=== PATIENT | female | born 1945 | race Caucasian/White ===

== ENCOUNTER → 2016-07-06 | Outpatient (CLI) | payer MEDICARE ==
[2016-07-06 06:46] LABS: EKG EKG PERFORMED
[2016-07-06 07:36] LABS: Basophils % (A) 1 %; CH 31.5; CHCM 33.7; Eosinophils # (A) 0.2 k/uL (0-0.7); Eosinophils % (A) 4 %; HCT 38.4 % (34.0-46.0); HDW 2.52; HGB 13.1 gm/dL (11.4-16.0); Luc # (Auto) 0.19; Luc % (Auto) 4; Lymphocytes # (A) 2.3 k/uL (1.0-4.8); Lymphocytes % (A) 46 %; MCH 32.1 pg (25.0-35.0); MCHC 34.2 g/dL (31.0-37.0); MCV 93.8 fL (80.0-100.0); Mean Platelet Volume 6.4; Monocytes # (A) 0.4 k/uL (0-1.0); Monocytes % (A) 8 %; Neutrophils # (A) 1.8 k/uL (1.3-7.7); Neutrophils % (A) 37 %; RBC 4.09 m/uL (3.80-5.40); RDW 12.1 % (11.5-15.5); WBC (Perox) 5.17
[2016-07-06 07:55] LABS: INR 1.1 (<1.1); Partial Thromboplastin Time 23.9 sec (22.0-30.0); Prothrombin Time 10.6 sec (9.0-12.0)
[2016-07-06 07:57] LABS: Appearance,Urine Clear (Clear); Bilirubin,Urine Negative (Negative); Glucose,Urine (UA) Negative (Negative); Ketones,Urine Negative (Negative); Leukocyte Esterase,Urine Trace (Negative); Mucus,Urine Rare /hpf; Nitrite,Urine Negative (Negative); Particle Count 1364; Protein,Urine Negative (Negative); RBC,Urine 3 /hpf (0-5); Specific Gravity,Urine 1.015 (1.001-1.035); Squamous Epithelial Cell,Urine <1 /hpf (0-4); UA Billing (MACRO vs. MICRO) MICRO; Urobilinogen,Urine <2.0 mg/dL (<2.0); WBC,Urine 5 /hpf (0-5)
[2016-07-06 08:03] LABS: ALT 25 U/L (9-52); AST 27 U/L (14-36); Alkaline Phosphatase 60 U/L (38-126); Anion Gap 9 mmol/L; Blood Urea Nitrogen 15 mg/dL (7-17); Calcium 9.5 mg/dL (8.4-10.2); Carbon Dioxide 31 mmol/L (22-30); Chloride 99 mmol/L (98-107); Glucose 77 mg/dL (74-99); Non-African American GFR(MDRD) >60 (>60 ml/min/1.73 sqM); Potassium 4.4 mmol/L (3.5-5.1); Sodium 139 mmol/L (137-145); Total Bilirubin 0.7 mg/dL (0.2-1.3); Total Protein 7.4 g/dL (6.3-8.2)
== END | disposition home or self-care (01) ==
LOC: LABPAT 06:32
PROVIDERS: ATTEND Orthopaedic Surgery
DX: Z01.812 Encounter for preprocedural laboratory examination (principal); Z79.01 Long term (current) use of anticoagulants
CPT/HCPCS: 80053; 81001; 85025; 85610; 85730; 87070; 93005

== ENCOUNTER 2016-07-20 08:38 | Inpatient (IN) | payer MEDICARE ==
[2016-07-13 17:36] VITALS: BMI 25.0
[~2016-07-20 08:38] MED LIST: ACETAMINOPHEN TAB 500 MG TAB PO ONE; DEXAMETHASONE SOD PHOSPHATE 10 MG/ML 1 ML VIAL IV ONE; HYDROmorphone 1 MG/ML 1 ML SYRINGE IVP PRN; MELOXICAM 7.5 MG TAB PO ONE; MIDAZOLAM 2 MG/2 ML VIAL IV PRN; ONDANSETRON 4 MG/2 ML VIAL IVP ONE; ROPIVACAINE 246.25 MG, EPINEPHrine 0.5 MG, KETOROLAC 30 MG, cloNIDine HCL/PF 80 MCG, WA... MISCELLANE ONE; TRANEXAMIC ACID 1,000 MG in SODIUM CHLORIDE 0.9% 100 ML IVPB ONE; ceFAZolin 2 GM in SODIUM CHLORIDE 0.9% 100 ML IVPB ONE
[2016-07-20] MEDS ORDERED: LIDOCAINE 1% 20 ML VIAL (10MG/ML) FOR IV START INTRADERMA ONE (09:25)
[2016-07-20] MEDS: LACTATED RINGERS 1,000 ML IV SCH (09:25)
[2016-07-20 09:28] LABS: Glucose,Whole Blood 77 mg/dL (75-99)
[2016-07-20] MEDS ORDERED: HYDROCORTISONE SUCCINATE 100 MG/2 ML VIAL IV ONE (10:06)
[2016-07-20] MEDS ORDERED: ROPIVACAINE 1,100 MG, SODIUM CHLORIDE 0.9% 330 ML MISCELLANE PRN ×2 (10:17)
--- NOTE | 2016-07-20 10:19 | P.ONQ ---
Anesthesiology Proc Note - PNB - Peripheral Nerve Block Performed Right Adductor Canal Indication: Acute Post-Operative Pain, Requested by physician (Jose Antonio Tate) Sedation Type: Sedate with meaningful contact maintained Preparation: Sterile Dressing Position: Supine Catheter: Indwelling Needle Types: On-Q Needle Size: 100mm (4") Needle Gauge: 20 Technique: Ultrasound Injectate: 0.5% Ropivacaine (see comment for volume) (22cc) Blood Aspirated: No Pain Paresthesia on Injection Noted: No Resistance on Injection: Normal Events: Uneventful and Well Tolerated
[2016-07-20] MEDS ORDERED: MIDAZOLAM 2 MG/2 ML VIAL ONE (10:22)
[2016-07-20] MEDS ORDERED: PROPOFOL 10 MG/ML 20 ML VIAL IV ONE (10:22)
[2016-07-20] MEDS ORDERED: fentaNYL (PF) 50 MCG/ML 2 ML AMP ONE (10:22)
[2016-07-20] MEDS ORDERED: SODIUM CHLORIDE 0.9% 100 ML BAG ONE (10:22)
[2016-07-20] MEDS ORDERED: PHENYLEPHRINE-0.9% NACL SYG 1 MG/10 ML SYRINGE ONE (10:22)
[2016-07-20] MEDS ORDERED: LIDOCAINE 1% INJ 10MG/ML (20 ML MDV) ONE (10:22)
[2016-07-20] MEDS ORDERED: TRANEXAMIC ACID 1,000 MG/10 ML VIAL ONE (10:22)
[2016-07-20] MEDS ORDERED: CLINDAMYCIN 1,800 MG in SODIUM CHLORIDE 0.9% IRRIGATIO 3,000 ML IRRIGATION ONE (10:55)
[2016-07-20] MEDS ORDERED: LACTATED RINGERS 1,000 ML IV ONE (11:08)
--- NOTE | 2016-07-20 11:38 | P.OP ---
Date of Procedure: 07/20/16 Preoperative Diagnosis: Severe osteoarthritis right knee Postoperative Diagnosis: Severe osteoarthritis right knee Procedure(s) Performed: Right total knee arthroplasty Implants: Harris [employer] Nephew Oxinium femoral component size 5, right Harris & Nephew Ingrid II right nonporous tibial baseplate size 5 Harris [employer] Nephew size 9 mm Legion XLPE dished articular insert, size 5-6 Harris [employer] Nephew Ingrid II resurfacing patellar component, 32 mm All components were cemented using Chandra bone cement.. The articulation is ceramic on polyethylene. Anesthesia: spinal Surgeon: Jose Antonio Tate Sound Mixer #1: Fe Baldwin Estimated Blood Loss (ml): 50 Pathology: other (Bone and cartilage) Condition: stable Disposition: PACU Indications for Procedure: After failure of conservative treatment we discussed the surgical and nonsurgical treatment options at length. Patient wishes to proceed with a total knee arthroplasty. Complications specific to this procedure were discussed at length, including but not limited to infection, bleeding, stiffness , and nerve injury. Patient is aware of all these complications and informed consent was obtained Operative Findings: The operative findings are consistent with severe osteoarthritis of the right knee. Description of Procedure: Patient was seen in the preoperative area consent was reviewed and operative site was marked with a skin marker. An adductor canal pain catheter was placed by anesthesia in the preoperative area. Patient was then brought to the operating room and given preoperative antibiotics intravenously. A spinal anesthetic was administered by the anesthesia department. A tourniquet was placed on the upper thigh and the lower extremity was prepped and draped in usual sterile fashion. A gram of transexamic acid was given. A universal timeout was then performed which confirmed the patient's name, surgical site, ALLERGIES, and consent. The lower extremity was then exsanguinated and tourniquet was inflated to 250 mmHg. A standard and anterior midline approach to the knee was performed. The skin and subcutaneous tissue was dissected down to the patellar tendon. A medial parapatellar arthrotomy was then performed. The knee was then extended, the patellar was everted, and the knee was again flexed. Anterior horns of both menisci were excised, and a release was performed to the posterior medial aspect of the knee. On gross visual inspection, there was complete loss of articular cartilage in the medial and patellofemoral joint spaces. There was also significant cartilage damage in the lateral compartment. There were multiple periarticular osteophytes which were then removed with a Ronguer. The femoral canal was then opened with the appropriate drill, and the intramedullary femoral cutting guide was then placed and set for 4 of valgus. The distal femoral cutting block was then pinned in place, and the distal femur was then cut. The cutting block was then removed and the cut was checked for flatness. Next, the sizing guide was then placed and set for 3 external rotation based off of the epicondylar axis and Whitesides line. After the femur was sized, the appropriate 4-in-1 cutting block was then pinned in place. The anterior condyles were cut without notching. The posterior and chamfer cuts were performed while protecting the collateral ligaments. The cutting block was then removed, and the femoral canal was plugged with autologous bone. Attention was then directed to the tibia. The remaining ACL was removed with a Ronguer, and the tibia was then gently subluxed forward with a large bent knee retractor. Any remaining menisci was excised. The posterior lateral corner was cauterized in order to cauterize the lateral geniculate artery. The extra medullary tibial cutting guide was then placed, set for the appropriate rotation , slope, and depth of resection. The proximal tibia cutting guide was then pinned in place. Proximal tibia was then cut and sized. Next trials were then placed with the appropriate-sized insert. The knee was able to fully extend and flex to 130 and was stable throughout all range of motion. The knee was then extended, patella everted. Patella was then measured, and then using an osteotomy guide, the patella was cut at the appropriate level. The patella was then measured and drilled and the patella trial was then placed. The knee was then taken through range of motion with the patella trial and the patella tracked normally. The knee was then extended patella trial was then removed and the patella was everted. Knee was then flexed and lug holes were drilled through the femoral trial and the femoral trial was then removed. The tibial was then exposed, and the tibial broach guide was then pinned in place after it was set for the appropriate rotation to allow for the most coverage without overhang. The tibia was then reamed and broached. The cut surfaces of bone were then irrigated with pulsatile lavage. The posterior structures were injected with the ropivacaine solution. The knee was also irrigated with Irrisept solution. The components were then opened, the cement was mixed, and the components were then cemented in place. The cement was allowed to harden with the knee in full extension. While the cement was hardening, the remaining soft tissues were injected with the ropivacaine solution. After the cemented hardened. The tourniquet was released, and hemostasis was obtained. A second gram of transexamic acid was given. The knee was again irrigated. The knee was again taken through range of motion and found to be stable throughout all range of motion of 0-130, and the patella tracked normally. The fascia was then closed with #2 strata fix suture. The subcutaneous tissue was closed with 3-0 Vicryl and 3-0 strata fix. Dermabond tape was used for the skin and placed with the knee in flexion. The patient was placed in a sterile dressing. Patient was then transferred to recovery room in stable condition. The events assistant MARY Milligan was required due the complexity surgery and the need for a skilled wellness assistant. She assisted in positioning, draping , retraction, and closure of the wound.
[2016-07-20] MEDS ORDERED: NA PHOS,M-B/NA PHOS,DI-BA 133 ML ENEMA RECTAL PRN (12:09)
[2016-07-20] MEDS ORDERED: ONDANSETRON 4 MG/2 ML VIAL IVP PRN (12:09)
[2016-07-20] MEDS ORDERED: MAGNESIUM HYDROXIDE 2,400 MG/10 ML CUP PO PRN (12:09)
[2016-07-20] MEDS ORDERED: hydrOXYzine PAMOATE 25 MG CAP PO PRN (12:09)
[2016-07-20] MEDS ORDERED: DIAZEPAM 5 MG TAB PO PRN (12:09)
[2016-07-20] MEDS ORDERED: BISACODYL 10 MG SUPP RECTAL PRN (12:09)
[2016-07-20] MEDS ORDERED: NALOXONE 0.4 MG/ML 1 ML VIAL IV PRN (12:09)
[2016-07-20] MEDS ORDERED: HYDROmorphone 1 MG/ML 1 ML SYRINGE IVP PRN ×3 (12:09)
--- NOTE | 2016-07-20 12:35 | XR ---
EXAMINATION TYPE: XR knee limited RT DATE OF EXAM: 07/20/2016 12:28 PM CLINICAL HISTORY: Postoperative evaluation Two views of the right knee are submitted. Identified are changes of total knee arthroplasty with femoral and tibial components appearing well seated. Postsurgical soft tissue changes are noted. Alignment is anatomic.
[2016-07-20] MEDS ORDERED: SODIUM CHLORIDE 0.9% 1,000 ML IV ONE (14:18)
[2016-07-20] MEDS: ceFAZolin 2 GM in SODIUM CHLORIDE 0.9% 100 ML IVPB SCH ×2 (16:58→23:26)
[2016-07-20] MEDS: SODIUM CHLORIDE 0.9% 1,000 ML IV SCH ×2 (19:03→23:27)
[2016-07-20] MEDS: ASPIRIN 325 MG TAB PO SCH (20:18)
[2016-07-20] MEDS: SENNOSIDES-DOCUSATE SODIUM 1 EACH TAB PO SCH (20:18)
[2016-07-20] MEDS: HYDROcodone/APAP 5-325MG 1 EACH TAB PO PRN (20:19)
[2016-07-20] MEDS: HYDROCORTISONE 10 MG TAB PO SCH (21:06)
[2016-07-20] MEDS: DIAZEPAM 5 MG TAB PO PRN (23:26)
[2016-07-21] MEDS: LACTATED RINGERS 1,000 ML IV SCH (00:25)
[2016-07-21 00:57] LABS: Glucose,Whole Blood 85 mg/dL (75-99)
[2016-07-21] MEDS: HYDROcodone/APAP 5-325MG 1 EACH TAB PO PRN ×4 (02:24→20:36)
[2016-07-21] MEDS: LEVOTHYROXINE 88 MCG TAB PO SCH (05:50)
[2016-07-21] MEDS: SODIUM CHLORIDE 0.9% 1,000 ML IV SCH ×2 (06:59→07:00)
[2016-07-21 07:33] LABS: Basophils # (A) 0.1 k/uL (0-0.2); Basophils % (A) 1 %; CH 31.8; CHCM 33.5; Eosinophils # (A) 0.1 k/uL (0-0.7); Eosinophils % (A) 2 %; HCT 33.8 % (34.0-46.0); HDW 2.56; Luc % (Auto) 2; Lymphocytes # (A) 1.7 k/uL (1.0-4.8); Lymphocytes % (A) 27 %; MCH 31.2 pg (25.0-35.0); MCHC 32.7 g/dL (31.0-37.0); MCV 95.3 fL (80.0-100.0); Mean Platelet Volume 7.1; Monocytes # (A) 0.4 k/uL (0-1.0); Monocytes % (A) 7 %; Neutrophils # (A) 3.9 k/uL (1.3-7.7); Neutrophils % (A) 63 %; RBC 3.54 m/uL (3.80-5.40); RDW 12.4 % (11.5-15.5); WBC 6.3 k/uL (3.8-10.6); WBC (Perox) 6.44
--- NOTE | 2016-07-21 07:59 | P.PN ---
Subjective Principal diagnosis: Status post right total knee arthroplasty This is a pleasant 70-year-old female who is status post right total knee arthroplasty. Today's postoperative day #1. The patient is seen and evaluated at bedside with Dr. Jose Antonio Tate this morning. She's been up walking with a walker. Her pain is under fair control. She has no additional complaints today. She wishes to hold her discharge until tomorrow morning. Objective - Vital Signs Vital signs: Vital Signs Temp 99 F 07/21/16 07:00 Pulse 87 07/21/16 07:38 Resp 18 07/21/16 07:38 BP 108/48 07/21/16 07:00 Pulse Ox 96 07/21/16 07:00 Intake & Output 07/20/16 07/21/16 07/21/16 18:59 06:59 18:59 Intake Total 2601 1400 Output Total 1250 400 Balance 1351 1400 -400 Weight 72.575 kg 72.575 kg Intake: IV 2601 1100 Sodium Chloride 0.9% 1, 1100 000 ml @ 100 mls/hr IV . Q10H KEILY Rx#:[id number] Oral 300 Output: Urine 1200 400 Estimated Blood Loss 50 Other: Voiding Method Toilet Toilet Toilet # Voids 1 3 3 - Exam The patient does not appear in acute distress. Alert and orientated 3. Dressing is clean dry and intact. Calf is soft and nontender. Good foot and ankle motion without difficulty. Sensation and circulatory status is intact. - Labs CBC & Chem 7: 07/21/16 06:54 Labs: Abnormal Lab Results - Last 24 Hours (Table) 07/21/16 Range/Units 06:54 RBC 3.54 L (3.80-5.40) m/uL Hgb 11.0 L (11.4-16.0) gm/dL Hct 33.8 L (34.0-46.0) % Assessment and Plan (1) Primary localized osteoarthritis of right knee Status: Acute (2) Status post right knee replacement Status: Acute Plan: 1. Continue with routine postoperative care. 2. Anticoagulation with aspirin. 3. Physical therapy and CPM today. 4. Appreciate input from medicine. 5. Anticipate discharge to home with home care likely tomorrow.
[2016-07-21] MEDS: ACETYLCYSTEINE 800 MG/4 ML VIAL PO SCH (08:32)
[2016-07-21] MEDS: ASPIRIN 325 MG TAB PO SCH ×2 (08:34→20:24)
[2016-07-21] MEDS: HYDROCORTISONE 10 MG TAB PO SCH ×2 (08:35→20:25)
[2016-07-21] MEDS ORDERED: FLUDROCORTISONE 0.1 MG TAB PO SCH (09:00)
--- NOTE | 2016-07-21 09:27 | P.PN ---
Progress Note - Text The patient is status post right adductor canal catheter placement. The catheter was placed for postoperative pain control, status post total right arthroplasty, postoperative day #1. Ropivacaine 0.2% is infusing at 10 mLs per hour. The patient has no complaints of right lower extremity numbness or weakness. Patient's VAS score is 1-2-10. Assessment: Patient's adductor canal catheter is in place and working appropriately. Plan: continue infusion and adjust it as needed.
[2016-07-21] MEDS: MELOXICAM 7.5 MG TAB PO SCH (09:36)
[2016-07-21] MEDS: HYDROCORTISONE SUCCINATE 100 MG/2 ML VIAL IV SCH ×2 (11:30→20:24)
[2016-07-21] MEDS ORDERED: CYANOCOBALAMIN 500 MCG TAB PO SCH (12:00)
[2016-07-21] MEDS ORDERED: CHOLECALCIFEROL 1,000 UNIT TAB PO SCH (12:00)
[2016-07-21] MEDS ORDERED: CALCIUM CARBONATE 500 MG CHEWABLE PO SCH (12:00)
--- NOTE | 2016-07-21 13:47 | P.CONS ---
History of Present Illness - Reason for Consult Consult date: 07/21/16 Medical management - History of Present Illness This is a 70-year-old female. Her primary care physician is Dr. Kai Wynn. 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 Bernal. Patient has had osteoarthritis of the right knee and came in for an elective right knee total arthroplasty with Dr. Tate. She has had no postop complications and has been active and walking in the hallway. She is eating without nausea or vomiting. She denies any chest pain shortness of breath. She is passing gas. Sensation to her lower extremities is normal. She does state that she had a little bit of clamminess last night and nausea but she thinks it was because she ate too much all of a sudden. No continued symptoms. Review of Systems All systems: negative Constitutional: Denies chills, Denies fever Eyes: denies blurred vision, denies pain Ears, nose, mouth and throat: Denies headache, Denies sore throat Cardiovascular: Denies chest pain, Denies shortness of breath Respiratory: Denies cough Gastrointestinal: Denies abdominal pain, Denies diarrhea, Denies nausea, Denies vomiting Genitourinary: Denies dysuria, Denies hematuria Musculoskeletal: Denies myalgias Integumentary: Denies pruritus, Denies rash Neurological: Denies numbness, Denies weakness Psychiatric: Denies anxiety, Denies depression Endocrine: Denies fatigue, Denies weight change Past Medical History Past Medical History: Osteoarthritis (OA), Thyroid Disorder Additional Past Medical History / Comment(s): THERESA DISEASE, BACK PAIN, SEIZURES A CHILD ONLY, pulmonary fibrosis right lung History of Any Multi-Drug Resistant Organisms: None Reported Past Surgical History: Section, Tubal Ligation Additional Past Surgical History / Comment(s): bronchoscopy Past Anesthesia/Blood Transfusion Reactions: Motion Sickness Past Psychological History: No Psychological Hx Reported Smoking Status: Never smoker Past Alcohol Use History: None Reported Additional Past Alcohol Use History / Comment(s): No street drug or alcohol use. Past Drug Use History: None Reported - Past Family History Father Family Medical History: Cancer Additional Family Medical History / Comment(s): Father at age 79 from lung cancer. Mother Additional Family Medical History / Comment(s): Mother at age 93 from old age with history of Parkinson's. Daughter(s) Additional Family Medical History / Comment(s): She has 3 children with no major medical problems. Medications and Allergies Home Medications Medication Instructions Recorded Confirmed Type Aspirin 81 mg PO DAILY 11/03/13 07/20/16 History Fludrocortisone [Florinef] 0.05 mg PO MOWEFR 11/03/13 07/20/16 History Hydrocortisone [Cortef] 5 mg PO HS 11/03/13 07/20/16 History Hydrocortisone [Cortef] 15 mg PO QAM 11/03/13 07/20/16 History Levothyroxine Sodium [Synthroid] 88 mcg PO DAILY 11/03/13 07/20/16 History Acetylcysteine [Nac] 500 mg PO DAILY 07/13/16 07/20/16 History Calcium Carbonate [Calcium] 600 mg PO DAILY 07/13/16 07/20/16 History Cholecalciferol [Vitamin D3] 5,000 unit PO DAILY 07/13/16 07/20/16 History Cyanocobalamin [Vitamin B-12] 500 mcg PO DAILY 07/13/16 07/20/16 History Naproxen [Naprosyn] 500 mg PO Q12HR 07/13/16 07/20/16 History traMADol HCl [Ultram] 50 mg PO Q6H PRN 07/13/16 07/20/16 History Allergies Allergy/AdvReac Type Severity Reaction Status Date / Time Penicillins Allergy Rash/Hives Verified 07/20/16 09:21 sulfacetamide sodium Allergy Rash/Hives Verified 07/20/16 09:21 [From Sulfamide] Physical Exam Vitals: Vital Signs Temp Pulse Pulse Resp BP BP Pulse Ox 07/21/16 07:38 94 87 18 07/21/16 07:00 99 F 92 18 108/48 96 07/21/16 01:50 98.4 F 87 18 104/51 95 07/20/16 18:46 97.5 F L 93 16 115/67 98 07/20/16 17:48 94 16 07/20/16 16:36 97.9 F 86 16 115/64 07/20/16 15:30 94 16 105/55 98 07/20/16 14:30 96 16 101/49 98 07/20/16 14:00 93 16 92/45 98 07/20/16 13:30 94 16 144/68 98 07/20/16 13:07 91 18 124/58 96 07/20/16 12:52 91 16 97/52 99 07/20/16 12:37 94 16 104/52 100 07/20/16 12:22 92 16 102/51 100 07/20/16 12:07 97.6 F 93 16 112/53 97 Intake and Output 07/20/16 07/21/16 07/21/16 22:59 06:59 14:59 Intake Total 500 900 Output Total 800 400 Balance -300 900 -400 Intake: IV 300 800 Sodium Chloride 0.9% 1, 300 800 000 ml @ 100 mls/hr IV . Q10H KEILY Rx#:[id number] Oral 200 100 Output: Urine 800 400 Other: Voiding Method Toilet Toilet # Voids 2 3 3 Weight 72.575 kg 72.575 kg Patient Weight 07/22/16 06:59 Weight 72.575 kg Gen: This is a 70-year-old female. She is sitting up in bed and appears to be in no acute distress. HEENT: Head is atraumatic, normocephalic. Pupils equal, round. Sclerae is anicteric. NECK: Supple. No JVD. No lymphadenopathy. No thyromegaly. LUNGS: Scattered coarse rhonchi noted. No intercostal retractions. HEART: Regular rate and rhythm. No murmur. ABDOMEN: Soft. Bowel sounds are present. No masses. No tenderness. EXTREMITIES: No pedal edema. No calf tenderness. Dressing is dry and intact of the right knee. No breakthrough bleeding or drainage. NEUROLOGICAL: Patient is awake, alert and oriented x3. Cranial nerves 2 through 12 are grossly intact. Results CBC & Chem 7: 07/21/16 06:54 Labs: Abnormal Lab Results - Last 24 Hours (Table) 07/21/16 Range/Units 06:54 RBC 3.54 L (3.80-5.40) m/uL Hgb 11.0 L (11.4-16.0) gm/dL Hct 33.8 L (34.0-46.0) % Assessment and Plan Plan: 1. Osteoarthritis of the right knee status post total knee arthroplasty. Patient has been hemodynamically stable. No postop complications. Continue GI , DVT prophylaxis. Continue incentive spirometry to reduce incidence of atelectasis and hospital-acquired pneumonia. Continue current pain management. PT per orthopedics. 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 3. Hypothyroidism. Continue Synthroid. 4. Calcium, vitamin D and vitamin B12 deficiency. Continue supplements. 5. DVT prophylaxis. Patient is on aspirin 325 mg twice daily. Discharge plan: Home with [facility] tomorrow Impression and plan of care have been directed as dictated by the signing physician. Dorcas Tomas nurse practitioner acting as scribe for signing physician. Time with Patient: Greater than 30
[2016-07-21] MEDS: SENNOSIDES-DOCUSATE SODIUM 1 EACH TAB PO SCH (20:24)
[2016-07-21] MEDS: DIAZEPAM 5 MG TAB PO PRN (22:59)
[2016-07-22] MEDS: HYDROcodone/APAP 5-325MG 1 EACH TAB PO PRN ×2 (05:21→10:28)
[2016-07-22] MEDS: LEVOTHYROXINE 88 MCG TAB PO SCH (05:21)
[2016-07-22] MEDS: HYDROCORTISONE SUCCINATE 100 MG/2 ML VIAL IV SCH (05:22)
[2016-07-22 07:33] VITALS: BP 124/58; PULSE 82; RESP 17; TEMP 97.2
[2016-07-22] MEDS: ASPIRIN 325 MG TAB PO SCH (08:01)
[2016-07-22] MEDS: HYDROCORTISONE 10 MG TAB PO SCH (08:01)
[2016-07-22] MEDS: MELOXICAM 7.5 MG TAB PO SCH (08:03)
[2016-07-22] MEDS: ACETYLCYSTEINE 800 MG/4 ML VIAL PO SCH (08:03)
--- NOTE | 2016-07-22 08:37 | P.DS ---
Providers Date of admission: 07/20/16 08:38 Expected date of discharge: 07/22/16 Attending physician: Jose Antonio Tate Consults: 07/20/16 12:09 Consult Physician Routine Consulting Provider: Scout Bonner Reason/Comments: medical management and reorder home meds Do you want consulting provider notified?: Yes Primary care physician: Kai Wynn - Discharge Diagnosis(es) (1) Primary localized osteoarthritis of right knee Current Visit: Yes Status: Acute (2) Status post right knee replacement Current Visit: Yes Status: Acute Hospital Course: This is a 70-year-old female who was last seen with complaint of continued right knee pain. The patient has a known history of degenerative arthritis of the right knee and presents to discuss surgical options. After discussion and consideration the patient elects to proceed with total right knee arthroplasty. The patient is seen preoperatively by Dr. Wynn and cleared for surgery. The patient is admitted to [facility] for total right knee arthroplasty. The procedures performed without complication or sequelae. Patient is doing well postoperatively. Vital signs are stable at discharge. Labs are stable at discharge. the patient is ambulating well with walker with minimal assistance. The patient is discharged to home on postop day #2 pending medical clearance. Please see orders and refer to the med rec for accurate list of medications. Patient Condition at Discharge: Good Plan - Discharge Summary New Discharge Prescriptions: Aspirin 325 mg PO BID #60 tab Hydrocodone/Acetaminophen [Ludlow 5-325] 1 - 2 each PO Q6HR PRN #90 tab PRN Reason: Pain Sennosides-Docusate Sodium [Senokot-S] 2 tab PO DAILY #60 tablet Discharge Medication List Aspirin 81 mg PO DAILY 11/03/13 [History] Fludrocortisone [Florinef] 0.05 mg PO MOWEFR 11/03/13 [History] Hydrocortisone [Cortef] 5 mg PO HS 11/03/13 [History] Hydrocortisone [Cortef] 15 mg PO QAM 11/03/13 [History] Levothyroxine Sodium [Synthroid] 88 mcg PO DAILY 11/03/13 [History] Acetylcysteine [Nac] 500 mg PO DAILY 07/13/16 [History] Calcium Carbonate [Calcium] 600 mg PO DAILY 07/13/16 [History] Cholecalciferol [Vitamin D3] 5,000 unit PO DAILY 07/13/16 [History] Cyanocobalamin [Vitamin B-12] 500 mcg PO DAILY 07/13/16 [History] Naproxen [Naprosyn] 500 mg PO Q12HR 07/13/16 [History] traMADol HCl [Ultram] 50 mg PO Q6H PRN 07/13/16 [History] Aspirin 325 mg PO BID #60 tab 07/21/16 [Rx] Hydrocodone/Acetaminophen [Ludlow 5-325] 1 - 2 each PO Q6HR PRN #90 tab 07/21/16 [Rx] Sennosides-Docusate Sodium [Senokot-S] 2 tab PO DAILY #60 tablet 07/21/16 [Rx] Follow up Appointment(s)/Referral(s): [facility], [NON-STAFF] - 1 Week Jose Antonio Tate DO [Doctor of Osteopathic Medicine] - 2 Weeks Ambulatory/Diagnostic Orders: Continuous Passive Motion (CPM) Machine [DME.AMB1] Location: Determined By Patient Activity/Diet/Wound Care/Special Instructions: Weightbearing as tolerated with a walker CPM daily Daily dressing changes, keep incision clean and dry Okay to shower after 72 hours with no drainage Leave prineo tape intact [facility] with questions or concerns [phone] script for CPM sent to [facility] call them when you get home and they will deliver it to your home. Discharge Disposition: HOME WITH HOME HEALTH SERVICES
--- NOTE | 2016-07-22 09:07 | P.PN ---
Progress Note - Text 0707. Anesthesia. POD 2. Patient is status post right TKR under spinal anesthesia with a right adductor canal catheter placed for postoperative pain relief. 0.2% ropivacaine is currently running at 10 mL per hour and the patient reports a VAS of 1, 3. Catheter site is intact clean and dry.
[2016-07-22] MEDS ORDERED: HYDROCORTISONE SUCCINATE 100 MG/2 ML VIAL IV SCH (12:00)
== END 2016-07-22 11:40 | disposition home health service (06) | DRG 470 ==
LOC: 2ORMAIN 08:38 → 3SUR 12:07
PROVIDERS: ADMIT Orthopaedic Surgery; ATTEND Orthopaedic Surgery
PROC: 0SRC0J9 Replacement of Right Knee Joint with Synthetic Substitute, Cemented, Open Approach (ICD-10-PCS; principal; 2016-07-20 10:30)
DX: M17.11 Unilateral primary osteoarthritis, right knee (principal); E27.1 Primary adrenocortical insufficiency; J84.10 Pulmonary fibrosis, unspecified; Z88.0 Allergy status to penicillin; Z79.899 Other long term (current) drug therapy; Z88.1 Allergy status to other antibiotic agents; Z79.82 Long term (current) use of aspirin; Z88.2 Allergy status to sulfonamides
CPT/HCPCS: 85025; 88300

== ENCOUNTER 2016-08-29 16:04 | Emergency (ER) | payer MEDICARE ==
[2016-08-29 16:22] VITALS: RESP 18
[2016-08-29] MEDS ORDERED: METOCLOPRAMIDE 5 MG/ML 2 ML VIAL IVP STA (18:57)
[2016-08-29] MEDS ORDERED: SODIUM CHLORIDE 0.9% 1,000 ML IV STA ×2 (18:57)
[2016-08-29] MEDS ORDERED: PANTOPRAZOLE 40 MG/10 ML VIAL IVP STA (18:57)
[2016-08-29] MEDS ORDERED: HYDROCORTISONE SUCCINATE 100 MG/2 ML VIAL IV STA (18:59)
--- NOTE | 2016-08-29 19:04 | ED ---
General Adult HPI - General Chief complaint: Abdominal Pain Stated complaint: hasn't felt good for 4 or 5 days Source: patient, family, RN notes reviewed Mode of arrival: ambulatory Limitations: no limitations - History of Present Illness Initial comments: Chief complaint and history of present illness a 71-year-old female here with her . Patient reports for 2 days up until yesterday she had diarrhea. This morning she had a normal formed stool. In general the patient is feeling weak and tired with poor appetite. Slightly hot and cold. 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 She will receive here. She denies any fever. She's had right lower quadrant discomfort 14 months on-again off-again usually last several minutes. Yesterday was noticeable just prior to having a loose bowel movement and then the pain would go away. She has had an ultrasound of this area without finding any pathology per the . - Related Data Home Medications Medication Instructions Recorded Confirmed Aspirin 81 mg PO DAILY 11/03/13 08/29/16 Fludrocortisone [Florinef] 0.05 mg PO MOWEFR 11/03/13 08/29/16 Hydrocortisone [Cortef] 5 mg PO HS 11/03/13 08/29/16 Hydrocortisone [Cortef] 15 mg PO QAM 11/03/13 08/29/16 Levothyroxine Sodium [Synthroid] 88 mcg PO DAILY 11/03/13 08/29/16 Acetylcysteine [Nac] 500 mg PO DAILY 07/13/16 08/29/16 Calcium Carbonate [Calcium] 600 mg PO DAILY 07/13/16 08/29/16 Cholecalciferol [Vitamin D3] 5,000 unit PO DAILY 07/13/16 08/29/16 Cyanocobalamin [Vitamin B-12] 500 mcg PO DAILY 07/13/16 08/29/16 traMADol HCl [Ultram] 50 mg PO Q6H PRN 07/13/16 08/29/16 Hydrocodone/Acetaminophen [[place] 1 - 2 tab PO Q6HR PRN 08/29/16 08/29/16 5-325] Previous Rx's Medication Instructions Recorded Ondansetron Odt [Zofran ODT] 4 mg PO Q8HR PRN #5 tab 08/29/16 Allergies Allergy/AdvReac Type Severity Reaction Status Date / Time Penicillins Allergy Rash/Hives Verified 08/29/16 18:33 sulfacetamide sodium Allergy Rash/Hives Verified 08/29/16 18:33 [From Sulfamide] Review of Systems ROS Statement: Those systems with pertinent positive or pertinent negative responses have been documented in the HPI. Review of systems. Patient's denying any visual acuity or headache no chest pain or shortness of breath. She reports she just feels generally weak and nauseated but no vomiting. Loose stool for 2 days he stopped yesterday normal stool today. No rashes. Poor appetite. Feels weak and tired. Patient denies any neuro deficits. All systems were reviewed. 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 Her surgeries include , tubal ligation and bronchoscopy. The patient's family history significant for a sister had brain cancer, father of lung cancer in her mother had Parkinson's. Patient has ALLERGIES to penicillin and sulfa. Nonsmoker nondrinker. ROS Other: All systems not noted in ROS Statement are negative. Past Medical History Past Medical History: Osteoarthritis (OA), Thyroid Disorder Additional Past Medical History / Comment(s): RANDY DISEASE, BACK PAIN, SEIZURES A CHILD ONLY, pulmonary fibrosis right lung History of Any Multi-Drug Resistant Organisms: None Reported Past Surgical History: Section, Tubal Ligation Additional Past Surgical History / Comment(s): bronchoscopy Past Anesthesia/Blood Transfusion Reactions: Motion Sickness Past Psychological History: No Psychological Hx Reported Smoking Status: Never smoker Past Alcohol Use History: None Reported Additional Past Alcohol Use History / Comment(s): No street drug or alcohol use. Past Drug Use History: None Reported - Past Family History Mother Additional Family Medical History / Comment(s): Mother at age 93 from old age with history of Parkinson's. Daughter(s) Additional Family Medical History / Comment(s): She has 3 children with no major medical problems. Father Family Medical History: Cancer Additional Family Medical History / Comment(s): Father at age 79 from lung cancer. General Exam - General Exam Comments Initial Comments: General: The patient is awake and alert, states she hasn't feel well in general, weak and tired, poor appetite. Loose stool for 2 days he stopped yesterday. Vital signs shows temperature 97.7 pulse 97 respiratory rate 18 pulse ox 97% room air blood pressure 136/64 Eye: Pupils are equal, round and reactive to light, extra-ocular movements are intact ; there is normal conjunctiva bilaterally. No signs of icterus. Ears, nose, mouth and throat: There are moist mucous membranes and no oral lesions. Neck: The neck is supple, there is no tenderness , no anterior cervical lymphadenopathy, thyroid normal. Cardiovascular: There is a regular rate and rhythm. No murmur, rub or gallop is appreciated. Respiratory: Lungs are clear to auscultation, respirations are non-labored, breath sounds are equal. No wheezes, stridor, rales, or rhonchi. Gastrointestinal: Soft, non-distended, non-tender abdomen without masses or organomegaly noted. There is no rebound or guarding present. No CVA tenderness. Bowel sounds are unremarkable. No pain to deep palpation to the right lower quadrant. Back: No complaint of back pain, full range of motion. Musculoskeletal: Normal ROM, no tenderness, There is no pedal edema. There is no calf tenderness or swelling. Sensation intact. Pulses equal bilaterally 2+. Neurological: No neuro deficits. She is generally feels weak and tired with poor appetite. Skin: Skin is warm and dry and no rashes or lesions are noted. Limitations: no limitations Course Vital Signs 08/29/16 08/29/16 16:19 21:00 Temperature 97.7 F 98.0 F Pulse Rate 97 94 Respiratory 18 18 Rate Blood Pressure 136/64 119/57 O2 Sat by Pulse 97 96 Oximetry Medical Decision Making - Medical Decision Making Medical decision making the patient's white count 5.6 hemoglobin 13 hematocrit 39, potassium 4.2 with a BUN 11 creatinine 0.64 the GFR greater than 60. Glucose 93. Amylase and lipase within normal limits. Urine shows no signs of infection. X-rays of the abdomen done and reviewed radiologist his impression is there is no sign of intestinal obstruction or pneumoperitoneum. Fecal pattern is normal. There is no sign of mass. There are no pathologic calcifications over the kidneys. Impression; nonacute abdomen. No change compared to old exam. As read by Dr. Eli Patient received some IV fluids and 100 mg of hydrocortisone. Patient reports she is feeling better. Labs are reviewed all the normal limits no acute findings are noted on the x-rays of the abdomen. The patient was offered admission if she felt as though it would be more beneficial than going home. Patient wants to go home states she's had normal bowel movements for 2 days no longer nauseated feels better with the IV fluids medications on board knows that she can increase her own steroid when she is having a stressful situation. Patient was told return emergency room if she has any difficulties. - Lab Data Result diagrams: 08/29/16 19:17 08/29/16 19:17 Lab Results 08/29/16 08/29/16 08/29/16 Range/Units 19:17 19: 19:17 WBC 5.6 (3.8-10.6) k/uL RBC 4.28 (3.80-5.40) m/uL Hgb 13.1 (11.4-16.0) gm/dL Hct 39.3 (34.0-46.0) % MCV 91.8 (80.0-100.0) fL MCH 30.6 (25.0-35.0) pg MCHC 33.4 (31.0-37.0) g/dL RDW 12.5 (11.5-15.5) % Plt Count 347 (150-450) k/uL Neutrophils % 47 % Lymphocytes % 38 % Monocytes % 8 % Eosinophils % 2 % Basophils % 1 % Neutrophils # 2.7 (1.3-7.7) k/uL Lymphocytes # 2.1 (1.0-4.8) k/uL Monocytes # 0.4 (0-1.0) k/uL Eosinophils # 0.1 (0-0.7) k/uL Basophils # 0.0 (0-0.2) k/uL Sodium 135 L (137-145) mmol/L Potassium 4.2 (3.5-5.1) mmol/L Chloride 98 (98-107) mmol/L Carbon Dioxide 26 (22-30) mmol/L Anion Gap 11 mmol/L BUN 11 (7-17) mg/dL Creatinine 0.64 (0.52-1.04) mg/dL Est GFR (MDRD) Af Amer >60 (>60 ml/min/1.73 sqM) Est GFR (MDRD) Non-Af >60 (>60 ml/min/1.73 sqM) Glucose 93 (74-99) mg/dL Plasma Lactic Acid Steven 1.0 (0.7-2.0) mmol/L Calcium 10.0 (8.4-10.2) mg/dL Total Bilirubin 0.7 (0.2-1.3) mg/dL AST 27 (14-36) U/L ALT 20 (9-52) U/L Alkaline Phosphatase 66 (38-126) U/L Total Protein 7.8 (6.3-8.2) g/dL Albumin 4.5 (3.5-5.0) g/dL Amylase 53 (30-110) U/L Lipase 99 (23-300) U/L Urine Color Urine Appearance (Clear) Urine pH (5.0-8.0) Ur Specific [place] (1.001-1.035) Urine Protein (Negative) Urine Glucose (UA) (Negative) Urine Ketones (Negative) Urine Blood (Negative) Urine Nitrite (Negative) Urine Bilirubin (Negative) Urine Urobilinogen (<2.0) mg/dL Ur Leukocyte Esterase (Negative) Urine RBC (0-5) /hpf Urine WBC (0-5) /hpf Urine Bacteria (None) /hpf 08/29/16 Range/Units 19:30 WBC (3.8-10.6) k/uL RBC (3.80-5.40) m/uL Hgb (11.4-16.0) gm/dL Hct (34.0-46.0) % MCV (80.0-100.0) fL MCH (25.0-35.0) pg MCHC (31.0-37.0) g/dL RDW (11.5-15.5) % Plt Count (150-450) k/uL Neutrophils % % Lymphocytes % % Monocytes % % Eosinophils % % Basophils % % Neutrophils # (1.3-7.7) k/uL Lymphocytes # (1.0-4.8) k/uL Monocytes # (0-1.0) k/uL Eosinophils # (0-0.7) k/uL Basophils # (0-0.2) k/uL Sodium (137-145) mmol/L Potassium (3.5-5.1) mmol/L Chloride (98-107) mmol/L Carbon Dioxide (22-30) mmol/L Anion Gap mmol/L BUN (7-17) mg/dL Creatinine (0.52-1.04) mg/dL Est GFR (MDRD) Af Amer (>60 ml/min/1.73 sqM) Est GFR (MDRD) Non-Af (>60 ml/min/1.73 sqM) Glucose (74-99) mg/dL Plasma Lactic Acid Steven (0.7-2.0) mmol/L Calcium (8.4-10.2) mg/dL Total Bilirubin (0.2-1.3) mg/dL AST (14-36) U/L ALT (9-52) U/L Alkaline Phosphatase (38-126) U/L Total Protein (6.3-8.2) g/dL Albumin (3.5-5.0) g/dL Amylase (30-110) U/L Lipase (23-300) U/L Urine Color Light Yellow Urine Appearance Clear (Clear) Urine pH 6.5 (5.0-8.0) Ur Specific [place] 1.005 (1.001-1.035) Urine Protein Negative (Negative) Urine Glucose (UA) Negative (Negative) Urine Ketones Negative (Negative) Urine Blood Negative (Negative) Urine Nitrite Negative (Negative) Urine Bilirubin Negative (Negative) Urine Urobilinogen <2.0 (<2.0) mg/dL Ur Leukocyte Esterase Small H (Negative) Urine RBC 1 (0-5) /hpf Urine WBC 3 (0-5) /hpf Urine Bacteria Rare H (None) /hpf Disposition Clinical Impression: Diarrhea, History of [place]'s disease Disposition: HOME SELF-CARE Condition: Fair Instructions: Dehydration (ED), Acute Diarrhea (ED) Additional Instructions: Advanced diet, fluids. Use Zofran for nausea. Increase your steroid as directed by your sharepoint architect. Follow-up with family physician return emergency room as needed Prescriptions: Ondansetron Odt [Zofran ODT] 4 mg PO Q8HR PRN #5 tab PRN Reason: Nausea Time of Disposition: 21:17
[2016-08-29 19:32] LABS: Basophils % (A) 1 %; CH 31.4; CHCM 34.3; Eosinophils # (A) 0.1 k/uL (0-0.7); Eosinophils % (A) 2 %; HCT 39.3 % (34.0-46.0); HDW 2.57; HGB 13.1 gm/dL (11.4-16.0); Luc # (Auto) 0.23; Luc % (Auto) 4; Lymphocytes # (A) 2.1 k/uL (1.0-4.8); Lymphocytes % (A) 38 %; MCH 30.6 pg (25.0-35.0); MCHC 33.4 g/dL (31.0-37.0); MCV 91.8 fL (80.0-100.0); Mean Platelet Volume 6.2; Monocytes # (A) 0.4 k/uL (0-1.0); Monocytes % (A) 8 %; Neutrophils # (A) 2.7 k/uL (1.3-7.7); Neutrophils % (A) 47 %; RBC 4.28 m/uL (3.80-5.40); RDW 12.5 % (11.5-15.5); WBC 5.6 k/uL (3.8-10.6); WBC (Perox) 5.74
[2016-08-29 19:40] LABS: ALT 20 U/L (9-52); AST 27 U/L (14-36); Alkaline Phosphatase 66 U/L (38-126); Amylase 53 U/L (30-110); Anion Gap 11 mmol/L; Blood Urea Nitrogen 11 mg/dL (7-17); Carbon Dioxide 26 mmol/L (22-30); Chloride 98 mmol/L (98-107); Glucose 93 mg/dL (74-99); Non-African American GFR(MDRD) >60 (>60 ml/min/1.73 sqM); Potassium 4.2 mmol/L (3.5-5.1); Sodium 135 mmol/L (137-145); Total Bilirubin 0.7 mg/dL (0.2-1.3); Total Protein 7.8 g/dL (6.3-8.2)
[2016-08-29 19:53] LABS: Appearance,Urine Clear (Clear); Bacteria,Urine Rare /hpf; Bilirubin,Urine Negative (Negative); Glucose,Urine (UA) Negative (Negative); Ketones,Urine Negative (Negative); Leukocyte Esterase,Urine Small (Negative); Nitrite,Urine Negative (Negative); PH, Urine 6.5 (5.0-8.0); Particle Count 631; Protein,Urine Negative (Negative); RBC,Urine 1 /hpf (0-5); Specific Gravity,Urine 1.005 (1.001-1.035); UA Billing (MACRO vs. MICRO) MICRO; Urobilinogen,Urine <2.0 mg/dL (<2.0); WBC,Urine 3 /hpf (0-5)
--- NOTE | 2016-08-29 19:53 | XR ---
EXAMINATION TYPE: XR abdomen 2V DATE OF EXAM: 08/29/2016 7:48 PM COMPARISON 01/03/2013 HISTORY: Abdominal pain TECHNIQUE: 3 views FINDINGS: There is no sign of intestinal obstruction or pneumoperitoneum. Fecal pattern is normal. Th ere is no sign of a mass. There are no pathologic calcifications over the kidneys. IMPRESSION: Nonacute abdomen. No change compared to old exam.
[2016-08-29 21:01] VITALS: BP 119/57; PULSE 94; TEMP 98
[2016-08-29] MEDS ORDERED: ONDANSETRON 4 MG ODT STARTER PACK 2 TAB BTL PO STA (21:16)
== END 2016-08-29 21:41 | disposition home or self-care (01) ==
LOC: EC 16:04
DX: R19.7 Diarrhea, unspecified (principal); R10.31 Right lower quadrant pain; R53.1 Weakness; E27.1 Primary adrenocortical insufficiency; M19.90 Unspecified osteoarthritis, unspecified site; E07.9 Disorder of thyroid, unspecified; Z85.9 Personal history of malignant neoplasm, unspecified; Z79.52 Long term (current) use of systemic steroids; Z79.82 Long term (current) use of aspirin; Z79.899 Other long term (current) drug therapy; Z88.0 Allergy status to penicillin; Z88.2 Allergy status to sulfonamides
CPT/HCPCS: 99284; 96374; 96375 ×2; 96361 ×2; 36415; 80053; 82150; 83605; 83690; 85025; 81001; 87086; 74020; J2765; J1720; S0119; C9113

== ENCOUNTER → 2016-11-25 | Outpatient (CLI) | payer MEDICARE ==
[2016-11-25 07:14] LABS: ALT 21 U/L (9-52); AST 26 U/L (14-36); Alkaline Phosphatase 64 U/L (38-126); Anion Gap 10 mmol/L; Blood Urea Nitrogen 16 mg/dL (7-17); Calcium 9.7 mg/dL (8.4-10.2); Carbon Dioxide 30 mmol/L (22-30); Chloride 98 mmol/L (98-107); Glucose 84 mg/dL (74-99); Non-African American GFR(MDRD) >60 (>60 ml/min/1.73 sqM); Potassium 4.4 mmol/L (3.5-5.1); Sodium 138 mmol/L (137-145); Total Bilirubin 0.7 mg/dL (0.2-1.3); Total Protein 7.6 g/dL (6.3-8.2)
== END | disposition home or self-care (01) ==
LOC: LABWHC1 06:32
PROVIDERS: ATTEND Internal Medicine Endocrinology, Diabetes & Metabolism
DX: E06.3 Autoimmune thyroiditis (principal); E27.1 Primary adrenocortical insufficiency
CPT/HCPCS: 36415; 80053; 82306; 84439; 84443

== ENCOUNTER → 2016-12-07 | Outpatient (CLI) | payer MEDICARE ==
--- NOTE | 2016-12-07 12:33 | XR ---
EXAMINATION TYPE: XR lumbosacral spine min 4V DATE OF EXAM: 12/07/2016 CLINICAL HISTORY: Chronic low back pain, history of DDD. TECHNIQUE: Frontal, lateral, and oblique images of the lumbar spine are obtained. COMPARISON: Lumbar spine x-ray October 25, 2012 FINDINGS: Osseous structures are demineralized. There are 5 lumbar type vertebral bodies identified. The lumbar spine shows satisfactory alignment without evidence of acute fracture or dislocation. Ve rtebral body heights are within normal limits. Mild disc space narrowing upper lumbar levels is red emonstrated. No significant spurring is seen. Some facet arthropathy lower lumbar levels is redemonst rated. The oblique images appear within normal limits. The overlying soft tissue appears unremarkabl e. IMPRESSION: Demineralization and multilevel mild degenerative changes as detailed above, no significa nt change from prior study.
--- NOTE | 2016-12-07 12:34 | XR ---
EXAMINATION TYPE: XR thoracic spine 2V DATE OF EXAM: 12/07/2016 CLINICAL HISTORY: Disorder of bone unspecified TECHNIQUE: Frontal, lateral, and swimmer's view of thoracic spine are obtained. COMPARISON: None. FINDINGS: Osseous structures are somewhat demineralized. Thoracic spine show satisfactory alignment w ithout evidence of acute fracture or dislocation. Vertebral body heights and disc space heights are preserved. Multilevel disc calcifications are seen. No significant spurring is noted. Mild atheroscle rotic calcification of overlying descending aorta is present. IMPRESSION: Demineralization with multilevel disc calcifications felt present.
== END | disposition home or self-care (01) ==
LOC: RADXRMAIN 11:34
PROVIDERS: ATTEND Internal Medicine Endocrinology, Diabetes & Metabolism
DX: M47.817 Spondylosis without myelopathy or radiculopathy, lumbosacral region (principal); M51.84 Other intervertebral disc disorders, thoracic region; M81.0 Age-related osteoporosis without current pathological fracture
CPT/HCPCS: 72070; 72110

== ENCOUNTER → 2016-12-08 | Outpatient (CLI) | payer MEDICARE ==
[2016-12-08 07:42] LABS: Non-African American GFR(MDRD) >60 (>60 ml/min/1.73 sqM)
== END | disposition home or self-care (01) ==
LOC: LABWHC1 06:37
PROVIDERS: ATTEND Internal Medicine Endocrinology, Diabetes & Metabolism
DX: M89.9 Disorder of bone, unspecified (principal)
CPT/HCPCS: 36415; 82565; 84075

== ENCOUNTER 2017-01-12 04:40 | Emergency (ER) | payer MEDICARE ==
--- NOTE | 2017-01-12 05:04 | ED ---
General Adult HPI - General Chief complaint: Extremity Problem,Nontraumatic Stated complaint: arm/shoulder pain Time Seen by Provider: 01/12/17 04:45 Source: patient, family, RN notes reviewed Mode of arrival: ambulatory Limitations: no limitations - History of Present Illness Initial comments: Patient is a pleasant 71-year-old female presenting with for left shoulder pain. Symptoms have been present for a few months. Patient did see orthopedics last month and had an injection which did seem to help her. 5 nights ago patient did rollover onto her left shoulder and she heard a pop. Pain has greatly increased since that time. Pain is greatly increased with movement. Discomfort is over the deltoid region. Patient states discomfort is more anterior. No chest pain. No back pain. No neck pain. No history of chronic shoulder problems prior to a few months ago. - Related Data Home Medications Medication Instructions Recorded Confirmed Aspirin 81 mg PO DAILY 11/03/13 08/29/16 Fludrocortisone [Florinef] 0.05 mg PO MOWEFR 11/03/13 08/29/16 Hydrocortisone [Cortef] 5 mg PO HS 11/03/13 08/29/16 Hydrocortisone [Cortef] 15 mg PO QAM 11/03/13 08/29/16 Levothyroxine Sodium [Synthroid] 88 mcg PO DAILY 11/03/13 08/29/16 Acetylcysteine [Nac] 500 mg PO DAILY 07/13/16 08/29/16 Calcium Carbonate [Calcium] 600 mg PO DAILY 07/13/16 08/29/16 Cholecalciferol [Vitamin D3] 5,000 unit PO DAILY 07/13/16 08/29/16 Cyanocobalamin [Vitamin B-12] 500 mcg PO DAILY 07/13/16 08/29/16 traMADol HCl [Ultram] 50 mg PO Q6H PRN 07/13/16 08/29/16 Hydrocodone/Acetaminophen [[place] 1 - 2 tab PO Q6HR PRN 08/29/16 08/29/16 5-325] Previous Rx's Medication Instructions Recorded Ondansetron Odt [Zofran ODT] 4 mg PO Q8HR PRN #5 tab 08/29/16 traMADol HCl [Ultram] 50 mg PO Q6H PRN #20 tab 01/12/17 Allergies Allergy/AdvReac Type Severity Reaction Status Date / Time Penicillins Allergy Rash/Hives Verified 01/12/17 04:50 sulfacetamide sodium Allergy Rash/Hives Verified 01/12/17 04:50 [From Sulfamide] Review of Systems ROS Statement: Those systems with pertinent positive or pertinent negative responses have been documented in the HPI. ROS Other: All systems not noted in ROS Statement are negative. Constitutional: Denies: fever Eyes: Denies: eye pain ENT: Denies: ear pain Respiratory: Denies: cough, dyspnea Cardiovascular: Denies: chest pain Endocrine: Denies: fatigue Gastrointestinal: Denies: abdominal pain Genitourinary: Denies: dysuria Musculoskeletal: Reports: arthralgia. Denies: back pain Skin: Denies: lesions Neurological: Denies: weakness Past Medical History Past Medical History: Osteoarthritis (OA), Thyroid Disorder Additional Past Medical History / Comment(s): THERESA DISEASE, BACK PAIN, SEIZURES A CHILD ONLY, pulmonary fibrosis right lung History of Any Multi-Drug Resistant Organisms: None Reported Past Surgical History: Section, Tubal Ligation Additional Past Surgical History / Comment(s): bronchoscopy Past Anesthesia/Blood Transfusion Reactions: Motion Sickness Past Psychological History: No Psychological Hx Reported Smoking Status: Never smoker Past Alcohol Use History: None Reported Past Drug Use History: None Reported - Past Family History Mother Additional Family Medical History / Comment(s): Mother at age 93 from old age with history of Parkinson's. Daughter(s) Additional Family Medical History / Comment(s): She has 3 children with no major medical problems. Father Family Medical History: Cancer Additional Family Medical History / Comment(s): Father at age 79 from lung cancer. General Exam Limitations: no limitations General appearance: alert, in no apparent distress Head exam: Present: atraumatic Eye exam: Present: normal appearance, PERRL ENT exam: Present: normal oropharynx Neck exam: Present: normal inspection. Absent: tenderness Respiratory exam: Present: normal lung sounds bilaterally Cardiovascular Exam: Present: regular rate, normal rhythm Expanded Peripheral pulses: 2+: Radial (L) GI/Abdominal exam: Present: soft. Absent: tenderness Extremities exam: Present: normal inspection, tenderness (Mild tenderness left deltoid), other (Pain and limited active range of motion. Minimal pain with passive range of motion.) Back exam: Present: normal inspection Neurological exam: Present: alert. Absent: motor sensory deficit Psychiatric exam: Present: normal affect, normal mood Skin exam: Present: normal color Course Vital Signs 01/12/17 04:43 Temperature 97.3 F L Pulse Rate 92 Respiratory 20 Rate Blood Pressure 139/83 O2 Sat by Pulse 98 Oximetry EKG Findings - EKG Comments: EKG Findings:: Normal sinus rhythm 85. MI 154. QRS 106. QT 376. QTc 447. Normal axis. Incomplete right bundle-branch block. No acute ST change. Medical Decision Making - Medical Decision Making Patient and family updated. - Radiology Data Interpreted by me: Left shoulder x-ray shows some arthritic changes, no acute process. Disposition Clinical Impression: Shoulder pain, left Disposition: HOME SELF-CARE Condition: Stable Instructions: Shoulder Pain (ED) Additional Instructions: Please follow-up with your primary care physician and Dr. Tate this week. Return for increased pain, weakness, chest pain, worsening symptoms, swelling or other concerns. [id number] Motrin as needed. Prescriptions: traMADol HCl [Ultram] 50 mg PO Q6H PRN #20 tab PRN Reason: Pain/Discomfort Referrals: Tashi Peguero MD [Primary Care Provider] - 1-2 days Jose Antonio Tate DO [Doctor of Osteopathic Medicine] - 1-2 days Time of Disposition: 05:52
[2017-01-12] MEDS ORDERED: KETOROLAC 60 MG/2 ML VIAL IM STA (05:51)
[2017-01-12] MEDS ORDERED: MORPHINE SULFATE 10 MG/ML SYRINGE IM STA (05:51)
--- NOTE | 2017-01-12 06:00 | XR ---
History: Reason: Pain Exam: XR LEFT SHOULDER 3 views Comparison: 08/21/2012 FINDINGS: No fracture or dislocation. No osseous lesion identified. The soft tissues appear unremarkable. IMPRESSION: No fracture or dislocation.
[2017-01-12 06:06] VITALS: BP 123/57; PULSE 72; RESP 18; TEMP 98
== END 2017-01-12 06:06 | disposition home or self-care (01) ==
LOC: EC 04:40
DX: M25.512 Pain in left shoulder (principal); M19.90 Unspecified osteoarthritis, unspecified site; E07.9 Disorder of thyroid, unspecified; Z79.82 Long term (current) use of aspirin; Z88.0 Allergy status to penicillin; Z88.2 Allergy status to sulfonamides
CPT/HCPCS: 93005; 73030; 99283; 96372 ×2; J2270; J1885

== ENCOUNTER 2017-01-12 07:09 | Emergency (ER) | payer MEDICARE ==
[2017-01-12] MEDS ORDERED: SODIUM CHLORIDE 0.9% 1,000 ML IV STA (07:14)
[2017-01-12] MEDS ORDERED: SODIUM CHLORIDE 0.9% 500 ML IV STA (07:14)
[2017-01-12 07:17] VITALS: TEMP 97
--- NOTE | 2017-01-12 07:23 | ED ---
Syncope HPI - General Stated Complaint: Seizure Time Seen by Provider: 01/12/17 07:09 Source: patient, EMS, RN notes reviewed, old records reviewed Mode of arrival: EMS Limitations: no limitations - History of Present Illness Initial Comments: This is a 71-year-old female with a history of a seizure 40 years ago also history of arthritis in her extremities with a history of knee replacement on the right a future knee replacement on the left and left shoulder arthritis who just left emergency department after receiving IM shots of morphine and Toradol and she passed out at home. She apparently sat down to eat her breakfast and fainted as per EMS witnessed by her . She has several seconds of tonic- clonic type activity she was incontinent of urine. EMS was called she was found have a blood pressure of 90/56. He'll clammy and confused as any postictal type state. She quickly recovered and route from home. Upon arrival she is awake alert oriented 4. She does state this happened last time she received morphine. Other than her chronic left shoulder pain she denies any headache dizziness and neck pain blurry vision loss of function of her upper or lower extremities or any other complaints at this time MD Complaint: loss of consciousness, seizure - Related Data Home Medications Medication Instructions Recorded Confirmed Aspirin 81 mg PO DAILY 11/03/13 01/12/17 Fludrocortisone [Florinef] 0.05 mg PO MOWEFR 11/03/13 01/12/17 Hydrocortisone [Cortef] 5 mg PO HS 11/03/13 01/12/17 Hydrocortisone [Cortef] 15 mg PO QAM 11/03/13 01/12/17 Levothyroxine Sodium [Synthroid] 88 mcg PO DAILY 11/03/13 01/12/17 Acetylcysteine [Nac] 500 mg PO DAILY 07/13/16 01/12/17 Calcium Carbonate [Calcium] 600 mg PO DAILY 07/13/16 01/12/17 Cholecalciferol [Vitamin D3] 5,000 unit PO DAILY 07/13/16 01/12/17 Cyanocobalamin [Vitamin B-12] 500 mcg PO DAILY 07/13/16 01/12/17 Previous Rx's Medication Instructions Recorded traMADol HCl [Ultram] 50 mg PO Q6H PRN #20 tab 01/12/17 Allergies Allergy/AdvReac Type Severity Reaction Status Date / Time morphine Allergy SEZIURE Verified 01/12/17 08:04 Penicillins Allergy Rash/Hives Verified 01/12/17 08:04 sulfacetamide sodium Allergy Rash/Hives Verified 01/12/17 08:04 [From Sulfamide] azithromycin AdvReac Rash/Hives Verified 01/12/17 08:04 [From Zithromax Z-Benito] Review of Systems ROS Statement: Those systems with pertinent positive or pertinent negative responses have been documented in the HPI. ROS Other: All systems not noted in ROS Statement are negative. Past Medical History Past Medical History: Osteoarthritis (OA), Thyroid Disorder Additional Past Medical History / Comment(s): THERESA DISEASE, BACK PAIN, SEIZURES A CHILD ONLY, pulmonary fibrosis right lung History of Any Multi-Drug Resistant Organisms: None Reported Past Surgical History: Section, Tubal Ligation Additional Past Surgical History / Comment(s): bronchoscopy Past Anesthesia/Blood Transfusion Reactions: Motion Sickness Past Psychological History: No Psychological Hx Reported Smoking Status: Never smoker Past Alcohol Use History: None Reported Past Drug Use History: None Reported - Past Family History Mother Additional Family Medical History / Comment(s): Mother at age 93 from old age with history of Parkinson's. Daughter(s) Additional Family Medical History / Comment(s): She has 3 children with no major medical problems. Father Family Medical History: Cancer Additional Family Medical History / Comment(s): Father at age 79 from lung cancer. General Exam - General Exam Comments Initial Comments: This is a well-developed well-nourished awake alert oriented 3 female Limitations: no limitations General appearance: alert, in no apparent distress Head exam: Present: atraumatic, normocephalic, normal inspection Eye exam: Present: normal appearance, PERRL, EOMI. Absent: scleral icterus, conjunctival injection, periorbital swelling ENT exam: Present: mucous membranes dry Neck exam: Present: normal inspection. Absent: tenderness, meningismus, lymphadenopathy Respiratory exam: Present: normal lung sounds bilaterally. Absent: respiratory distress, wheezes, rales, rhonchi, stridor Cardiovascular Exam: Present: regular rate, normal rhythm, normal heart sounds. Absent: systolic murmur, diastolic murmur, rubs, gallop, clicks GI/Abdominal exam: Present: soft, normal bowel sounds. Absent: distended, tenderness, guarding, rebound, rigid Rectal exam: Present: deferred Extremities exam: Present: full ROM, normal capillary refill, other (The patient does have a sling on her left upper extremity are soft mild tenderness palpation of the left shoulder no evidence of subluxation however. Distal to the shoulder no tenderness palpation pulses are within normal limits normal color.). Absent: tenderness, pedal edema, joint swelling, calf tenderness Back exam: Present: normal inspection Neurological exam: Present: alert, oriented X3, CN II-XII intact Psychiatric exam: Present: normal affect, normal mood Skin exam: Present: warm, dry, intact, normal color. Absent: rash Course Vital Signs 01/12/17 01/12/17 07:13 08:13 Temperature 97.0 F L Pulse Rate 74 86 Respiratory 18 16 Rate Blood Pressure 116/54 144/61 O2 Sat by Pulse 98 98 Oximetry EKG Findings - EKG Results: EKG: interpreted by JARRETT, sinus rhythm (Sinus rhythm with a rate of 78 AR interval 166 QRS duration 100 QT/QTC of 406/462 right atrial enlargement and incomplete right bundle-branch block.) Medical Decision Making - Medical Decision Making Patient is awake alert oriented times. Did have a long discussion with her and her son regarding the findings the presentation is consistent with a vasovagal episode likely reaction also to the morphine. She was cautioned about using morphine in the future. She will be discharged she is follow-up with doctors as planned and return when necessary - Lab Data Result diagrams: 01/12/17 07:32 01/12/17 07:32 Lab Results 01/12/17 01/12/17 01/12/17 Range/Units 07:32 07:32 07:32 WBC 6.6 (3.8-10.6) k/uL RBC 3.92 (3.80-5.40) m/uL Hgb 12.0 (11.4-16.0) gm/dL Hct 37.0 (34.0-46.0) % MCV 94.3 (80.0-100.0) fL MCH 30.6 (25.0-35.0) pg MCHC 32.5 (31.0-37.0) g/dL RDW 13.8 (11.5-15.5) % Plt Count 297 (150-450) k/uL Neutrophils % 43 % Lymphocytes % 44 % Monocytes % 8 % Eosinophils % 3 % Basophils % 1 % Neutrophils # 2.8 (1.3-7.7) k/uL Lymphocytes # 2.9 (1.0-4.8) k/uL Monocytes # 0.5 (0-1.0) k/uL Eosinophils # 0.2 (0-0.7) k/uL Basophils # 0.1 (0-0.2) k/uL PT (9.0-12.0) sec INR (<1.2) APTT (22.0-30.0) sec Sodium 137 (137-145) mmol/L Potassium 3.9 (3.5-5.1) mmol/L Chloride 104 (98-107) mmol/L Carbon Dioxide 26 (22-30) mmol/L Anion Gap 7 mmol/L BUN 16 (7-17) mg/dL Creatinine 0.79 (0.52-1.04) mg/dL Est GFR (MDRD) Af Amer >60 (>60 ml/min/1.73 sqM) Est GFR (MDRD) Non-Af >60 (>60 ml/min/1.73 sqM) Glucose 80 (74-99) mg/dL Calcium 8.8 (8.4-10.2) mg/dL Magnesium 1.7 (1.6-2.3) mg/dL Total Bilirubin 0.9 (0.2-1.3) mg/dL AST 22 (14-36) U/L ALT 21 (9-52) U/L Alkaline Phosphatase 54 (38-126) U/L Total Creatine Kinase 54 (30-135) U/L CK-MB (CK-2) 0.4 (0.0-2.4) ng/mL CK-MB (CK-2) Rel Index 0.7 Troponin I <0.012 (0.000-0.034) ng/mL Total Protein 6.8 (6.3-8.2) g/dL Albumin 3.8 (3.5-5.0) g/dL Urine Color Urine Appearance (Clear) Urine pH (5.0-8.0) Ur Specific [place] (1.001-1.035) Urine Protein (Negative) Urine Glucose (UA) (Negative) Urine Ketones (Negative) Urine Blood (Negative) Urine Nitrite (Negative) Urine Bilirubin (Negative) Urine Urobilinogen (<2.0) mg/dL Ur Leukocyte Esterase (Negative) Urine RBC (0-5) /hpf Urine WBC (0-5) /hpf Ur Squamous Epith Cells (0-4) /hpf Urine Mucus (None) /hpf 01/12/17 01/12/17 Range/Units 07:32 09:10 WBC (3.8-10.6) k/uL RBC (3.80-5.40) m/uL Hgb (11.4-16.0) gm/dL Hct (34.0-46.0) % MCV (80.0-100.0) fL MCH (25.0-35.0) pg MCHC (31.0-37.0) g/dL RDW (11.5-15.5) % Plt Count (150-450) k/uL Neutrophils % % Lymphocytes % % Monocytes % % Eosinophils % % Basophils % % Neutrophils # (1.3-7.7) k/uL Lymphocytes # (1.0-4.8) k/uL Monocytes # (0-1.0) k/uL Eosinophils # (0-0.7) k/uL Basophils # (0-0.2) k/uL PT 10.5 (9.0-12.0) sec INR 1.0 (<1.2) APTT 20.3 L (22.0-30.0) sec Sodium (137-145) mmol/L Potassium (3.5-5.1) mmol/L Chloride (98-107) mmol/L Carbon Dioxide (22-30) mmol/L Anion Gap mmol/L BUN (7-17) mg/dL Creatinine (0.52-1.04) mg/dL Est GFR (MDRD) Af Amer (>60 ml/min/1.73 sqM) Est GFR (MDRD) Non-Af (>60 ml/min/1.73 sqM) Glucose (74-99) mg/dL Calcium (8.4-10.2) mg/dL Magnesium (1.6-2.3) mg/dL Total Bilirubin (0.2-1.3) mg/dL AST (14-36) U/L ALT (9-52) U/L Alkaline Phosphatase (38-126) U/L Total Creatine Kinase (30-135) U/L CK-MB (CK-2) (0.0-2.4) ng/mL CK-MB (CK-2) Rel Index Troponin I (0.000-0.034) ng/mL Total Protein (6.3-8.2) g/dL Albumin (3.5-5.0) g/dL Urine Color Yellow Urine Appearance Cloudy H (Clear) Urine pH 6.0 (5.0-8.0) Ur Specific [place] 1.017 (1.001-1.035) Urine Protein 1+ H (Negative) Urine Glucose (UA) Negative (Negative) Urine Ketones Negative (Negative) Urine Blood Trace H (Negative) Urine Nitrite Negative (Negative) Urine Bilirubin Negative (Negative) Urine Urobilinogen <2.0 (<2.0) mg/dL Ur Leukocyte Esterase Negative (Negative) Urine RBC 3 (0-5) /hpf Urine WBC 3 (0-5) /hpf Ur Squamous Epith Cells <1 (0-4) /hpf Urine Mucus Many H (None) /hpf - Radiology Data Radiology results: report reviewed (I did review the imaging and reports no acute findings.), image reviewed Disposition Clinical Impression: Vasovagal syncope, Medication reaction Disposition: HOME SELF-CARE Condition: Good Instructions: Syncope (ED), Lightheadedness (ED) Additional Instructions: Do not use morphine in the future Referrals: Tashi Peguero MD [Primary Care Provider] - 1-2 days
[2017-01-12 07:51] LABS: Basophils # (A) 0.1 k/uL (0-0.2); Basophils % (A) 1 %; CH 31.7; CHCM 33.7; Eosinophils # (A) 0.2 k/uL (0-0.7); Eosinophils % (A) 3 %; HDW 2.39; Luc # (Auto) 0.18; Luc % (Auto) 3; Lymphocytes # (A) 2.9 k/uL (1.0-4.8); Lymphocytes % (A) 44 %; MCH 30.6 pg (25.0-35.0); MCHC 32.5 g/dL (31.0-37.0); MCV 94.3 fL (80.0-100.0); Mean Platelet Volume 6.8; Monocytes # (A) 0.5 k/uL (0-1.0); Monocytes % (A) 8 %; Neutrophils # (A) 2.8 k/uL (1.3-7.7); Neutrophils % (A) 43 %; RBC 3.92 m/uL (3.80-5.40); RDW 13.8 % (11.5-15.5); WBC 6.6 k/uL (3.8-10.6); WBC (Perox) 6.69
[2017-01-12 07:56] LABS: ALT 21 U/L (9-52); AST 22 U/L (14-36); Alkaline Phosphatase 54 U/L (38-126); Anion Gap 7 mmol/L; Blood Urea Nitrogen 16 mg/dL (7-17); Calcium 8.8 mg/dL (8.4-10.2); Carbon Dioxide 26 mmol/L (22-30); Chloride 104 mmol/L (98-107); Glucose 80 mg/dL (74-99); Magnesium 1.7 mg/dL (1.6-2.3); Non-African American GFR(MDRD) >60 (>60 ml/min/1.73 sqM); Potassium 3.9 mmol/L (3.5-5.1); Sodium 137 mmol/L (137-145); Total Bilirubin 0.9 mg/dL (0.2-1.3); Total Protein 6.8 g/dL (6.3-8.2)
--- NOTE | 2017-01-12 07:57 | CT ---
EXAMINATION TYPE: CT brain wo con DATE OF EXAM: 01/12/2017 COMPARISON: NONE HISTORY: Seizure, recent medication change CT DLP: [address] of the brain was performed. The ventricles, basal cisterns and sulci overlying the cerebral convexities demonstrate mild enlargem ent. There is no evidence for intracranial hemorrhage or sulcal effacement. There is decreased attenuation about the periventricular white matter and deep white matter of both c erebral hemispheres, compatible with chronic small vessel ischemia. Differential diagnosis does inclu de demyelination. No mass effects are seen.No midline shift. Osseous calvarium is intact. If symptoms persist consider MRI. IMPRESSION: 1. Age related atrophic and chronic small vessel ischemic change without acute intracranial process s een at this time.
[2017-01-12 08:10] LABS: Creatine Kinase 54 U/L (30-135)
[2017-01-12 08:17] LABS: Prothrombin Time 10.5 sec (9.0-12.0)
[2017-01-12 08:23] LABS: Creatine Kinase MB 0.4 ng/mL (0.0-2.4); Partial Thromboplastin Time 20.3 sec (22.0-30.0); Troponin I <0.012 ng/mL (0.000-0.034)
--- NOTE | 2017-01-12 08:23 | XR ---
EXAMINATION TYPE: XR chest 2V DATE OF EXAM: 01/12/2017 COMPARISON: 12/27/2016 HISTORY: 71 year-old female with syncope TECHNIQUE: Frontal and lateral views FINDINGS: Heart is normal size. Aorta and pulmonary vasculature within normal limits. There is upward hilar ret raction on both sides with focal upper lung opacities and pleural parenchymal thickening. Visualized mid to lower lungs appear clear. However, there is a possible subtle nodular density in the periphera l left upper lobe. Summation shadow is possible. IMPRESSION: 1. Redemonstrated chronic upper lung predominant disease. Some differential considerations include sa rcoidosis, pneumoconiosis, and sequela of prior atypical infections. No acute change seen. 2. Possible subtle left upper lobe nodule versus summation artifact. Nonemergent follow-up contrast e nhanced CT chest is recommended to exclude pulmonary nodule.
[2017-01-12 09:38] LABS: Appearance,Urine Cloudy (Clear); Bilirubin,Urine Negative (Negative); Glucose,Urine (UA) Negative (Negative); Ketones,Urine Negative (Negative); Leukocyte Esterase,Urine Negative (Negative); Mucus,Urine Many /hpf; Nitrite,Urine Negative (Negative); Particle Count 10239; Protein,Urine 1+ (Negative); RBC,Urine 3 /hpf (0-5); Specific Gravity,Urine 1.017 (1.001-1.035); Squamous Epithelial Cell,Urine <1 /hpf (0-4); UA Billing (MACRO vs. MICRO) MICRO; Urobilinogen,Urine <2.0 mg/dL (<2.0); WBC,Urine 3 /hpf (0-5)
[2017-01-12 10:26] VITALS: BP 95/55; PULSE 81; RESP 15
== END 2017-01-12 10:14 | disposition home or self-care (01) ==
LOC: EC 07:09
DX: R55 Syncope and collapse (principal); T40.2X5A Adverse effect of other opioids, initial encounter; M19.90 Unspecified osteoarthritis, unspecified site; E07.9 Disorder of thyroid, unspecified; Z96.651 Presence of right artificial knee joint; Z79.82 Long term (current) use of aspirin; Z79.51 Long term (current) use of inhaled steroids; Z79.899 Other long term (current) drug therapy; Z88.5 Allergy status to narcotic agent; Z88.0 Allergy status to penicillin; Z88.2 Allergy status to sulfonamides; Z88.1 Allergy status to other antibiotic agents
CPT/HCPCS: 96361 ×3; 96360 ×2; 99285 ×2; 96372; 99283; 36415; 93005; 80053; 82550; 82553; 83735; 84484; 85025; 85610; 85730; 81001; 71020; 73030; 70450; J2270; J1885

== ENCOUNTER → 2017-01-18 | Outpatient (CLI) | payer MEDICARE ==
[2017-01-18 07:21] LABS: CHCM 33.7; HCT 38.1 % (34.0-46.0); HDW 2.44; HGB 12.6 gm/dL (11.4-16.0); MCH 31.4 pg (25.0-35.0); MCHC 32.9 g/dL (31.0-37.0); MCV 95.5 fL (80.0-100.0); Mean Platelet Volume 6.6; RBC 3.99 m/uL (3.80-5.40); RDW 13.6 % (11.5-15.5); WBC 4.9 k/uL (3.8-10.6)
[2017-01-18 07:22] LABS: Partial Thromboplastin Time 24.2 sec (22.0-30.0); Prothrombin Time 10.3 sec (9.0-12.0)
[2017-01-18 07:24] LABS: Appearance,Urine Clear (Clear); Bilirubin,Urine Negative (Negative); Glucose,Urine (UA) Negative (Negative); Ketones,Urine Negative (Negative); Leukocyte Esterase,Urine Trace (Negative); Mucus,Urine Rare /hpf; Nitrite,Urine Negative (Negative); PH, Urine 6.5 (5.0-8.0); Particle Count 820; Protein,Urine Negative (Negative); Specific Gravity,Urine 1.012 (1.001-1.035); UA Billing (MACRO vs. MICRO) MICRO; Urobilinogen,Urine <2.0 mg/dL (<2.0); WBC,Urine 2 /hpf (0-5)
[2017-01-18 07:31] LABS: ALT 26 U/L (9-52); AST 25 U/L (14-36); Alkaline Phosphatase 52 U/L (38-126); Anion Gap 8 mmol/L; Blood Urea Nitrogen 14 mg/dL (7-17); Calcium 9.6 mg/dL (8.4-10.2); Carbon Dioxide 31 mmol/L (22-30); Chloride 100 mmol/L (98-107); Glucose 77 mg/dL (74-99); Non-African American GFR(MDRD) >60 (>60 ml/min/1.73 sqM); Potassium 4.3 mmol/L (3.5-5.1); Sodium 139 mmol/L (137-145); Total Bilirubin 0.6 mg/dL (0.2-1.3)
== END | disposition home or self-care (01) ==
LOC: LABPAT 01-14 06:37
PROVIDERS: ATTEND Orthopaedic Surgery
DX: Z01.812 Encounter for preprocedural laboratory examination (principal)
CPT/HCPCS: 80053; 81001; 85027; 85610; 85730; 87070

== ENCOUNTER 2017-02-14 07:30 | Inpatient (IN) | payer MEDICARE ==
[2017-02-08 14:12] VITALS: BMI 24.0
[2017-02-14 08:30] LABS: Glucose,Whole Blood 85 mg/dL (75-99)
[2017-02-14] MEDS ORDERED: HYDROCORTISONE SUCCINATE 100 MG/2 ML VIAL IV ONE (08:32)
[2017-02-14] MEDS ORDERED: BISACODYL 10 MG SUPP RECTAL PRN (09:48)
[2017-02-14] MEDS ORDERED: hydrOXYzine PAMOATE 25 MG CAP PO PRN (09:48)
[2017-02-14] MEDS ORDERED: NALOXONE 0.4 MG/ML 1 ML VIAL IV PRN (09:48)
[2017-02-14] MEDS ORDERED: DIAZEPAM 5 MG TAB PO PRN ×2 (09:48)
[2017-02-14] MEDS ORDERED: NA PHOS,M-B/NA PHOS,DI-BA 133 ML ENEMA RECTAL PRN (09:48)
[2017-02-14] MEDS ORDERED: HYDROcodone/APAP 5-325MG 1 EACH TAB PO PRN (09:48)
[2017-02-14] MEDS ORDERED: MAGNESIUM HYDROXIDE 2,400 MG/10 ML CUP PO PRN (09:48)
[2017-02-14] MEDS ORDERED: HYDROmorphone 1 MG/ML 1 ML SYRINGE IVP PRN ×3 (09:48)
[2017-02-14] MEDS ORDERED: ONDANSETRON 4 MG/2 ML VIAL IVP PRN (09:48)
[2017-02-14] MEDS ORDERED: ROPIVACAINE 1,100 MG, SODIUM CHLORIDE 0.9% 330 ML MISCELLANE PRN ×2 (10:18)
[2017-02-14] MEDS: LACTATED RINGERS 1,000 ML IV SCH (10:19)
[2017-02-14] MEDS ORDERED: MIDAZOLAM 2 MG/2 ML VIAL ONE (10:20)
[2017-02-14] MEDS ORDERED: SODIUM CHLORIDE 0.9% 100 ML BAG ONE (10:20)
[2017-02-14] MEDS ORDERED: diphenhydrAMINE 50 MG/ML 1 ML VIAL ONE (10:20)
[2017-02-14] MEDS ORDERED: TRANEXAMIC ACID 1,000 MG/10 ML VIAL ONE (10:20)
--- NOTE | 2017-02-14 10:20 | P.ONQ ---
Anesthesiology Proc Note - PNB - Peripheral Nerve Block Performed Left Adductor Canal Infusion Time Out Performed: Yes Indication: Acute Post-Operative Pain, Analgesia Specifically requested for management of pain by DrMary Grace: Jose Antonio Tate Sedation Type: Sedate with meaningful contact maintained Preparation: Sterile Prep Position: Supine Catheter Depth at Skin (cm): 6 Catheter: Indwelling Needle Types: Other (see comment) (pajunk) Needle Size: 100mm (4") Needle Gauge: 21 Technique: Ultrasound Injectate: 0.5% Ropivacaine (see comment for volume) (20cc) Blood Aspirated: No Pain Paresthesia on Injection Noted: No Resistance on Injection: Normal Events: Uneventful and Well Tolerated
[2017-02-14] MEDS ORDERED: ROPIVACAINE 5 MG/ML 30 ML VIAL MISCELLANE ONE (10:41)
[2017-02-14] MEDS ORDERED: CLINDAMYCIN 1,800 MG in SODIUM CHLORIDE 0.9% IRRIGATIO 3,000 ML IRRIGATION ONE (10:47)
[2017-02-14] MEDS ORDERED: LACTATED RINGERS 1,000 ML IV ONE (11:12)
--- NOTE | 2017-02-14 11:38 | P.OP ---
Date of Procedure: 02/14/17 Preoperative Diagnosis: Severe osteoarthritis left knee Postoperative Diagnosis: Severe osteoarthritis left knee Procedure(s) Performed: Left total knee arthroplasty Implants: [employer]hew Oxinium femoral component size 5, left Harris [employer]hew Ingrid II left nonporous tibial baseplate size 5 Harris [employer]hew size 9 mm Legion XLPE high flexion articular insert, size 5-6 [employer]hew Ingrid II resurfacing patellar component, 32 mm All components were cemented using Chandra bone cement.. The articulation is ceramic on polyethylene. Anesthesia: spinal Surgeon: Jose Antonio Tate Forestry Worker #1: Lillie Ramírez Estimated Blood Loss (ml): 50 Pathology: other (Bone and cartilage) Condition: stable Disposition: PACU Indications for Procedure: After failure of conservative treatment we discussed the surgical and nonsurgical treatment options at length. Patient wishes to proceed with a total knee arthroplasty. Complications specific to this procedure were discussed at length, including but not limited to infection, bleeding, stiffness , and nerve injury. Patient is aware of all these complications and informed consent was obtained Operative Findings: The operative findings are consistent with severe osteoarthritis of the left knee Description of Procedure: Patient was seen in the preoperative area consent was reviewed and operative site was marked with a skin marker. An adductor canal pain catheter was placed by anesthesia in the preoperative area. Patient was then brought to the operating room and given preoperative antibiotics intravenously. A spinal anesthetic was administered by the anesthesia department. A tourniquet was placed on the upper thigh and the lower extremity was prepped and draped in usual sterile fashion. A gram of transexamic acid was given. A universal timeout was then performed which confirmed the patient's name, surgical site, ALLERGIES, and consent. The lower extremity was then exsanguinated and tourniquet was inflated to 250 mmHg. A standard and anterior midline approach to the knee was performed. The skin and subcutaneous tissue was dissected down to the patellar tendon. A medial parapatellar arthrotomy was then performed. The knee was then extended, the patellar was everted, and the knee was again flexed. Anterior horns of both menisci were excised, and a release was performed to the posterior medial aspect of the knee. On gross visual inspection, there was complete loss of articular cartilage in the medial and patellofemoral joint spaces. There was also significant cartilage damage in the lateral compartment. There were multiple periarticular osteophytes which were then removed with a Ronguer. The femoral canal was then opened with the appropriate drill, and the intramedullary femoral cutting guide was then placed and set for 4 of valgus. The distal femoral cutting block was then pinned in place, and the distal femur was then cut. The cutting block was then removed and the cut was checked for flatness. Next, the sizing guide was then placed and set for 3 external rotation based off of the epicondylar axis and [place] line. After the femur was sized, the appropriate 4-in-1 cutting block was then pinned in place. The anterior condyles were cut without notching. The posterior and chamfer cuts were performed while protecting the collateral ligaments. The cutting block was then removed, and the femoral canal was plugged with autologous bone. Attention was then directed to the tibia. The remaining ACL was removed with a Ronguer, and the tibia was then gently subluxed forward with a large bent knee retractor. Any remaining menisci was excised. The posterior lateral corner was cauterized in order to cauterize the lateral geniculate artery. The extra medullary tibial cutting guide was then placed, set for the appropriate rotation , slope, and depth of resection. The proximal tibia cutting guide was then pinned in place. Proximal tibia was then cut and sized. Next trials were then placed with the appropriate-sized insert. The knee was able to fully extend and flex to 130 and was stable throughout all range of motion. The knee was then extended, patella everted. Patella was then measured, and then using an osteotomy guide, the patella was cut at the appropriate level. The patella was then measured and drilled and the patella trial was then placed. The knee was then taken through range of motion with the patella trial and the patella tracked normally. The knee was then extended patella trial was then removed and the patella was everted. Knee was then flexed and lug holes were drilled through the femoral trial and the femoral trial was then removed. The tibial was then exposed, and the tibial broach guide was then pinned in place after it was set for the appropriate rotation to allow for the most coverage without overhang. The tibia was then reamed and broached. The cut surfaces of bone were then irrigated with pulsatile lavage. The posterior structures were injected with the ropivacaine solution. The knee was also irrigated with Irrisept solution. The components were then opened, the cement was mixed, and the components were then cemented in place. The cement was allowed to harden with the knee in full extension. While the cement was hardening, the remaining soft tissues were then injected with a ropivacaine solution, which consisted of 246.25 mg of ropivacaine, 0.5 mg of epinephrine, 30 mg of Toradol, 80 g of clonidine, and 48.45 mL of sterile water, for a total of 100 mL of fluid injected. After the cemented hardened. The tourniquet was released, and hemostasis was obtained. A second gram of transexamic acid was given. The knee was again irrigated. The knee was again taken through range of motion and found to be stable throughout all range of motion of 0-130 , and the patella tracked normally. The fascia was then closed with #2 strata fix suture. The subcutaneous tissue was closed with 3-0 Vicryl and 3-0 strata fix. Dermabond tape was used for the skin and placed with the knee in flexion. The patient was placed in a sterile dressing. Patient was then transferred to recovery room in stable condition. The instruction assistant principal MARY Wade was required due the complexity surgery and the need for a skilled certified surgical technologist. She assisted in positioning, draping, retraction, and closure of the wound.
--- NOTE | 2017-02-14 13:04 | XR ---
EXAMINATION TYPE: XR knee limited LT DATE OF EXAM: 02/14/2017 COMPARISON: NONE HISTORY: 71-year-old female evaluation for postoperative abnormality in alignment TECHNIQUE: 2 views FINDINGS: Images show placement of left total knee arthroplasty. Both distal femoral and proximal tibial compon ents of the prosthesis appear well seated. There is anterior soft tissue swelling as well as soft tis daltno air with joint effusion and intra-articular air compatible with recent operation. Alignment is gr ossly anatomic. IMPRESSION: Uncomplicated postoperative appearance left total knee arthroplasty.
[2017-02-14] MEDS ORDERED: FLUDROCORTISONE 0.1 MG TAB PO SCH (15:30)
[2017-02-14] MEDS: HYDROcodone/APAP 5-325MG 1 EACH TAB PO PRN (15:36)
[2017-02-14] MEDS: SODIUM CHLORIDE 0.9% 1,000 ML IV SCH (16:50)
[2017-02-14] MEDS: ceFAZolin 2 GM in SODIUM CHLORIDE 0.9% 100 ML IVPB SCH (17:18)
[2017-02-14] MEDS ORDERED: SENNOSIDES-DOCUSATE SODIUM 1 EACH TAB PO SCH (21:00)
[2017-02-14] MEDS ORDERED: HYDROCORTISONE 10 MG TAB PO SCH (21:00)
--- NOTE | 2017-02-14 21:20 | P.CONS ---
History of Present Illness - Reason for Consult Consult date: 02/14/17 Medical management of hypothyroidism, followed fibrosis and other medical - Chief Complaint Elective left total knee arthroplasty - History of Present Illness Patient is a 71-year-old female with a known history of Ashtabula's disease, pulmonary fibrosis and osteoarthritis has been admitted to the hospital for left total arthroplasty elective surgery. Patient previously had right total arthroplasty due to arthritis. 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 Now complains of chest pain or short of breath no palpitations no dizziness or lightheadedness. Patient is able to ambulate with walker. No fever no chills. Review of Systems CONSTITUTIONAL: No fever, no malaise, no fatigue. HEENT: No recent visual problems or hearing problems. Denied any sore throat. CARDIOVASCULAR: No chest pain, orthopnea, PND, no palpitations, no syncope. PULMONARY: , no hemoptysis. GASTROINTESTINAL: No diarrhea, no nausea, no vomiting, no abdominal pain. Normoactive bowel sounds. NEUROLOGICAL: No headaches, no weakness, no numbness. HEMATOLOGICAL: Denies any bleeding or petechiae. GENITOURINARY: Denies any burning micturition, frequency, or urgency. MUSCULOSKELETAL/RHEUMATOLOGICAL: Denies any joint pain, swelling, or any muscle pain. Left knee pain and soreness of the surgical site ENDOCRINE: Denies any polyuria or polydipsia. The rest of the 14-point review of systems is negative. Past Medical History Past Medical History: Osteoarthritis (OA), Thyroid Disorder Additional Past Medical History / Comment(s): THERESA DISEASE, BACK PAIN, SEIZURES A CHILD ONLY, pulmonary fibrosis right lung ,GLAUCOMA History of Any Multi-Drug Resistant Organisms: None Reported Past Surgical History: Section, Tubal Ligation Additional Past Surgical History / Comment(s): bronchoscopy, BIOPSY RIGHT EYE, TOTAL RIGHT KNEE, Past Anesthesia/Blood Transfusion Reactions: Motion Sickness Past Psychological History: No Psychological Hx Reported Smoking Status: Never smoker Past Alcohol Use History: None Reported Additional Past Alcohol Use History / Comment(s): No street drug or alcohol use. Past Drug Use History: None Reported - Past Family History Mother Additional Family Medical History / Comment(s): Mother at age 93 from old age with history of Parkinson's. Daughter(s) Additional Family Medical History / Comment(s): She has 3 children with no major medical problems. Father Family Medical History: Cancer Additional Family Medical History / Comment(s): Father at age 79 from lung cancer. Medications and Allergies Home Medications Medication Instructions Recorded Confirmed Type Aspirin 81 mg PO DAILY 11/03/13 02/14/17 History Fludrocortisone [Florinef] 0.05 mg PO MOWEFR 11/03/13 02/14/17 History Hydrocortisone [Cortef] 5 mg PO HS 11/03/13 02/14/17 History Hydrocortisone [Cortef] 20 mg PO QAM 11/03/13 02/14/17 History Levothyroxine Sodium [Synthroid] 88 mcg PO DAILY 11/03/13 02/14/17 History Calcium Carbonate [Calcium] 600 mg PO DAILY 07/13/16 02/14/17 History Cholecalciferol [Vitamin D3] 5,000 unit PO DAILY 07/13/16 02/14/17 History Cyanocobalamin [Vitamin B-12] 500 mcg PO DAILY 07/13/16 02/14/17 History Acetaminophen Tab [Tylenol Tab] 650 mg PO Q6H PRN 02/08/17 02/14/17 History Acetylcysteine 600mg [Nac] 600 mg PO DAILY 02/14/17 02/14/17 History Allergies Allergy/AdvReac Type Severity Reaction Status Date / Time morphine Allergy SEZIURE Verified 02/14/17 13:52 Penicillins Allergy Rash/Hives Verified 02/14/17 13:52 sulfacetamide sodium Allergy Rash/Hives Verified 02/14/17 13:52 [From Sulfamide] azithromycin AdvReac Rash/Hives Verified 02/14/17 13:52 [From Zithromax Z-Benito] Physical Exam Vitals: Vital Signs Temp Pulse Pulse Resp BP Pulse Ox 02/14/17 15:45 96 117/53 02/14/17 15:30 105 H 16 102/50 92 L 02/14/17 15:15 98 16 117/53 95 02/14/17 15:00 99 16 111/51 92 L 02/14/17 14:45 97 16 116/55 94 L 02/14/17 14:30 93 16 117/58 97 02/14/17 14:15 94 16 107/53 96 02/14/17 14:00 97 16 125/56 97 02/14/17 13:02 93 16 102/52 99 02/14/17 12:46 90 16 96/50 99 02/14/17 12:31 86 16 107/53 99 02/14/17 12:16 88 18 105/50 99 02/14/17 12:08 98.3 F 98 18 167/61 99 02/14/17 08:00 979 F H 95 16 97 Intake and Output 02/14/17 02/14/17 02/14/17 06:59 14:59 22:59 Intake Total 1201 Output Total 50 Balance 1151 Intake: IV 1201 Output: Estimated Blood Loss 50 Other: Weight 67.585 kg Patient Weight 02/15/17 06:59 Weight 67.585 kg PHYSICAL EXAMINATION: Patient is lying in the bed comfortably, no acute distress, awake alert and oriented.. HEENT: Normocephalic. Neck is supple. Pupils reactive. Nostrils clear. Oral cavity is moist. Ears reveal no drainage. Neck reveals no JVD, carotid bruits, or thyromegaly. CHEST EXAMINATION: Trachea is central. Symmetrical expansion. Lung looney clear to auscultation and percussion. Fine crackles at the base. No wheezing CARDIAC: Normal S1, S2 with no gallops. No murmurs ABDOMEN: Soft. Bowel sounds normal. No organomegaly. No abdominal bruits. Extremities reveal no edema. No clubbing or cyanosis. Left knee surgical site intact. Pigtail catheter present Neurologically awake, alert, oriented x3 with well-coordinated movements. Skin: no rash or skin lesions Musculoskeletal: no joint swelling or deformity. Assessment and Plan Plan: #1 left total knee arthroplasty postop day 0 due to severe arthritis #2 hypothyroidism. #3 [place]htabula's disease #4 pulmonary fibrosis. On follow-up with Dr. Bernal in the clinic #5 left shoulder pain #6 DVT prophylaxis Plan: Patient be continued on pain management and home medications including Cortef and thyroid supplements. Patient will be continued on bowel regimen and DVT prophylaxis. We will consider the current management and further accommodations based on the clinical course. Encourage ambulation and incentive spirometry.
[2017-02-14] MEDS: ASPIRIN 325 MG TAB PO SCH (21:29)
[2017-02-15 00:50] VITALS: PULSE 82; RESP 16
[2017-02-15] MEDS: ceFAZolin 2 GM in SODIUM CHLORIDE 0.9% 100 ML IVPB SCH (02:29)
[2017-02-15] MEDS: SODIUM CHLORIDE 0.9% 1,000 ML IV SCH (02:29)
[2017-02-15] MEDS: HYDROcodone/APAP 5-325MG 1 EACH TAB PO PRN ×3 (03:52→15:02)
[2017-02-15] MEDS ORDERED: LEVOTHYROXINE 88 MCG TAB PO SCH (06:30)
[2017-02-15] MEDS: LACTATED RINGERS 1,000 ML IV SCH (06:58)
[2017-02-15 07:32] VITALS: BP 131/57; TEMP 98.1
[2017-02-15 07:52] LABS: Basophils % (A) 0 %; CH 30.5; Eosinophils % (A) 0 %; HCT 32.8 % (34.0-46.0); HDW 2.49; HGB 11.1 gm/dL (11.4-16.0); Luc # (Auto) 0.13; Luc % (Auto) 1; Lymphocytes # (A) 1.2 k/uL (1.0-4.8); Lymphocytes % (A) 11 %; MCH 31.5 pg (25.0-35.0); MCV 92.6 fL (80.0-100.0); Mean Platelet Volume 6.4; Monocytes # (A) 0.7 k/uL (0-1.0); Monocytes % (A) 6 %; Neutrophils # (A) 8.9 k/uL (1.3-7.7); Neutrophils % (A) 81 %; RBC 3.54 m/uL (3.80-5.40); RDW 12.7 % (11.5-15.5); WBC 10.9 k/uL (3.8-10.6); WBC (Perox) 11.45
[2017-02-15] MEDS: ASPIRIN 325 MG TAB PO SCH (07:58)
[2017-02-15 08:08] LABS: Anion Gap 8 mmol/L; Blood Urea Nitrogen 20 mg/dL (7-17); Calcium 8.9 mg/dL (8.4-10.2); Carbon Dioxide 29 mmol/L (22-30); Chloride 99 mmol/L (98-107); Glucose 84 mg/dL (74-99); Non-African American GFR(MDRD) >60 (>60 ml/min/1.73 sqM); Potassium 4.2 mmol/L (3.5-5.1); Sodium 136 mmol/L (137-145)
[2017-02-15] MEDS ORDERED: MELOXICAM 7.5 MG TAB PO SCH (09:00)
[2017-02-15] MEDS ORDERED: ACETYLCYSTEINE 800 MG/4 ML VIAL PO SCH (09:00)
[2017-02-15] MEDS ORDERED: HYDROCORTISONE 10 MG TAB PO SCH (09:00)
--- NOTE | 2017-02-15 10:43 | P.PN ---
Progress Note - Text 0728 anesthesia POD 1. Patient is status post left TKR under spinal anesthesia with a left adductor canal catheter placed for postoperative pain relief. With ropivacaine 0.2% running at 8 mL per hour the patient's VAS is (2, 4). Catheter site dressing is clean dry and intact.
[2017-02-15] MEDS ORDERED: CYANOCOBALAMIN 500 MCG TAB PO SCH (12:00)
[2017-02-15] MEDS ORDERED: CALCIUM CARBONATE 500 MG CHEWABLE PO SCH (12:00)
[2017-02-15] MEDS ORDERED: CHOLECALCIFEROL 1,000 UNIT TAB PO SCH (12:00)
--- NOTE | 2017-02-15 14:58 | P.DS ---
Providers Date of admission: 02/14/17 07:51 Expected date of discharge: 02/15/17 Attending physician: Jose Antonio Tate Consults: 02/14/17 09:48 Consult Physician Routine Consulting Provider: Maurice Jones Consult Reason/Comments: medical management Do you want consulting provider notified?: Yes Primary care physician: Stated None - Discharge Diagnosis(es) (1) Primary osteoarthritis of left knee Current Visit: Yes Status: Acute (2) Status post knee replacement Current Visit: Yes Status: Acute Hospital Course: This is a 71-year-old female with known history of degenerative arthritis of the left knee. The patient presents for evaluation. After discussion and consideration patient elects to proceed with total knee arthroplasty. The patient is seen preoperatively by Dr. Tate and cleared for surgery. Patient is admitted to [facility] on 02/14/2017 for total knee arthroplasty. The procedures performed without complication or sequelae. The patient is doing well postoperatively. Labs and vital signs are stable on day of discharge. On day of discharge patient's knee incision is healing well. There is minimal erythema. There is minimal drainage noted at this time. There is minimal soft tissue swelling to the knee. Patient has full foot and ankle motion without difficulty or pain. Neurovascular status to the left lower extremity is intact. Patient is discharged home in good condition. Please see med rec for accurate list of home medications. Plan - Discharge Summary New Discharge Prescriptions: New Aspirin 325 mg PO BID #60 tab HYDROcodone/APAP 5-325MG [Casselberry 5-325] 1 - 2 tab PO Q4-6H PRN #90 tab PRN Reason: Pain Sennosides-Docusate Sodium [Senokot-S] 1 tab PO BID #60 tablet No Action Levothyroxine Sodium [Synthroid] 88 mcg PO DAILY Fludrocortisone [Florinef] 0.05 mg PO MOWEFR Hydrocortisone [Cortef] 20 mg PO QAM Hydrocortisone [Cortef] 5 mg PO HS Aspirin 81 mg PO DAILY Cyanocobalamin [Vitamin B-12] 500 mcg PO DAILY Cholecalciferol [Vitamin D3] 5,000 unit PO DAILY Calcium Carbonate [Calcium] 600 mg PO DAILY Acetaminophen Tab [Tylenol Tab] 650 mg PO Q6H PRN PRN Reason: Pain Acetylcysteine 600mg [Nac] 600 mg PO DAILY Discharge Medication List Aspirin 81 mg PO DAILY 11/03/13 [History] Fludrocortisone [Florinef] 0.05 mg PO MOWEFR 11/03/13 [History] Hydrocortisone [Cortef] 5 mg PO HS 11/03/13 [History] Hydrocortisone [Cortef] 20 mg PO QAM 11/03/13 [History] Levothyroxine Sodium [Synthroid] 88 mcg PO DAILY 11/03/13 [History] Calcium Carbonate [Calcium] 600 mg PO DAILY 07/13/16 [History] Cholecalciferol [Vitamin D3] 5,000 unit PO DAILY 07/13/16 [History] Cyanocobalamin [Vitamin B-12] 500 mcg PO DAILY 07/13/16 [History] Acetaminophen Tab [Tylenol Tab] 650 mg PO Q6H PRN 02/08/17 [History] Acetylcysteine 600mg [Nac] 600 mg PO DAILY 02/14/17 [History] Aspirin 325 mg PO BID #60 tab 02/15/17 [Rx] HYDROcodone/APAP 5-325MG [Casselberry 5-325] 1 - 2 tab PO Q4-6H PRN #90 tab 02/15/17 [ Rx] Sennosides-Docusate Sodium [Senokot-S] 1 tab PO BID #60 tablet 02/15/17 [Rx] Follow up Appointment(s)/Referral(s): [facility], [NON-STAFF] - Jose Antonio Tate DO [Doctor of Osteopathic Medicine] - 2 Weeks Ambulatory/Diagnostic Orders: Continuous Passive Motion (CPM) Machine [DME.AMB1] Time Frame: 2 Weeks, Location : Determined By Patient Activity/Diet/Wound Care/Special Instructions: Weightbearing as tolerated with a walker CPM 5-6h daily Daily dressing changes, keep incision clean and dry May shower if no drainage from incision [facility] with questions or concerns [phone] Discharge Disposition: HOME WITH HOME HEALTH SERVICES
--- NOTE | 2017-02-15 21:27 | P.PN ---
Subjective Principal diagnosis: Left total knee arthroplasty Patient is a 71-year-old female with a known history of Lorain's disease, pulmonary fibrosis and osteoarthritis has been admitted to the hospital for left total arthroplasty elective surgery. Patient previously had right total arthroplasty due to arthritis. Patient tolerated the procedure well currently off CLOUD ENGINEER pump. Now complains of chest pain or short of breath no palpitations no dizziness or lightheadedness. Patient is able to ambulate with walker. No fever no chills. 02/15/2017 Patient denied any new complaints today. No worsening pain in the left knee. Able to tolerate diet and ambulating in the hallway. No complains of chest pain or short of breath. No nausea vomiting abdominal pain. No acute overnight issues. Objective - Vital Signs Vital signs: Vital Signs Temp 98.1 F 02/15/17 07:32 Pulse 82 02/15/17 07:32 Resp 16 02/15/17 07:32 BP 131/57 02/15/17 07:32 Pulse Ox 95 02/15/17 07:32 Intake & Output 02/15/17 02/15/17 02/16/17 06:59 18:59 06:59 Intake Total 1325 200 Output Total 300 Balance 1025 200 Intake: Oral 650 200 Tube Feeding 675 Output: Urine 300 Other: Voiding Method Toilet # Voids 1 - Exam PHYSICAL EXAMINATION: Patient is lying in the bed comfortably, no acute distress, awake alert and oriented.. HEENT: Normocephalic. Neck is supple. Pupils reactive. Nostrils clear. Oral cavity is moist. Ears reveal no drainage. Neck reveals no JVD, carotid bruits, or thyromegaly. CHEST EXAMINATION: Trachea is central. Symmetrical expansion. Lung looney clear to auscultation and percussion. CARDIAC: Normal S1, S2 with no gallops. No murmurs ABDOMEN: Soft. Bowel sounds normal. No organomegaly. No abdominal bruits. Extremities reveal no edema. No clubbing or cyanosis left knee surgical site intact. No leg swelling. Pigtail catheter removed Neurologically awake, alert, oriented x3 with well-coordinated movements. Skin: no rash or skin lesions Musculoskeletal: no joint swelling or deformity. - Labs CBC & Chem 7: 02/15/17 07:03 02/15/17 07:03 Labs: Abnormal Lab Results - Last 24 Hours (Table) 02/15/17 02/15/17 Range/Units 07:03 07:03 WBC 10.9 H (3.8-10.6) k/uL RBC 3.54 L (3.80-5.40) m/uL Hgb 11.1 L (11.4-16.0) gm/dL Hct 32.8 L (34.0-46.0) % Neutrophils # 8.9 H (1.3-7.7) k/uL Sodium 136 L (137-145) mmol/L BUN 20 H (7-17) mg/dL Assessment and Plan Plan: #1 left total knee arthroplasty postop day 1 due to severe arthritis #2 hypothyroidism. #3 Lorain's disease #4 pulmonary fibrosis. On follow-up with Dr. Bernal in the clinic #5 left shoulder pain #6 DVT prophylaxis Plan: Patient be continued on pain management and home medications including Cortef and thyroid supplements. Patient will be continued on bowel regimen and DVT prophylaxis. Encourage ambulation and incentive spirometry. Patient is being discharged home today. Recommended to follow with PCP and pulmonary. Patient is stable to be discharged home.
== END 2017-02-15 15:37 | disposition home health service (06) | DRG 470 ==
LOC: 2ORMAIN 07:51 → 3SUR 12:08
PROVIDERS: ADMIT Orthopaedic Surgery; ATTEND Orthopaedic Surgery
PROC: 0SRD0J9 Replacement of Left Knee Joint with Synthetic Substitute, Cemented, Open Approach (ICD-10-PCS; principal; 2017-02-14 09:45)
DX: M17.12 Unilateral primary osteoarthritis, left knee (principal); E27.1 Primary adrenocortical insufficiency; J84.10 Pulmonary fibrosis, unspecified; E03.9 Hypothyroidism, unspecified; Z79.82 Long term (current) use of aspirin; Z80.1 Family history of malignant neoplasm of trachea, bronchus and lung; Z82.0 Family history of epilepsy and other diseases of the nervous system; Z88.5 Allergy status to narcotic agent; Z88.0 Allergy status to penicillin; Z88.2 Allergy status to sulfonamides; Z79.899 Other long term (current) drug therapy
CPT/HCPCS: 80048; 85025; 88300

== ENCOUNTER 2017-03-08 01:15 | Emergency (ER) | payer MEDICARE ==
[2017-03-08 01:55] VITALS: RESP 16; TEMP 97.4
[2017-03-08] MEDS ORDERED: SODIUM CHLORIDE 0.9% 1,000 ML IV STA (01:55)
[2017-03-08] MEDS ORDERED: METOCLOPRAMIDE 5 MG/ML 2 ML VIAL IVP STA (01:55)
[2017-03-08] MEDS ORDERED: diphenhydrAMINE 50 MG/ML 1 ML VIAL IVP STA (01:55)
[2017-03-08] MEDS ORDERED: KETOROLAC 30 MG/ML 1 ML VIAL IVP STA (01:56)
--- NOTE | 2017-03-08 01:59 | ED ---
Abdominal Pain HPI - General Chief Complaint: Abdominal Pain Stated Complaint: Nausea/Diarrhea Time Seen by Provider: 03/08/17 01:27 Source: patient, RN notes reviewed, old records reviewed Mode of arrival: ambulatory Limitations: no limitations - History of Present Illness Initial Comments: 71-year-old female with history of addisonian's disease presents emergency Department with feeling fatigued, nauseated, and frequent urination. Patient reports she had a left knee replacement in beginning of January. She reports she followed up with her primary care provider and orthopedic and seems to be healing well. Patient has been able to Bearing weight on it. She reports that she is discharged with pain medicine. She can see maybe the pain medicine is causing her to have an upset stomach and feel nauseated. She reports that Zofran does not help the pain. Patient reports that she's had chills denies any specific fever. She reports that every time she urinates she only has a few drops. Patient states she has no change in bowel movements. - Related Data Home Medications Medication Instructions Recorded Confirmed Aspirin 81 mg PO DAILY 11/03/13 02/14/17 Fludrocortisone [Florinef] 0.05 mg PO MOWEFR 11/03/13 02/14/17 Hydrocortisone [Cortef] 5 mg PO HS 11/03/13 02/14/17 Hydrocortisone [Cortef] 20 mg PO QAM 11/03/13 02/14/17 Levothyroxine Sodium [Synthroid] 88 mcg PO DAILY 11/03/13 02/14/17 Calcium Carbonate [Calcium] 600 mg PO DAILY 07/13/16 02/14/17 Cholecalciferol [Vitamin D3] 5,000 unit PO DAILY 07/13/16 02/14/17 Cyanocobalamin [Vitamin B-12] 500 mcg PO DAILY 07/13/16 02/14/17 Acetaminophen Tab [Tylenol Tab] 650 mg PO Q6H PRN 02/08/17 02/14/17 Acetylcysteine 600mg [Nac] 600 mg PO DAILY 02/14/17 02/14/17 Previous Rx's Medication Instructions Recorded Aspirin 325 mg PO BID #60 tab 02/15/17 HYDROcodone/APAP 5-325MG [Gregory 1 - 2 tab PO Q4-6H PRN #90 tab 02/15/17 5-325] Sennosides-Docusate Sodium 1 tab PO BID #60 tablet 02/15/17 [Senokot-S] Nitrofurantoin Monohyd/M-Cryst 100 mg PO Q12HR #14 cap 03/08/17 [Macrobid] Ondansetron [Zofran] 4 mg PO Q8HR PRN #15 tab 03/08/17 Phenazopyridine [Pyridium] 100 mg PO TID #10 tablet 03/08/17 Allergies Allergy/AdvReac Type Severity Reaction Status Date / Time morphine Allergy SEZIURE Verified 03/08/17 01:22 Penicillins Allergy Rash/Hives Verified 03/08/17 01:22 sulfacetamide sodium Allergy Rash/Hives Verified 03/08/17 01:22 [From Sulfamide] azithromycin AdvReac Rash/Hives Verified 03/08/17 01:22 [From Zithromax Z-Benito] Review of Systems ROS Statement: Those systems with pertinent positive or pertinent negative responses have been documented in the HPI. ROS Other: All systems not noted in ROS Statement are negative. Past Medical History Past Medical History: Osteoarthritis (OA), Thyroid Disorder Additional Past Medical History / Comment(s): THERESA DISEASE, BACK PAIN, SEIZURES A CHILD ONLY, pulmonary fibrosis right lung ,GLAUCOMA History of Any Multi-Drug Resistant Organisms: None Reported Past Surgical History: Section, Tubal Ligation Additional Past Surgical History / Comment(s): bronchoscopy, BIOPSY RIGHT EYE, TOTAL RIGHT KNEE. left total knee. Past Anesthesia/Blood Transfusion Reactions: Motion Sickness Past Psychological History: No Psychological Hx Reported Smoking Status: Never smoker Past Alcohol Use History: None Reported Past Drug Use History: None Reported - Past Family History Mother Additional Family Medical History / Comment(s): Mother at age 93 from old age with history of Parkinson's. Daughter(s) Additional Family Medical History / Comment(s): She has 3 children with no major medical problems. Father Family Medical History: Cancer Additional Family Medical History / Comment(s): Father at age 79 from lung cancer. General Exam - General Exam Comments Initial Comments: 71-year-old female. No acute distress. Limitations: no limitations General appearance: alert, in no apparent distress Head exam: Present: atraumatic, normocephalic, normal inspection Eye exam: Present: normal appearance, PERRL, EOMI. Absent: scleral icterus, conjunctival injection, periorbital swelling ENT exam: Present: normal exam, mucous membranes moist Neck exam: Present: normal inspection. Absent: tenderness, meningismus, lymphadenopathy Respiratory exam: Present: normal lung sounds bilaterally. Absent: respiratory distress, wheezes, rales, rhonchi, stridor Cardiovascular Exam: Present: regular rate, normal rhythm, normal heart sounds. Absent: systolic murmur, diastolic murmur, rubs, gallop, clicks GI/Abdominal exam: Present: soft, normal bowel sounds. Absent: distended, tenderness, guarding, rebound, rigid Extremities exam: Present: normal inspection, full ROM, normal capillary refill , other (Recent left knee surgery. Patient has well healing scar.). Absent: tenderness, pedal edema, joint swelling, calf tenderness Back exam: Present: normal inspection Neurological exam: Present: alert, oriented X3, CN II-XII intact Psychiatric exam: Present: normal affect, normal mood Skin exam: Present: warm, dry, intact, normal color. Absent: rash Course Vital Signs 03/08/17 03/08/17 03/08/17 01:18 02:16 03:56 Temperature 97.4 F L Pulse Rate 97 96 85 Respiratory 16 16 16 Rate Blood Pressure 130/63 110/53 120/56 O2 Sat by Pulse 98 95 95 Oximetry Medical Decision Making - Medical Decision Making This is a 71 year old female with history of theresa disease with nausea, and polyuria. Patient lab work was reviewed, and relatively unremarkable. Urinalysis does not show major signs of infection, however patient insists that she must have a UTI. Discussed that at this time urinalysis is negative, however discussed that I will write for macrobid, and pyridium and to see if this helps until follow up with PCP in 1-2 days. Patient KUB shows signs of constipation, given rectal stool softerner, and patient had small BM prior to discharge. Patient will be discharged with refill to [facility], and discussed that her pain medciation can also be related to her pain medicaition. Return parameters discussed. - Lab Data Result diagrams: 03/08/17 02:10 03/08/17 02:10 Lab Results 03/08/17 03/08/17 03/08/17 Range/Units 02:10 02:10 02:10 WBC 5.8 (3.8-10.6) k/uL RBC 4.07 (3.80-5.40) m/uL Hgb 12.5 (11.4-16.0) gm/dL Hct 38.7 (34.0-46.0) % MCV 95.1 (80.0-100.0) fL MCH 30.7 (25.0-35.0) pg MCHC 32.3 (31.0-37.0) g/dL RDW 13.4 (11.5-15.5) % Plt Count 527 H (150-450) k/uL Neutrophils % 52 % Lymphocytes % 33 % Monocytes % 9 % Eosinophils % 3 % Basophils % 1 % Neutrophils # 3.0 (1.3-7.7) k/uL Lymphocytes # 1.9 (1.0-4.8) k/uL Monocytes # 0.5 (0-1.0) k/uL Eosinophils # 0.2 (0-0.7) k/uL Basophils # 0.0 (0-0.2) k/uL Sodium 132 L (137-145) mmol/L Potassium 5.1 (3.5-5.1) mmol/L Chloride 93 L (98-107) mmol/L Carbon Dioxide 29 (22-30) mmol/L Anion Gap 10 mmol/L BUN 20 H (7-17) mg/dL Creatinine 0.80 (0.52-1.04) mg/dL Est GFR (MDRD) Af Amer >60 (>60 ml/min/1.73 sqM) Est GFR (MDRD) Non-Af >60 (>60 ml/min/1.73 sqM) Glucose 97 (74-99) mg/dL Calcium 9.9 (8.4-10.2) mg/dL Total Bilirubin 0.6 (0.2-1.3) mg/dL AST 28 (14-36) U/L ALT 29 (9-52) U/L Alkaline Phosphatase 73 (38-126) U/L Total Protein 7.7 (6.3-8.2) g/dL Albumin 4.3 (3.5-5.0) g/dL Amylase 61 (30-110) U/L Lipase 92 (23-300) U/L Urine Color Light Yellow Urine Appearance Clear (Clear) Urine pH 7.5 (5.0-8.0) Ur Specific Hope 1.010 (1.001-1.035) Urine Protein Negative (Negative) Urine Glucose (UA) Negative (Negative) Urine Ketones Negative (Negative) Urine Blood Negative (Negative) Urine Nitrite Negative (Negative) Urine Bilirubin Negative (Negative) Urine Urobilinogen <2.0 (<2.0) mg/dL Ur Leukocyte Esterase Negative (Negative) Disposition Clinical Impression: Constipation, Polyuria, Nausea Disposition: HOME SELF-CARE Condition: Good Instructions: Dysuria (ED) Additional Instructions: Is advised to rest, increase fluids. Follow-up with primary care provider. Return to emergency department if any alarming signs or symptoms occur. Prescriptions: Nitrofurantoin Monohyd/M-Cryst [Macrobid] 100 mg PO Q12HR #14 cap Ondansetron [Zofran] 4 mg PO Q8HR PRN #15 tab PRN Reason: Nausea Phenazopyridine [Pyridium] 100 mg PO TID #10 tablet Referrals: Tashi Peguero MD [Primary Care Provider] - 1-2 days Time of Disposition: 03:46
[2017-03-08 02:41] LABS: Basophils % (A) 1 %; CH 32.2; Eosinophils # (A) 0.2 k/uL (0-0.7); Eosinophils % (A) 3 %; HCT 38.7 % (34.0-46.0); HDW 2.56; HGB 12.5 gm/dL (11.4-16.0); Luc # (Auto) 0.14; Luc % (Auto) 2; Lymphocytes # (A) 1.9 k/uL (1.0-4.8); Lymphocytes % (A) 33 %; MCH 30.7 pg (25.0-35.0); MCHC 32.3 g/dL (31.0-37.0); MCV 95.1 fL (80.0-100.0); Mean Platelet Volume 6.9; Monocytes # (A) 0.5 k/uL (0-1.0); Monocytes % (A) 9 %; Neutrophils % (A) 52 %; RBC 4.07 m/uL (3.80-5.40); RDW 13.4 % (11.5-15.5); WBC 5.8 k/uL (3.8-10.6); WBC (Perox) 5.62
[2017-03-08 02:44] LABS: Appearance,Urine Clear (Clear); Bilirubin,Urine Negative (Negative); Glucose,Urine (UA) Negative (Negative); Ketones,Urine Negative (Negative); Leukocyte Esterase,Urine Negative (Negative); Nitrite,Urine Negative (Negative); PH, Urine 7.5 (5.0-8.0); Protein,Urine Negative (Negative); UA Billing (MACRO vs. MICRO) CHEM; Urobilinogen,Urine <2.0 mg/dL (<2.0)
[2017-03-08 02:55] LABS: ALT 29 U/L (9-52); AST 28 U/L (14-36); Alkaline Phosphatase 73 U/L (38-126); Amylase 61 U/L (30-110); Anion Gap 10 mmol/L; Blood Urea Nitrogen 20 mg/dL (7-17); Calcium 9.9 mg/dL (8.4-10.2); Carbon Dioxide 29 mmol/L (22-30); Chloride 93 mmol/L (98-107); Glucose 97 mg/dL (74-99); Non-African American GFR(MDRD) >60 (>60 ml/min/1.73 sqM); Potassium 5.1 mmol/L (3.5-5.1); Sodium 132 mmol/L (137-145); Total Bilirubin 0.6 mg/dL (0.2-1.3); Total Protein 7.7 g/dL (6.3-8.2)
--- NOTE | 2017-03-08 03:12 | XR ---
EXAM: XR Abdomen Complete, 2 Views CLINICAL HISTORY: Abdominal pain. TECHNIQUE: Frontal view of the abdomen/pelvis with upright view of the abdomen. COMPARISON: 08/29/2016. FINDINGS: Lower thorax: Stable appearance of the visualized lung bases compared to prior radiograph dated 08/29/2016. Intraperitoneal space: No free intraperitoneal air. Gastrointestinal tract: Moderate stool in the colon. No dilated small bowel loops to suggest small bowel obstruction. Bones/joints: Stable osseous structures. IMPRESSION: 1. Moderate stool in the colon. Correlate for constipation. 2. No radiographic evidence of small bowel obstruction. 3. No evidence of free intraperitoneal air.
--- NOTE | 2017-03-08 03:17 | XR ---
EXAM: XR Left Knee, 2 views CLINICAL HISTORY: Pain. TECHNIQUE: Frontal and lateral views of the left knee. COMPARISON: XR dated 02/14/2017. FINDINGS: Bones/joints: Total left knee arthroplasty with stable appearance of hardware compared to prior radiographs dated 02/14/2017. No evidence of hardware failure. No evidence of periprosthetic fracture. No dislocation. Soft tissues: Soft tissue swelling at the anterior aspect of the knee, most prominent in the suprapatellar region. Other findings: Stable small dense foci in the infrapatellar region. IMPRESSION: 1. Stable total left knee arthroplasty without evidence of hardware failure, fracture or dislocation. 2. Soft tissue swelling at the anterior aspect of the left knee, most prominent in the suprapatellar region. Correlate clinically. 3. Stable small dense foci in the infrapatellar region, nonspecific.
[2017-03-08] MEDS ORDERED: BISACODYL 10 MG SUPP RECTAL STA (03:44)
[2017-03-08] MEDS ORDERED: NITROFURANTOIN MONOHYD/M-CRYST 100 MG CAP PO STA (03:44)
[2017-03-08] MEDS ORDERED: PHENAZOPYRIDINE 100 MG TAB PO STA (03:44)
[2017-03-08 03:57] VITALS: BP 120/56; PULSE 85
== END 2017-03-08 04:18 | disposition home or self-care (01) ==
LOC: EC 01:15
DX: K59.00 Constipation, unspecified (principal); R11.0 Nausea; R35.8 Other polyuria; R53.83 Other fatigue; R10.9 Unspecified abdominal pain; M19.90 Unspecified osteoarthritis, unspecified site; E07.9 Disorder of thyroid, unspecified; Z79.82 Long term (current) use of aspirin; Z79.899 Other long term (current) drug therapy; Z88.0 Allergy status to penicillin; Z88.1 Allergy status to other antibiotic agents; Z88.2 Allergy status to sulfonamides; Z88.5 Allergy status to narcotic agent
CPT/HCPCS: 99284 ×2; 96374 ×2; 96375 ×3; 96361 ×2; 36415; 80053; 82150; 83690; 85025; 81003; 87040; 87086; 74000; 73560; J1200; J2765; J1885

== ENCOUNTER → 2018-01-24 | Outpatient (CLI) | payer MEDICARE ==
--- NOTE | 2018-01-25 12:30 | MM ---
Reason for exam: screening (asymptomatic). Last mammogram was performed 1 year and 11 months ago. History: Patient is postmenopausal. Family history of breast cancer in maternal aunt at age 40 and breast cancer in maternal aunt at age 50. Cancelled Right Mammotome of the right breast, March 12, 2011. Took estrogen for 3 years beginning at age 50. Physical Findings: A clinical breast exam by your physician is recommended on an annual basis and results should be correlated with mammographic findings. MG 3D Screening Mammo W/Cad Bilateral CC and MLO view(s) were taken. Prior study comparison: March 09, 2016, right breast MG 3d work up w/cad RT. March 03, 2016, bilateral MG screening mammo w CAD. The breast tissue is heterogeneously dense. This may lower the sensitivity of mammography. There is no discrete abnormality. No significant changes when compared with prior studies. ASSESSMENT: Negative, BI-RAD 1 RECOMMENDATION: Routine screening mammogram of both breasts in 1 year.
== END | disposition home or self-care (01) ==
LOC: RADMAMWWP 07:35
PROVIDERS: ATTEND Internal Medicine
DX: Z12.31 Encounter for screening mammogram for malignant neoplasm of breast (principal)
CPT/HCPCS: 77063; 77067

== ENCOUNTER → 2018-03-23 | Outpatient (CLI) | payer MEDICARE ==
--- NOTE | 2018-03-23 10:40 | BD ---
EXAMINATION TYPE: Axial Bone Density DATE OF EXAM: 03/23/2018 CLINICAL HISTORY: Postmenopausal female. Osteoporosis screening. Height: 66 inches Weight: 158 FRAX RISK QUESTIONS: Alcohol (3 or more units per day): no Family History (Parent hip fracture): no Glucocorticoids (More than 3mos): yes (Ex: prednisone, prednisolone, methylprednisolone, dexamethasone, and hydrocortisone). History of Fracture in Adulthood: no Secondary Osteoporosis: 1. Type 1 Diabetes: no 2. Hyperthyroidism: yes 3. Menopause before 45: no 4. Malnutrition: no 5. Chronic liver disease: no Rheumatoid Arthritis: no Current Tobacco Use: no RISK FACTORS HISTORY OF: Surgery to Wrist : yes, but for carpal tunnel Family History of Osteoporosis: no Active: somewhat Diet low in dairy products/other sources of calcium: lactose free, but trys to include servings of c heese, etc. Postmenopausal woman: yes Take estrogen and/or progesterone medications: not now How long: about age [age] Lost more than 2 inches in height since high school: not MORE than 2 inches, patient states height wa s 68 inches at one time Frequent falls: no Poor Health: somewhat Hyperparathyroidism: no Adrenal Insufficiency: yes, Randy's Disease MEDICATIONS: Prednisone or other steroids: yes How Long: many years Thyroid Medications: yes Which medication: Synthroid How Long: at least 25 years Osteoporosis Medications: no Additional Medications: calcium; Vitamin D3 Additional History: bilateral knee replacement, wrist carpal tunnel surgery EXAM MEASUREMENTS: Bone mineral densitometry was performed using the [employer] System. Bone mineral density as measured about the Lumbar spine is: ----- L1-L4(G/cm2): 0.901 T Score Values are as follows: ----- L2: -3.1 ----- L3: -2.7 ----- L4: -1.1 ----- L1-L4: -2.3 Bone mineral density has: Increased 1.6% since study of: 03/09/2016 Bone mineral density about the R hip (g/cm2): 0.638 Bone mineral density about the L hip (g/cm2): 0.651 T Score values are as follows: -----R Neck: -2.9 -----L Neck: -2.8 -----R Total: -3.2 -----L Total: -3.3 Bone mineral density has: Decreased -4.7% since study of: 03/09/2016 IMPRESSION: Osteoporosis (T Score less than -2.5). There is increased fracture risk and therapy is usually indicated based on age. Re-Screen 1-2 years. NOTE: T-SCORE=SD OF THE YOUNG ADULT MEAN.
== END | disposition home or self-care (01) ==
LOC: RADBDWWP 07:05
PROVIDERS: ATTEND Internal Medicine Endocrinology, Diabetes & Metabolism
DX: M81.0 Age-related osteoporosis without current pathological fracture (principal)
CPT/HCPCS: 77080

== ENCOUNTER 2018-11-07 08:18 | Emergency (ER) | payer MEDICARE ==
[2018-11-07 08:22] VITALS: RESP 16
[2018-11-07] MEDS ORDERED: SODIUM CHLORIDE 0.9% 1,000 ML IV STA (08:37)
[2018-11-07] MEDS ORDERED: HYDROCORTISONE SUCCINATE 100 MG/2 ML VIAL IV STA (08:51)
[2018-11-07] MEDS ORDERED: DICYCLOMINE 20 MG TAB PO STA (08:51)
--- NOTE | 2018-11-07 08:57 | ED ---
Nausea/Vomiting/Diarrhea HPI - General Chief complaint: Nausea/Vomiting/Diarrhea Stated complaint: diarrhea Time Seen by Provider: 11/07/18 08:35 Source: patient, RN notes reviewed Mode of arrival: ambulatory Limitations: no limitations - History of Present Illness Initial comments: 73-year-old female presents emergency Department with chief complaint of diarrhea. Patient states his started around 5 AM this morning. She's had 5-6 episodes of of loose watery diarrhea states that she took 2 pills of Imodium. She still feels some diffuse abdominal cramping she did have 1 episode of vomiting but states that she is not nauseated this time. Denies chest pain or shortness breath. She states that other family members that live above her have exact same symptoms. She has no dysuria no urinary frequency. She has fevers or chills denies flank pain. 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 - Related Data Home Medications Medication Instructions Recorded Confirmed Aspirin 81 mg PO DAILY 11/03/13 11/07/18 Fludrocortisone [Florinef] 0.05 mg PO MOWEFR 11/03/13 11/07/18 Hydrocortisone [Cortef] 15 mg PO BID 11/03/13 11/07/18 Levothyroxine Sodium [Synthroid] 88 mcg PO DAILY 11/03/13 11/07/18 Calcium Carbonate [Calcium] 600 mg PO DAILY 07/13/16 11/07/18 Cholecalciferol [Vitamin D3 (25 5,000 unit PO MOTUTH 07/13/16 11/07/18 Mcg = 1000 Iu)] Multivitamin/Iron/Folic Acid 1 tab PO MOTUWETHFR 11/07/18 11/07/18 [Centrum Complete Multivit Tab] Allergies Allergy/AdvReac Type Severity Reaction Status Date / Time alendronate sodium Allergy Unknown Verified 11/07/18 09:23 [From Fosamax] azithromycin Allergy Rash/Hives Verified 11/07/18 09:23 [From Zithromax Z-Benito] ciprofloxacin [From Cipro] Allergy Unknown Verified 11/07/18 09:23 doxycycline Allergy Unknown Verified 11/07/18 09:23 hydrocodone Allergy Unknown Verified 11/07/18 09:23 naproxen [From Naprosyn] Allergy Unknown Verified 11/07/18 09:23 ondansetron [From Zofran] Allergy Unknown Verified 11/07/18 09:23 Penicillins Allergy Rash/Hives Verified 11/07/18 09:23 sulfacetamide sodium Allergy Rash/Hives Verified 11/07/18 09:23 [From Sulfamide] tramadol Allergy Unknown Verified 11/07/18 09:23 morphine AdvReac SEZIURE Verified 11/07/18 09:23 Review of Systems ROS Statement: Those systems with pertinent positive or pertinent negative responses have been documented in the HPI. ROS Other: All systems not noted in ROS Statement are negative. Past Medical History Past Medical History: Hyperlipidemia, Osteoarthritis (OA), Respiratory Disorder, Thyroid Disorder Additional Past Medical History / Comment(s): THERESA DISEASE, BACK PAIN,SEIZURES A CHILD ONLY, pulmonary fibrosis right lung ,GLAUCOMA History of Any Multi-Drug Resistant Organisms: None Reported Past Surgical History: Section, Tubal Ligation Additional Past Surgical History / Comment(s): bronchoscopy, BIOPSY RIGHT EYE, TOTAL RIGHT KNEE,Left TKA. Past Anesthesia/Blood Transfusion Reactions: Motion Sickness Past Psychological History: No Psychological Hx Reported Smoking Status: Never smoker Past Alcohol Use History: None Reported Past Drug Use History: None Reported - Past Family History Mother Additional Family Medical History / Comment(s): Mother at age 93 from old age with history of Parkinson's. Daughter(s) Additional Family Medical History / Comment(s): She has 3 children with no major medical problems. Father Family Medical History: Cancer Additional Family Medical History / Comment(s): Father at age 79 from lung cancer. General Exam Limitations: no limitations General appearance: alert, in no apparent distress Head exam: Present: atraumatic, normocephalic, normal inspection Eye exam: Present: normal appearance, PERRL, EOMI. Absent: scleral icterus, conjunctival injection, periorbital swelling ENT exam: Present: normal exam, normal oropharynx, mucous membranes moist Neck exam: Present: normal inspection, full ROM. Absent: tenderness, meningismus, lymphadenopathy Respiratory exam: Present: normal lung sounds bilaterally. Absent: respiratory distress, wheezes, rales, rhonchi, stridor Cardiovascular Exam: Present: regular rate, normal rhythm, normal heart sounds. Absent: systolic murmur, diastolic murmur, rubs, gallop, clicks GI/Abdominal exam: Present: soft, tenderness (Mild diffuse), normal bowel s ounds. Absent: distended, guarding, rebound, rigid Back exam: Absent: CVA tenderness (R), CVA tenderness (L) Neurological exam: Present: alert, oriented X3, CN II-XII intact Skin exam: Present: warm, dry, intact, normal color. Absent: rash Course Vital Signs 11/07/18 08:18 Temperature 98.0 F Pulse Rate 72 Respiratory 16 Rate Blood Pressure 149/66 O2 Sat by Pulse 97 Oximetry Medical Decision Making - Medical Decision Making 73-year-old female presented for diarrhea. This appears to be viral in nature she does have contacts with some symptoms. She feels improved after Ventolin IV fluids. Patient was given a dose of Solu-Cortef as she has a history of Barn[place]'s disease. She'll increase her oral steroids at home. She agrees to plan of discharge and close follow-up. - Lab Data Result diagrams: 11/07/18 09:14 11/07/18 09:14 Lab Results 11/07/18 11/07/18 11/07/18 Range/Units 09:14 09:14 09:14 WBC 7.3 (3.8-10.6) k/uL RBC 4.37 (3.80-5.40) m/uL Hgb 13.1 (11.4-16.0) gm/dL Hct 40.4 (34.0-46.0) % MCV 92.5 (80.0-100.0) fL MCH 30.0 (25.0-35.0) pg MCHC 32.4 (31.0-37.0) g/dL RDW 12.8 (11.5-15.5) % Plt Count 337 (150-450) k/uL Neutrophils % 62 % Lymphocytes % 26 % Monocytes % 7 % Eosinophils % 3 % Basophils % 0 % Neutrophils # 4.6 (1.3-7.7) k/uL Lymphocytes # 1.9 (1.0-4.8) k/uL Monocytes # 0.5 (0-1.0) k/uL Eosinophils # 0.2 (0-0.7) k/uL Basophils # 0.0 (0-0.2) k/uL Sodium 138 (137-145) mmol/L Potassium 4.2 (3.5-5.1) mmol/L Chloride 100 (98-107) mmol/L Carbon Dioxide 33 H (22-30) mmol/L Anion Gap 5 mmol/L BUN 20 H (7-17) mg/dL Creatinine 0.83 (0.52-1.04) mg/dL Est GFR (CKD-EPI)AfAm 82 (>60 ml/min/1.73 sqM) Est GFR (CKD-EPI)NonAf 71 (>60 ml/min/1.73 sqM) Glucose 84 (74-99) mg/dL Calcium 9.7 (8.4-10.2) mg/dL Total Bilirubin 0.6 (0.2-1.3) mg/dL AST 32 (14-36) U/L ALT 21 (9-52) U/L Alkaline Phosphatase 75 (38-126) U/L Total Protein 7.6 (6.3-8.2) g/dL Albumin 4.3 (3.5-5.0) g/dL Lipase 131 (23-300) U/L Urine Color Yellow Urine Appearance Clear (Clear) Urine pH 6.0 (5.0-8.0) Ur Specific [place] 1.025 (1.001-1.035) Urine Protein Negative (Negative) Urine Glucose (UA) Negative (Negative) Urine Ketones Negative (Negative) Urine Blood Small H (Negative) Urine Nitrite Negative (Negative) Urine Bilirubin Negative (Negative) Urine Urobilinogen 3.0 (<2.0) mg/dL Ur Leukocyte Esterase Negative (Negative) Urine RBC 10 H (0-5) /hpf Urine WBC 1 (0-5) /hpf Ur Squamous Epith Cells <1 (0-4) /hpf Urine Mucus Rare H (None) /hpf Disposition Clinical Impression: Viral diarrhea Disposition: HOME SELF-CARE Condition: Stable Instructions (If sedation given, give patient instructions): Acute Diarrhea (ED) Additional Instructions: Please return to the Emergency Department if symptoms worsen or any other concerns. Is patient prescribed a controlled substance at d/c from ED?: No Referrals: Tashi Peguero MD [Primary Care Provider] - 1-2 days Time of Disposition: 10:20
[2018-11-07 09:36] LABS: Basophils % (A) 0 %; Eosinophils # (A) 0.2 k/uL (0-0.7); Eosinophils % (A) 3 %; HCT 40.4 % (34.0-46.0); HGB 13.1 gm/dL (11.4-16.0); Lymphocytes # (A) 1.9 k/uL (1.0-4.8); Lymphocytes % (A) 26 %; MCHC 32.4 g/dL (31.0-37.0); MCV 92.5 fL (80.0-100.0); Mean Platelet Volume 6.3; Monocytes # (A) 0.5 k/uL (0-1.0); Monocytes % (A) 7 %; Neutrophils # (A) 4.6 k/uL (1.3-7.7); Neutrophils % (A) 62 %; Platelet Count 337 k/uL (150-450); RBC 4.37 m/uL (3.80-5.40); RDW 12.8 % (11.5-15.5); WBC 7.3 k/uL (3.8-10.6)
[2018-11-07 09:38] LABS: Albumin 4.3 g/dL (3.5-5.0); Calcium 9.7 mg/dL (8.4-10.2); Potassium 4.2 mmol/L (3.5-5.1); Total Bilirubin 0.6 mg/dL (0.2-1.3); Total Protein 7.6 g/dL (6.3-8.2)
[2018-11-07 09:56] LABS: Appearance,Urine Clear (Clear); Bilirubin,Urine Negative (Negative); Blood,Urine Small (Negative); Color,Urine Yellow; Glucose,Urine (UA) Negative (Negative); Ketones,Urine Negative (Negative); Leukocyte Esterase,Urine Negative (Negative); Mucus,Urine Rare /hpf; Nitrite,Urine Negative (Negative); Protein,Urine Negative (Negative); RBC,Urine 10 /hpf (0-5); Specific Gravity,Urine 1.025 (1.001-1.035); Squamous Epithelial Cell,Urine <1 /hpf (0-4); WBC,Urine 1 /hpf (0-5)
[2018-11-07 11:11] VITALS: BP 135/79; PULSE 71; TEMP 97.8
== END 2018-11-07 11:14 | disposition home or self-care (01) ==
LOC: EC 08:18
DX: A08.4 Viral intestinal infection, unspecified (principal); E27.1 Primary adrenocortical insufficiency; E07.9 Disorder of thyroid, unspecified; M19.90 Unspecified osteoarthritis, unspecified site; Z79.52 Long term (current) use of systemic steroids; Z79.82 Long term (current) use of aspirin; Z79.899 Other long term (current) drug therapy; Z88.0 Allergy status to penicillin; Z88.1 Allergy status to other antibiotic agents; Z88.2 Allergy status to sulfonamides; Z88.5 Allergy status to narcotic agent; Z88.6 Allergy status to analgesic agent; Z88.8 Allergy status to other drugs, medicaments and biological substances; Z87.09 Personal history of other diseases of the respiratory system; Z98.51 Tubal ligation status; Z96.652 Presence of left artificial knee joint; Z98.890 Other specified postprocedural states
CPT/HCPCS: 99284; 96374; 96361; 36415; 80053; 83690; 85025; 81001; J1720

== ENCOUNTER → 2019-03-28 | Outpatient (CLI) | payer MEDICARE ==
--- NOTE | 2019-03-30 11:49 | MM ---
Reason for exam: screening (asymptomatic). Last mammogram was performed 1 year and 2 months ago. History: Patient is postmenopausal. Family history of breast cancer in maternal aunt at age 40 and breast cancer in maternal aunt at age 50. Cancelled Right Mammotome of the right breast, March 12, 2011. Took estrogen for 3 years beginning at age 50. Physical Findings: A clinical breast exam by your physician is recommended on an annual basis and results should be correlated with mammographic findings. MG 3D Screening Mammo W/Cad Bilateral CC and MLO view(s) were taken. Prior study comparison: January 24, 2018, bilateral MG 3d screening mammo w/cad. March 09, 2016, right breast MG 3d work up w/cad RT. The breast tissue is heterogeneously dense. This may lower the sensitivity of mammography. There is no discrete abnormality. No significant changes when compared with prior studies. ASSESSMENT: Negative, BI-RAD 1 RECOMMENDATION: Routine screening mammogram of both breasts in 1 year.
== END | disposition home or self-care (01) ==
LOC: RADMAMWWP 07:54
PROVIDERS: ATTEND Internal Medicine
DX: Z12.31 Encounter for screening mammogram for malignant neoplasm of breast (principal)
CPT/HCPCS: 77063; 77067

== ENCOUNTER 2019-05-28 06:47 | Emergency (ER) | payer MEDICARE ==
[2019-05-28 06:54] VITALS: TEMP 98.3
[2019-05-28] MEDS ORDERED: ONDANSETRON 4 MG/2 ML VIAL IVP STA (07:11)
[2019-05-28] MEDS ORDERED: SODIUM CHLORIDE 0.9% 1,000 ML IV STA (07:11)
--- NOTE | 2019-05-28 07:18 | ED ---
General Adult HPI - General Chief complaint: Nausea/Vomiting/Diarrhea Stated complaint: Diarrhea Time Seen by Provider: 05/28/19 06:55 Source: patient Mode of arrival: ambulatory Limitations: no limitations - History of Present Illness Initial comments: 73-year-old female patient presents to the emergency department today for evaluation of cough, nausea, and diarrhea. Patient states that she's had a cough for the last 2-3 days. States she is coughing up white sputum. States last night she had 6 or 7 episodes of diarrhea. States it was dark green in color. Denies any hematochezia or melena. States that she did have some white phlegm he spit up but denies any actual vomiting. Denies any current abdominal pain but was having some mild cramping last night. Denies fevers or chills. States she is having nasal drainage but denies sore throat. 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 Patient denies any recent rash, shortness breath, chest pain, constipation, back pain, numbness, tingling, dizziness, weakness, hematuria, dysuria, urinary urgency, urinary frequency, headache, visual changes, or any other complaints. - Related Data Home Medications Medication Instructions Recorded Confirmed Aspirin 81 mg PO DAILY 11/03/13 11/07/18 Fludrocortisone [Florinef] 0.05 mg PO MOWEFR 11/03/13 11/07/18 Hydrocortisone [Cortef] 15 mg PO BID 11/03/13 11/07/18 Levothyroxine Sodium [Synthroid] 88 mcg PO DAILY 11/03/13 11/07/18 Calcium Carbonate [Calcium] 600 mg PO DAILY 07/13/16 11/07/18 Cholecalciferol [Vitamin D3 (25 5,000 unit PO MOTUTH 07/13/16 11/07/18 Mcg = 1000 Iu)] Multivitamin/Iron/Folic Acid 1 tab PO MOTUWETHFR 11/07/18 11/07/18 [Centrum Complete Multivit Tab] Previous Rx's Medication Instructions Recorded Oseltamivir [Tamiflu] 75 mg PO Q12HR #10 cap 05/28/19 Allergies Allergy/AdvReac Type Severity Reaction Status Date / Time alendronate sodium Allergy Unknown Verified 05/28/19 06:53 [From Fosamax] azithromycin Allergy Rash/Hives Verified 12/30/19 06:53 [From Zithromax Z-Benito] ciprofloxacin [From Cipro] Allergy Unknown Verified 05/28/19 06:53 doxycycline Allergy Unknown Verified 05/28/19 06:53 hydrocodone Allergy Unknown Verified 05/28/19 06:53 naproxen [From Naprosyn] Allergy Unknown Verified 05/28/19 06:53 Penicillins Allergy Rash/Hives Verified 05/28/19 06:53 sulfacetamide sodium Allergy Rash/Hives Verified 05/28/19 06:53 [From Sulfamide] tramadol Allergy Unknown Verified 05/28/19 06:53 morphine AdvReac SEZIURE Verified 05/28/19 06:53 Review of Systems ROS Statement: Those systems with pertinent positive or pertinent negative responses have been documented in the HPI. ROS Other: All systems not noted in ROS Statement are negative. Past Medical History Past Medical History: Hyperlipidemia, Osteoarthritis (OA), Respiratory Disorder, Thyroid Disorder Additional Past Medical History / Comment(s): RANDY DISEASE, BACK PAIN,SEIZURES A CHILD ONLY, pulmonary fibrosis right lung ,GLAUCOMA, hiatal hernia, History of Any Multi-Drug Resistant Organisms: None Reported Past Surgical History: Section, Tubal Ligation Additional Past Surgical History / Comment(s): bronchoscopy, BIOPSY RIGHT EYE, TOTAL RIGHT KNEE,Left TKA. Past Anesthesia/Blood Transfusion Reactions: Motion Sickness Past Psychological History: No Psychological Hx Reported Smoking Status: Never smoker Past Alcohol Use History: None Reported Past Drug Use History: None Reported - Past Family History Mother Additional Family Medical History / Comment(s): Mother at age 93 from old age with history of Parkinson's. Daughter(s) Additional Family Medical History / Comment(s): She has 3 children with no major medical problems. Father Family Medical History: Cancer Additional Family Medical History / Comment(s): Father at age 79 from lung cancer. General Exam Limitations: no limitations General appearance: alert, in no apparent distress, other (This is a well- developed, well-nourished adult female patient in no acute distress. Vital signs upon presentation are temperature 98.3F, pulse 87, respirations 18, blood pressure 116/61, pulse ox 96% on room air.) Eye exam: Present: normal appearance, PERRL, EOMI. Absent: scleral icterus, conjunctival injection, periorbital swelling ENT exam: Present: normal exam, normal oropharynx, mucous membranes moist Neck exam: Present: normal inspection. Absent: tenderness, meningismus, lym phadenopathy Respiratory exam: Present: normal lung sounds bilaterally. Absent: respiratory distress, wheezes, rales, rhonchi, stridor Cardiovascular Exam: Present: regular rate, normal rhythm, normal heart sounds. Absent: systolic murmur, diastolic murmur, rubs, gallop, clicks GI/Abdominal exam: Present: soft, normal bowel sounds. Absent: distended, tenderness, guarding, rebound, rigid Neurological exam: Present: alert, oriented X3, CN II-XII intact Psychiatric exam: Present: normal affect, normal mood Skin exam: Present: warm, dry, intact, normal color. Absent: rash Course Vital Signs 05/28/19 06:51 Temperature 98.3 F Pulse Rate 87 Respiratory 18 Rate Blood Pressure 116/61 O2 Sat by Pulse 96 Oximetry Medical Decision Making - Medical Decision Making 73-year-old female patient presents to the emergency department today for evaluation of cough, diarrhea, and nausea. Physical examination reveals a soft nontender abdomen. Lungs are clear to auscultation with good air movement. She is afebrile, vital signs are satisfactory. Oxygen saturation is 98-99% on room air. Labs reviewed and did reveal positive influenza A but were otherwise unremarkable. I did discuss use of Tamiflu with the patient, she'll be given a prescription for this. She does have history of [place]'s disease, she has been instructed to begin her stress dose of hydrocortisone, we did give 100 mg here in the emergency department. She'll be discharged to follow-up with her primary care physician for recheck in 1-2 days. Return parameters were discussed in detail. She verbalizes understanding and agrees with this plan. - Lab Data Result diagrams: 05/28/19 07:06 05/28/19 07:06 Lab Results 05/28/19 05/28/19 05/28/19 Range/Units 06:59 07:06 07:06 WBC 5.6 (3.8-10.6) k/uL RBC 4.41 (3.80-5.40) m/uL Hgb 13.4 (11.4-16.0) gm/dL Hct 40.2 (34.0-46.0) % MCV 91.3 (80.0-100.0) fL MCH 30.5 (25.0-35.0) pg MCHC 33.4 (31.0-37.0) g/dL RDW 12.3 (11.5-15.5) % Plt Count 310 (150-450) k/uL Neutrophils % 45 % Lymphocytes % 42 % Monocytes % 8 % Eosinophils % 3 % Basophils % 0 % Neutrophils # 2.5 (1.3-7.7) k/uL Lymphocytes # 2.3 (1.0-4.8) k/uL Monocytes # 0.4 (0-1.0) k/uL Eosinophils # 0.2 (0-0.7) k/uL Basophils # 0.0 (0-0.2) k/uL Sodium 138 (137-145) mmol/L Potassium 3.8 (3.5-5.1) mmol/L Chloride 100 (98-107) mmol/L Carbon Dioxide 31 H (22-30) mmol/L Anion Gap 7 mmol/L BUN 8 (7-17) mg/dL Creatinine 0.74 (0.52-1.04) mg/dL Est GFR (CKD-EPI)AfAm >90 (>60 ml/min/1.73 sqM) Est GFR (CKD-EPI)NonAf 82 (>60 ml/min/1.73 sqM) Glucose 86 (74-99) mg/dL Calcium 9.8 (8.4-10.2) mg/dL Total Bilirubin 0.9 (0.2-1.3) mg/dL AST 39 H (14-36) U/L ALT 18 (4-34) U/L Alkaline Phosphatase 78 (38-126) U/L Total Protein 7.9 (6.3-8.2) g/dL Albumin 4.5 (3.5-5.0) g/dL Lipase 107 (23-300) U/L Influenza Type A RNA Detected H (Not Detectd) Influenza Type B (PCR) Not Detected (Not Detectd) - Radiology Data Radiology results: report reviewed, image reviewed Two-view x-ray of the chest was obtained. Report was reviewed in its entirety. Impression by Dr. Winkler shows COPD with biapical pulmonary fibrotic change. Increasing opacity in the left lung apex could represent a pleural plaque or nodule. Nonemergent follow-up CT thorax is recommended to assess for pulmonary nodule. Disposition Clinical Impression: Influenza A, Diarrhea, Pulmonary nodule Disposition: HOME SELF-CARE Condition: Good Instructions (If sedation given, give patient instructions): Influenza (ED), Acute Diarrhea (ED) Additional Instructions: Take medications as directed. Alternate Tylenol and Motrin for fever control. Increase fluids. Start your stress dose of hydrocortisone as directed by her physician. Return to the emergency department immediately for any new, worsening, or concerning symptoms. Prescriptions: Oseltamivir [Tamiflu] 75 mg PO Q12HR #10 cap Is patient prescribed a controlled substance at d/c from ED?: No Referrals: Tashi Peguero MD [Primary Care Provider] - 1-2 days Time of Disposition: 08:41
[2019-05-28 07:25] LABS: Basophils % (A) 0 %; Eosinophils # (A) 0.2 k/uL (0-0.7); Eosinophils % (A) 3 %; HCT 40.2 % (34.0-46.0); HGB 13.4 gm/dL (11.4-16.0); Lymphocytes # (A) 2.3 k/uL (1.0-4.8); Lymphocytes % (A) 42 %; MCH 30.5 pg (25.0-35.0); MCHC 33.4 g/dL (31.0-37.0); MCV 91.3 fL (80.0-100.0); Mean Platelet Volume 6.8; Monocytes # (A) 0.4 k/uL (0-1.0); Monocytes % (A) 8 %; Neutrophils # (A) 2.5 k/uL (1.3-7.7); Neutrophils % (A) 45 %; Platelet Count 310 k/uL (150-450); RBC 4.41 m/uL (3.80-5.40); RDW 12.3 % (11.5-15.5); WBC 5.6 k/uL (3.8-10.6)
[2019-05-28 07:38] LABS: ALT 18 U/L (4-34); AST 39 U/L (14-36); African American GFR (CKD) >90 (>60 ml/min/1.73 sqM); Albumin 4.5 g/dL (3.5-5.0); Alkaline Phosphatase 78 U/L (38-126); Anion Gap 7 mmol/L; Blood Urea Nitrogen 8 mg/dL (7-17); Calcium 9.8 mg/dL (8.4-10.2); Carbon Dioxide 31 mmol/L (22-30); Chloride 100 mmol/L (98-107); Glucose 86 mg/dL (74-99); Non-African American GFR(CKD) 82 (>60 ml/min/1.73 sqM); Potassium 3.8 mmol/L (3.5-5.1); Sodium 138 mmol/L (137-145); Total Bilirubin 0.9 mg/dL (0.2-1.3); Total Protein 7.9 g/dL (6.3-8.2)
--- NOTE | 2019-05-28 08:04 | XR ---
EXAMINATION TYPE: XR chest 2V DATE OF EXAM: 05/28/2019 COMPARISON: 01/12/2017 HISTORY: Cough, congestion, and history of pulmonary fibrosis. TECHNIQUE: Frontal and lateral views of the chest are obtained. FINDINGS: Pulmonary hyperinflation and biapical lucency relates underlying COPD. Increasing opacity of the left lung apex. Biapical pleural-parenchymal scarring. Cardiomediastinal silhouette is elongat ed and within normal limits. Increased retrosternal airspace. Mild diffuse osseous demineralization. No sizable pleural effusion or pneumothorax. Blunting of the costophrenic angles likely relates to pl eural reaction with underlying COPD. IMPRESSION: COPD with biapical pulmonary fibrotic change. Increasing opacity in the left lung apex c ould represent a pleural plaque or nodule. Nonemergent follow-up CT thorax is recommended to assess f or pulmonary nodule.
[2019-05-28] MEDS ORDERED: HYDROCORTISONE SUCCINATE 100 MG/2 ML VIAL IV STA (08:10)
[2019-05-28 09:07] VITALS: BP 134/71; PULSE 76; RESP 16
== END 2019-05-28 09:07 | disposition home or self-care (01) ==
LOC: EC 06:47
DX: J10.1 Influenza due to other identified influenza virus with other respiratory manifestations (principal); R91.1 Solitary pulmonary nodule; R19.7 Diarrhea, unspecified; R11.0 Nausea; E27.1 Primary adrenocortical insufficiency; M19.90 Unspecified osteoarthritis, unspecified site; E07.9 Disorder of thyroid, unspecified; Z88.0 Allergy status to penicillin; Z88.1 Allergy status to other antibiotic agents; Z88.2 Allergy status to sulfonamides; Z88.5 Allergy status to narcotic agent; Z88.6 Allergy status to analgesic agent; Z88.8 Allergy status to other drugs, medicaments and biological substances; Z79.52 Long term (current) use of systemic steroids; Z79.82 Long term (current) use of aspirin; Z79.890 Hormone replacement therapy; Z96.653 Presence of artificial knee joint, bilateral; Z80.1 Family history of malignant neoplasm of trachea, bronchus and lung
CPT/HCPCS: 36415; 80053; 83690; 85025; 87502; 71046; 99284; 96374; 96375; 96361; J1720; J2405

== ENCOUNTER 2020-04-02 06:25 | Inpatient (IN) | payer MEDICARE ==
--- NOTE | 2020-04-02 07:05 | ED ---
General Adult HPI - General Chief complaint: Syncope Stated complaint: Syncope Time Seen by Provider: 04/02/20 06:34 Source: patient, EMS, RN notes reviewed Mode of arrival: EMS Limitations: no limitations - History of Present Illness Initial comments: 74-year-old female with a past medical history of hyperlipidemia, [place]on's disease, back pain, pulmonary fibrosis, hypothyroidism presents to the emergency room for a chief complaint of syncope. Patient reports that this morning she woke up around 5:45 AM. States she was about to "washup" at the sink when she started to feel lightheaded. Patient states she had a syncopal episode and passed out on the floor. States her did come to help her but she is unsure if he was able to assist her to the ground. Patient reports she developed a slight cough last night as well. Patient states she had a headache last night but that has since completely resolved. She denies any headache at this time.Patient has no other complaints at this time including shortness of breath, chest pain, abdominal pain, nausea or vomiting, headache, or visual changes. - Related Data Home Medications Medication Instructions Recorded Confirmed Aspirin 81 mg PO DAILY 11/03/13 04/02/20 Fludrocortisone [Florinef] 0.05 mg PO MOWEFR 11/03/13 04/02/20 Hydrocortisone [Cortef] 15 mg PO BID 11/03/13 04/02/20 Levothyroxine Sodium [Synthroid] 88 mcg PO DAILY 11/03/13 04/02/20 Calcium Carbonate [Calcium] 600 mg PO DAILY 07/13/16 04/02/20 Cholecalciferol [Vitamin D3 (25 5,000 unit PO MOTUTH 07/13/16 04/02/20 Mcg = 1000 Iu)] Multivitamin/Iron/Folic Acid 1 tab PO MOTUWETHFR 11/07/18 04/02/20 [Centrum Complete Multivit Tab] Allergies Allergy/AdvReac Type Severity Reaction Status Date / Time alendronate sodium Allergy Unknown Verified 04/02/20 07:52 [From Fosamax] azithromycin Allergy Rash/Hives Verified 04/02/20 07:52 [From Zithromax Z-Benito] ciprofloxacin [From Cipro] Allergy Unknown Verified 04/02/20 07:52 doxycycline Allergy Unknown Verified 04/02/20 07:52 hydrocodone Allergy Unknown Verified 04/02/20 07:52 naproxen [From Naprosyn] Allergy Unknown Verified 04/02/20 07:52 Penicillins Allergy Rash/Hives Verified 04/02/20 07:52 sulfacetamide sodium Allergy Rash/Hives Verified 04/02/20 07:52 [From Sulfamide] tramadol Allergy Unknown Verified 04/02/20 07:52 morphine AdvReac SEZIURE Verified 04/02/20 07:52 Review of Systems ROS Statement: Those systems with pertinent positive or pertinent negative responses have been documented in the HPI. ROS Other: All systems not noted in ROS Statement are negative. Past Medical History Past Medical History: Hyperlipidemia, Osteoarthritis (OA), Respiratory Disorder, Thyroid Disorder Additional Past Medical History / Comment(s): THERESA DISEASE, BACK PAIN,SEIZURES A CHILD ONLY, pulmonary fibrosis right lung ,GLAUCOMA, hiatal hernia, hypothyroidism and osteoporosis. 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 No other STDs. History of Any Multi-Drug Resistant Organisms: None Reported Past Surgical History: Section, Tubal Ligation Additional Past Surgical History / Comment(s): section 3. bro nchoscopy, BIOPSY RIGHT EYE, TOTAL RIGHT KNEE,Left TKA. Past Anesthesia/Blood Transfusion Reactions: Motion Sickness Past Psychological History: No Psychological Hx Reported Smoking Status: Never smoker Past Alcohol Use History: None Reported Past Drug Use History: None Reported - Past Family History Mother Additional Family Medical History / Comment(s): Mother at age 93 from old age with history of Parkinson's. Daughter(s) Additional Family Medical History / Comment(s): She has 3 children with no major medical problems. Father Family Medical History: Cancer Additional Family Medical History / Comment(s): Father at age 79 from lung cancer. General Exam Limitations: no limitations General appearance: alert, in no apparent distress Head exam: Present: atraumatic, normocephalic, normal inspection Eye exam: Present: normal appearance, PERRL, EOMI. Absent: scleral icterus, conjunctival injection, periorbital swelling ENT exam: Present: normal exam, mucous membranes moist Neck exam: Present: normal inspection, full ROM. Absent: tenderness, menin gismus, lymphadenopathy Respiratory exam: Present: normal lung sounds bilaterally. Absent: respiratory distress, wheezes, rales, rhonchi, stridor Cardiovascular Exam: Present: regular rate, normal rhythm, normal heart sounds. Absent: systolic murmur, diastolic murmur, rubs, gallop, clicks GI/Abdominal exam: Present: soft, normal bowel sounds. Absent: distended, tenderness, guarding, rebound, rigid Neurological exam: Present: alert Course Vital Signs 04/02/20 04/02/20 04/02/20 06:26 07:30 08:00 Temperature Pulse Rate 81 82 91 Respiratory 16 16 20 Rate Blood Pressure 125/51 119/62 117/53 O2 Sat by Pulse 97 95 99 Oximetry 04/02/20 09:00 Temperature 100.0 F H Pulse Rate Respiratory Rate Blood Pressure O2 Sat by Pulse Oximetry - Reevaluation(s) Reevaluation #1: 04/02/20 07:04 C-collar was removed after clearance by the Nexus criteria EKG Findings - EKG Comments: EKG Findings:: Normal sinus rhythm, ventricular rate 82, PA interval 184, QTc 450 Medical Decision Making - Medical Decision Making Vitals are stable. Unable to obtain temperature initially however eventually the temperature was found to be 100.0. CBC is unremarkable. White blood cell count normal at 4.8. CMP is unremarkable. Urinalysis is negative. Chest x-ray however does show COPD with biapical pleural thickening. There is an area of consolidation or possible mass in the left upper lobe. Correlate with short- term CT follow-up. I did review previous chest x-ray from March 19 and this does appear to be a new consolidation. Patient does have a cough that started last night. Patient will be treated with Rocephin for pneumonia. Patient noted to be ALLERGIC to azithromycin and Cipro. Patient did also have 2 syncopal episodes and cardiology will be consulted. 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 - Lab Data Result diagrams: 04/02/20 06:48 04/02/20 06:48 Lab Results 04/02/20 04/02/20 04/02/20 Range/Units 06:48 06:48 06:48 WBC 4.8 (3.8-10.6) k/uL RBC 4.07 (3.80-5.40) m/uL Hgb 12.5 (11.4-16.0) gm/dL Hct 39.6 (34.0-46.0) % MCV 97.2 (80.0-100.0) fL MCH 30.7 (25.0-35.0) pg MCHC 31.6 (31.0-37.0) g/dL RDW 13.3 (11.5-15.5) % Plt Count 282 (150-450) k/uL Neutrophils % 45 % Lymphocytes % 39 % Monocytes % 9 % Eosinophils % 3 % Basophils % 1 % Neutrophils # 2.2 (1.3-7.7) k/uL Lymphocytes # 1.9 (1.0-4.8) k/uL Monocytes # 0.4 (0-1.0) k/uL Eosinophils # 0.1 (0-0.7) k/uL Basophils # 0.0 (0-0.2) k/uL PT 10.2 (9.0-12.0) sec INR 1.0 (<1.2) APTT 21.7 L (22.0-30.0) sec Sodium 133 L (137-145) mmol/L Potassium 4.0 (3.5-5.1) mmol/L Chloride 98 (98-107) mmol/L Carbon Dioxide 29 (22-30) mmol/L Anion Gap 6 mmol/L BUN 19 H (7-17) mg/dL Creatinine 0.76 (0.52-1.04) mg/dL Est GFR (CKD-EPI)AfAm >90 (>60 ml/min/1.73 sqM) Est GFR (CKD-EPI)NonAf 79 (>60 ml/min/1.73 sqM) Glucose 84 (74-99) mg/dL Calcium 9.1 (8.4-10.2) mg/dL Total Bilirubin 0.5 (0.2-1.3) mg/dL AST 37 H (14-36) U/L ALT 17 (4-34) U/L Alkaline Phosphatase 49 (38-126) U/L Troponin I (0.000-0.034) ng/mL Total Protein 7.2 (6.3-8.2) g/dL Albumin 4.0 (3.5-5.0) g/dL Urine Color Urine Appearance (Clear) Urine pH (5.0-8.0) Ur Specific [place]kin (1.001-1.035) Urine Protein (Negative) Urine Glucose (UA) (Negative) Urine Ketones (Negative) Urine Blood (Negative) Urine Nitrite (Negative) Urine Bilirubin (Negative) Urine Urobilinogen (<2.0) mg/dL Ur Leukocyte Esterase (Negative) 04/02/20 04/02/20 Range/Units 06:48 09:00 WBC (3.8-10.6) k/uL RBC (3.80-5.40) m/uL Hgb (11.4-16.0) gm/dL Hct (34.0-46.0) % MCV (80.0-100.0) fL MCH (25.0-35.0) pg MCHC (31.0-37.0) g/dL RDW (11.5-15.5) % Plt Count (150-450) k/uL Neutrophils % % Lymphocytes % % Monocytes % % Eosinophils % % Basophils % % Neutrophils # (1.3-7.7) k/uL Lymphocytes # (1.0-4.8) k/uL Monocytes # (0-1.0) k/uL Eosinophils # (0-0.7) k/uL Basophils # (0-0.2) k/uL PT (9.0-12.0) sec INR (<1.2) APTT (22.0-30.0) sec Sodium (137-145) mmol/L Potassium (3.5-5.1) mmol/L Chloride (98-107) mmol/L Carbon Dioxide (22-30) mmol/L Anion Gap mmol/L BUN (7-17) mg/dL Creatinine (0.52-1.04) mg/dL Est GFR (CKD-EPI)AfAm (>60 ml/min/1.73 sqM) Est GFR (CKD-EPI)NonAf (>60 ml/min/1.73 sqM) Glucose (74-99) mg/dL Calcium (8.4-10.2) mg/dL Total Bilirubin (0.2-1.3) mg/dL AST (14-36) U/L ALT (4-34) U/L Alkaline Phosphatase (38-126) U/L Troponin I <0.012 (0.000-0.034) ng/mL Total Protein (6.3-8.2) g/dL Albumin (3.5-5.0) g/dL Urine Color Yellow Urine Appearance Clear (Clear) Urine pH 7.5 (5.0-8.0) Ur Specific [place] 1.020 (1.001-1.035) Urine Protein Trace H (Negative) Urine Glucose (UA) Negative (Negative) Urine Ketones Negative (Negative) Urine Blood Negative (Negative) Urine Nitrite Negative (Negative) Urine Bilirubin Negative (Negative) Urine Urobilinogen <2.0 (<2.0) mg/dL Ur Leukocyte Esterase Negative (Negative) Disposition Clinical Impression: Syncope, Pneumonia Disposition: ADMITTED IP TO THIS HOSP Condition: Fair Is patient prescribed a controlled substance at d/c from ED?: No Referrals: Tashi Peguero MD [Primary Care Provider] - 1-2 days Time of Disposition: 10:18
[2020-04-02 07:09] LABS: Basophils % (A) 1 %; Eosinophils # (A) 0.1 k/uL (0-0.7); Eosinophils % (A) 3 %; HCT 39.6 % (34.0-46.0); HGB 12.5 gm/dL (11.4-16.0); Lymphocytes # (A) 1.9 k/uL (1.0-4.8); Lymphocytes % (A) 39 %; MCH 30.7 pg (25.0-35.0); MCHC 31.6 g/dL (31.0-37.0); MCV 97.2 fL (80.0-100.0); Mean Platelet Volume 6.9; Monocytes # (A) 0.4 k/uL (0-1.0); Monocytes % (A) 9 %; Neutrophils # (A) 2.2 k/uL (1.3-7.7); Neutrophils % (A) 45 %; Platelet Count 282 k/uL (150-450); RBC 4.07 m/uL (3.80-5.40); RDW 13.3 % (11.5-15.5); WBC 4.8 k/uL (3.8-10.6)
[2020-04-02] MEDS ORDERED: ONDANSETRON 4 MG/2 ML VIAL IVP STA (07:21)
[2020-04-02 07:23] LABS: ALT 17 U/L (4-34); AST 37 U/L (14-36); African American GFR (CKD) >90 (>60 ml/min/1.73 sqM); Alkaline Phosphatase 49 U/L (38-126); Anion Gap 6 mmol/L; Blood Urea Nitrogen 19 mg/dL (7-17); Calcium 9.1 mg/dL (8.4-10.2); Carbon Dioxide 29 mmol/L (22-30); Chloride 98 mmol/L (98-107); Glucose 84 mg/dL (74-99); Non-African American GFR(CKD) 79 (>60 ml/min/1.73 sqM); Sodium 133 mmol/L (137-145); Total Bilirubin 0.5 mg/dL (0.2-1.3); Total Protein 7.2 g/dL (6.3-8.2)
[2020-04-02 07:31] LABS: Partial Thromboplastin Time 21.7 sec (22.0-30.0); Prothrombin Time 10.2 sec (9.0-12.0)
--- NOTE | 2020-04-02 08:54 | XR ---
EXAMINATION TYPE: XR chest 2V DATE OF EXAM: 04/02/2020 COMPARISON: 05/28/2019 TECHNIQUE: PA and lateral views submitted. HISTORY: Pain, syncope FINDINGS: Biapical pleural thickening. Irregular density left upper lobe could represent a mass. There also is prominence the right suprahilar region. Coarsened interstitium seen. Changes suggest COPD. No overt f ailure. No sizable pleural effusion or pneumothorax. IMPRESSION: 1. COPD with biapical pleural thickening. Area of consolidation or possible mass in the left upper lo be correlate with short-term follow-up CT scan.
--- NOTE | 2020-04-02 09:00 | CT ---
EXAMINATION TYPE: CT brain cspine wo con DATE OF EXAM: 04/02/2020 COMPARISON: CT brain January 12, 2017 HISTORY: syncope x 3 this am with neck pain CT DLP: 1263.6 mGycm. Automated Exposure Control for Dose Reduction was Utilized. TECHNIQUE: CT scan of the head and cervical spine are performed without contrast. FINDINGS: There is no acute intracranial hemorrhage or midline shift identified. Mild ventricular a nd sulcal prominence. Septum pellucidum vergae. Caraballo-white matter differentiation fairly well-maintai layla. The globes are intact and the visualized sinuses are clear. The calvarium is intact. Cervical spine is visualized in its entirety from C1 through upper thoracic levels and demonstrates s atisfactory alignment without evidence of acute fracture or dislocation. Prevertebral soft tissue ap pears within normal limits. The C1-C2 articulation is within normal limits on the coronal images. Ve rtebral body heights and disc space heights are maintained. Posterior spurring effaces the anterior t hecal sac at C6-C7 level. Moderately severe biapical pleural/parenchymal scarring. Review of axial im ages shows multilevel uncovertebral facet degenerative changes contributing to multilevel bilateral n eural foraminal narrowing. Mild peripheral plaque left carotid bulb level is present. IMPRESSION: 1. There is no acute fracture or dislocation evident in the cervical spine. 2. No acute intracranial hemorrhage or midline shift is seen.
[2020-04-02 09:21] LABS: Appearance,Urine Clear (Clear); Bilirubin,Urine Negative (Negative); Blood,Urine Negative (Negative); Color,Urine Yellow; Glucose,Urine (UA) Negative (Negative); Ketones,Urine Negative (Negative); Leukocyte Esterase,Urine Negative (Negative); Nitrite,Urine Negative (Negative); PH, Urine 7.5 (5.0-8.0); Protein,Urine Trace (Negative); Urobilinogen,Urine <2.0 mg/dL (<2.0)
[2020-04-02] MEDS ORDERED: HYDROCORTISONE SUCCINATE 100 MG/2 ML VIAL IV STA (09:53)
[2020-04-02] MEDS ORDERED: METOCLOPRAMIDE 5 MG/ML 2 ML VIAL IVP STA (09:59)
[2020-04-02] MEDS ORDERED: diphenhydrAMINE 50 MG/ML 1 ML VIAL IVP STA (09:59)
[2020-04-02] MEDS ORDERED: cefTRIAXone IN SWFI 1,000 MG/10 ML SYRINGE IVP STA (10:00)
[2020-04-02] MEDS ORDERED: ONDANSETRON 4 MG/2 ML VIAL IVP PRN (10:15)
[2020-04-02] MEDS ORDERED: SODIUM CHLORIDE 0.9% 500 ML 500 ML IV STA (10:16)
[2020-04-02] MEDS ORDERED: SODIUM CHLORIDE 0.9% 1,000 ML IV STA (10:16)
--- NOTE | 2020-04-02 11:14 | P.HPIM ---
History of Present Illness H&P Date: 04/02/20 Chief Complaint: Syncope This is a 74-year-old patient of Dr. Peguero with past medical history of hyperlipidemia, Randy's disease, chronic lower back pain, pulmonary fibrosis, and hypothyroidism. She presented to the emergency department for a possible syncopal episode. Patient reports this morning she woke up around 6 AM she felt lightheaded and called for her to help, unsure patient a syncopal episode or was helped to the ground by her . Patient reports she has not been feeling well for the last week. She complains of a slight cough and malaise. She denies any fever or chills, denies any nausea, vomiting, constipation, diarrhea, no loss of taste or smell. Upon arrival to the emergency department patient was found to be febrile with a temperature of 100.0, blood pressure 102/56, heart rate 87, respiratory 22, she's 92% on room air. Laboratory reveals WBC 4.8, sodium 133, BUN 19, creatinine 0.76, troponin was negative, UA was negative for infection. CT of the head was performed did not show any acute fracture dislocation in the cervical spine, no acute intracranial hemorrhage or midline shift. Chest x-ray showed COPD with biapical pleural thickening, area of consolidation or possible mass left upper lobe. Given the patient's clinical history pneumonia is more likely. Blood cultures were obtained she was started on IV ceftriaxone along with Solu-Cortef 100 mg for her Redford's disease. Cardiology will be consulted as well. Review of Systems Constitutional: Reports chills, Reports fatigue, Reports fever, Reports lethargy, Reports malaise, Reports weakness Ears, nose, mouth and throat: Denies dysphagia, Denies headache, Denies hoarseness, Denies nasal congestion, Denies nasal discharge, Denies sinus pain, Denies sinus pressure, Denies sore throat Cardiovascular: Reports shortness of breath, Reports syncope, Denies dyspnea on exertion, Denies edema, Denies leg edema, Denies orthopnea, Denies palpitations Respiratory: Reports cough, Reports cough with sputum, Reports dyspnea, Denies pain, Denies sleep apnea Gastrointestinal: Denies abdominal pain, Denies constipation, Denies diarrhea, Denies dyspepsia, Denies heartburn, Denies indigestion, Denies nausea, Denies vomiting Genitourinary: Denies dysuria, Denies hematuria, Denies urgency Musculoskeletal: Reports low back pain, Denies neck pain, Denies neck stiffness Integumentary: Denies dryness, Denies lesions, Denies pruritus, Denies rash, Denies sores, Denies wounds Neurological: Reports syncope, Reports weakness, Denies confusion, Denies headaches, Denies numbness, Denies paresthesias, Denies seizures Endocrine: Reports fatigue, Denies palpitations Past Medical History Past Medical History: Hyperlipidemia, Osteoarthritis (OA), Respiratory Disorder, Thyroid Disorder Additional Past Medical History / Comment(s): RANDY DISEASE, BACK PAIN,SEIZURES A CHILD ONLY, pulmonary fibrosis right lung ,GLAUCOMA, hiatal hernia, hypothyroidism and osteoporosis. 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 No other STDs. History of Any Multi-Drug Resistant Organisms: None Reported Past Surgical History: Section, Tubal Ligation Additional Past Surgical History / Comment(s): section 3. bronchoscopy, BIOPSY RIGHT EYE, TOTAL RIGHT KNEE,Left TKA. Past Anesthesia/Blood Transfusion Reactions: Motion Sickness Past Psychological History: No Psychological Hx Reported Smoking Status: Never smoker Past Alcohol Use History: None Reported Past Drug Use History: None Reported - Past Family History Mother Additional Family Medical History / Comment(s): Mother at age 93 from old age with history of Parkinson's. Daughter(s) Additional Family Medical History / Comment(s): She has 3 children with no major medical problems. Father Family Medical History: Cancer Additional Family Medical History / Comment(s): Father at age 79 from lung cancer. Medications and Allergies Home Medications Medication Instructions Recorded Confirmed Type Aspirin 81 mg PO DAILY 11/03/13 04/02/20 History Fludrocortisone [Florinef] 0.05 mg PO MOWEFR 11/03/13 04/02/20 History Hydrocortisone [Cortef] 15 mg PO BID 11/03/13 04/02/20 History Levothyroxine Sodium [Synthroid] 88 mcg PO DAILY 11/03/13 04/02/20 History Calcium Carbonate [Calcium] 600 mg PO DAILY 07/13/16 04/02/20 History Cholecalciferol [Vitamin D3 (25 5,000 unit PO MOTUTH 07/13/16 04/02/20 History Mcg = 1000 Iu)] Multivitamin/Iron/Folic Acid 1 tab PO MOTUWETHFR 11/07/18 04/02/20 History [Centrum Complete Multivit Tab] Allergies Allergy/AdvReac Type Severity Reaction Status Date / Time alendronate sodium Allergy Unknown Verified 04/02/20 07:52 [From Fosamax] azithromycin Allergy Rash/Hives Verified 04/02/20 07:52 [From Zithromax Z-Benito] ciprofloxacin [From Cipro] Allergy Unknown Verified 04/02/20 07:52 doxycycline Allergy Unknown Verified 04/02/20 07:52 hydrocodone Allergy Unknown Verified 04/02/20 07:52 naproxen [From Naprosyn] Allergy Unknown Verified 04/02/20 07:52 Penicillins Allergy Rash/Hives Verified 04/02/20 07:52 sulfacetamide sodium Allergy Rash/Hives Verified 04/02/20 07:52 [From Sulfamide] tramadol Allergy Unknown Verified 04/02/20 07:52 morphine AdvReac SEZIURE Verified 04/02/20 07:52 Physical Exam Vitals: Vital Signs Temp Pulse Resp BP Pulse Ox 04/02/20 10:30 87 22 102/56 92 L 04/02/20 10:00 75 18 109/72 95 04/02/20 09:30 84 16 108/54 94 L 04/02/20 09:00 100.0 F H 04/02/20 08:00 91 20 117/53 99 04/02/20 07:30 82 16 119/62 95 04/02/20 06:26 81 16 125/51 97 Intake and Output 04/01/20 04/02/20 04/02/20 22:59 06:59 14:59 Other: Weight 67.585 kg - Constitutional General appearance: cooperative, mild distress - EENT Eyes: EOMI, no PERRLA, normal appearance - Neck Neck: no lymphadenopathy, normal ROM, no rigidity, no stridor, no thyromegaly Thyroid: bilateral: normal size, negative: enlarged, nodule - Respiratory Respiratory: left: dullness, bilateral: diminished, negative: rales, rhonchi, wheezing - Cardiovascular Rhythm: regular Heart sounds: normal: S1, S2 - Gastrointestinal General gastrointestinal: no distended, no hepatomegaly, normal bowel sounds, no organomegaly, soft, no tenderness - Integumentary Integumentary: no cellulitis, normal, no pale, no rash, no ulcer - Neurologic Neurologic: CNII-XII intact - Musculoskeletal Musculoskeletal: generalized weakness, strength equal bilaterally - Psychiatric mildly confused, very drowsy but easily arousable Results CBC & Chem 7: 04/02/20 06:48 04/02/20 06:48 Labs: Abnormal Lab Results - Last 24 Hours (Table) 04/02/20 04/02/20 04/02/20 Range/Units 06:48 06:48 09:00 APTT 21.7 L (22.0-30.0) sec Sodium 133 L (137-145) mmol/L BUN 19 H (7-17) mg/dL AST 37 H (14-36) U/L Urine Protein Trace H (Negative) Assessment and Plan Plan: 1 left lower lobe pneumonia. Blood cultures obtained will continue with IV ceftriaxone. COVID test is pending, will remain in isolation. 2. Syncope. Will run serial troponins, cardiology consulted. 3. History of Randy disease. Received Solu-Cortef 100 mg IV push. 4. Hypothyroidism. Continue Synthroid 88 g orally once every day. 5. Pulmonary fibrosis. 6. DVT prophylaxis. Heparin 5000 units subcutaneously 7. GI prophylaxis. Continue patient on Pepcid The above impression and plan of care have been discussed and directed by signing physician. Heather Chan nurse practitioner acting as scribe for signing physician.
[2020-04-02] MEDS: MULTIVITAMINS, THERA 1 EACH TAB PO SCH (12:06)
[2020-04-02] MEDS: FLUDROCORTISONE 0.1 MG TAB PO SCH (12:06)
[2020-04-02] MEDS: ACETAMINOPHEN TAB 325 MG TAB PO PRN ×2 (15:28→22:43)
--- NOTE | 2020-04-02 16:27 | CT ---
EXAMINATION TYPE: CT angio chest DATE OF EXAM: 04/02/2020 4:02 PM COMPARISON: CT chest April 26, 2014, older CT 2009. Chest x-ray earlier today. HISTORY: Shortness of breath and syncopal episode. History of pulmonary fibrosis. CT DLP: 246.7 mGycm Automated exposure control for dose reduction was used. CONTRAST: CTA scan of the thorax is performed with IV Contrast, patient injected with 100 mL of Isovue 370, pul monary embolism protocol. MIP images are created and reviewed. FINDINGS: LUNGS: Exam suboptimal as patient unable to hold breath. Right-sided calcified pleural plaques are pr esent. There is persistent severe upper lung pleural/parenchymal masslike scarring with interval prog ression from old studies. Acute areas of consolidation are difficult to exclude on background chronic change or new irregular masses but most likely select interval progression of fibrotic change extend ing out to the midlung level. There is bilateral hilar retraction consistent with upper lung volume l oss. No pleural effusion or pneumothorax. MEDIASTINUM: There is satisfactory enhancement of the pulmonary artery and its branches, there is no CT evidence for pulmonary embolism. Enlarged right and left pulmonary arteries are redemonstrated, CT findings consistent with with underlying pulmonary artery hypertension. There are no greater than 1 cm hilar or mediastinal lymph nodes. No cardiomegaly or pericardial effusion is seen. OTHER: No additional significant abnormality is seen. IMPRESSION: 1. No CT evidence for acute pulmonary embolism. 2. Pulmonary fibrotic changes in the upper to mid lungs with interval progression from 2014 study. Ar eas of acute consolidation or new irregular masses though unlikely cannot be excluded. Correlate clin ically.
--- NOTE | 2020-04-02 17:36 | P.CNPUL ---
History of Present Illness Consult date: 04/02/20 Requesting physician: Scout Bonner Reason for consult: dyspnea, cough Chief complaint: Near syncope versus syncopal episode History of present illness: This is a very pleasant 74-year-old female patient who follows with Dr. Lott as her primary care provider. She has a history of hypothyroidism, chronic low back pain, Sneha's disease, hyperlipidemia, pulmonary fibrosis, genital herpes. She had been having few days worth of increased shortness of breath, cough, malaise. Earlier this morning she felt dizzy and lightheaded and called out her who assisted her to the ground. Syncope versus presyncopal episode. She presented here to the emergency room for the same. Chest x-ray r evealed COPD with biapical pleural thickening. Questionable mass in the left upper lobe. We are consulted for the same. She is seen today in consultation in the emergency room. She is currently awake and alert in no acute distress. No further episodes of dizziness or lightheadedness. Computed tomography scan of the brain revealed no acute fracture or dislocation of the cervical spine. No acute intracranial hemorrhage or midline shift. White count 4.8. Hemoglobin 12.5. Sodium 133. Potassium 4.0. Creatinine 0.76. Troponins negative 3. EKG reveals sinus rhythm with a right bundle ashu block. CT angiogram was performed. No evidence for acute pulmonary embolism. Fibrotic changes in the upper to mid lungs with interval progression compared to thousand 14. Areas of acute consolidation or irregular masses unlikely. She did develop a T-max of 101.7 this afternoon. Mendoza virus by PCR pending. Review of Systems REVIEW OF SYSTEMS: CONSTITUTIONAL: Positive for dizziness lightheadedness or syncope. Denies any recent significant weight loss or weight gain. EYES: Denies change in vision. EARS, NOSE, MOUTH, THROAT: Denies headaches, denies sore throat. CARDIOVASCULAR: Denies chest pain, palpitations or syncopal episodes. RESPIRATORY: Denies shortness of breath, cough, congestion or hemoptysis. GASTROINTESTINAL: Denies change in appetite, denies abdominal pain GENITOURINARY: Denies hematuria, denies infections. MUSKULOSKELETAL: Denies pain, denies swelling. INTEGUMENTARY: Denies rash, denies eczema. NEUROLOGICAL: Denies recent memory loss, no recent seizure activity. PSYCHIATRIC: Denies anxiety, denies depression. HEMATOLOGIC/LYMPHATIC: Denies anemia, denies enlarged lymph nodes. Past Medical History Past Medical History: Eye Disorder, Hearing Disorder / Deafness, Osteoarthritis (OA), Pneumonia, Respiratory Disorder, Syncope, Thyroid Disorder Additional Past Medical History / Comment(s): Pulmonary fibrosis R lung, pneumonias, bronchitis, sneha's disease with past crisis, hypothyroid, seizure as a child and once in 2013 after receiving morphine, recent R hip pain-past 3 weeks, chronic low back pain, allergic rhinitis, hiatal hernia, bilateral glaucoma, [place] bilaterally with L ear worse. History of Any Multi-Drug Resistant Organisms: None Reported Past Surgical History: Back Surgery, Section, Joint Replacement, Orthopedic Surgery, Tubal Ligation Additional Past Surgical History / Comment(s): Bilateral total knee arthroplasties, low back radiofrequency ablations, bilateral carpal tunnel releases, bronchoscopy, R eye biopsy-pt does not know reason. Past Anesthesia/Blood Transfusion Reactions: Motion Sickness Additional Past Anesthesia/Blood Transfusion Reaction / Comment(s): Pt states she received blood in past without reaction. Smoking Status: Never smoker - Past Family History Mother Family Medical History: Musculoskeletal Disorder, Neurologic Disorder Additional Family Medical History / Comment(s): Mother had parkinson's. She lived to be 93 yrs old. Daughter(s) Additional Family Medical History / Comment(s): She has 3 children with no major medical problems. Father Family Medical History: Cancer Additional Family Medical History / Comment(s): Father at age 79 from lung cancer. Medications and Allergies Home Medications Medication Instructions Recorded Confirmed Type Aspirin 81 mg PO DAILY 11/03/13 04/02/20 History Fludrocortisone [Florinef] 0.05 mg PO MOWEFR 11/03/13 04/02/20 History Hydrocortisone [Cortef] 15 mg PO BID 11/03/13 04/02/20 History Levothyroxine Sodium [Synthroid] 88 mcg PO DAILY 11/03/13 04/02/20 History Calcium Carbonate [Calcium] 600 mg PO DAILY 07/13/16 04/02/20 History Cholecalciferol [Vitamin D3 (25 5,000 unit PO MOTUTH 07/13/16 04/02/20 History Mcg = 1000 Iu)] Multivitamin/Iron/Folic Acid 1 tab PO MOTUWETHFR 11/07/18 04/02/20 History [Centrum Complete Multivit Tab] Allergies Allergy/AdvReac Type Severity Reaction Status Date / Time alendronate sodium Allergy Unknown Verified 04/02/20 07:52 [From Fosamax] azithromycin Allergy Rash/Hives Verified 04/02/20 07:52 [From Zithromax Z-Benito] ciprofloxacin [From Cipro] Allergy Unknown Verified 04/02/20 07:52 doxycycline Allergy Unknown Verified 04/02/20 07:52 hydrocodone Allergy Unknown Verified 04/02/20 07:52 naproxen [From Naprosyn] Allergy Unknown Verified 04/02/20 07:52 Penicillins Allergy Rash/Hives Verified 04/02/20 07:52 sulfacetamide sodium Allergy Rash/Hives Verified 04/02/20 07:52 [From Sulfamide] tramadol Allergy Unknown Verified 04/02/20 07:52 morphine AdvReac SEZIURE Verified 04/02/20 07:52 Physical Exam Vitals: Vital Signs Temp Pulse Pulse Resp BP BP Pulse Ox 04/02/20 16:45 100.8 F H 04/02/20 15:07 101.7 F H 93 18 108/48 93 L 04/02/20 13:43 98 F 98 19 113/52 93 L 04/02/20 10:30 87 22 102/56 92 L 04/02/20 10:14 94 L 04/02/20 10:00 75 18 109/72 95 04/02/20 09:30 84 16 108/54 94 L 04/02/20 09:00 100.0 F H 04/02/20 08:00 91 20 117/53 99 04/02/20 07:30 82 16 119/62 95 04/02/20 06:26 81 16 125/51 97 Intake and Output 04/02/20 04/02/20 04/02/20 06:59 14:59 22:59 Intake Total 900 Balance 900 Intake: Intake, IV Titration 600 Amount Sodium Chloride 0.9% 1, 600 000 ml @ 75 mls/hr IV . [id number] STA Rx#:[id number] Oral 300 Other: # Voids 2 Weight 67.585 kg 67.585 kg GENERAL EXAM: Alert, pleasant 74-year-old female patient, on room air with O2 saturation 93% comfortable in no apparent distress. HEAD: Normocephalic. EYES: Normal reaction of pupils, equal size. NOSE: Clear with pink turbinates. THROAT: No erythema or exudates. NECK: No masses, no JVD. CHEST: No chest wall deformity. LUNGS: Equal air entry with coarse crackles in the posterior bases. CVS: S1 and S2 normal with no audible murmur, regular rhythm. ABDOMEN: No hepatosplenomegaly, normal bowel sounds, no guarding or rigidity. SPINE: No scoliosis or deformity SKIN: No rashes CENTRAL NERVOUS SYSTEM: No focal deficits, tone is normal in all 4 extremities. EXTREMITIES: There is no peripheral edema. No clubbing, no cyanosis. Peripheral pulses are intact. Results - Laboratory Findings CBC and BMP: 04/02/20 06:48 04/02/20 06:48 PT/INR, D-dimer PT 10.2 sec (9.0-12.0) 04/02/20 06:48 INR 1.0 (<1.2) 04/02/20 06:48 Abnormal lab findings: Abnormal Labs 04/02/20 04/02/20 04/02/20 06:48 06:48 09:00 APTT 21.7 L Sodium 133 L BUN 19 H AST 37 H Urine Protein Trace H - Diagnostic Findings Chest x-ray: image reviewed CT scan - chest: image reviewed Assessment and Plan Assessment: 1 Syncope, suspect cough induced. CT angiogram ruled out pulmonary emboli. There is some fibrotic changes in the upper to mid lungs with interval progression. Areas of acute consolidation or new irregular masses though unlikely cannot be excluded per radiology. 2 Febrile illness of unclear etiology, mendoza virus by PCR pending 3 History of [place]'s disease 4 History of pulmonary fibrosis 5 Hypothyroidism 6 Hyperlipidemia 7 Chronic low back pain. A Lifelong nonsmoker Plan: The patient was seen and evaluated by Dr. Bernal Chest x-ray and labs reviewed CT angiogram ordered and reviewed Suspect cough syncope CoVID 19 screen pending We will continue to follow and make further recommendations based on her clinical status I, the cosigning physician, performed a history & physical examination of the patient. Lungs sounds with coarse crackles in the bilateral posterior bases. Maintaining good O2 saturations in the 90s on room air. I discussed the assessment and plan of care with my nurse practitioner, Crys Salomon. I attest to the above note as dictated by her. Time with Patient: Greater than 30
[2020-04-02] MEDS: FAMOTIDINE 20 MG TAB PO SCH (20:36)
[2020-04-02] MEDS: HEPARIN SODIUM,PORCINE 5,000 UNIT/ML 1 ML VIAL SQ SCH (20:36)
[2020-04-02] MEDS ORDERED: HYDROCORTISONE 10 MG TAB PO SCH (21:00)
[2020-04-03 07:33] LABS: Basophils % (A) 1 %; Eosinophils % (A) 1 %; HCT 39.3 % (34.0-46.0); HGB 12.5 gm/dL (11.4-16.0); Lymphocytes # (A) 1.8 k/uL (1.0-4.8); Lymphocytes % (A) 42 %; MCH 30.7 pg (25.0-35.0); MCHC 31.9 g/dL (31.0-37.0); MCV 96.1 fL (80.0-100.0); Mean Platelet Volume 6.7; Monocytes # (A) 0.5 k/uL (0-1.0); Monocytes % (A) 12 %; Neutrophils # (A) 1.8 k/uL (1.3-7.7); Neutrophils % (A) 42 %; Platelet Count 245 k/uL (150-450); RBC 4.09 m/uL (3.80-5.40); RDW 12.7 % (11.5-15.5); WBC 4.2 k/uL (3.8-10.6)
[2020-04-03] MEDS: ASPIRIN 81 MG PO SCH (08:26)
[2020-04-03] MEDS: FAMOTIDINE 20 MG TAB PO SCH ×2 (08:26→19:48)
[2020-04-03] MEDS: CALCIUM CARBONATE 500 MG CHEWABLE PO SCH (08:26)
[2020-04-03] MEDS: LEVOTHYROXINE 88 MCG TAB PO SCH (08:27)
[2020-04-03] MEDS: HEPARIN SODIUM,PORCINE 5,000 UNIT/ML 1 ML VIAL SQ SCH ×2 (08:27→19:49)
--- NOTE | 2020-04-03 08:47 | US ---
EXAMINATION TYPE: US carotid duplex BILAT DATE OF EXAM: 04/03/2020 COMPARISON: NONE CLINICAL HISTORY: LVF. syncope EXAM MEASUREMENTS: RIGHT: Peak Systolic Velocity (PSV) cm/sec ----- Right CCA: 98.1 ----- Right ICA: 91.6 ----- Right ECA: 141 ICA/CCA ratio: 0.93 RIGHT: End Diastole cm/sec ----- Right CCA: 14.3 ----- Right ICA: 23.4 ----- Right ECA: 15.4 LEFT: Peak Systolic Velocity (PSV) cm/sec ----- Left CCA: 70.6 ----- Left ICA: 104 ----- Left ECA: 97.6 ICA/CCA ratio: 1.47 LEFT: End Diastole cm/sec ----- Left CCA: 12.1 ----- Left ICA: 28.7 ----- Left ECA: 0.0 VERTEBRALS (direction of flow): Right Vertebral: Antegrade Left Vertebral: Antegrade Rhythm: Normal Grayscale, color Doppler, spectral Doppler imaging performed of the carotid arteries. Waveform analys is does not show significant stenosis of the internal carotid arteries. Mild plaque bilateral bifurca tions. No evidence of significant stenosis IMPRESSION: No evident hemodynamic significant stenosis of the proximal internal carotid arteries by Doppler criteria, an indirect measurement of carotid stenosis Criteria for Assigning % of Stenosis / Diameter reduction (Estimation based on the indirect measurements of the internal carotid artery velocities (ICA PSV). 1. Normal (no stenosis)=ICA PSV < 125 cm/s: ratio < 2.0: ICA EDV<40 cm/s. 2. Less than 50% stenosis=ICA PSV < 125 cm/s: ratio < 2.0: ICA EDV<40 cm/s. 3. 50 to 69% stenosis=ICA PSV of 125 to 230 cm/s: ration 2.0 ? 4.0: ICA EDV 40-100 cm/s. 4. Greater than 70% stenosis to near occlusion= ICA PSV > 230 cm/s: ratio > 4.0: ICA EDV > 100 cm/s. 5. Near occlusion= ICA PSV velocities may be low or undetectable: variable ratio and ICA EDV. 6. Total occlusion=unable to detect flow.
[2020-04-03] MEDS ORDERED: CHOLECALCIFEROL 1,000 UNIT TAB PO SCH (09:00)
--- NOTE | 2020-04-03 09:51 | P.PN ---
Subjective Progress Note Date: 04/03/20 HISTORY OF PRESENT ILLNESS This is a 74-year-old patient of Dr. Peguero with past medical history of hyperlipidemia, [place]'s disease, chronic lower back pain, pulmonary fibrosis, and hypothyroidism. She presented to the emergency department for a possible syncopal episode. Patient reports this morning she woke up around 6 AM she felt lightheaded and called for her to help, unsure patient a syncopal episode or was helped to the ground by her . Patient reports she has not been feeling well for the last week. She complains of a slight cough and malaise. She denies any fever or chills, denies any nausea, vomiting, constipation, diarrhea, no loss of taste or smell. Upon arrival to the emergency department patient was found to be febrile with a temperature of 100.0, blood pressure 102/56, heart rate 87, respiratory 22, she's 92% on room air. Laboratory reveals WBC 4.8, sodium 133, BUN 19, creatinine 0.76, troponin was negative, UA was negative for infection. CT of the head was performed did not show any acute fracture dislocation in the cervical spine, no acute intracranial hemorrhage or midline shift. Chest x-ray showed COPD with biapical pleural thickening, area of consolidation or possible mass left upper lobe. Given the patient's clinical history pneumonia is more likely. Blood cultures were obtained she was started on IV ceftriaxone along with Solu-Cortef 100 mg for her Randy's disease. Cardiology will be consulted as well. 04/03: CT of the chest revealed no evidence of pulmonary embolism. Pulmonic fibrotic changes in the upper and mid lungs with interval progression from 2014 study. Areas of acute consolidation or new irregular masses though unlikely cannot be excluded. Patient states that she has a little cough is nonp roductive. Shortness of breath is improved. She denies having any nausea. She denies any lightheadedness or dizziness. Cardiology is on consult. Will add in carotid ultrasound and echocardiogram. COVID-19 testing is pending. REVIEW OF SYSTMES: Constitutional: Reports chills, Reports fatigue, Reports fever, Reports lethargy, Reports malaise, Reports weakness Ears, nose, mouth and throat: Denies dysphagia, Denies headache, Denies hoarseness, Denies nasal congestion, Denies nasal discharge, Denies sinus pain, Denies sinus pressure, Denies sore throat Cardiovascular: Reports shortness of breath, Reports syncope, Denies dyspnea on exertion, Denies edema, Denies leg edema, Denies orthopnea, Denies palpitations Respiratory: Reports cough, Reports cough with sputum, Reports dyspnea, Denies p ain, Denies sleep apnea Gastrointestinal: Denies abdominal pain, Denies constipation, Denies diarrhea, Denies dyspepsia, Denies heartburn, Denies indigestion, Denies nausea, Denies vomiting Genitourinary: Denies dysuria, Denies hematuria, Denies urgency Musculoskeletal: Reports low back pain, Denies neck pain, Denies neck stiffness Integumentary: Denies dryness, Denies lesions, Denies pruritus, Denies rash, Denies sores, Denies wounds Neurological: Reports syncope, Reports weakness, Denies confusion, Denies headaches, Denies numbness, Denies paresthesias, Denies seizures Endocrine: Reports fatigue, Denies palpitations PHYSICAL EXAMINATION Gen: This is a 74-year-old female. Patient's resting bed and appears to be comfortable and in no acute distress. No respiratory distress is noted. HEENT: Head is atraumatic, normocephalic. Pupils equal, round. Sclerae is anicteric. NECK: Supple. No JVD. No lymphadenopathy. No thyromegaly. LUNGS: Diminished to the left side. No wheezes or rhonchi. No intercostal retractions. HEART: Regular rate and rhythm. No murmur. ABDOMEN: Soft. Bowel sounds are present. No masses. No tenderness. EXTREMITIES: No pedal edema. No calf tenderness. NEUROLOGICAL: Patient is awake, alert and oriented x3. Cranial nerves 2 through 12 are grossly intact. ASSESSMENT AND PLAN 1. Possible left middle lobe pneumonia. Blood cultures obtained will continue with IV ceftriaxone. COVID test is pending, will remain in isolation. 2. Syncope. Consult cardiology. Echocardiogram, carotid ultrasound and lunchroom monitor. 3. History of [place] disease. Received Solu-Cortef 100 mg IV push. 4. Hypothyroidism. Continue Synthroid 88 g orally once every day. 5. Pulmonary fibrosis. 6. DVT prophylaxis. Heparin 5000 units subcutaneously 7. GI prophylaxis. Continue patient on Pepcid Discharge plan: To be determined. Impression and plan of care have been directed as dictated by the signing physician. Dorcas Tomas nurse practitioner acting as scribe for signing physician. Objective - Vital Signs Vital signs: Vital Signs Temp 98.9 F 04/03/20 05:00 Pulse 83 04/03/20 05:00 Resp 19 04/03/20 05:00 BP 111/64 04/03/20 05:00 Pulse Ox 95 04/03/20 05:00 Intake & Output 04/02/20 04/03/20 04/03/20 18:59 06:59 18:59 Intake Total 900 1790 Balance 900 1790 Weight 67.585 kg Intake: Intake, IV Titration 600 900 Amount Sodium Chloride 0.9% 1, 600 900 000 ml @ 75 mls/hr IV . [id number] STA Rx#:[id number] Oral 300 890 Other: Voiding Method Bedside Commode # Voids 2 5 - Labs CBC & Chem 7: 04/03/20 07:08 04/02/20 06:48 Labs: Abnormal Lab Results - Last 24 Hours (Table) 04/02/20 04/02/20 Range/Units 06:48 09:00 APTT 21.7 L (22.0-30.0) sec Urine Protein Trace H (Negative)
[2020-04-03 10:50] LABS: African American GFR (CKD) 84.8 (60.0-200.0); Albumin 3.9 g/dL (3.80-4.90); Albumin/Globulin Ratio 1.7 (1.60-3.17); Anion Gap 7.5 mmol/L (4.00-12.00); BUN/Creat Ratio 17.5 Ratio (12.00-20.00); Calcium 8.5 mg/dL (8.7-10.3); Carbon Dioxide 29.5 mmol/L (21.6-31.8); Globulin 2.3 g/dL (1.6-3.3); Non-African American GFR(CKD) 73.1 (60.0-200.0); Potassium 4.1 mmol/L (3.5-5.5); Total Bilirubin 0.3 mg/dL (0.3-1.2); Total Protein 6.2 g/dL (6.2-8.2)
--- NOTE | 2020-04-03 11:59 | P.CRDCN ---
History of Present Illness History of present illness: HISTORY OF PRESENTING ILLNESS This is a pleasant 74-year-old female past medical history significant for [place]'s disease, pulmonary fibrosis and arthritis. 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 We have been asked to see in consultation for syncope. Due to pending COVID testing we opted to interview the patient from a distance of 6-ft. She is interviewed and information is obtained from the nursing staff and medical record. She states she had gotten up to use the bathroom and was standing at the sink coughing when she suddenly passed out. She believes there was brief LOC. She denies feeling dizzy or lightheaded. She has had no chest pain, palpitations or significant shortness of breath. She is currently being treated for suspected pneumonia and sepsis with pending COVID test. She is seen sitting up on the commode in no acute distress. She has not b een monitored on telemetry. T-max is 101.7F. DIAGNOSTICS EKG reveals sinus mechanism with right bundle branch block. Chest xray underlying COPD with biapical pleural thickening, area of consolidati on versus possible mass in the left upper lobe. CT reveals right upper lobe scarring/mass likely fibrotic in nature, negative for pulmonary embolism Laboratory reviewed, CBC unremarkable, sodium 137, potassium 4.1, creatinine 0.8, cardiac enzymes negative 3. She takes no daily cardiac medications. REVIEW OF SYSTEMS At the time of my exam: CONSTITUTIONAL: Denies fever or chills. CARDIOVASCULAR: Denies chest pain, shortness of breath, orthopnea, PND or palpitations. RESPIRATORY: Complains of cough. GASTROINTESTINAL: Denies abdominal pain, diarrhea, constipation, nausea or vomiting. MUSCULOSKELETAL: Denies myalgias. NEUROLOGIC: Denies numbness, tingling or weakness. ENDOCRINE: Denies fatigue, weight change, polydipsia or polyurina. GENITOURINARY: Denies burning, hematuria or urgency with micturation. HEMATOLOGIC: Denies history of anemia or bleeding. PHYSICAL EXAMINATION Blood pressure 112/66 heart rate 87 afebrile currently and maintaining oxygen saturation on room air. CONSTITUTIONAL: No apparent distress. No physical exam was performed. ASSESSMENT Syncopal episode Pneumonia Febrile illness Pulmonary fibrosis [place]'s disease PLAN Clinically it sounds as sore syncope is related to cough however we will further investigate as described below to rule out significant arrhythmia. We requested orthostatic vital signs which were checked and came to be unremarkable. Apply lace pinner and assess for significant arrhythmia. Echocardiogram has been ordered and will be reviewed. Ongoing medical management and evaluation. Thank you kindly for this consultation. Nurse Practitioner note has been reviewed, I agree with a documented findings and plan of care. Patient was seen and examined. 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 History of Any Multi-Drug Resistant Organisms: None Reported Past Surgical History: Back Surgery, Section, Joint Replacement, Orthopedic Surgery, Tubal Ligation Additional Past Surgical History / Comment(s): Bilateral total knee arthroplasties, low back radiofrequency ablations, bilateral carpal tunnel releases, bronchoscopy, R eye biopsy-pt does not know reason. Past Anesthesia/Blood Transfusion Reactions: Motion Sickness Additional Past Anesthesia/Blood Transfusion Reaction / Comment(s): Pt states she received blood in past without reaction. Smoking Status: Never smoker - Past Family History Mother Family Medical History: Musculoskeletal Disorder, Neurologic Disorder Additional Family Medical History / Comment(s): Mother had parkinson's. She l ived to be 93 yrs old. Daughter(s) Additional Family Medical History / Comment(s): She has 3 children with no major medical problems. Father Family Medical History: Cancer Additional Family Medical History / Comment(s): Father at age 79 from lung cancer. Medications and Allergies Home Medications Medication Instructions Recorded Confirmed Type Aspirin 81 mg PO DAILY 11/03/13 04/02/20 History Fludrocortisone [Florinef] 0.05 mg PO MOWEFR 11/03/13 04/02/20 History Hydrocortisone [Cortef] 15 mg PO BID 11/03/13 04/02/20 History Levothyroxine Sodium [Synthroid] 88 mcg PO DAILY 11/03/13 04/02/20 History Calcium Carbonate [Calcium] 600 mg PO DAILY 07/13/16 04/02/20 History Cholecalciferol [Vitamin D3 (25 5,000 unit PO MOTUTH 07/13/16 04/02/20 History Mcg = 1000 Iu)] Multivitamin/Iron/Folic Acid 1 tab PO MOTUWETHFR 11/07/18 04/02/20 History [Centrum Complete Multivit Tab] Allergies Allergy/AdvReac Type Severity Reaction Status Date / Time alendronate sodium Allergy Unknown Verified 04/02/20 07:52 [From Fosamax] azithromycin Allergy Rash/Hives Verified 04/02/20 07:52 [From Zithromax Z-Benito] ciprofloxacin [From Cipro] Allergy Unknown Verified 04/02/20 07:52 doxycycline Allergy Unknown Verified 04/02/20 07:52 hydrocodone Allergy Unknown Verified 04/02/20 07:52 naproxen [From Naprosyn] Allergy Unknown Verified 04/02/20 07:52 Penicillins Allergy Rash/Hives Verified 04/02/20 07:52 sulfacetamide sodium Allergy Rash/Hives Verified 04/02/20 07:52 [From Sulfamide] tramadol Allergy Unknown Verified 04/02/20 07:52 morphine AdvReac SEZIURE Verified 04/02/20 07:52 Physical Exam Vitals: Vital Signs Temp Pulse Pulse Pulse Pulse Pulse Resp 04/03/20 10:25 99.8 F H 96 103 H 87 19 04/03/20 05:00 98.9 F 83 19 04/02/20 21:00 98.9 F 93 22 04/02/20 19:45 98.5 F 04/02/20 16:45 100.8 F H 04/02/20 15:07 101.7 F H 93 18 04/02/20 13:43 98 F 98 19 BP BP BP BP Pulse Ox 04/03/20 10:25 121/69 112/66 117/64 93 L 04/03/20 05:00 111/64 95 04/02/20 21:00 113/64 95 04/02/20 19:45 04/02/20 16:45 04/02/20 15:07 108/48 93 L 04/02/20 13:43 113/52 93 L Intake and Output 04/02/20 04/03/20 04/03/20 22:59 06:59 14:59 Intake Total 600 1190 Balance 600 1190 Intake: Intake, IV Titration 300 600 Amount Sodium Chloride 0.9% 1, 300 600 000 ml @ 75 mls/hr IV . [id number] STA Rx#:[id number] Oral 300 590 Other: Voiding Method Bedside Commode Bedside Commode # Voids 5 5 2 Results 04/03/20 07:08 04/03/20 07:08 Cardiac Enzymes 04/02/20 04/02/20 04/03/20 Range/Units 11:38 14:08 07:08 AST 52 H (13-35) U/L Troponin I <0.012 <0.012 (0.000-0.034) ng/mL CBC 04/03/20 Range/Units 07:08 WBC 4.2 (3.8-10.6) k/uL RBC 4.09 (3.80-5.40) m/uL Hgb 12.5 (11.4-16.0) gm/dL Hct 39.3 (34.0-46.0) % Plt Count 245 (150-450) k/uL Comprehensive Metabolic Panel 04/03/20 Range/Units 07:08 Sodium 137 (135-145) mmol/L Potassium 4.1 (3.5-5.5) mmol/L Chloride 100 (96-109) mmol/L Carbon Dioxide 29.5 (21.6-31.8) mmol/L BUN 14.0 (9.0-27.0) mg/dL Creatinine 0.8 (0.6-1.5) mg/dL Glucose 75 (70-110) mg/dL Calcium 8.5 L (8.7-10.3) mg/dL AST 52 H (13-35) U/L ALT 22 (8-44) U/L Alkaline Phosphatase 44 (41-126) U/L Total Protein 6.2 (6.2-8.2) g/dL Albumin 3.90 (3.80-4.90) g/dL Current Medications Generic Name Dose Route Start Last Admin Trade Name Freq PRN Reason Stop Dose Admin Acetaminophen 650 mg 04/02/20 15:19 04/02/20 22:43 Acetaminophen Tab 325 Mg Tab PO 650 mg Q6HR PRN Administration Fever and/ or Pain Aspirin 81 mg 04/03/20 09:00 04/03/20 08:26 Aspirin 81 Mg PO 81 mg DAILY KEILY Administration Calcium Carbonate/Glycine 500 mg 04/03/20 09:00 04/03/20 08:26 Calcium Carbonate 500 Mg Chewable PO 500 mg DAILY KEILY Administration Cholecalciferol 5,000 unit 04/03/20 09:00 04/03/20 08:27 Cholecalciferol 1,000 Unit Tab PO 5,000 unit MOTUTH KEILY Administration Famotidine 20 mg 04/02/20 21:00 04/03/20 08:26 Famotidine 20 Mg Tab PO 20 mg BID KEILY Administration Fludrocortisone Acetate 0.05 mg 04/02/20 12:00 04/02/20 12:06 Fludrocortisone 0.1 Mg Tab PO 0.05 mg MOWEFR [facility] Administration Heparin Sodium (Porcine) 5,000 unit 04/02/20 21:00 04/03/20 08:27 Heparin Sodium,Porcine 5,000 Unit/Ml 1 Ml Vial SQ 5,000 unit Q12HR KEILY Administration Hydrocortisone 15 mg 04/03/20 21:00 Hydrocortisone 10 Mg Tab PO BID [facility] Ceftriaxone Sodium 1 gm/ 50 mls @ 100 mls/hr 04/03/20 10:00 Sodium Chloride IVPB Q24HR [facility] Levothyroxine Sodium 88 mcg 04/03/20 06:30 04/03/20 08:27 Levothyroxine 88 Mcg Tab PO 88 mcg DAILY@0630 [facility] Administration Multivitamins 1 each 04/02/20 12:00 04/02/20 12:06 Multivitamins, Thera 1 Each Tab PO 1 each MOTUWETHFR [facility] Administration Ondansetron HCl 4 mg 04/02/20 10:15 Ondansetron 4 Mg/2 Ml Vial IVP Q8H PRN Nausea Intake and Output 04/02/20 04/03/20 04/03/20 22:59 06:59 14:59 Intake Total 600 1190 Balance 600 1190 Intake: Intake, IV Titration 300 600 Amount Sodium Chloride 0.9% 1, 300 600 000 ml @ 75 mls/hr IV . [id number] STA Rx#:[id number] Oral 300 590 Other: Voiding Method Bedside Commode Bedside Commode # Voids 5 5 2 04/03/20 07:08 04/03/20 07:08
[2020-04-03] MEDS: MULTIVITAMINS, THERA 1 EACH TAB PO SCH (12:08)
--- NOTE | 2020-04-03 13:56 | P.PN ---
Subjective Progress Note Date: 04/03/20 Principal diagnosis: Syncope versus non-syncope This is a very pleasant 74-year-old female patient who follows with Dr. Lott as her primary care provider. She has a history of hypothyroidism, chronic low back pain, Irons's disease, hyperlipidemia, pulmonary fibrosis, genital herpes. She had been having few days worth of increased shortness of breath, cough, malaise. Earlier this morning she felt dizzy and lightheaded and called out her who assisted her to the ground. Syncope versus presyncopal episode. She presented here to the emergency room for the same. Chest x-ray revealed COPD with biapical pleural thickening. Questionable mass in the left upper lobe. We are consulted for the same. She is seen today in consultation in the emergency room. She is currently awake and alert in no acute distress. No further episodes of dizziness or lightheadedness. Computed tomography scan of the brain revealed no acute fracture or dislocation of the cervical spine. No acute intracranial hemorrhage or midline shift. White count 4.8. Hemoglobin 12.5. Sodium 133. Potassium 4.0. Creatinine 0.76. Troponins negative 3. EKG reveals sinus rhythm with a right bundle ashu block. CT angiogram was performed. No evidence for acute pulmonary embolism. Fibrotic changes in the upper to mid lungs with interval progression compared to thousand 14. Areas of acute consolidation or irregular masses unlikely. She did develop a T-max of 101.7 this afternoon. Mendoza virus by PCR pending. The patient is seen today 04/03/2020 and follow-up on the regular medical floor. She is awake and alert in no acute distress. Sitting up in bed. No further syncopal or near syncope episodes. Carotid Dopplers revealed no significant carotid stenosis. Echocardiogram pending. Mendoza virus by PCR pending. She is maintaining O2 saturations in the 90s on room air. She's afebrile. No significant orthostatic hypotension documented. Blood culture reveals no growth to date. White count 4.2. Hemoglobin 12.5. Sodium 137. Potassium 4.1. Creatinine 0.8. Objective - Vital Signs Vital signs: Vital Signs Temp 99.3 F 04/03/20 12:54 Pulse 91 04/03/20 12:54 Resp 18 04/03/20 12:54 BP 95/51 04/03/20 12:54 Pulse Ox 94 L 04/03/20 12:54 Intake & Output 04/02/20 04/03/20 04/03/20 18:59 06:59 18:59 Intake Total 900 1790 1500 Output Total 1 Balance 900 1790 1499 Weight 67.585 kg Intake: Intake, IV Titration 600 900 300 Amount Sodium Chloride 0.9% 1, 600 900 300 000 ml @ 75 mls/hr IV . [id number] STA Rx#:[id number] Oral 463 852 0800 Output: Stool 1 Other: Voiding Method Bedside Commode Bedside Commode # Voids 2 5 2 - Exam GENERAL EXAM: Alert, active, pleasant 74-year-old female patient, on room air, O2 saturation 93% comfortable in no apparent distress. HEAD: Normocephalic. EYES: Normal reaction of pupils, equal size. NOSE: Clear with pink turbinates. THROAT: No erythema or exudates. NECK: No masses, no JVD. CHEST: No chest wall deformity. LUNGS: Equal air entry with faint coarse crackles in the posterior bases CVS: S1 and S2 normal with no audible murmur, regular rhythm. ABDOMEN: No hepatosplenomegaly, normal bowel sounds, no guarding or rigidity. SPINE: No scoliosis or deformity SKIN: No rashes CENTRAL NERVOUS SYSTEM: No focal deficits, tone is normal in all 4 extremities. EXTREMITIES: There is no peripheral edema. No clubbing, no cyanosis. Peripheral pulses are intact. - Labs CBC & Chem 7: 04/03/20 07:08 04/03/20 07:08 Labs: Abnormal Lab Results - Last 24 Hours (Table) 04/03/20 Range/Units 07:08 Calcium 8.5 L (8.7-10.3) mg/dL AST 52 H (13-35) U/L Microbiology - Last 24 Hours (Table) 04/02/20 10:18 Blood Culture - Preliminary Blood No Growth after 24 hours Assessment and Plan Assessment: 1 Syncope, suspect cough induced. CT angiogram ruled out pulmonary emboli. There is some fibrotic changes in the upper to mid lungs with interval progression. Areas of acute consolidation or new irregular masses though unlikely cannot be excluded per radiology. 2 Febrile illness of unclear etiology, mendoza virus by PCR pending 3 History of Irons's disease 4 History of pulmonary fibrosis 5 Hypothyroidism 6 Hyperlipidemia 7 Chronic low back pain. A Lifelong nonsmoker Plan: The patient was seen and evaluated by Dr. Gabe Jennings from the pulmonary standpoint CoVID [id number] screen pending We will see the patient as needed I, the cosigning physician, performed a history & physical examination of the patient. Lungs sounds with coarse crackles in the bilateral posterior bases. Maintaining good O2 saturations in the 90s on room air. I discussed the assessment and plan of care with my nurse practitioner, Crys Salomon. I attest to the above note as dictated by her.
[2020-04-03 16:46] VITALS: BMI 23.3
[2020-04-03] MEDS: ACETAMINOPHEN TAB 325 MG TAB PO PRN (16:47)
--- NOTE | 2020-04-03 17:11 | ECHOF ---
Referral Reason:LVF MEASUREMENTS -------- HEIGHT: 170.2 cm WEIGHT: 67.6 kg BP: 111/64 RVIDd: 3.2 cm (< 3.3) IVSd: 1.0 cm (0.6 - 1.1) LVIDd: 3.5 cm (3.9 - 5.3) LVPWd: 1.0 cm (0.6 - 1.1) IVSs: 1.3 cm LVIDs: 2.6 cm LVPWs: 1.3 cm LAESV Index (A-L): 15.18 ml/m Ao Diam: 2.6 cm (2.0 - 3.7) AV Cusp: 1.7 cm (1.5 - 2.6) MV EXCURSION: 16.659 mm (> 18.000) MV EF SLOPE: 58 mm/s (70 - 150) EPSS: 1.0 cm MV E Gabino: 0.66 m/s MV DecT: 231 ms MV A Gabino: 1.00 m/s MV E/A Ratio: 0.66 RAP: 5.00 mmHg RVSP: 27.00 mmHg FINDINGS -------- Sinus rhythm. This was a technically adequate study. The left ventricular size is normal. There is mild concentric left ventricular hypertrophy. Overa ll left ventricular systolic function is normal with, an EF between 55 - 60 %. The right ventricle is normal in size. Normal LA size by volume 22+/-6 ml/m2. The right atrial size is normal. Interatrial and interventricular septum intact. There is mild aortic valve sclerosis. Trace to mild aortic regurgitation. There is no evidence of aortic stenosis. Mild mitral regurgitation is present. Mild tricuspid regurgitation present. There is no evidence of pulmonary hypertension. The right v entricular systolic pressure, as measured by Doppler, is 27.00mmHg. Trace/mild (physiologic) pulmonic regurgitation. The aortic root size is normal. IVC Not well visulized. There is no pericardial effusion. CONCLUSIONS -------- 1. The left ventricular size is normal. 2. There is mild concentric left ventricular hypertrophy. 3. Overall left ventricular systolic function is normal with, an EF between 55 - 60 %. 4. There is mild aortic valve sclerosis. 5. Trace to mild aortic regurgitation. 6. Mild mitral regurgitation is present. 7. Mild tricuspid regurgitation present. 8. Trace/mild (physiologic) pulmonic regurgitation. 9. There is no pericardial effusion. [employer]MENT FIELD SERVICE TECHNICIAN: Peggy Vick RDCS
[2020-04-03] MEDS: HYDROCORTISONE 10 MG TAB PO SCH (19:49)
[2020-04-04] MEDS: ACETAMINOPHEN TAB 325 MG TAB PO PRN (00:38)
[2020-04-04 05:56] LABS: Basophils # (A) 0.1 k/uL (0-0.2); Basophils % (A) 1 %; Eosinophils % (A) 1 %; HCT 39.2 % (34.0-46.0); HGB 12.9 gm/dL (11.4-16.0); Lymphocytes # (A) 2.3 k/uL (1.0-4.8); Lymphocytes % (A) 54 %; MCH 31.2 pg (25.0-35.0); MCHC 32.9 g/dL (31.0-37.0); Mean Platelet Volume 6.7; Monocytes # (A) 0.3 k/uL (0-1.0); Monocytes % (A) 8 %; Neutrophils # (A) 1.4 k/uL (1.3-7.7); Neutrophils % (A) 34 %; Platelet Count 228 k/uL (150-450); RBC 4.12 m/uL (3.80-5.40); RDW 12.2 % (11.5-15.5); WBC 4.2 k/uL (3.8-10.6)
[2020-04-04] MEDS: LEVOTHYROXINE 88 MCG TAB PO SCH (06:00)
[2020-04-04] MEDS: CALCIUM CARBONATE 500 MG CHEWABLE PO SCH (08:18)
[2020-04-04] MEDS: ASPIRIN 81 MG PO SCH (08:18)
[2020-04-04] MEDS: HYDROCORTISONE 10 MG TAB PO SCH ×2 (08:18→20:23)
[2020-04-04] MEDS: FAMOTIDINE 20 MG TAB PO SCH ×2 (08:18→19:54)
[2020-04-04] MEDS: HEPARIN SODIUM,PORCINE 5,000 UNIT/ML 1 ML VIAL SQ SCH ×2 (08:19→19:54)
[2020-04-04 09:23] LABS: African American GFR (CKD) 99.6 (60.0-200.0); Albumin 3.8 g/dL (3.80-4.90); Albumin/Globulin Ratio 1.52 (1.60-3.17); Anion Gap 7.8 mmol/L (4.00-12.00); BUN/Creat Ratio 15.71 Ratio (12.00-20.00); Calcium 8.7 mg/dL (8.7-10.3); Carbon Dioxide 27.2 mmol/L (21.6-31.8); Globulin 2.5 g/dL (1.6-3.3); Total Bilirubin 0.2 mg/dL (0.2-1.2); Total Protein 6.3 g/dL (6.2-8.2)
--- NOTE | 2020-04-04 10:54 | P.PN ---
Progress Note - Text No evidence of acute arrhythmia causing syncope. Telemetry tracing and orthostatic vital signs are unremarkable. We will follow along as needed, please reconsult if further recommendations required.
[2020-04-04] MEDS: MULTIVITAMINS, THERA 1 EACH TAB PO SCH (12:40)
[2020-04-04] MEDS: FLUDROCORTISONE 0.1 MG TAB PO SCH (12:40)
--- NOTE | 2020-04-04 13:46 | P.PN ---
Subjective Progress Note Date: 04/04/20 HISTORY OF PRESENT ILLNESS This is a 74-year-old patient of Dr. Peguero with past medical history of hyperlipidemia, [place]'s disease, chronic lower back pain, pulmonary fibrosis, and hypothyroidism. She presented to the emergency department for a possible syncopal episode. Patient reports this morning she woke up around 6 AM she felt lightheaded and called for her to help, unsure patient a syncopal episode or was helped to the ground by her . Patient reports she has not been feeling well for the last week. She complains of a slight cough and malaise. She denies any fever or chills, denies any nausea, vomiting, constipation, diarrhea, no loss of taste or smell. Upon arrival to the emergency department patient was found to be febrile with a temperature of 100.0, blood pressure 102/56, heart rate 87, respiratory 22, she's 92% on room air. Laboratory reveals WBC 4.8, sodium 133, BUN 19, creatinine 0.76, troponin was negative, UA was negative for infection. CT of the head was performed did not show any acute fracture dislocation in the cervical spine, no acute intracranial hemorrhage or midline shift. Chest x-ray showed COPD with biapical pleural thickening, area of consolidation or possible mass left upper lobe. Given the patient's clinical history pneumonia is more likely. Blood cultures were obtained she was started on IV ceftriaxone along with Solu-Cortef 100 mg for her Randy's disease. Cardiology will be consulted as well. 04/03: CT of the chest revealed no evidence of pulmonary embolism. Pulmonic fibrotic changes in the upper and mid lungs with interval progression from 2014 study. Areas of acute consolidation or new irregular masses though unlikely cannot be excluded. Patient states that she has a little cough is nonp roductive. Shortness of breath is improved. She denies having any nausea. She denies any lightheadedness or dizziness. Cardiology is on consult. Will add in carotid ultrasound and echocardiogram. COVID-19 testing is pending. 04/04: COVID-19 testing remains pending. Patient states that she had a rough night and she was worrying about the Covid 19 virus. Explained to patient that the likelihood of her having Covid 19 is very low. Repeat CBC is normal. Patient's been afebrile, heart rate 80, blood pressure 117/63, pulse ox 93% on room air. Blood culture is no growth at 48 hours. Echocardiogram reveals EF of 55-60%, mild concentric left ventricular hypertrophy, mild aortic valve sclero sis, mild aortic regurgitation, mild mitral regurgitation, mild tricuspid regurgitation. Carotid ultrasound revealed no hemodynamically significant stenosis. Patient has been followed by cardiology and pulmonary medicine. There has been no acute arrhythmia causing syncope. Cardiology is following on an as-needed basis. She is currently on ceftriaxone. Anticipate probable discharge tomorrow. Discharge plan is to return home. REVIEW OF SYSTMES: Constitutional: Denies chills, Reports fatigue, denies fever, denies lethargy, denies malaise, Reports weakness Ears, nose, mouth and throat: Denies dysphagia, Denies headache, Denies hoarseness, Denies nasal congestion, Denies nasal discharge, Denies sinus pain, Denies sinus pressure, Denies sore throat Cardiovascular: Denies shortness of breath, denies syncope, Denies dyspnea on exertion, Denies edema, Denies leg edema, Denies orthopnea, Denies palpitations Respiratory: Reports cough, Reports cough with sputum, denies dyspnea, Denies pain, Denies sleep apnea Gastrointestinal: Denies abdominal pain, Denies constipation, Denies diarrhea, Denies dyspepsia, Denies heartburn, Denies indigestion, Denies nausea, Denies vomiting Genitourinary: Denies dysuria, Denies hematuria, Denies urgency Musculoskeletal: Reports low back pain, Denies neck pain, Denies neck stiffness Integumentary: Denies dryness, Denies lesions, Denies pruritus, Denies rash, Denies sores, Denies wounds Neurological: Denies syncope, Reports weakness, Denies confusion, Denies headaches, Denies numbness, Denies paresthesias, Denies seizures Endocrine: Reports fatigue, Denies palpitations PHYSICAL EXAMINATION Gen: This is a 74-year-old female. Patient's resting bed and appears to be comfortable and in no acute distress. No respiratory distress is noted. HEENT: Head is atraumatic, normocephalic. Pupils equal, round. Sclerae is anicteric. NECK: Supple. No JVD. No lymphadenopathy. No thyromegaly. LUNGS: Diminished to the left side. No wheezes or rhonchi. No intercostal r etractions. HEART: Regular rate and rhythm. No murmur. ABDOMEN: Soft. Bowel sounds are present. No masses. No tenderness. EXTREMITIES: No pedal edema. No calf tenderness. Dorsalis pedis palpable b ilaterally. NEUROLOGICAL: Patient is awake, alert and oriented x3. Cranial nerves 2 through 12 are grossly intact. ASSESSMENT AND PLAN 1. Possible left middle lobe pneumonia. Blood cultures obtained will continue with IV ceftriaxone. COVID test is pending, will remain in isolation. 2. Syncope. Consult cardiology. Echocardiogram, carotid ultrasound and monitor tech. 3. History of Limestone disease. Received Solu-Cortef 100 mg IV push. 4. Hypothyroidism. Continue Synthroid 88 g orally once every day. 5. Pulmonary fibrosis. 6. DVT prophylaxis. Heparin 5000 units subcutaneously 7. GI prophylaxis. Continue patient on Pepcid Discharge plan: Home without home care tomorrow. Impression and plan of care have been directed as dictated by the signing physician. Dorcas Tomas nurse practitioner acting as scribe for signing physician. Objective - Vital Signs Vital signs: Vital Signs Temp 98.2 F 04/04/20 05:00 Pulse 80 04/04/20 05:00 Resp 18 04/04/20 05:00 BP 117/63 04/04/20 05:00 Pulse Ox 93 L 04/04/20 05:00 Intake & Output 04/03/20 04/04/20 04/04/20 18:59 06:59 18:59 Intake Total 1500 1180 Output Total 1 Balance 1499 1180 Weight 67.585 kg Intake: Intake, IV Titration 300 Amount Sodium Chloride 0.9% 1, 300 000 ml @ 75 mls/hr IV . [id number] STA Rx#:[id number] Oral 1200 1180 Output: Stool 1 Other: Voiding Method Bedside Commode Toilet # Voids 2 3 - Labs CBC & Chem 7: 04/04/20 05:21 04/04/20 05:21 Labs: Abnormal Lab Results - Last 24 Hours (Table) 04/03/20 Range/Units 07:08 Calcium 8.5 L (8.7-10.3) mg/dL AST 52 H (13-35) U/L Microbiology - Last 24 Hours (Table) 04/02/20 10:18 Blood Culture - Preliminary Blood No Growth after 24 hours
--- NOTE | 2020-04-04 15:46 | P.PN ---
Subjective Progress Note Date: 04/04/20 Principal diagnosis: Syncope versus non-syncope This is a very pleasant 74-year-old female patient who follows with Dr. Lott as her primary care provider. She has a history of hypothyroidism, chronic low back pain, [place]'s disease, hyperlipidemia, pulmonary fibrosis, genital herpes. She had been having few days worth of increased shortness of breath, cough, malaise. Earlier this morning she felt dizzy and lightheaded and called out her who assisted her to the ground. Syncope versus presyncopal episode. She presented here to the emergency room for the same. Chest x-ray revealed COPD with biapical pleural thickening. Questionable mass in the left upper lobe. We are consulted for the same. She is seen today in consultation in the emergency room. She is currently awake and alert in no acute distress. No further episodes of dizziness or lightheadedness. Computed tomography scan of the brain revealed no acute fracture or dislocation of the cervical spine. No acute intracranial hemorrhage or midline shift. White count 4.8. Hemoglobin 12.5. Sodium 133. Potassium 4.0. Creatinine 0.76. Troponins negative 3. EKG reveals sinus rhythm with a right bundle ashu block. CT angiogram was performed. No evidence for acute pulmonary embolism. Fibrotic changes in the upper to mid lungs with interval progression compared to thousand 14. Areas of acute consolidation or irregular masses unlikely. She did develop a T-max of 101.7 this afternoon. Mendoza virus by PCR pending. The patient is seen today 04/03/2020 and follow-up on the regular medical floor. She is awake and alert in no acute distress. Sitting up in bed. No further syncopal or near syncope episodes. Carotid Dopplers revealed no significant carotid stenosis. Echocardiogram pending. Mendoza virus by PCR pending. She is maintaining O2 saturations in the 90s on room air. She's afebrile. No significant orthostatic hypotension documented. Blood culture reveals no growth to date. White count 4.2. Hemoglobin 12.5. Sodium 137. Potassium 4.1. Creatinine 0.8. Patient seen today 04/04/2020 in follow-up on the regular medical floor. She remains awake and alert in no acute distress. No worsening shortness of breath, cough or congestion. No further syncopal episodes. Echocardiogram revealed preserved left ventricular systolic function with ejection fraction 55-60%. No significant valvular abnormalities. She continues to maintain O2 saturations in the 90s on room air. Afebrile. Hemodynamically stable. Blood culture reveals no growth. White count 4.2. Hemoglobin 12.9. Sodium 133. Potassium 4.0. Creatinine was 0.7. She remains on antibiotics in the form of ceftriaxone. Objective - Vital Signs Vital signs: Vital Signs Temp 97.3 F L 04/04/20 12:30 Pulse 88 04/04/20 12:30 Resp 16 04/04/20 12:30 BP 116/58 04/04/20 12:30 Pulse Ox 96 04/04/20 12:30 Intake & Output 04/03/20 04/04/20 04/04/20 18:59 06:59 18:59 Intake Total 1500 1180 650 Output Total 1 Balance 1499 1180 650 Weight 67.585 kg Intake: Intake, IV Titration 300 50 Amount Sodium Chloride 0.9% 1, 300 000 ml @ 75 mls/hr IV . [id number] STA Rx#:[id number] cefTRIAXone 1 gm In 50 Sodium Chloride 0.9% 50 ml @ 100 mls/hr IVPB Q24HR [facility] Rx#:[id number] Oral 1200 1180 600 Output: Stool 1 Other: Voiding Method Bedside Commode Toilet Toilet # Voids 2 3 3 # Bowel Movements 1 - Exam GENERAL EXAM: Alert, active, pleasant 74-year-old female patient, on room air, O2 saturation 96% comfortable in no apparent distress. HEAD: Normocephalic. EYES: Normal reaction of pupils, equal size. NOSE: Clear with pink turbinates. THROAT: No erythema or exudates. NECK: No masses, no JVD. CHEST: No chest wall deformity. LUNGS: Equal air entry with faint coarse crackles in the posterior bases CVS: S1 and S2 normal with no audible murmur, regular rhythm. ABDOMEN: No hepatosplenomegaly, normal bowel sounds, no guarding or rigidity. SPINE: No scoliosis or deformity SKIN: No rashes CENTRAL NERVOUS SYSTEM: No focal deficits, tone is normal in all 4 extremities. EXTREMITIES: There is no peripheral edema. No clubbing, no cyanosis. Peripheral pulses are intact. - Labs CBC & Chem 7: 04/04/20 05:21 04/04/20 05:21 Labs: Abnormal Lab Results - Last 24 Hours (Table) 04/04/20 Range/Units 05:21 Sodium 133 L (135-145) mmol/L AST 75 H (13-35) U/L Albumin/Globulin Ratio 1.52 L (1.60-3.17) g/dL Microbiology - Last 24 Hours (Table) 04/02/20 10:18 Blood Culture - Preliminary Blood No Growth after 48 hours Assessment and Plan Assessment: 1 Syncope, suspect cough induced. CT angiogram ruled out pulmonary emboli. There is some fibrotic changes in the upper to mid lungs with interval pr ogression. Areas of acute consolidation or new irregular masses though unlikely cannot be excluded per radiology. Remains on room air. No further syncope since admission. 2 Febrile illness of unclear etiology, mendoza virus by PCR pending 3 History of Randy's disease 4 History of pulmonary fibrosis 5 Hypothyroidism 6 Hyperlipidemia 7 Chronic low back pain. A Lifelong nonsmoker Plan: The patient was seen and evaluated by Dr. Gabe Jennings from the pulmonary standpoint CoVID 19 screen pending Probable discharge in the a.m. I, the cosigning physician, performed a history & physical examination of the patient. Lungs sounds with coarse crackles in the bilateral posterior bases. Maintaining good O2 saturations in the 90s on room air. I discussed the assessment and plan of care with my nurse practitioner, Crys Salomon. I attest to the above note as dictated by her.
[2020-04-04 20:34] VITALS: RESP 17
[2020-04-05] MEDS: ACETAMINOPHEN TAB 325 MG TAB PO PRN (03:01)
[2020-04-05 04:41] VITALS: BP 124/58; PULSE 77; TEMP 97.5
[2020-04-05] MEDS: LEVOTHYROXINE 88 MCG TAB PO SCH (07:21)
[2020-04-05] MEDS: CALCIUM CARBONATE 500 MG CHEWABLE PO SCH (08:01)
[2020-04-05] MEDS: FAMOTIDINE 20 MG TAB PO SCH (08:01)
[2020-04-05] MEDS: ASPIRIN 81 MG PO SCH (08:01)
[2020-04-05] MEDS: HYDROCORTISONE 10 MG TAB PO SCH (08:02)
[2020-04-05] MEDS: HEPARIN SODIUM,PORCINE 5,000 UNIT/ML 1 ML VIAL SQ SCH (08:02)
--- NOTE | 2020-04-05 10:10 | P.DS ---
Providers Date of admission: 04/02/20 10:38 Attending physician: Scout Bonner Consults: 04/02/20 10:14 Consult Physician Routine Consulting Provider: [facility] Consult Reason/Comments: syncope x2 Do you want consulting provider notified?: Yes 04/03/20 07:48 Consult Physician Routine Consulting Provider: Asaf Bernal Consult Reason/Comments: pneumonia Do you want consulting provider notified?: Yes Primary care physician: [facility] Hospital Course: HISTORY OF PRESENT ILLNESS This is a 74-year-old patient of Dr. Peguero with past medical history of hyperlipidemia, Randy's disease, chronic lower back pain, pulmonary fibrosis, and hypothyroidism. She presented to the emergency department for a possible syncopal episode. Patient reports this morning she woke up around 6 AM she felt lightheaded and called for her to help, unsure patient a syncopal episode or was helped to the ground by her . Patient reports she has not been feeling well for the last week. She complains of a slight cough and malaise. She denies any fever or chills, denies any nausea, vomiting, constipation, diarrhea, no loss of taste or smell. Upon arrival to the emergency department patient was found to be febrile with a temperature of 100.0, blood pressure 102/56, heart rate 87, respiratory 22, she's 92% on room air. Laboratory reveals WBC 4.8, sodium 133, BUN 19, creatinine 0.76, troponin was negative, UA was negative for infection. CT of the head was performed did not show any acute fracture dislocation in the cervical spine, no acute intracranial hemorrhage or midline shift. Chest x-ray showed COPD with biapical pleural thickening, area of consolidation or possible mass left upper lobe. Given the patient's clinical history pneumonia is more likely. Blood cultures were obtained she was started on IV ceftriaxone along with Solu-Cortef 100 mg for her Randy's disease. Cardiology will be consulted as well. 04/03: CT of the chest revealed no evidence of pulmonary embolism. Pulmonic fibrotic changes in the upper and mid lungs with interval progression from 2014 study. Areas of acute consolidation or new irregular masses though unlikely cannot be excluded. Patient states that she has a little cough is nonproductive. Shortness of breath is improved. She denies having any nausea. She denies any lightheadedness or dizziness. Cardiology is on consult. Will add in carotid ultrasound and echocardiogram. COVID-19 testing is pending. 04/04: COVID-19 testing remains pending. Patient states that she had a rough night and she was worrying about the Covid 19 virus. Explained to patient that the likelihood of her having Covid 19 is very low. Repeat CBC is normal. Patient's been afebrile, heart rate 80, blood pressure 117/63, pulse ox 93% on room air. Blood culture is no growth at 48 hours. Echocardiogram reveals EF of 55-60%, mild concentric left ventricular hypertrophy, mild aortic valve sclerosis, mild aortic regurgitation, mild mitral regurgitation, mild tricuspid regurgitation. Carotid ultrasound revealed no hemodynamically significant stenosis. Patient has been followed by cardiology and pulmonary medicine. Ther e has been no acute arrhythmia causing syncope. Cardiology is following on an as-needed basis. She is currently on ceftriaxone. Anticipate probable discharge tomorrow. Discharge plan is to return home. 04/05: Patient is doing much better with current management she is more stable she wants to go home, her pneumonia and current active management is much better patient is not symptomatic staking off Solu-Medrol IV. Patient is known to have history of [place] disease was on Cortef as an outpatient. Patient Covid test still pending at this point she wants to go home and watch it with her primary care as an outpatient. REVIEW OF SYSTMES: Constitutional: Denies chills, Reports fatigue, denies fever, denies lethargy, denies malaise, Reports weakness Ears, nose, mouth and throat: Denies dysphagia, Denies headache, Denies hoarseness, Denies nasal congestion, Denies nasal discharge, Denies sinus pain, Denies sinus pressure, Denies sore throat Cardiovascular: Denies shortness of breath, denies syncope, Denies dyspnea on exertion, Denies edema, Denies leg edema, Denies orthopnea, Denies palpitations Respiratory: Reports cough, Reports cough with sputum, denies dyspnea, Denies pain, Denies sleep apnea Gastrointestinal: Denies abdominal pain, Denies constipation, Denies diarrhea, Denies dyspepsia, Denies heartburn, Denies indigestion, Denies nausea, Denies vomiting Genitourinary: Denies dysuria, Denies hematuria, Denies urgency Musculoskeletal: Reports low back pain, Denies neck pain, Denies neck stiffness Integumentary: Denies dryness, Denies lesions, Denies pruritus, Denies rash, Denies sores, Denies wounds Neurological: Denies syncope, Reports weakness, Denies confusion, Denies headaches, Denies numbness, Denies paresthesias, Denies seizures Endocrine: Reports fatigue, Denies palpitations PHYSICAL EXAMINATION Gen: This is a 74-year-old female. Patient's resting bed and appears to be comfortable and in no acute distress. No respiratory distress is noted. HEENT: Head is atraumatic, normocephalic. Pupils equal, round. Sclerae is anicteric. NECK: Supple. No JVD. No lymphadenopathy. No thyromegaly. LUNGS: Diminished to the left side. No wheezes or rhonchi. No intercostal retractions. HEART: Regular rate and rhythm. No murmur. ABDOMEN: Soft. Bowel sounds are present. No masses. No tenderness. EXTREMITIES: No pedal edema. No calf tenderness. Dorsalis pedis palpable bilaterally. NEUROLOGICAL: Patient is awake, alert and oriented x3. Cranial nerves 2 through 12 are grossly intact. ASSESSMENT AND PLAN 1. Possible left middle lobe pneumonia. Blood cultures obtained will continue with IV ceftriaxone. Patient be switched to oral azithromycin for 5 more days along with Mucinex. COVID test is pending, will remain in isolation. 2. Syncope. Consult cardiology. Echocardiogram, carotid ultrasound and donor specialist. All cardiac testing came back negative and presyncope claim to be related to her hypoxia from pneumonia. 3. History of [place] disease. Was on IV Solu-Cortef switch patient back to her Cortef orally. 4. Hypothyroidism. Continue Synthroid 88 g orally once every day. 5. Pulmonary fibrosis. Stable. 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 Patient Condition at Discharge: Fair Plan - Discharge Summary Discharge Rx Participant: No New Discharge Prescriptions: New Azithromycin 250 mg PO DAILY 1 Days #5 tab guaiFENesin [Mucinex] 600 mg PO BID #14 tab.er.12h Famotidine [Pepcid] 20 mg PO BID tab Acetaminophen Tab [Tylenol] 650 mg PO Q6HR PRN tab PRN Reason: Fever And/ Or Pain Continue Levothyroxine Sodium [Synthroid] 88 mcg PO DAILY Fludrocortisone [Florinef] 0.05 mg PO MOWEFR Hydrocortisone [Cortef] 15 mg PO BID Aspirin 81 mg PO DAILY Cholecalciferol [Vitamin D3 (25 Mcg = 1000 Iu)] 5,000 unit PO MOTUTH Calcium Carbonate [Calcium] 600 mg PO DAILY Multivitamin/Iron/Folic Acid [Centrum Complete Multivit Tab] 1 tab PO MOTUWETHFR Discharge Medication List Aspirin 81 mg PO DAILY 11/03/13 [History] Fludrocortisone [Florinef] 0.05 mg PO MOWEFR 11/03/13 [History] Hydrocortisone [Cortef] 15 mg PO BID 11/03/13 [History] Levothyroxine Sodium [Synthroid] 88 mcg PO DAILY 11/03/13 [History] Calcium Carbonate [Calcium] 600 mg PO DAILY 07/13/16 [History] Cholecalciferol [Vitamin D3 (25 Mcg = 1000 Iu)] 5,000 unit PO MOTUTH 07/13/16 [History] Multivitamin/Iron/Folic Acid [Centrum Complete Multivit Tab] 1 tab PO MOTUWETHFR 11/07/18 [History] Acetaminophen Tab [Tylenol] 650 mg PO Q6HR PRN tab 04/05/20 [Rx] Azithromycin 250 mg PO DAILY 1 Days #5 tab 04/05/20 [Rx] Famotidine [Pepcid] 20 mg PO BID tab 04/05/20 [Rx] guaiFENesin [Mucinex] 600 mg PO BID #14 tab.er.12h 04/05/20 [Rx] Follow up Appointment(s)/Referral(s): Tanika Aleman MD [STAFF PHYSICIAN] - 2 Weeks Tashi Peguero MD [Primary Care Provider] - 1-2 days Discharge Disposition: HOME SELF-CARE
--- NOTE | 2020-04-05 12:20 | P.PN ---
Subjective Progress Note Date: 04/05/20 Principal diagnosis: Syncope versus non-syncope This is a very pleasant 74-year-old female patient who follows with Dr. Lott as her primary care provider. She has a history of hypothyroidism, chronic low back pain, [place]'s disease, hyperlipidemia, pulmonary fibrosis, genital herpes. She had been having few days worth of increased shortness of breath, cough, malaise. Earlier this morning she felt dizzy and lightheaded and called out her who assisted her to the ground. Syncope versus presyncopal episode. She presented here to the emergency room for the same. Chest x-ray revealed COPD with biapical pleural thickening. Questionable mass in the left upper lobe. We are consulted for the same. She is seen today in consultation in the emergency room. She is currently awake and alert in no acute distress. No further episodes of dizziness or lightheadedness. Computed tomography scan of the brain revealed no acute fracture or dislocation of the cervical spine. No acute intracranial hemorrhage or midline shift. White count 4.8. Hemoglobin 12.5. Sodium 133. Potassium 4.0. Creatinine 0.76. Troponins negative 3. EKG reveals sinus rhythm with a right bundle ashu block. CT angiogram was performed. No evidence for acute pulmonary embolism. Fibrotic changes in the upper to mid lungs with interval progression compared to thousand 14. Areas of acute consolidation or irregular masses unlikely. She did develop a T-max of 101.7 this afternoon. Mendoza virus by PCR pending. The patient is seen today 04/03/2020 and follow-up on the regular medical floor. She is awake and alert in no acute distress. Sitting up in bed. No further syncopal or near syncope episodes. Carotid Dopplers revealed no significant carotid stenosis. Echocardiogram pending. Mendoza virus by PCR pending. She is maintaining O2 saturations in the 90s on room air. She's afebrile. No significant orthostatic hypotension documented. Blood culture reveals no growth to date. White count 4.2. Hemoglobin 12.5. Sodium 137. Potassium 4.1. Creatinine 0.8. Patient seen today 04/04/2020 in follow-up on the regular medical floor. She remains awake and alert in no acute distress. No worsening shortness of breath, cough or congestion. No further syncopal episodes. Echocardiogram revealed preserved left ventricular systolic function with ejection fraction 55-60%. No significant valvular abnormalities. She continues to maintain O2 saturations in the 90s on room air. Afebrile. Hemodynamically stable. Blood culture reveals no growth. White count 4.2. Hemoglobin 12.9. Sodium 133. Potassium 4.0. Creatinine was 0.7. She remains on antibiotics in the form of ceftriaxone. The patient is seen today 04/05/2020 in follow-up on the regular medical floor. She is awake and alert in no acute distress. No worsening shortness of breath, cough or congestion. Maintaining O2 saturation in the 90s on room air. She's been afebrile. Hemodynamically stable. She is on [facility] Tuesday. Objective - Vital Signs Vital signs: Vital Signs Temp 97.5 F L 04/05/20 04:37 Pulse 77 04/05/20 04:37 Resp 17 04/05/20 00:00 BP 124/58 04/05/20 04:37 Pulse Ox 97 04/05/20 04:37 Intake & Output 04/04/20 04/05/20 04/05/20 18:59 06:59 18:59 Intake Total 650 1000 Output Total 2 Balance 650 998 Intake: Intake, IV Titration 50 Amount cefTRIAXone 1 gm In 50 Sodium Chloride 0.9% 50 ml @ 100 mls/hr IVPB Q24HR [facility] Rx#:[id number] Oral 600 1000 Output: Stool 2 Other: Voiding Method Toilet Toilet # Voids 3 2 # Bowel Movements 1 - Exam GENERAL EXAM: Alert, active, pleasant 74-year-old female patient, on room air, O2 saturation 97% comfortable in no apparent distress. HEAD: Normocephalic. EYES: Normal reaction of pupils, equal size. NOSE: Clear with pink turbinates. THROAT: No erythema or exudates. NECK: No masses, no JVD. CHEST: No chest wall deformity. LUNGS: Equal air entry with faint coarse crackles in the posterior bases CVS: S1 and S2 normal with no audible murmur, regular rhythm. ABDOMEN: No hepatosplenomegaly, normal bowel sounds, no guarding or rigidity. SPINE: No scoliosis or deformity SKIN: No rashes CENTRAL NERVOUS SYSTEM: No focal deficits, tone is normal in all 4 extremities. EXTREMITIES: There is no peripheral edema. No clubbing, no cyanosis. Peripheral pulses are intact. - Labs CBC & Chem 7: 04/04/20 05:21 04/04/20 05:21 Labs: Microbiology - Last 24 Hours (Table) 04/02/20 10:18 Blood Culture - Preliminary Blood No Growth after 48 hours Assessment and Plan Assessment: 1 Syncope, suspect cough induced. CT angiogram ruled out pulmonary emboli. There is some fibrotic changes in the upper to mid lungs with interval progression. Areas of acute consolidation or new irregular masses though unlikely cannot be excluded per radiology. Remains on room air. No further sy ncope since admission. 2 Febrile illness of unclear etiology, mendoza virus by PCR pending 3 History of Randy's disease 4 History of pulmonary fibrosis 5 Hypothyroidism 6 Hyperlipidemia 7 Chronic low back pain. A Lifelong nonsmoker Plan: The patient was seen and evaluated by Dr. Bernal Cleared for discharge from the pulmonary standpoint Follow up with Dr. Bernal in the office in 1-2 weeks' time I, the cosigning physician, performed a history & physical examination of the patient. Lungs sounds with coarse crackles in the bilateral posterior bases. Maintaining good O2 saturations in the 90s on room air. I discussed the assessment and plan of care with my nurse practitioner, Crys Salomon. I attest to the above note as dictated by her.
--- NOTE | 2020-04-08 07:06 | CDI ---
Documentation Clarification Form Date: 04/08/20 From: Fe Terrell Phone: If you have a question about this query, please contact [facility] Paraprofessional at [phone] between 8am and 5pm. Admit Date: 04/02/20 Discharge Date:04/05/20 Patient Name: Wendy Ardon Visit Number: [id number] ATTENTION: The Clinical Documentation Specialists (CDI) and [facility] Coding Staff appreciate your assistance in clarifying documentation. Please respond to the clarification below the line at the bottom and electronically sign. The CDI & [facility] Coding staff will review the response and follow-up if needed. Please note: Queries are made part of the Legal Health Record. If you have any questions, please contact the author of this message via ITS. Dear Dr. Bonner Coding guidelines do not allow coding professionals to code based on laboratory results; therefore, your input is requested. The COVID-19 test obtained on 04/02 was reported as Positive. Per case summary, the patient reported to the ED for a possible syncopal episode and upon arrival was found to be febrile with a temperature of 100.0. On 04/03 documentation states that the patient was worrying about the Covid 19 virus. Explained that the likelihood of her having Covid 19 is very low. Possible left middle lobe pneumonia with Covid test pending is documented in the assessment and plan of the discharge summary. Patient history/risk factors: COPD, history of previous pneumonia, pulmonary fibrosis Clinical Indicators Patient reported syncopal episode, slight cough, headache prior to arrival, malaise CXR/CT: CXR - COPD with biapical pleural thickening. Area of consolidation or possible mass in the left upper lobe correlate with short-term follow-up CT scan. CT: No CT evidence for acute pulmonary embolism. Pulmonary fibrotic changes in the upper to mid lungs with interval progression from 2014 study. Area of acute consolidation or new irregular masses though unlikely cannot be excluded. VS in ED Triage: T: 100.0, P: 81, R 16, Sat 97% on room air WBC: 4.8 Treatment: Pulmonary consult: Syncope, suspect cough induced. Febrile illness of unclear etiology, coronavirus pendiing IV Rocephin IV Solu-Cortef PO Cortef In order to capture the severity of condition, please clarify the COVID-19 status: xx COVID-19 confirmed COVID-19 ruled out Other, please specify MTDD
== END 2020-04-05 13:20 | disposition home or self-care (01) | DRG 177 ==
LOC: EC 06:25 → 6NMEDSUR 10:38
PROVIDERS: ADMIT Internal Medicine Geriatric Medicine; ATTEND Internal Medicine Geriatric Medicine
DX: U07.1 COVID-19 (principal); J12.89 Other viral pneumonia; E27.1 Primary adrenocortical insufficiency; J44.0 Chronic obstructive pulmonary disease with (acute) lower respiratory infection; E03.9 Hypothyroidism, unspecified; J84.10 Pulmonary fibrosis, unspecified; E78.5 Hyperlipidemia, unspecified; G89.29 Other chronic pain; H91.93 Unspecified hearing loss, bilateral; I45.10 Unspecified right bundle-branch block; R09.02 Hypoxemia; M19.90 Unspecified osteoarthritis, unspecified site; M54.5 Low back pain; R55 Syncope and collapse; H40.9 Unspecified glaucoma; K44.9 Diaphragmatic hernia without obstruction or gangrene; M81.0 Age-related osteoporosis without current pathological fracture; I08.3 Combined rheumatic disorders of mitral, aortic and tricuspid valves; Z86.19 Personal history of other infectious and parasitic diseases; Z79.82 Long term (current) use of aspirin; Z79.890 Hormone replacement therapy; Z79.899 Other long term (current) drug therapy; Z88.1 Allergy status to other antibiotic agents; Z88.5 Allergy status to narcotic agent; Z88.0 Allergy status to penicillin; Z88.2 Allergy status to sulfonamides; Z86.69 Personal history of other diseases of the nervous system and sense organs; Z87.01 Personal history of pneumonia (recurrent); Z87.39 Personal history of other diseases of the musculoskeletal system and connective tissue; Z98.890 Other specified postprocedural states; Z98.51 Tubal ligation status; Z96.653 Presence of artificial knee joint, bilateral; Z80.1 Family history of malignant neoplasm of trachea, bronchus and lung; Z82.0 Family history of epilepsy and other diseases of the nervous system
CPT/HCPCS: 36415; 70450; 71046; 71275; 72125; 80053; 81003; 83605; 84484; 85025; 85610; 85730; 87040; 93005; 93306; 93880; 96361; 96374; 96375; 99285

== ENCOUNTER → 2020-06-30 | Outpatient (CLI) | payer MEDICARE ==
--- NOTE | 2020-07-01 09:53 | MM ---
Reason for exam: screening (asymptomatic). Last mammogram was performed 1 year and 3 months ago. History: Patient is postmenopausal. Family history of breast cancer in maternal aunt at age 40 and breast cancer in maternal aunt at age 50. Cancelled Right Mammotome of the right breast, March 12, 2011. Took estrogen for 3 years beginning at age 50. Physical Findings: A clinical breast exam by your physician is recommended on an annual basis and results should be correlated with mammographic findings. MG 3D Screening Mammo W/Cad Bilateral CC and MLO view(s) were taken. Prior study comparison: March 28, 2019, bilateral MG 3d screening mammo w/cad. January 24, 2018, bilateral MG 3d screening mammo w/cad. The breast tissue is heterogeneously dense. This may lower the sensitivity of mammography. There is no discrete abnormality. No significant changes when compared with prior studies. ASSESSMENT: Negative, BI-RAD 1 RECOMMENDATION: Routine screening mammogram of both breasts in 1 year.
== END | disposition home or self-care (01) ==
LOC: RADMAMWWP 10:41
PROVIDERS: ATTEND Internal Medicine
DX: Z12.31 Encounter for screening mammogram for malignant neoplasm of breast (principal)
CPT/HCPCS: 77063; 77067

== ENCOUNTER 2020-12-26 02:44 | Inpatient (IN) | payer MEDICARE, OTHER ==
[2020-12-26] MEDS ORDERED: SODIUM CHLORIDE 0.9% 1,000 ML IV STA (02:53)
--- NOTE | 2020-12-26 02:53 | ED ---
Syncope HPI - General Stated Complaint: Syncope Time Seen by Provider: 12/26/20 02:45 Source: RN notes reviewed, old records reviewed Limitations: altered mental status, physical limitation - History of Present Illness Initial Comments: This is a 75-year-old female to the ER for evaluation of persistent nausea and vomiting. Patient has had 3 syncopal episodes tonight. Usually after about of puking. Patient started about 4 hours ago with nonstop nausea and vomiting. She denies any significant complaints at times feels hot at times feels cold. No sick contacts no travel history of present illness similar issue MD Complaint: loss of consciousness, collapsed, other (3 episodes of passing out with multiple episodes of vomiting) -: hour(s) Prodromal Symptoms: diaphoresis, nausea/vomiting Injuries Sustained Associated with Event: None Current Symptoms: none History: previous syncopal episode Context: at rest Treatments Prior to Arrival: none - Related Data Home Medications Medication Instructions Recorded Confirmed Aspirin 81 mg PO DAILY 11/03/13 04/02/20 Fludrocortisone [Florinef] 0.05 mg PO MOWEFR 11/03/13 04/02/20 Hydrocortisone [Cortef] 15 mg PO BID 11/03/13 04/02/20 Levothyroxine Sodium [Synthroid] 88 mcg PO DAILY 11/03/13 04/02/20 Calcium Carbonate [Calcium] 600 mg PO DAILY 07/13/16 04/02/20 Cholecalciferol [Vitamin D3 (25 5,000 unit PO MOTUTH 07/13/16 04/02/20 Mcg = 1000 Iu)] Multivitamin/Iron/Folic Acid 1 tab PO MOTUWETHFR 11/07/18 04/02/20 [Centrum Complete Multivit Tab] Previous Rx's Medication Instructions Recorded Acetaminophen Tab [Tylenol] 650 mg PO Q6HR PRN tab 04/05/20 Azithromycin 250 mg PO DAILY 1 Days #5 tab 04/05/20 Famotidine [Pepcid] 20 mg PO BID tab 04/05/20 guaiFENesin [Mucinex] 600 mg PO BID #14 tab.er.12h 04/05/20 Allergies Allergy/AdvReac Type Severity Reaction Status Date / Time alendronate sodium Allergy Unknown Verified 12/26/20 02:57 [From Fosamax] azithromycin Allergy Rash/Hives Verified 12/26/20 02:57 [From Zithromax Z-[place]ito] ciprofloxacin [From Cipro] Allergy Unknown Verified 12/26/20 02:57 doxycycline Allergy Unknown Verified 12/26/20 02:57 hydrocodone Allergy Unknown Verified 12/26/20 02:57 naproxen [From Naprosyn] Allergy Unknown Verified 12/26/20 02:57 Penicillins Allergy Rash/Hives Verified 12/26/20 02:57 sulfacetamide sodium Allergy Rash/Hives Verified 12/26/20 02:57 [From Sulfamide] tramadol Allergy Unknown Verified 12/26/20 02:57 morphine AdvReac SEZIURE Verified 12/26/20 02:57 Review of Systems ROS Statement: Those systems with pertinent positive or pertinent negative responses have been documented in the HPI. ROS Other: All systems not noted in ROS Statement are negative. Past Medical History Past Medical History: Eye Disorder, Hearing Disorder / Deafness, Osteoarthritis (OA), Pneumonia, Respiratory Disorder, Syncope, Thyroid Disorder Additional Past Medical History / Comment(s): Pulmonary fibrosis R lung, pneumonias, bronchitis, sneha's disease with past crisis, hypothyroid, seizure as a child and once in 2013 after receiving morphine, recent R hip pain-past 3 weeks, chronic low back pain, allergic rhinitis, hiatal hernia, bilateral glaucoma, [place] bilaterally with L ear worse. History of Any Multi-Drug Resistant Organisms: None Reported Past Surgical History: Back Surgery, Section, Joint Replacement, Orthopedic Surgery, Tubal Ligation Additional Past Surgical History / Comment(s): Bilateral total knee a rthroplasties, low back radiofrequency ablations, bilateral carpal tunnel releases, bronchoscopy, R eye biopsy-pt does not know reason. Past Anesthesia/Blood Transfusion Reactions: Motion Sickness Additional Past Anesthesia/Blood Transfusion Reaction / Comment(s): Pt states she received blood in past without reaction. Smoking Status: Never smoker - Past Family History Mother Family Medical History: Musculoskeletal Disorder, Neurologic Disorder Additional Family Medical History / Comment(s): Mother had parkinson's. She lived to be 93 yrs old. Daughter(s) Additional Family Medical History / Comment(s): She has 3 children with no major medical problems. Father Family Medical History: Cancer Additional Family Medical History / Comment(s): Father at age 79 from lung cancer. General Exam General appearance: alert, in no apparent distress Head exam: Present: atraumatic, normocephalic, normal inspection Eye exam: Present: normal appearance, PERRL, EOMI. Absent: scleral icterus, conjunctival injection, periorbital swelling ENT exam: Present: normal exam, mucous membranes moist Neck exam: Present: normal inspection. Absent: tenderness, meningismus, lymphadenopathy Respiratory exam: Present: normal lung sounds bilaterally. Absent: respiratory distress, wheezes, rales, rhonchi, stridor Cardiovascular Exam: Present: regular rate, normal rhythm, normal heart sounds. Absent: systolic murmur, diastolic murmur, rubs, gallop, clicks GI/Abdominal exam: Present: soft, normal bowel sounds. Absent: distended, tenderness, guarding, rebound, rigid Extremities exam: Present: normal inspection, full ROM, normal capillary refill. Absent: tenderness, pedal edema, joint swelling, calf tenderness Back exam: Present: normal inspection Neurological exam: Present: alert, oriented X3, CN II-XII intact Psychiatric exam: Present: normal affect, normal mood Skin exam: Present: warm, dry, intact, normal color. Absent: rash Course Vital Signs 12/26/20 12/26/20 12/26/20 02:52 03:15 03:45 Temperature 97.1 F L Pulse Rate 86 82 86 Respiratory 18 16 14 Rate Blood Pressure 108/57 107/60 94/61 O2 Sat by Pulse 99 98 98 Oximetry 12/26/20 03:49 Temperature Pulse Rate 86 Respiratory 16 Rate Blood Pressure 96/62 O2 Sat by Pulse 98 Oximetry - Reevaluation(s) Reevaluation #1: 12/26/20 03:22 Medical record is reviewed Reevaluation #2: 12/26/20 04:27 Did have significant nausea and vomiting here in the ER intractable Reevaluation #3: 12/26/20 04:27 Patient was finally able to sleep with some anxiolysis - Consultations Consultation #1: Spoke with Dr. Bonner who agrees to admit this patient EKG Findings - EKG Comments: EKG Findings:: EKG shows sinus rhythm 90 OR 172 QRS 100 QTc 479 Medical Decision Making - Medical Decision Making 75 female to the ER for evaluation. Patient will be admitted for intractable nausea and vomiting. Symptomatically therapy, IV hydration resuscitation - Lab Data Result diagrams: 12/26/20 03:06 12/26/20 03:06 Lab Results 12/26/20 12/26/20 12/26/20 Range/Units 03:06 03:06 03:06 WBC 8.6 (3.8-10.6) k/uL RBC 4.14 (3.80-5.40) m/uL Hgb 13.4 (11.4-16.0) gm/dL Hct 40.0 (34.0-46.0) % MCV 96.5 (80.0-100.0) fL MCH 32.3 (25.0-35.0) pg MCHC 33.5 (31.0-37.0) g/dL RDW 12.7 (11.5-15.5) % Plt Count 289 (150-450) k/uL MPV 7.1 Neutrophils % 79 % Lymphocytes % 17 % Monocytes % 2 % Eosinophils % 1 % Basophils % 0 % Neutrophils # 6.8 (1.3-7.7) k/uL Lymphocytes # 1.5 (1.0-4.8) k/uL Monocytes # 0.2 (0-1.0) k/uL Eosinophils # 0.1 (0-0.7) k/uL Basophils # 0.0 (0-0.2) k/uL PT 10.5 (9.0-12.0) sec INR 1.0 (<1.2) APTT 22.0 (22.0-30.0) sec D-Dimer 0.69 H (<0.60) mg/L FEU Sodium 136 L (137-145) mmol/L Potassium 4.4 (3.5-5.1) mmol/L Chloride 102 (98-107) mmol/L Carbon Dioxide 28 (22-30) mmol/L Anion Gap 6 mmol/L BUN 27 H (7-17) mg/dL Creatinine 0.86 (0.52-1.04) mg/dL Est GFR (CKD-EPI)AfAm 78 (>60 ml/min/1.73 sqM) Est GFR (CKD-EPI)NonAf 67 (>60 ml/min/1.73 sqM) Glucose 96 (74-99) mg/dL Plasma Lactic Acid Steven (0.7-2.0) mmol/L Calcium 9.1 (8.4-10.2) mg/dL Phosphorus 4.1 (2.5-4.5) mg/dL Magnesium 1.8 (1.6-2.3) mg/dL Total Bilirubin 0.4 (0.2-1.3) mg/dL AST 31 (14-36) U/L ALT 11 (4-34) U/L Alkaline Phosphatase 47 (38-126) U/L Creatine Kinase 62 (30-135) U/L Troponin I (0.000-0.034) ng/mL Total Protein 6.9 (6.3-8.2) g/dL Albumin 4.0 (3.5-5.0) g/dL Lipase 157 (23-300) U/L 12/26/20 12/26/20 Range/Units 03:06 03:06 WBC (3.8-10.6) k/uL RBC (3.80-5.40) m/uL Hgb (11.4-16.0) gm/dL Hct (34.0-46.0) % MCV (80.0-100.0) fL MCH (25.0-35.0) pg MCHC (31.0-37.0) g/dL RDW (11.5-15.5) % Plt Count (150-450) k/uL MPV Neutrophils % % Lymphocytes % % Monocytes % % Eosinophils % % Basophils % % Neutrophils # (1.3-7.7) k/uL Lymphocytes # (1.0-4.8) k/uL Monocytes # (0-1.0) k/uL Eosinophils # (0-0.7) k/uL Basophils # (0-0.2) k/uL PT (9.0-12.0) sec INR (<1.2) APTT (22.0-30.0) sec D-Dimer (<0.60) mg/L FEU Sodium (137-145) mmol/L Potassium (3.5-5.1) mmol/L Chloride (98-107) mmol/L Carbon Dioxide (22-30) mmol/L Anion Gap mmol/L BUN (7-17) mg/dL Creatinine (0.52-1.04) mg/dL Est GFR (CKD-EPI)AfAm (>60 ml/min/1.73 sqM) Est GFR (CKD-EPI)NonAf (>60 ml/min/1.73 sqM) Glucose (74-99) mg/dL Plasma Lactic Acid Steven 1.2 (0.7-2.0) mmol/L Calcium (8.4-10.2) mg/dL Phosphorus (2.5-4.5) mg/dL Magnesium (1.6-2.3) mg/dL Total Bilirubin (0.2-1.3) mg/dL AST (14-36) U/L ALT (4-34) U/L Alkaline Phosphatase (38-126) U/L Creatine Kinase (30-135) U/L Troponin I <0.012 (0.000-0.034) ng/mL Total Protein (6.3-8.2) g/dL Albumin (3.5-5.0) g/dL Lipase (23-300) U/L Disposition Clinical Impression: Nausea & vomiting, Syncope Disposition: ADMITTED IP TO THIS HOSP Condition: Fair Is patient prescribed a controlled substance at d/c from ED?: No Referrals: Scout Bonner MD [Primary Care Provider] - 1-2 days
[2020-12-26] MEDS ORDERED: methylPREDNISolone SOD SUCCI 125 MG/2 ML VIAL IV STA (03:01)
[2020-12-26] MEDS ORDERED: ONDANSETRON 4 MG/2 ML VIAL IVP STA (03:02)
[2020-12-26] MEDS ORDERED: LORazepam 2 MG/ML INJ IV STA (03:02)
--- NOTE | 2020-12-26 03:40 | XR ---
EXAMINATION TYPE: XR chest 2V DATE OF EXAM: 12/26/2020 COMPARISON: 11/06/2020 HISTORY: Weakness TECHNIQUE: 2 views. There is pleural thickening at the lung apices. There is retraction of the pulmonary annabel towards th e lung apices. Heart size is normal. There is no heart failure. There is no pleural effusion. There a re chest leads. The bony thorax is intact. IMPRESSION: Bilateral upper lobe pleural and pulmonary scarring with retraction. There is underlying COPD. No heart failure. No significant change.
[2020-12-26 03:45] LABS: Basophils % (A) 0 %; Eosinophils # (A) 0.1 k/uL (0-0.7); Eosinophils % (A) 1 %; HGB 13.4 gm/dL (11.4-16.0); Lymphocytes # (A) 1.5 k/uL (1.0-4.8); Lymphocytes % (A) 17 %; MCH 32.3 pg (25.0-35.0); MCHC 33.5 g/dL (31.0-37.0); MCV 96.5 fL (80.0-100.0); Mean Platelet Volume 7.1; Monocytes # (A) 0.2 k/uL (0-1.0); Monocytes % (A) 2 %; Neutrophils # (A) 6.8 k/uL (1.3-7.7); Neutrophils % (A) 79 %; Platelet Count 289 k/uL (150-450); RBC 4.14 m/uL (3.80-5.40); RDW 12.7 % (11.5-15.5); WBC 8.6 k/uL (3.8-10.6)
[2020-12-26 03:59] LABS: Calcium 9.1 mg/dL (8.4-10.2); Magnesium 1.8 mg/dL (1.6-2.3); Phosphorus 4.1 mg/dL (2.5-4.5); Potassium 4.4 mmol/L (3.5-5.1); Total Bilirubin 0.4 mg/dL (0.2-1.3); Total Protein 6.9 g/dL (6.3-8.2)
[2020-12-26 04:06] LABS: Prothrombin Time 10.5 sec (9.0-12.0)
[2020-12-26] MEDS ORDERED: MORPHINE SULFATE 4 MG/ML SYRINGE IV PRN (04:26)
[2020-12-26] MEDS ORDERED: ONDANSETRON 4 MG/2 ML VIAL IVP PRN (04:26)
[2020-12-26] MEDS ORDERED: NALOXONE 0.4 MG/ML 1 ML VIAL IV PRN (04:26)
[2020-12-26] MEDS: SODIUM CHLORIDE 0.9% 1,000 ML IV SCH ×3 (05:01→17:22)
[2020-12-26 05:29] LABS: Appearance,Urine Clear (Clear); Bilirubin,Urine Negative (Negative); Blood,Urine Trace (Negative); Color,Urine Yellow; Glucose,Urine (UA) Negative (Negative); Ketones,Urine Negative (Negative); Leukocyte Esterase,Urine Negative (Negative); Mucus,Urine Rare /hpf; Nitrite,Urine Negative (Negative); PH, Urine 6.5 (5.0-8.0); Protein,Urine Negative (Negative); RBC,Urine 5 /hpf (0-5); Specific Gravity,Urine 1.017 (1.001-1.035); Urobilinogen,Urine <2.0 mg/dL (<2.0); WBC,Urine 1 /hpf (0-5)
[2020-12-26] MEDS ORDERED: methylPREDNISolone SOD SUCCI 125 MG/2 ML VIAL IV SCH (08:00)
[2020-12-26] MEDS ORDERED: IOPAMIDOL CONTRAST (ORAL USE) VIAL PO PRN (08:50)
[2020-12-26] MEDS: LEVOTHYROXINE 88 MCG TAB PO SCH (08:54)
[2020-12-26] MEDS: ASPIRIN 81 MG PO SCH (08:54)
[2020-12-26] MEDS: ATORVASTATIN 10 MG TAB PO SCH (08:54)
[2020-12-26] MEDS ORDERED: FLUDROCORTISONE 0.1 MG TAB PO SCH (09:00)
[2020-12-26] MEDS ORDERED: PANTOPRAZOLE 40 MG/10 ML VIAL IV SCH (09:00)
--- NOTE | 2020-12-26 10:37 | US ---
EXAMINATION TYPE: US abdomen limited DATE OF EXAM: 12/26/2020 COMPARISON: NONE CLINICAL HISTORY: RUQ pain and tenderness, vomiting and diarrhea. RUQ pain, nausea/vomiting EXAM MEASUREMENTS: Liver Length: 16.0 cm Gallbladder Wall: 0.3 cm CBD: 0.3 cm Right Kidney: 10.3 x 4.2 x 4.0 cm Technical limitations due to large amount of overlying bowel content Pancreas: Tail obscured by overlying bowel gas Liver: limited evaluation, visualized portions appear wnl Gallbladder: no evidence of stones Evidence for sonographic Parsons's sign: no CBD: appears wnl as visualized Right Kidney: no evidence of hydronephrosis IMPRESSION: No significant abnormality is seen.
--- NOTE | 2020-12-26 10:43 | CT ---
EXAMINATION TYPE: CT angio chest DATE OF EXAM: 12/26/2020 COMPARISON: 04/02/2020 HISTORY: 75-year-old female Elevated d-dimer, syncope TECHNIQUE: Contiguous axial scanning of the chest performed with IV Contrast, patient injected with 1 00 mL of Isovue 370. Coronal/sagittal MIP reconstructions performed. CT DLP: 454 mGycm Automated exposure control for dose reduction was used. FINDINGS: Heart normal size without pericardial effusion. No flattening of the interventricular septum or reflu x of contrast into the hepatic veins. Aorta normal caliber with conventional arch was a branching anatomy. Suboptimal opacification of the pulmonary arterial system. No definite pulmonary embolus. No thoracic lymphadenopathy by CT size criteria. Redemonstrated year biapical pleural parenchymal scarring with thickened irregular subpleural opaciti es and septal lines. These extend along the posterior lungs to the mid lung level. Cicatricial atelec tasis and soft tissue thickening along the medial upper lobes extending to the suprahilar levels. Ove rall changes are similar to prior exam. Small focus of chronic volume loss and consolidation medial right middle lobe is unchanged. No new consolidation or pleural effusion. Tiny hiatal hernia. Visualized upper abdomen shows no gross abnormality. Bones: Mild degenerative disc disease at the lower thoracic spine. IMPRESSION: 1. SLIGHTLY SUBOPTIMAL CONTRAST BOLUS. NO DEFINITE PULMONARY EMBOLUS. 2. UPPER TO MID LUNG PREDOMINANT PULMONARY FIBROSIS. CONSIDER SEQUELA OF SARCOIDOSIS, PNEUMOCONIOSIS, OR PREVIOUS ATYPICAL FUNGAL/MYCOBACTERIAL INFECTIONS. IF NO ESTABLISHED DIAGNOSIS, CONSIDER PULMONAR Y MEDICINE FOLLOW-UP. OVERALL APPEARANCE IS UNCHANGED FROM 04/02/2020.
--- NOTE | 2020-12-26 10:49 | CT ---
EXAMINATION TYPE: CT angio neck DATE OF EXAM: 12/26/2020 COMPARISON: Correlation previous carotid Doppler ultrasound 04/03/2020 HISTORY: 75-year-old female Syncopal episode TECHNIQUE: Contiguous axial scanning of the neck performed with IV Contrast, patient injected with 10 0 mL of Isovue 370. Coronal/sagittal MIP reconstructions performed. 3-D reconstructions generated by a dedicated independent workstation. CT DLP: Included with CTA chest Automated exposure control for dose reduction was used. FINDINGS: Conventional arch was a branching anatomy. The bilateral vertebral arteries are patent throughout their course. The bilateral V4 segments become hypoplastic and small in caliber. The nasal artery is also relativel y small in caliber. Relation could be made for any chronic symptoms of vertebral basilar insufficienc y. The right common carotid artery is patent. Minimal atherosclerotic calcifications right carotid bulb. No significant ICA narrowing by NASCET cri teria. The left common carotid artery is patent. Trace scattered calcifications of the left carotid bifurcation without significant ICA stenosis by NA SCET criteria. No evidence for aortic dissection. IMPRESSION: 1. MINIMAL ATHEROSCLEROTIC CHANGE AT THE CAROTID BIFURCATIONS. NO HEMODYNAMICALLY SIGNIFICANT CAROTID OR VERTEBRAL ARTERY STENOSIS ON EITHER SIDE WITHIN THE NECK. 2. THE BILATERAL V4 SEGMENT VERTEBRAL ARTERIES BECOME HYPOPLASTIC WITHIN THE HEAD. THE BASILAR ARTERY IS ALSO UNIFORMLY SMALL IN CALIBER. CORRELATE FOR ANY POTENTIAL CHRONIC SYMPTOMS OF VERTEBROBASILAR INSUFFICIENCY.
--- NOTE | 2020-12-26 10:54 | P.CRDCN ---
History of Present Illness Consult date: 12/26/20 History of present illness: HISTORY OF PRESENT ILLNESS: This is a 75-year-old female with a past medical history significant for hypothyroidism, Tampa's disease, hyperlipidemia, pulmonary fibrosis, seizure disorder, osteoarthritis, and Covid in 2019. Patient does not follow with a emergency manager. We have been asked to see the patient in consultation for syncope. Patient examined at the bedside. Patient states yesterday she woke up feeling in her usual state of health. She states she went out shopping with her family and was feeling well. She reports she then worked out in the garden for awhile and thinks she "overdid it". She states afterwards her family ordered food and she ate a fish sandwich. She states she started not feeling well about an hour after eating. She reports episodes of vomiting and diarrhea. She states she was in the bathroom having diarrhea and the next thing she knew she passed out. Her family told the patient this happened 3 times to her. All of these episodes were when the patient was sitting on the toilet. The patient currently denies chest pain or pressure. She does report some discomfort with deep in spiration. She denies shortness of breath. She does report shortness of breath when she is outside and it is very humid. She denies dizziness or lightheadedness. Patient states her nausea and diarrhea have resolved. EKG reveals sinus mechanism with incomplete right bundle branch block Chest xray bilateral upper lobe pleural and pulmonary scarring with retraction. There is underlying COPD. No heart failure. No significant change. Laboratory data: WBC 8.6. Hemoglobin 13.4. Platelet count 289. D-dimer 0.69. Sodium 136. Potassium 4.4. BUN 27. Creatinine 0.86. Lactic acid 1.2. Trop onin negative 3. ProBNP 80. Current home cardiac medications include Lipitor 10 mg daily and aspirin 81 mg daily Most recent echocardiogram obtained in March 2020 revealed ejection fraction 55-60%. Mild aortic regurgitation. Mild mitral regurgitation. Mild tricuspid regurgitation. REVIEW OF SYSTEMS: At the time of my exam: CONSTITUTIONAL: Denies fever or chills. HEENT: Denies blurred vision, vision changes, or eye pain. Denies hemoptysis CARDIOVASCULAR: Denies chest pain. Denies orthopnea. Denies PND. Denies palpitations RESPIRATORY: Denies shortness of breath. GASTROINTESTINAL: Denies abdominal pain. Denies nausea or vomiting. HEMATOLOGIC: Denies bleeding disorders. GENITOURINARY: Denies any blood in urine. SKIN: Denies pruitis. Denies rash. PHYSICAL EXAM: VITAL SIGNS: Reviewed. GENERAL: Well-developed in no acute distress. HEENT: Head is normocephalic. Pupils are equal, round. Sclerae anicteric. Mucous membranes of the mouth are moist. Neck supple. No JVD or thyromegaly LUNGS: Respirations even and unlabored. Lungs essentially clear to auscultation bilaterally. HEART: Regular rate and rhythm. S1 and S2 heard. ABDOMEN: Soft. Nondistended. Nontender. EXTREMITIES: Normal range of motion. No clubbing or cyanosis. Peripheral pulses intact. No lower extremity edema NEUROLOGIC: Awake and alert. Oriented x 3. ASSESSMENT: Syncope Nausea, vomiting, and diarrhea, resolved Mildly abnormal d-dimer, rule out PE Hyperlipidemia Pulmonary fibrosis Hypothyroidism [place]'s disease PLAN: Obtain 2D echo to assess cardiac structure and function CTA chest ordered to rule out PE Orthostatics obtained and unremarkable Continue telemetry monitoring to assess for any arrhythmias Further recommendations pending patient course Nurse practitioner note has been reviewed by physician. Signing provider agrees with the documented findings, assessment, and plan of care. Past Medical History Past Medical History: Eye Disorder, Hearing Disorder / Deafness, Osteoarthritis (OA), Pneumonia, Respiratory Disorder, Seizure Disorder, Syncope, Thyroid Disorder Additional Past Medical History / Comment(s): Pulmonary fibrosis R lung, pneumonias, bronchitis, sneha's disease with past crisis, hypothyroid, pt states she had seizure as a child and once in 2013 after receiving morphine, recent R hip pain-past 3 weeks, chronic low back pain, allergic rhinitis, hiatal hernia, bilateral glaucoma, [place] bilaterally with L ear worse. History of Any Multi-Drug Resistant Organisms: None Reported Past Surgical History: Back Surgery, Section, Joint Replacement, Orthopedic Surgery, Tubal Ligation Additional Past Surgical History / Comment(s): Bilateral total knee arthroplasties, low back radiofrequency ablations, bilateral carpal tunnel releases, bronchoscopy, R eye biopsy-pt does not know reason. Past Anesthesia/Blood Transfusion Reactions: No Reported Reaction Additional Past Anesthesia/Blood Transfusion Reaction / Comment(s): Pt states she received blood in past without reaction. Past Psychological History: No Psychological Hx Reported Additional Psychological History / Comment(s): Pt resides with her spouse. She is independent. Smoking Status: Never smoker Past Alcohol Use History: None Reported Past Drug Use History: None Reported - Past Family History Mother Family Medical History: Musculoskeletal Disorder, Neurologic Disorder, Seizure Disorder Additional Family Medical History / Comment(s): Mother had parkinson's. She lived to be 93 yrs old. Pt states mother had epilepsy. Daughter(s) Additional Family Medical History / Comment(s): She has 3 children with no major medical problems. Father Family Medical History: Cancer Additional Family Medical History / Comment(s): Father at age 79 from lung cancer. Medications and Allergies Home Medications Medication Instructions Recorded Confirmed Type Aspirin 81 mg PO DAILY 11/03/13 12/26/20 History Fludrocortisone [Florinef] 0.05 mg PO MOWEFR 11/03/13 12/26/20 History Hydrocortisone [Cortef] 1 dose PO DIRECTED 11/03/13 12/26/20 History Levothyroxine Sodium [Synthroid] 88 mcg PO DAILY 11/03/13 12/26/20 History Atorvastatin [Lipitor] 10 mg PO DAILY 12/26/20 12/26/20 History Cholecalciferol (Vitamin D3) 75 mcg PO DAILY 12/26/20 12/26/20 History [Vitamin D3 (3000 Iu)] Allergies Allergy/AdvReac Type Severity Reaction Status Date / Time alendronate sodium Allergy Unknown Verified 12/26/20 06:59 [From Fosamax] azithromycin Allergy Rash/Hives Verified 12/26/20 06:59 [From Zithromax Z-Benito] ciprofloxacin [From Cipro] Allergy Unknown Verified 12/26/20 06:59 doxycycline Allergy Unknown Verified 12/26/20 06:59 hydrocodone Allergy Unknown Verified 12/26/20 06:59 naproxen [From Naprosyn] Allergy Unknown Verified 12/26/20 06:59 Penicillins Allergy Rash/Hives Verified 12/26/20 06:59 sulfacetamide sodium Allergy Rash/Hives Verified 12/26/20 06:59 [From Sulfamide] tramadol Allergy Unknown Verified 12/26/20 06:59 morphine AdvReac SEZIURE Verified 12/26/20 06:59 Physical Exam Vitals: Vital Signs Temp Pulse Pulse Pulse Pulse Pulse Resp 12/26/20 07:00 98.1 F 94 100 89 14 12/26/20 06:06 99.1 F 91 16 12/26/20 05:10 80 18 12/26/20 03:49 86 16 12/26/20 03:45 86 14 12/26/20 03:15 82 16 12/26/20 02:52 97.1 F L 86 18 BP BP BP BP BP Pulse Ox 12/26/20 07:00 119/66 109/64 114/65 95 12/26/20 06:06 113/64 95 12/26/20 05:10 114/59 97 12/26/20 03:49 96/62 98 12/26/20 03:45 94/61 98 12/26/20 03:15 107/60 98 12/26/20 02:52 108/57 99 Intake and Output 12/25/20 12/26/20 12/26/20 22:59 06:59 14:59 Output Total 240 Balance -240 Output: Urine 120 Straight 120 Post Void Residual 120 Other: # Voids 0 Weight 68.039 kg Results 12/26/20 03:06 12/26/20 03:06 Cardiac Enzymes 12/26/20 12/26/20 12/26/20 Range/Units 03:06 03:06 06:31 AST 31 (14-36) U/L Troponin I <0.012 <0.012 (0.000-0.034) ng/mL 12/26/20 Range/Units 09:21 AST (14-36) U/L Troponin I <0.012 (0.000-0.034) ng/mL Coagulation 12/26/20 Range/Units 03:06 PT 10.5 (9.0-12.0) sec APTT 22.0 (22.0-30.0) sec CBC 12/26/20 Range/Units 03:06 WBC 8.6 (3.8-10.6) k/uL RBC 4.14 (3.80-5.40) m/uL Hgb 13.4 (11.4-16.0) gm/dL Hct 40.0 (34.0-46.0) % Plt Count 289 (150-450) k/uL Comprehensive Metabolic Panel 12/26/20 Range/Units 03:06 Sodium 136 L (137-145) mmol/L Potassium 4.4 (3.5-5.1) mmol/L Chloride 102 (98-107) mmol/L Carbon Dioxide 28 (22-30) mmol/L BUN 27 H (7-17) mg/dL Creatinine 0.86 (0.52-1.04) mg/dL Glucose 96 (74-99) mg/dL Calcium 9.1 (8.4-10.2) mg/dL AST 31 (14-36) U/L ALT 11 (4-34) U/L Alkaline Phosphatase 47 (38-126) U/L Total Protein 6.9 (6.3-8.2) g/dL Albumin 4.0 (3.5-5.0) g/dL Current Medications Generic Name Dose Route Start Last Admin Trade Name Freq PRN Reason Stop Dose Admin Aspirin 81 mg 12/26/20 09:00 12/26/20 08:54 Aspirin 81 Mg PO 81 mg DAILY KEILY Administration Atorvastatin Calcium 10 mg 12/26/20 09:00 12/26/20 08:54 Atorvastatin 10 Mg Tab PO 10 mg DAILY KEILY Administration Fludrocortisone Acetate 0.05 mg 12/26/20 09:00 12/26/20 08:54 Fludrocortisone 0.1 Mg Tab PO 0.05 mg MoWeFr@0900 KEILY Administration Hydrocortisone mg 12/26/20 08:30 Hydrocortisone 10 Mg Tab PO DIRECTED KEILY Sodium Chloride 1,000 mls @ 130 mls/hr 12/26/20 04:30 12/26/20 05:01 Saline 0.9% IV 130 mls/hr .[id number] KEILY Administration Levothyroxine Sodium 88 mcg 12/26/20 09:00 12/26/20 08:54 Levothyroxine 88 Mcg Tab PO 88 mcg DAILY@0630 KEILY Administration Morphine Sulfate 4 mg 12/26/20 04:26 Morphine Sulfate 4 Mg/Ml Syringe IV Q4HR PRN Severe Pain Naloxone HCl 0.2 mg 12/26/20 04:26 Naloxone 0.4 Mg/Ml 1 Ml Vial IV Q2M PRN Opioid Reversal Ondansetron HCl 4 mg 12/26/20 04:26 Ondansetron 4 Mg/2 Ml Vial IVP Q8HR PRN Nausea And Vomiting Pantoprazole Sodium 40 mg 12/26/20 09:00 12/26/20 08:53 Pantoprazole 40 Mg/10 Ml Vial IV 40 mg DAILY KEILY Administration Intake and Output 12/25/20 12/26/20 12/26/20 22:59 06:59 14:59 Output Total 240 Balance -240 Output: Urine 120 Straight 120 Post Void Residual 120 Other: # Voids 0 Weight 68.039 kg 12/26/20 03:06 12/26/20 03:06
--- NOTE | 2020-12-26 10:58 | CT ---
EXAMINATION TYPE: CT abdomen w con DATE OF EXAM: 12/26/2020 COMPARISON: NONE HISTORY: 75-year-old female RUQ pain and tenderness, nausea and vomiting TECHNIQUE: Contiguous axial scanning of the abdomen following administration of 100 ml Isovue 300 IV contrast. Delayed images through the kidneys and coronal/sagittal reconstructions performed. CT DLP: 852.13 mGycm Automated exposure control for dose reduction was used. FINDINGS: Chest reported separately. Tiny hiatal hernia. Liver mildly enlarged at 19.5 cm. Portal venous system is patent. No biliary ductal dilatation. Gallbladder, adrenal glands, spleen, and pancreas appear within normal limits. There is an extrarenal pelvis on both sides. The right ureter is mildly distended down beyond the fie ld. This may be a transient phenomenon. No dilated small bowel, free fluid, or free air. Possible mild circumferential wall thickening along the mid transverse colon, refer to coronal image 19. No significant stool burden. Clustered prominent and borderline sized left mid abdominal mesenteric lymph nodes measuring up to 5 mm. The pelvis is not imaged. Bones: Mild to moderate degenerative disc disease lower thoracic spine. Hypertrophic facet arthropath y mid to lower lumbar spine with ligamentum flavum thickening. IMPRESSION: 1. POSSIBLE MILD CIRCUMFERENTIAL THICKENING ALONG THE MID TRANSVERSE COLON. THIS COULD BE DUE TO NOND ISTENTION OR A NONSPECIFIC MILD COLITIS . CLINICALLY CORRELATE. 2. ADJACENT CLUSTERED LEFT MID ABDOMINAL MESENTERIC LYMPH NODES ARE BORDERLINE IN SIZE, PROBABLY REAC TIVE. 3. PATULOUS RIGHT URETER. THE PELVIS IS NOT IMAGED. CORRELATE TO EXCLUDE ANY RIGHT-SIDED RENAL COLIC OR AN EARLY OBSTRUCTIVE UROPATHY. 4. HEPATOMEGALY (19.5 CM) AND TINY HERNIA.
--- NOTE | 2020-12-26 11:46 | P.HPIM ---
History of Present Illness H&P Date: 12/26/20 HISTORY OF PRESENT ILLNESS This is a 75-year-old female patient of Dr. 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 Bernal, osteoarthritis, hyperlipidemia, hypothyroidism, glaucoma. Patient states that yesterday she was working out in the yard with her daughter and grandchildren clearing flowerbeds and thinks that she was out there too long. They ordered supper and she ate fish sticks but felt that it was too rich for her stomach and she started getting upset stomach around 1045 when she went to bed. She had abdominal ache in the right upper quadrant. She denied having any fever or chills. She developed nausea and vomiting 4 episodes and diarrhea on 3 episodes and 3 syncopal episodes. The syncopal episodes occurred after vomiting. She denies any recent travel, no sick contacts. Patient denies having any cardiac history and denies any recent his seizure activity. Her last colonoscopy was done at [facility] and she does not recall the date but states that she was found to have diverticulitis and is careful what she eats. She has not had any previous abdominal surgeries. She denies any blood in her stools. Patient came into [facility] for evaluation. She was found to be afebrile, heart rate in the 80s, blood pressure 108/57, pulse ox 99% on room air. EKG was a sinus rhythm with no acute ST changes. CBC was unremarkable. Sodium 136, potassium 4.4, chloride 102, CO2 28, BUN 27 creatinine 0.86. Blood sugar 96. Liver function tests were all normal. Lipase 157. Troponin negative on 2 draws. Urinalysis revealed trace blood and rare mucus. Nitrate and leukoesterase negative. Lactic acid 1.2. D-dimer 0.69 Chest x-ray reveals bilateral upper lobe pleural and pulmonary scarring with retraction. Underlying COPD. No heart failure. No significant change. CT angiogram of the chest revealed optimal contrast bolus. No definite pulmonary embolus. Upper to mid lung predominant pulmonary fibrosis. Consider sequelae of sarcoidosis, pneumoconiosis or previous atypical fungal mycob acterial infection. Unchanged from 03/2020. CT angiogram of the neck revealed minimal atherosclerotic change of the carotid bifurcations. No hemodynamically significant carotid or vertebral artery stenosis on either side. The bilateral V4 segment vertebral arteries become hypoplastic within the head. The basilar artery is also uniformly small in caliber. Correlate for any potential chronic symptoms of vertebrobasilar insufficiency. CAT scan of the abdomen and pelvis revealed possible mild circumferential thickening along the mid transverse colon could be due to non-distention or a nonspecific mild colitis. Adjacent clustered left mid abdominal mesenteric lymph nodes are borderline in size, probably reactive. Patulous right ureter. Pelvis is not imaged. Correlate to exclude any right-sided renal colic or early obstructive uropathy. Hepatomegaly and tiny hernia. Patient admitted to the hospital and consults were added for general surgery for right upper quadrant abdominal pain and cardiology for syncope. Echocardiogram is pending. REVIEW OF SYSTEMS Constitutional: No fever, no chills, no night sweats. No weight change. No weakness, fatigue or lethargy. No daytime sleepiness. EENT: No headache. No blurred vision or double vision, no loss of vision. No loss of Hearing, no ringing in the ears, no dizziness. No nasal drainage or congestion. No epistaxis. No sore throat. Lungs: No shortness of breath, cough, no sputum production. No wheezing. Cardiovascular: No chest pain, no lower extremity edema. No palpitations. No paroxysmal nocturnal dyspnea. No orthopnea. No lightheadedness or dizziness. Reports syncopal episodes. Abdominal: Reports right upper quadrant abdominal pain. Reported nausea, reported vomiting. Reported diarrhea. No constipation. No bloody or tarry stools. Reported loss of appetite. Genitourinary: No dysuria, increased frequency, urgency. No urinary retention. Musculoskeletal: No myalgias. Reports muscle weakness, no gait dysfunction, no frequent falls. No back pain. No neck pain. Integumentary: No wounds, no lesions. No rash or pruritus. No unusual bruising. No change in hair or nails. Neurologic: No aphasia. No facial droop. No change in mentation. No head injury. No headache. No paralysis. No paresthesia. Psychiatric: No depression. No anxiety. No mood swings. Endocrine: No abnormal blood sugars. No weight change. No excessive sweating or thirst. No cold intolerance. SOCIAL HISTORY Patient is a lifelong nonsmoker, no marijuana or illicit drug use, no alcohol use. Patient lives at home with her . FAMILY HISTORY Mother at age 93 with history of Parkinson's. Father at age 79 from lung cancer. Patient has 2 sisters living with no major medical problems. She has one sister that is passed from brain cancer. Patient has 1 brother that passed from unknown cancer at age 89. Patient has 3 children with no major medical problems. PHYSICAL EXAMINATION Gen: This is this is a 75-year-old female. Patient is resting in bed and appears to be in no acute distress. HEENT: Head is atraumatic, normocephalic. Pupils equal, round. Sclerae is anicteric. NECK: Supple. No JVD. No lymphadenopathy. No thyromegaly. LUNGS: Clear to auscultation. No wheezes or rhonchi. No intercostal retractions. HEART: Regular rate and rhythm. Systolic murmur. ABDOMEN: Soft. Bowel sounds are present. No masses. Right upper quadrant t enderness. EXTREMITIES: No pedal edema. No calf tenderness. NEUROLOGICAL: Patient is awake, alert and oriented x3. Cranial nerves 2 through 12 are grossly intact. ASSESSMENT AND PLAN 1. Intractable nausea, vomiting and diarrhea with right upper quadrant pain possibly related to colitis. Patient started on clear liquid diet, continue Zofran as needed for nausea, continue IV fluids 0.9 normal saline decreased to 75 mL per hour. Patient started on IV Flagyl 500 mg every 8 hours and Cipro oral twice daily. 2. Syncopal episodes most likely vasovagal from vomiting. Orthostatic vital signs are negative. Cardiology consult appreciated. Patient placed on cardiac cath rn. 3. Rolette's disease. Continue Florinef 0.05 mg Tuesday and Cortef as instructed. 4. Pulmonary fibrosis in the right lung. 5. Hyperlipidemia. Continue atorvastatin 10 mg daily. 6. Hypothyroidism. Continue levothyroxine 88 g daily. 7. Glaucoma. 8. GI prophylaxis. Protonix. 9. DVT prophylaxis. Heparin subcu. Patient admitted to the hospital for a minimum of 2 night stay. DISCHARGE PLAN Home. Impression and plan of care have been directed as dictated by the signing physician. Dorcas Tomas nurse practitioner acting as scribe for signing physician. Past Medical History Past Medical History: Eye Disorder, Hearing Disorder / Deafness, Osteoarthritis (OA), Pneumonia, Respiratory Disorder, Seizure Disorder, Syncope, Thyroid Disorder Additional Past Medical History / Comment(s): Pulmonary fibrosis R lung, pneumonias, bronchitis, sneha's disease with past crisis, hypothyroid, pt states she had seizure as a child and once in 2013 after receiving morphine, rec ent R hip pain-past 3 weeks, chronic low back pain, allergic rhinitis, hiatal hernia, bilateral glaucoma, [place] bilaterally with L ear worse. History of Any Multi-Drug Resistant Organisms: None Reported Past Surgical History: Back Surgery, Section, Joint Replacement, Orthopedic Surgery, Tubal Ligation Additional Past Surgical History / Comment(s): Bilateral total knee arthroplasties, low back radiofrequency ablations, bilateral carpal tunnel releases, bronchoscopy, R eye biopsy-pt does not know reason. Past Anesthesia/Blood Transfusion Reactions: No Reported Reaction Additional Past Anesthesia/Blood Transfusion Reaction / Comment(s): Pt states she received blood in past without reaction. Past Psychological History: No Psychological Hx Reported Additional Psychological History / Comment(s): Pt resides with her spouse. She is independent. Smoking Status: Never smoker Past Alcohol Use History: None Reported Past Drug Use History: None Reported - Past Family History Mother Family Medical History: Musculoskeletal Disorder, Neurologic Disorder, Seizure Disorder Additional Family Medical History / Comment(s): Mother had parkinson's. She lived to be 93 yrs old. Pt states mother had epilepsy. Daughter(s) Additional Family Medical History / Comment(s): She has 3 children with no major medical problems. Father Family Medical History: Cancer Additional Family Medical History / Comment(s): Father at age 79 from lung cancer. Medications and Allergies Home Medications Medication Instructions Recorded Confirmed Type Aspirin 81 mg PO DAILY 11/03/13 12/26/20 History Fludrocortisone [Florinef] 0.05 mg PO MOWEFR 11/03/13 12/26/20 History Hydrocortisone [Cortef] 1 dose PO DIRECTED 11/03/13 12/26/20 History Levothyroxine Sodium [Synthroid] 88 mcg PO DAILY 11/03/13 12/26/20 History Atorvastatin [Lipitor] 10 mg PO DAILY 12/26/20 12/26/20 History Cholecalciferol (Vitamin D3) 75 mcg PO DAILY 12/26/20 12/26/20 History [Vitamin D3 (3000 Iu)] Allergies Allergy/AdvReac Type Severity Reaction Status Date / Time alendronate sodium Allergy Unknown Verified 12/26/20 06:59 [From Fosamax] azithromycin Allergy Rash/Hives Verified 12/26/20 06:59 [From Zithromax Z-Benito] ciprofloxacin [From Cipro] Allergy Unknown Verified 12/26/20 06:59 doxycycline Allergy Unknown Verified 12/26/20 06:59 hydrocodone Allergy Unknown Verified 12/26/20 06:59 naproxen [From Naprosyn] Allergy Unknown Verified 12/26/20 06:59 Penicillins Allergy Rash/Hives Verified 12/26/20 06:59 sulfacetamide sodium Allergy Rash/Hives Verified 12/26/20 06:59 [From Sulfamide] tramadol Allergy Unknown Verified 12/26/20 06:59 morphine AdvReac SEZIURE Verified 12/26/20 06:59 Physical Exam Vitals: Vital Signs Temp Pulse Pulse Pulse Pulse Pulse Resp 12/26/20 07:00 98.1 F 94 100 89 14 12/26/20 06:06 99.1 F 91 16 12/26/20 05:10 80 18 12/26/20 03:49 86 16 12/26/20 03:45 86 14 12/26/20 03:15 82 16 12/26/20 02:52 97.1 F L 86 18 BP BP BP BP BP Pulse Ox 12/26/20 07:00 119/66 109/64 114/65 95 12/26/20 06:06 113/64 95 12/26/20 05:10 114/59 97 12/26/20 03:49 96/62 98 12/26/20 03:45 94/61 98 12/26/20 03:15 107/60 98 12/26/20 02:52 108/57 99 Intake and Output 12/25/20 12/26/20 12/26/20 22:59 06:59 14:59 Output Total 240 Balance -240 Output: Urine 120 Straight 120 Post Void Residual 120 Other: # Voids 0 Weight 68.039 kg Results CBC & Chem 7: 12/26/20 03:06 12/26/20 03:06 Labs: Abnormal Lab Results - Last 24 Hours (Table) 12/26/20 12/26/20 12/26/20 Range/Units 03:06 03:06 05:00 D-Dimer 0.69 H (<0.60) mg/L FEU Sodium 136 L (137-145) mmol/L BUN 27 H (7-17) mg/dL Urine Blood Trace H (Negative) Urine Mucus Rare H (None) /hpf Thrombosis Risk Factor Assmnt - Choose All That Apply Any of the Below Risk Factors Present?: Yes Each Factor Represents 1 point: Abnormal pulmonary function (COPD) Each Risk Factor Represents 2 Points: Age 61-74 years Thrombosis Risk Factor Assessment Total Risk Factor Score: 3 Thrombosis Risk Factor Assessment Level: Moderate Risk
--- NOTE | 2020-12-26 12:01 | ECHOF ---
Referral Reason:LVF MEASUREMENTS -------- HEIGHT: 167.6 cm WEIGHT: 68.0 kg BP: 119/66 RVIDd: 3.2 cm (< 3.3) IVSd: 1.1 cm (0.6 - 1.1) LVIDd: 3.7 cm (3.9 - 5.3) LVPWd: 1.0 cm (0.6 - 1.1) IVSs: 1.4 cm LVIDs: 2.4 cm LVPWs: 1.4 cm LA Diam: 3.0 cm (2.7 - 3.8) LAESV Index (A-L): 26.20 ml/m Ao Diam: 2.7 cm (2.0 - 3.7) AV Cusp: 1.4 cm (1.5 - 2.6) MV EXCURSION: 13.254 mm (> 18.000) MV EF SLOPE: 103 mm/s (70 - 150) EPSS: 0.2 cm MV E Gabino: 0.93 m/s MV DecT: 164 ms MV A Gabino: 1.15 m/s MV E/A Ratio: 0.81 RAP: 5.00 mmHg RVSP: 21.14 mmHg FINDINGS -------- Sinus rhythm. This was a technically good study. The left ventricular size is normal. There is borderline concentric left ventricular hypertrophy. Overall left ventricular systolic function is normal with, an EF between 60 - 65 %. The right ventricle is normal in size. Normal LA size by volume 22+/-6 ml/m2. The right atrium is normal in size. Interatrial and interventricular septum intact. There is mild aortic valve sclerosis. The mitral valve is normal. Mild tricuspid regurgitation present. Right ventricular systolic pressure is normal at < 35 mmHg. Trace/mild (physiologic) pulmonic regurgitation. The aortic root size is normal. Normal inferior vena cava with normal inspiratory collapse consistent with estimated right atrial pre ssure of 5 mmHg. There is no pericardial effusion. CONCLUSIONS -------- 1. The left ventricular size is normal. 2. There is borderline concentric left ventricular hypertrophy. 3. Overall left ventricular systolic function is normal with, an EF between 60 - 65 %. 4. There is mild aortic valve sclerosis. 5. Mild tricuspid regurgitation present. 6. Trace/mild (physiologic) pulmonic regurgitation. 7. There is no pericardial effusion. COMMUNICATIONS PROFESSIONAL: Jeannine Montgomery RDCS
[2020-12-26] MEDS: metroNIDAZOLE-NS PMX 500 MG in SALINE 1 100ML.BAG IVPB SCH ×2 (12:19→20:06)
--- NOTE | 2020-12-26 13:19 | US ---
EXAMINATION TYPE: US kidneys/renal and bladder DATE OF EXAM: 12/26/2020 COMPARISON: NONE CLINICAL HISTORY: Rule out hydronephrosis. hydronephrosis EXAM MEASUREMENTS: Right Kidney: 11.3 x 4.0 x 3.7 cm Left Kidney: 10.6 x 4.5 x 3.3 cm Right Kidney: No hydronephrosis or masses seen Left Kidney: No hydronephrosis or masses seen Bladder: anechoic Bilateral Jets seen: No right jet only There is no evidence for hydronephrosis at this point in time. No nephrolithiasis is seen. No marietta s are identified. The urinary bladder is anechoic. IMPRESSION: No distinct abnormality identified.
--- NOTE | 2020-12-26 13:23 | P.GSCN ---
History of Present Illness Consult date: 12/26/20 Reason for Consult: Nausea, vomiting, diarrhea History of present illness: The patient presented to the ED with nausea, vomiting, diarrhea and syncope. She ate dinner occultly last evening. She had a fried fish say much. Family members ate hamburgers. This was from a takedown restaurant. She felt fine for several hours. She went to bed and woke up with pain in the upper abdomen and she went into the bathroom and had diarrhea along with nausea and vomiting. She had a syncopal episode. This happened several times and so she was brought into the ER. No prior episodes of anything like this in the past. She hadn't been ill before this. No family members were ill last evening. Denies any blood in the stool or dark tarry stool. She says she has had a colonoscopy in the past however reviewing records at [facility] I see none for at least 5 years. When she describes that it sounds as though is actually had a computed yosef graphy scan. She's also had cologuard done I Dr. Lott and Dr. Cruz. These she reports as normal. She will occasionally get some discomfort in the abdomen with eating greasy or fatty foods. Episodes of "gallbladder attack" in the past. Denies jaundice, tea-colored urine or acholic stools. Denies fevers or chills. Review of Systems All systems: negative Past Medical History Past Medical History: Eye Disorder, Hearing Disorder / Deafness, Osteoarthritis (OA), Pneumonia, Respiratory Disorder, Seizure Disorder, Syncope, Thyroid Disorder Additional Past Medical History / Comment(s): Pulmonary fibrosis R lung, pneumonias, bronchitis, sneha's disease with past crisis, hypothyroid, pt states she had seizure as a child and once in 2013 after receiving morphine, recent R hip pain-past 3 weeks, chronic low back pain, allergic rhinitis, hiatal hernia, bilateral glaucoma, [place] bilaterally with L ear worse. History of Any Multi-Drug Resistant Organisms: None Reported Past Surgical History: Back Surgery, Section, Joint Replacement, Orthopedic Surgery, Tubal Ligation Additional Past Surgical History / Comment(s): Bilateral total knee arthroplasties, low back radiofrequency ablations, bilateral carpal tunnel releases, bronchoscopy, R eye biopsy-pt does not know reason. Past Anesthesia/Blood Transfusion Reactions: No Reported Reaction Additional Past Anesthesia/Blood Transfusion Reaction / Comm: Pt states she received blood in past without reaction. Past Psychological History: No Psychological Hx Reported Additional Psychological History / Comment(s): Pt resides with her spouse. She is independent. Smoking Status: Never smoker Past Alcohol Use History: None Reported Past Drug Use History: None Reported - Past Family History Mother Family Medical History: Musculoskeletal Disorder, Neurologic Disorder, Seizure Disorder Additional Family Medical History / Comment(s): Mother had parkinson's. She lived to be 93 yrs old. Pt states mother had epilepsy. Daughter(s) Additional Family Medical History / Comment(s): She has 3 children with no major medical problems. Father Family Medical History: Cancer Additional Family Medical History / Comment(s): Father at age 79 from lung cancer. Medications and Allergies Home Medications Medication Instructions Recorded Confirmed Type Aspirin 81 mg PO DAILY 11/03/13 12/26/20 History Fludrocortisone [Florinef] 0.05 mg PO MOWEFR 11/03/13 12/26/20 History Hydrocortisone [Cortef] 15 mg PO QAM 11/03/13 12/26/20 History Levothyroxine Sodium [Synthroid] 88 mcg PO DAILY 11/03/13 12/26/20 History Atorvastatin [Lipitor] 10 mg PO DAILY 12/26/20 12/26/20 History Cholecalciferol (Vitamin D3) 75 mcg PO DAILY 12/26/20 12/26/20 History [Vitamin D3 (3000 Iu)] Hydrocortisone [Cortef] 5 mg PO DAILY PRN 12/26/20 12/26/20 History Hydrocortisone [Cortef] 5 mg PO DAILY@1600 12/26/20 12/26/20 History Allergies Allergy/AdvReac Type Severity Reaction Status Date / Time alendronate sodium Allergy Unknown Verified 12/26/20 06:59 [From Fosamax] azithromycin Allergy Rash/Hives Verified 12/26/20 06:59 [From Zithromax Z-Benito] ciprofloxacin [From Cipro] Allergy Unknown Verified 12/26/20 06:59 doxycycline Allergy Unknown Verified 12/26/20 06:59 hydrocodone Allergy Unknown Verified 12/26/20 06:59 naproxen [From Naprosyn] Allergy Unknown Verified 12/26/20 06:59 Penicillins Allergy Rash/Hives Verified 12/26/20 06:59 sulfacetamide sodium Allergy Rash/Hives Verified 12/26/20 06:59 [From Sulfamide] tramadol Allergy Unknown Verified 12/26/20 06:59 morphine AdvReac SEZIURE Verified 12/26/20 06:59 Surgical - Exam Osteopathic Statement: *. No significant issues noted on an osteopathic structural exam other than those noted in the History and Physical/Consult. Vital Signs Temp Pulse Resp BP Pulse Ox 97.1 F L 86 18 108/57 99 12/26/20 02:52 12/26/20 02:52 12/26/20 02:52 12/26/20 02:52 12/26/20 02:52 - General well developed, well nourished, no distress - Eyes normal ocular movement - Neck trachea midline - Respiratory normal expansion, clear to auscultation - Cardiovascular Rhythm: regular - Abdomen Abdomen: soft, non tender, bowel sounds, no guarding, no rigid, no rebound, no distended Results - Labs 12/26/20 03:06 12/26/20 03:06 Abnormal Lab Results - Last 24 Hours (Table) 12/26/20 12/26/20 12/26/20 Range/Units 03:06 03:06 05:00 D-Dimer 0.69 H (<0.60) mg/L FEU Sodium 136 L (137-145) mmol/L BUN 27 H (7-17) mg/dL Urine Blood Trace H (Negative) Urine Mucus Rare H (None) /hpf Diabetes panel 12/26/20 Range/Units 03:06 Sodium 136 L (137-145) mmol/L Potassium 4.4 (3.5-5.1) mmol/L Chloride 102 (98-107) mmol/L Carbon Dioxide 28 (22-30) mmol/L BUN 27 H (7-17) mg/dL Creatinine 0.86 (0.52-1.04) mg/dL Glucose 96 (74-99) mg/dL Calcium 9.1 (8.4-10.2) mg/dL AST 31 (14-36) U/L ALT 11 (4-34) U/L Alkaline Phosphatase 47 (38-126) U/L Total Protein 6.9 (6.3-8.2) g/dL Albumin 4.0 (3.5-5.0) g/dL Calcium panel 12/26/20 Range/Units 03:06 Calcium 9.1 (8.4-10.2) mg/dL Phosphorus 4.1 (2.5-4.5) mg/dL Albumin 4.0 (3.5-5.0) g/dL Pituitary panel 12/26/20 Range/Units 03:06 Sodium 136 L (137-145) mmol/L Potassium 4.4 (3.5-5.1) mmol/L Chloride 102 (98-107) mmol/L Carbon Dioxide 28 (22-30) mmol/L BUN 27 H (7-17) mg/dL Creatinine 0.86 (0.52-1.04) mg/dL Glucose 96 (74-99) mg/dL Calcium 9.1 (8.4-10.2) mg/dL Adrenal panel 12/26/20 Range/Units 03:06 Sodium 136 L (137-145) mmol/L Potassium 4.4 (3.5-5.1) mmol/L Chloride 102 (98-107) mmol/L Carbon Dioxide 28 (22-30) mmol/L BUN 27 H (7-17) mg/dL Creatinine 0.86 (0.52-1.04) mg/dL Glucose 96 (74-99) mg/dL Calcium 9.1 (8.4-10.2) mg/dL Total Bilirubin 0.4 (0.2-1.3) mg/dL AST 31 (14-36) U/L ALT 11 (4-34) U/L Alkaline Phosphatase 47 (38-126) U/L Total Protein 6.9 (6.3-8.2) g/dL Albumin 4.0 (3.5-5.0) g/dL - Imaging CT scan - abdomen: report reviewed US - abdomen: report reviewed Assessment and Plan (1) Nausea & vomiting Current Visit: Yes Status: Acute Code(s): R11.2 - NAUSEA WITH VOMITING, UNSPECIFIED SNOMED Code(s): 37183086 (2) Syncope Current Visit: Yes Status: Acute Code(s): R55 - SYNCOPE AND COLLAPSE SNOMED Code(s): 434179880 (3) Dehydration Current Visit: No Status: Acute Code(s): E86.0 - DEHYDRATION SNOMED Code(s): 94687630 Plan: Likely an acute gastroenteritis. No evidence of cholelithiasis or cholecystitis at her computed tomography scan. Although she has not had colonoscopy done she has had cologuard performed twice. There is report of some possible thickening of the mid transverse colon seen on computed tomography scan. She has no chronic symptoms of a colitis and hasn't had blood in the stool. I recommend slowly advancing her diet as tolerated. If she has repeated diarrhea, I can see her and schedule a colonoscopy as outpatient. We'll advance her diet as tolerated today. Currently nonsurgical
[2020-12-26] MEDS: CIPROFLOXACIN HCL 500 MG TAB PO SCH ×2 (13:29→20:05)
[2020-12-26] MEDS: HYDROCORTISONE 10 MG TAB PO SCH (14:11)
[2020-12-26 14:59] VITALS: RESP 16
[2020-12-26] MEDS ORDERED: HYDROCORTISONE 10 MG TAB PO SCH (16:00)
[2020-12-26] MEDS: HEPARIN SODIUM,PORCINE/PF 5,000 UNIT/0.5 ML SYRINGE SQ SCH (20:05)
[2020-12-27 01:40] VITALS: PULSE 87
[2020-12-27] MEDS ORDERED: ACETAMINOPHEN TAB 325 MG TAB PO PRN (02:09)
[2020-12-27] MEDS: SODIUM CHLORIDE 0.9% 1,000 ML IV SCH ×2 (02:16→10:20)
[2020-12-27] MEDS: metroNIDAZOLE-NS PMX 500 MG in SALINE 1 100ML.BAG IVPB SCH (03:46)
[2020-12-27] MEDS: LEVOTHYROXINE 88 MCG TAB PO SCH (05:48)
[2020-12-27 07:25] VITALS: BP 106/57; TEMP 98
[2020-12-27] MEDS ORDERED: PANTOPRAZOLE 40 MG TABLET PO SCH (07:30)
[2020-12-27] MEDS: HEPARIN SODIUM,PORCINE/PF 5,000 UNIT/0.5 ML SYRINGE SQ SCH (08:09)
[2020-12-27] MEDS: ASPIRIN 81 MG PO SCH (08:09)
[2020-12-27] MEDS: ATORVASTATIN 10 MG TAB PO SCH (08:09)
[2020-12-27] MEDS: HYDROCORTISONE 10 MG TAB PO SCH (08:10)
[2020-12-27] MEDS: CIPROFLOXACIN HCL 500 MG TAB PO SCH (08:10)
--- NOTE | 2020-12-27 08:48 | P.PN ---
Subjective Progress Note Date: 12/27/20 Patient seen and examined at bedside. No acute events. On exam, patient is eating breakfast and denies any abdominal pain. She states that she is feeling much better. Denies nausea and vomiting. Has not had a bowel movement since admission. Objective - Vital Signs Vital signs: Vital Signs Temp 98.0 F 12/27/20 07:00 Pulse 87 12/27/20 01:39 Resp 16 12/27/20 07:00 BP 106/57 12/27/20 07:00 Pulse Ox 97 12/27/20 07:00 Intake & Output 12/26/20 12/27/20 12/27/20 18:59 06:59 18:59 Intake Total 1140 1140 Balance 1140 1140 Intake: Intake, IV Titration 1140 1140 Amount Sodium Chloride 0.9% 1, 1040 1040 000 ml @ 130 mls/hr IV . Q7H42M KEILY Rx#:[id number] metroNIDAZOLE-NS PMX 500 100 100 mg In Saline 1 100ml.bag @ 100 mls/hr IVPB Q8H KEILY Rx#:[id number] Other: # Voids 1 - Constitutional General appearance: Present: cooperative - Gastrointestinal Gastrointestinal Comment(s): Soft, nontender, nondistended, no rebound, no guarding - Psychiatric Psychiatric: Present: A&O x's 3 - Labs CBC & Chem 7: 12/26/20 03:06 12/26/20 03:06 Assessment and Plan Plan: 75-year-old female with abdominal pain that has resolved. She is tolerating diet. Currently nonsurgical and improving. Surgically stable for discharge.
[2020-12-27 09:22] LABS: Basophils # (A) 0.01 X 10*3/uL (0.00-0.10); Basophils % (A) 0.1 %; Eosinophils # (A) 0.02 X 10*3/uL (0.04-0.35); Eosinophils % (A) 0.2 %; HCT 34.4 % (37.2-46.3); HGB 11.1 g/dL (12.0-15.0); Lymphocytes # (A) 1.36 X 10*3/uL (0.90-5.00); Lymphocytes % (A) 13.4 %; MCH 31.7 pg (27.0-32.0); MCHC 32.3 g/dL (32.0-37.0); MCV 98.3 fL (80.0-97.0); Mean Platelet Volume 9.6 fL (9.5-12.2); Monocytes # (A) 0.65 X 10*3/uL (0.20-1.00); Monocytes % (A) 6.4 %; Neutrophils # (A) 8.06 X 10*3/uL (1.80-7.70); Neutrophils % (A) 79.4 %; Platelet Count 251 X 10*3/uL (140-440); WBC 10.15 X 10*3/uL (4.50-10.00)
[2020-12-27 10:45] LABS: African American GFR (CKD) 104.1 (60.0-200.0); Albumin 3.7 g/dL (3.80-4.90); Albumin/Globulin Ratio 1.61 (1.60-3.17); Anion Gap 6.7 mmol/L (4.00-12.00); BUN/Creat Ratio 23.33 Ratio (12.00-20.00); Calcium 8.4 mg/dL (8.7-10.3); Carbon Dioxide 27.3 mmol/L (21.6-31.8); Globulin 2.3 g/dL (1.6-3.3); Non-African American GFR(CKD) 89.8 (60.0-200.0); Potassium 3.9 mmol/L (3.5-5.5); Total Bilirubin 0.5 mg/dL (0.3-1.2)
--- NOTE | 2020-12-27 11:35 | P.DS ---
Providers Date of admission: 12/26/20 09:29 Attending physician: Scout Bonner Consults: 12/26/20 08:52 Consult Physician Routine Consulting Provider: Blank Moses Consult Reason/Comments: abd pain RUQ, V, D Do you want consulting provider notified?: Yes Primary care physician: Scout Bonner [facility] Course: This is a 75-year-old female patient of Dr. 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 Bernal, osteoarthritis, hyperlipidemia, hypothyroidism, glaucoma. Patient states that yesterday she was working out in the yard with her daughter and grandchildren clearing flowerbeds and thinks that she was out there too long. They ordered supper and she ate fish sticks but felt that it was too rich for her stomach and she started getting upset stomach around 1045 when she went to bed. She had abdominal ache in the right upper quadrant. She denied having any fever or chills. She developed nausea and vomiting 4 episodes and diarrhea on 3 episodes and 3 syncopal episodes. The syncopal episodes occurred after vomiting. She denies any recent travel, no sick contacts. Patient denies having any cardiac history and denies any recent his seizure activity. Her last colonoscopy was done at [facility] and she does not recall the date but states that she was found to have diverticulitis and is careful what she eats. She has not had any previous abdominal surgeries. She denies any blood in her stools. Patient came into [facility] emergency center for evaluation. She was found to be afebrile, heart rate in the 80s, blood pressure 108/57, pulse ox 99% on room air. EKG was a sinus rhythm with no acute ST changes. CBC was unremarkable. Sodium 136, potassium 4.4, chloride 102, CO2 28, BUN 27 creatinine 0.86. Blood sugar 96. Liver function tests were all normal. Lipase 157. Troponin negative on 2 draws. Urinalysis revealed trace blood and rare mucus. Nitrate and leukoesterase negative. Lactic acid 1.2. D-dimer 0.69 Chest x-ray reveals bilateral upper lobe pleural and pulmonary scarring with retraction. Underlying COPD. No heart failure. No significant change. CT angiogram of the chest revealed optimal contrast bolus. No definite pulmonary embolus. Upper to mid lung predominant pulmonary fibrosis. Consider sequelae of sarcoidosis, pneumoconiosis or previous atypical fungal mycobacterial infection. Unchanged from 03/2020. CT angiogram of the neck revealed minimal atherosclerotic change of the carotid bifurcations. No hemodynamically significant carotid or vertebral artery stenosis on either side. The bilateral V4 segment vertebral arteries become hypoplastic within the head. The basilar artery is also uniformly small in caliber. Correlate for any potential chronic symptoms of vertebrobasilar insufficiency. CAT scan of the abdomen and pelvis revealed possible mild circumferential thickening along the mid transverse colon could be due to non-distention or a nonspecific mild colitis. Adjacent clustered left mid abdominal mesenteric lymph nodes are borderline in size, probably reactive. Patulous right ureter. Pelvis is not imaged. Correlate to exclude any right-sided renal colic or early obstructive uropathy. Hepatomegaly and tiny hernia. Patient admitted to the hospital and consults were added for general surgery for right upper quadrant abdominal pain and cardiology for syncope. Echocardiogram is pending. 12/27 patient examined bedside. Denies any diarrhea or nausea or vomiting. Right upper abdominal pain is resolved. Patient's vitals were revealed patient is afebrile pulse 87 respiratory rate 16 blood pressure 106/57 labs reviewed hemoglobin is 11.1 WBC 10.15 platelets 251 CMP is unremarkable sodium is improved to 138 creatinine 0.6. Patient's presentation appeared to be gastroenteritis. Surgery was consulted who has ruled out colitis. Patient to continue pantoprazole for 1 week and follow with primary care physician if continues to have symptoms. I will hold off antibiotic at this point as patient's presentation appeared to be more acute gastroenteritis rather than colitis. Patient and the family is informed if patient starts to have any further symptoms patient to go to primary care physician for reevaluation REVIEW OF SYSTEMS Constitutional: No fever, no chills, no night sweats. No weight change. No weakness, fatigue or lethargy. No daytime sleepiness. EENT: No headache. No blurred vision or double vision, no loss of vision. No loss of Hearing, no ringing in the ears, no dizziness. No nasal drainage or congestion. No epistaxis. No sore throat. Lungs: No shortness of breath, cough, no sputum production. No wheezing. Cardiovascular: No chest pain, no lower extremity edema. No palpitations. No paroxysmal nocturnal dyspnea. No orthopnea. No lightheadedness or dizziness. Reports syncopal episodes. Abdominal: Reports right upper quadrant abdominal pain. Reported nausea, reported vomiting. Reported diarrhea. No constipation. No bloody or tarry stools. Reported loss of appetite. Genitourinary: No dysuria, increased frequency, urgency. No urinary retention. Musculoskeletal: No myalgias. Reports muscle weakness, no gait dysfunction, no frequent falls. No back pain. No neck pain. Integumentary: No wounds, no lesions. No rash or pruritus. No unusual bruising. No change in hair or nails. Neurologic: No aphasia. No facial droop. No change in mentation. No head injury. No headache. No paralysis. No paresthesia. Psychiatric: No depression. No anxiety. No mood swings. Endocrine: No abnormal blood sugars. No weight change. No excessive sweating or thirst. No cold intolerance. Gen: This is this is a 75-year-old female. Patient is resting in bed and appears to be in no acute distress. HEENT: Head is atraumatic, normocephalic. Pupils equal, round. Sclerae is anicteric. NECK: Supple. No JVD. No lymphadenopathy. No thyromegaly. LUNGS: Clear to auscultation. No wheezes or rhonchi. No intercostal retractions. HEART: Regular rate and rhythm. Systolic murmur. ABDOMEN: Soft. Bowel sounds are present. No masses. Right upper quadrant tenderness resolved. EXTREMITIES: No pedal edema. No calf tenderness. NEUROLOGICAL: Patient is awake, alert and oriented x3. Cranial nerves 2 through 12 are grossly intact. Discharge diagnoses 1. Intractable nausea, vomiting and diarrhea with right upper quadrant pain secondary to gastroenteritis 2. Syncopal episodes most likely vasovagal from vomiting. 3. [place]ck[place]'s disease. 4. Pulmonary fibrosis in the right lung. 5. Hyperlipidemia. 6. Hypothyroidism. 7. Glaucoma. Patient Condition at Discharge: Fair Plan - Discharge Summary Discharge Rx Participant: No New Discharge Prescriptions: New Pantoprazole [Protonix] 40 mg PO SHANE-BRKFST #7 tablet. Continue Levothyroxine Sodium [Synthroid] 88 mcg PO DAILY Fludrocortisone [Florinef] 0.05 mg PO MOWEFR Hydrocortisone [Cortef] 15 mg PO QAM Aspirin 81 mg PO DAILY Cholecalciferol (Vitamin D3) [Vitamin D3 (3000 Iu)] 75 mcg PO DAILY Atorvastatin [Lipitor] 10 mg PO DAILY Hydrocortisone [Cortef] 5 mg PO DAILY PRN PRN Reason: sick Hydrocortisone [Cortef] 5 mg PO DAILY@1600 Discharge Medication List Aspirin 81 mg PO DAILY 11/03/13 [History] Fludrocortisone [Florinef] 0.05 mg PO MOWEFR 11/03/13 [History] Hydrocortisone [Cortef] 15 mg PO QAM 11/03/13 [History] Levothyroxine Sodium [Synthroid] 88 mcg PO DAILY 11/03/13 [History] Atorvastatin [Lipitor] 10 mg PO DAILY 12/26/20 [History] Cholecalciferol (Vitamin D3) [Vitamin D3 (3000 Iu)] 75 mcg PO DAILY 12/26/20 [History] Hydrocortisone [Cortef] 5 mg PO DAILY PRN 12/26/20 [History] Hydrocortisone [Cortef] 5 mg PO DAILY@1600 12/26/20 [History] Pantoprazole [Protonix] 40 mg PO FRANCISCO #7 tablet. 12/27/20 [Rx] Follow up Appointment(s)/Referral(s): Jeff Neely MD [STAFF PHYSICIAN] - 1 Week Scout Bonner MD [Primary Care Provider] - 1-2 days Discharge Disposition: HOME SELF-CARE
== END 2020-12-27 11:57 | disposition home or self-care (01) | DRG 392 ==
LOC: EC 02:44 → 6NMEDSUR 04:26 → OBSVTOIN 09:29
PROVIDERS: ADMIT Internal Medicine Geriatric Medicine; ATTEND Internal Medicine Geriatric Medicine
DX: K52.9 Noninfective gastroenteritis and colitis, unspecified (principal); E27.1 Primary adrenocortical insufficiency; E86.0 Dehydration; R55 Syncope and collapse; J84.10 Pulmonary fibrosis, unspecified; M19.90 Unspecified osteoarthritis, unspecified site; E78.5 Hyperlipidemia, unspecified; H40.9 Unspecified glaucoma; Z80.8 Family history of malignant neoplasm of other organs or systems; Z80.1 Family history of malignant neoplasm of trachea, bronchus and lung; E03.9 Hypothyroidism, unspecified; J44.9 Chronic obstructive pulmonary disease, unspecified; H91.90 Unspecified hearing loss, unspecified ear; Z82.0 Family history of epilepsy and other diseases of the nervous system; G40.909 Epilepsy, unspecified, not intractable, without status epilepticus; I45.10 Unspecified right bundle-branch block; Z79.82 Long term (current) use of aspirin; Z79.890 Hormone replacement therapy; Z79.899 Other long term (current) drug therapy; Z96.653 Presence of artificial knee joint, bilateral
CPT/HCPCS: 36415; 51798; 70498; 71046; 71275; 74160; 76705; 76770; 80053; 81001; 82550; 83605; 83690; 83735; 83880; 84100; 84484; 85025; 85379; 85610; 85730; 93005; 93306; 96361; 96374; 96375; 99285

== ENCOUNTER 2021-01-15 09:27 | Observation (INO) | payer MEDICARE ==
[2021-01-15] MEDS ORDERED: ASPIRIN 81 MG PO STA (09:48)
--- NOTE | 2021-01-15 09:52 | ED ---
Chest Pain HPI - General Source: patient, RN notes reviewed Mode of arrival: wheelchair Limitations: no limitations <Jose Antonio Guerra - Last Filed: 01/15/21 11:07> <Dolly Puente - Last Filed: 01/16/21 22:41> - General Chief Complaint: Chest Pain Stated Complaint: Chest pain Time Seen by Provider: 01/15/21 09:35 - History of Present Illness Initial Comments: This a 75-year-old female presents emergency Department chief complaint of chest discomfort. Patient states been having on and off symptoms are worsened ove rnight. Patient states she feels short of breath. Patient states the pain is in her central lower chest region. She does have known pulmonary fibrosis which causes chronic shortness of breath. Patient states she has no heartburn but does have some epigastric pain. No nausea vomiting no diaphoretic episodes. Patient states she has no history of cardiac disease. (Jose Antonio Guerra) - Related Data Home Medications Medication Instructions Recorded Confirmed Aspirin 81 mg PO DAILY 11/03/13 01/15/21 Fludrocortisone [Florinef] 0.05 mg PO MOWEFR 11/03/13 01/15/21 Hydrocortisone [Cortef] 15 mg PO QAM 11/03/13 01/15/21 Levothyroxine Sodium [Synthroid] 88 mcg PO DAILY 11/03/13 01/15/21 Atorvastatin [Lipitor] 10 mg PO DAILY 12/26/20 01/15/21 Cholecalciferol (Vitamin D3) 75 mcg PO DAILY 12/26/20 01/15/21 [Vitamin D3 (3000 Iu)] Hydrocortisone [Cortef] 5 mg PO DAILY PRN 12/26/20 01/15/21 Hydrocortisone [Cortef] 5 mg PO DAILY@1600 12/26/20 01/15/21 Previous Rx's Medication Instructions Recorded Budesonide-Formot 160-4.5 Mcg 2 puff INHALATION BID #1 each 01/16/21 [Symbicort 160-4.5 Mcg Inhaler] Ipratropium/Albuterol Sulfate 1 puff INHALATION QID #1 inhaler 01/16/21 [Combivent Respimat Inhaler] Allergies Allergy/AdvReac Type Severity Reaction Status Date / Time alendronate sodium Allergy Unknown Verified 01/15/21 10:57 [From Fosamax] azithromycin Allergy Rash/Hives Verified 01/15/21 10:57 [From Zithromax Z-Benito] ciprofloxacin [From Cipro] Allergy Unknown Verified 01/15/21 10:57 doxycycline Allergy Unknown Verified 01/15/21 10:57 hydrocodone Allergy Unknown Verified 01/15/21 10:57 naproxen [From Naprosyn] Allergy Unknown Verified 01/15/21 10:57 Penicillins Allergy Rash/Hives Verified 01/15/21 10:57 sulfacetamide sodium Allergy Rash/Hives Verified 01/15/21 10:57 [From Sulfamide] tramadol Allergy Unknown Verified 01/15/21 10:57 morphine AdvReac SEZIURE Verified 01/15/21 10:57 Review of Systems ROS Other: All systems not noted in ROS Statement are negative. <Jose Antonio Guerra - Last Filed: 01/15/21 11:07> ROS Other: All systems not noted in ROS Statement are negative. <Dolly Puente - Last Filed: 01/16/21 22:41> ROS Statement: Those systems with pertinent positive or pertinent negative responses have been documented in the HPI. EKG Findings - EKG Comments: EKG Findings:: EKG performed at 9:41 normal sinus rhythm right bundle rate of 90 AR 164 QRS 128 QT/QTC 376/459 <Jose Antonio Guerra - Last Filed: 01/15/21 11:07> Past Medical History Past Medical History: Eye Disorder, Hearing Disorder / Deafness, Osteoarthritis (OA), Pneumonia, Respiratory Disorder, Seizure Disorder, Syncope, Thyroid Disorder Additional Past Medical History / Comment(s): Pulmonary fibrosis R lung, pneumonias, bronchitis, sneha's disease with past crisis, hypothyroid, pt states she had seizure as a child and once in 2013 after receiving morphine, recent R hip pain-past 3 weeks, chronic low back pain, allergic rhinitis, hiatal hernia, bilateral glaucoma, [place] bilaterally with L ear worse. History of Any Multi-Drug Resistant Organisms: None Reported Past Surgical History: Back Surgery, Section, Joint Replacement, Orthopedic Surgery, Tubal Ligation Additional Past Surgical History / Comment(s): Bilateral total knee arthroplasties, low back radiofrequency ablations, bilateral carpal tunnel releases, bronchoscopy, R eye biopsy-pt does not know reason. Past Anesthesia/Blood Transfusion Reactions: No Reported Reaction Additional Past Anesthesia/Blood Transfusion Reaction / Comment(s): Pt states she received blood in past without reaction. Past Psychological History: No Psychological Hx Reported Smoking Status: Never smoker Past Alcohol Use History: None Reported Past Drug Use History: None Reported - Past Family History Mother Family Medical History: Musculoskeletal Disorder, Neurologic Disorder, Seizure Disorder Additional Family Medical History / Comment(s): Mother had parkinson's. She lived to be 93 yrs old. Pt states mother had epilepsy. Daughter(s) Additional Family Medical History / Comment(s): She has 3 children with no major medical problems. Father Family Medical History: Cancer Additional Family Medical History / Comment(s): Father at age 79 from lung cancer. <Jose Antonio Guerra M - Last Filed: 01/15/21 11:07> General Exam Limitations: no limitations General appearance: alert, in no apparent distress Head exam: Present: atraumatic, normocephalic, normal inspection Eye exam: Present: normal appearance, PERRL, EOMI. Absent: scleral icterus, conjunctival injection, periorbital swelling Respiratory exam: Present: wheezes (Mild wheezing on the right). Absent: normal lung sounds bilaterally, respiratory distress, rales, rhonchi, stridor Cardiovascular Exam: Present: regular rate, normal rhythm, normal heart sounds. Absent: systolic murmur, diastolic murmur, rubs, gallop, clicks GI/Abdominal exam: Present: soft, normal bowel sounds. Absent: distended, tenderness, guarding, rebound, rigid Neurological exam: Present: alert Skin exam: Present: warm, dry, intact, normal color. Absent: rash <Jose Antonio Guerra M - Last Filed: 01/15/21 11:07> Course Vital Signs 01/15/21 01/15/21 01/15/21 09:29 09:47 10:00 Temperature 97.6 F Pulse Rate 86 84 Respiratory 18 27 H Rate Blood Pressure 152/74 130/57 O2 Sat by Pulse 99 100 Oximetry 01/15/21 01/15/21 01/15/21 10:30 11:00 11:30 Temperature Pulse Rate 80 86 76 Respiratory 12 11 L 11 L Rate Blood Pressure 124/50 124/50 O2 Sat by Pulse 98 Oximetry 01/15/21 01/15/21 01/15/21 12:00 12:30 13:00 Temperature Pulse Rate 85 75 Respiratory 18 19 Rate Blood Pressure 144/88 124/52 144/48 O2 Sat by Pulse 97 Oximetry 01/15/21 01/15/21 01/15/21 13:30 14:00 14:30 Temperature Pulse Rate 80 80 78 Respiratory 20 17 16 Rate Blood Pressure 121/58 O2 Sat by Pulse Oximetry 01/15/21 01/15/21 01/15/21 15:00 15:30 16:00 Temperature Pulse Rate 78 71 75 Respiratory 20 15 17 Rate Blood Pressure 121/51 O2 Sat by Pulse Oximetry 01/15/21 01/15/21 01/15/21 16:11 16:27 16:30 Temperature 97.8 F Pulse Rate 78 75 79 Respiratory 18 18 Rate Blood Pressure 138/78 138/61 O2 Sat by Pulse 97 Oximetry 01/15/21 01/15/21 01/15/21 16:37 16:38 17:00 Temperature Pulse Rate 80 Respiratory Rate Blood Pressure 138/61 O2 Sat by Pulse 99 Oximetry 01/15/21 01/15/21 01/15/21 17:30 18:00 19:26 Temperature 98 F Pulse Rate 87 Respiratory 20 Rate Blood Pressure 138/61 138/61 138/60 O2 Sat by Pulse 97 Oximetry 01/15/21 01/15/21 01/15/21 20:08 20:24 21:08 Temperature Pulse Rate 90 96 105 H Respiratory 20 Rate Blood Pressure 156/62 O2 Sat by Pulse 97 Oximetry Chest Pain MDM <Jose Antonio Guerra - Last Filed: 01/15/21 11:07> <Dolly Puente - Last Filed: 01/16/21 22:41> - MDM 75-year-old female presented for chest pain. Initial troponin is negative. Patient continues to have symptoms of be admitted for cardiac rule out. (Jose Antonio Guerra) I was available for consultation in the emergency department. The history and physical exam were done by the midlevel provider. I was consulted for this patients care. I reviewed the case with the midlevel provider and based on their presentation of the patient, I agree with the assessment, medical decision making and plan of care as documented. Chart was dictated using [employer] dictation software. Attempts were made to correct any dictation errors however some typographical errors may persist. Patient was seen during a national state of emergency due to the Covid-19 pandemic. (Dolly Puente) Disposition <Jose Antonio Guerra - Last Filed: 01/15/21 11:07> <Dolly Puente - Last Filed: 01/16/21 22:41> Clinical Impression: Chest pain Disposition: ADMITTED IP TO THIS HOSP Condition: Fair
[2021-01-15 10:03] LABS: Basophils # (A) 0.1 k/uL (0-0.2); Basophils % (A) 1 %; Eosinophils # (A) 0.2 k/uL (0-0.7); Eosinophils % (A) 3 %; HCT 42.1 % (34.0-46.0); HGB 14.1 gm/dL (11.4-16.0); Lymphocytes # (A) 2.5 k/uL (1.0-4.8); Lymphocytes % (A) 31 %; MCH 32.6 pg (25.0-35.0); MCHC 33.5 g/dL (31.0-37.0); MCV 97.5 fL (80.0-100.0); Monocytes # (A) 0.5 k/uL (0-1.0); Monocytes % (A) 6 %; Neutrophils # (A) 4.7 k/uL (1.3-7.7); Neutrophils % (A) 58 %; Platelet Count 314 k/uL (150-450); RBC 4.32 m/uL (3.80-5.40); RDW 13.5 % (11.5-15.5); WBC 8.1 k/uL (3.8-10.6)
--- NOTE | 2021-01-15 10:08 | XR ---
EXAMINATION TYPE: XR chest 2V DATE OF EXAM: 01/15/2021 COMPARISON: 12/26/2020 HISTORY: 75-year-old female with chest pain TECHNIQUE: PA and lateral views FINDINGS: Heart normal size. Aorta within normal limits. There is upward hilar retraction with redemonstrated p leural-parenchymal opacity in the upper lungs. Mild patchy density blunting the lateral right costoph renic angle. No pleural effusion seen on the lateral view. Mid and lower lungs appear clear. IMPRESSION: 1. Stable upper lung pleural parenchymal scarring with volume loss and upward hilar retraction, simil ar compared to 12/26/2020. Correlate for sequela of prior TB/fungal infection, sarcoidosis, etc. 2. Minimal patchy peripheral right basilar atelectasis versus infiltrate.
[2021-01-15 10:14] LABS: ALT 14 U/L (4-34); AST 34 U/L (14-36); African American GFR (CKD) >90 (>60 ml/min/1.73 sqM); Albumin 4.6 g/dL (3.5-5.0); Alkaline Phosphatase 51 U/L (38-126); Anion Gap 11 mmol/L; Blood Urea Nitrogen 14 mg/dL (7-17); Carbon Dioxide 28 mmol/L (22-30); Chloride 99 mmol/L (98-107); Glucose 101 mg/dL (74-99); Lipase 124 U/L (23-300); Magnesium 1.9 mg/dL (1.6-2.3); Non-African American GFR(CKD) 79 (>60 ml/min/1.73 sqM); Potassium 3.8 mmol/L (3.5-5.1); Sodium 138 mmol/L (137-145); Total Bilirubin 0.6 mg/dL (0.2-1.3); Total Protein 7.6 g/dL (6.3-8.2)
[2021-01-15 10:21] LABS: INR 0.9 (<1.2); Partial Thromboplastin Time 23.4 sec (22.0-30.0); Prothrombin Time 10.2 sec (9.0-12.0)
[2021-01-15] MEDS ORDERED: HEPARIN SODIUM 1,000 UN/ML (10ML VL) IV ONE (11:08)
[2021-01-15] MEDS ORDERED: NITROGLYCERIN SL TABS 0.4 MG TAB SUBLINGUAL PRN (11:08)
[2021-01-15] MEDS: HEPARIN SOD,PORK IN 0.45% NACL 25,000 UNIT in 0.45% NACL 1 250ML.BAG IV SCH (12:30)
[2021-01-15] MEDS ORDERED: IPRATROPIUM-ALBUTEROL 3 ML NEB INHALATION STA (13:17)
--- NOTE | 2021-01-15 14:36 | US ---
EXAMINATION TYPE: US venous doppler duplex LE BI DATE OF EXAM: 01/15/2021 2:21 PM COMPARISON: NONE CLINICAL HISTORY: leg pain . SIDE PERFORMED: Bilateral TECHNIQUE: The lower extremity deep venous system is examined utilizing real time linear array sonog jose alberto with graded compression, doppler sonography and color-flow sonography. VESSELS IMAGED: Common Femoral Vein Deep Femoral Vein Greater Saphenous Vein * Femoral Vein Popliteal Vein Small Saphenous Vein * Proximal Calf Veins (* superficial vessels) Right Leg: Appears negative for DVT Left Leg: Appears negative for DVT IMPRESSION: No evidence for DVT at this time.
[2021-01-15] MEDS: methylPREDNISolone SOD SUCCI 125 MG/2 ML VIAL IV SCH ×3 (16:08→23:59)
--- NOTE | 2021-01-15 16:10 | P.HPIM ---
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 Bernal, osteoarthritis, hyperlipidemia, hypothyroidism, glaucoma. She presents to the emergency room secondary to chest discomfort, recurrent nature, and this is aggravated by going up the stairs, midsternal, without any regurgitation. Patient does not follow up with any corrections officer, she also mentions that she is wheezing, horseshoes not diagnosing of asthma or COPD. Patient is a nonsmoker, and has shortness of breath. Patient does not have any rescue inhaler or nebulized treatments at home, no O2 requirements at home. Patient does not have any GERD symptoms, no dysphagia, no nausea no vomiting, no diaphoresis. Patient denies any melena and hematochezia. She does complain of right leg pain posterior cuff, she had previous knee surgery, 2 years ago Patient is maintained on Florinef and Cortef, Lipitor 10, and levothyroxine. In the emergency room, EKG is normal sinus rhythm heart rate 90, right bundle branch block chest x-ray, stable pleural upper lung scarring, with loss of volume, and upward hilar retraction, similar to 12/26/2020, correlate for sequela of prior TB or fungal infection, sarcoid etc. There is right peripheral basilar atelectasis against infiltrate consult was made with cardiology, and Dr. Bernal who sees her routinely for pulmonary fibrosis nebulized treatments requested Pulmicort requested, venous Doppler, and O2 supplementation. [place] rdiogram is ordered and troponins serial for monitoring Review of Systems Constitutional: Reports as per HPI, Reports weight loss Ears, nose, mouth and throat: Reports as per HPI, Denies hoarseness, Denies nasal congestion, Denies neck lump, Denies sore throat Cardiovascular: Reports as per HPI, Reports decreased exercise tolerance, Reports dyspnea on exertion, Reports shortness of breath, Denies edema, Denies palpitations Respiratory: Reports dyspnea, Denies cough, Denies cough with sputum Gastrointestinal: Reports as per HPI, Denies BRBPR, Denies change in bowel habits, Denies constipation, Denies melena Genitourinary: Reports as per HPI Musculoskeletal: Reports gait dysfunction, Reports limitation of motion, Denies arm numbness/tingling, Denies fractures, Denies frequent falls Integumentary: Reports as per HPI Neurological: Reports as per HPI, Reports weakness, Denies aphasia, Denies ataxia, Denies balance difficulties, Denies change in smell/taste, Denies change in speech, Denies convulsions, Denies memory loss, Denies motor disturbance, De nies paresthesias Psychiatric: Reports as per HPI, Denies depression, Denies difficulty concentrating, Denies disorientation, Denies memory loss Endocrine: Reports as per HPI, Denies palpitations Hematologic/Lymphatic: Reports as per HPI, Denies easy bleeding, Denies lymphadenopathy Allergic/Immunologic: Reports as per HPI, Denies angioedema, Denies seasonal allergies Past Medical History Past Medical History: Eye Disorder, Hearing Disorder / Deafness, Osteoarthritis (OA), Pneumonia, Respiratory Disorder, Seizure Disorder, Syncope, Thyroid Disorder Additional Past Medical History / Comment(s): Pulmonary fibrosis R lung, pneumon ias, bronchitis, randy's disease with past crisis, hypothyroid, pt states she had seizure as a child and once in 2013 after receiving morphine, recent R hip pain-past 3 weeks, chronic low back pain, allergic rhinitis, hiatal hernia, bilateral glaucoma, [place] bilaterally with L ear worse. History of Any Multi-Drug Resistant Organisms: None Reported Past Surgical History: Back Surgery, Section, Joint Replacement, Orthopedic Surgery, Tubal Ligation Additional Past Surgical History / Comment(s): Bilateral total knee arthroplasties, low back radiofrequency ablations, bilateral carpal tunnel releases, bronchoscopy, R eye biopsy-pt does not know reason. Past Anesthesia/Blood Transfusion Reactions: No Reported Reaction Additional Past Anesthesia/Blood Transfusion Reaction / Comment(s): Pt states she received blood in past without reaction. Past Psychological History: No Psychological Hx Reported Smoking Status: Never smoker Past Alcohol Use History: None Reported Past Drug Use History: None Reported - Past Family History Mother Family Medical History: Musculoskeletal Disorder, Neurologic Disorder, Seizure Disorder Additional Family Medical History / Comment(s): Mother had parkinson's. She lived to be 93 yrs old. Pt states mother had epilepsy. Daughter(s) Additional Family Medical History / Comment(s): She has 3 children with no major medical problems. Father Family Medical History: Cancer Additional Family Medical History / Comment(s): Father at age 79 from lung cancer. Medications and Allergies Home Medications Medication Instructions Recorded Confirmed Type Aspirin 81 mg PO DAILY 11/03/13 01/15/21 History Fludrocortisone [Florinef] 0.05 mg PO MOWEFR 11/03/13 01/15/21 History Hydrocortisone [Cortef] 15 mg PO QAM 11/03/13 01/15/21 History Levothyroxine Sodium [Synthroid] 88 mcg PO DAILY 11/03/13 01/15/21 History Atorvastatin [Lipitor] 10 mg PO DAILY 12/26/20 01/15/21 History Cholecalciferol (Vitamin D3) 75 mcg PO DAILY 12/26/20 01/15/21 History [Vitamin D3 (3000 Iu)] Hydrocortisone [Cortef] 5 mg PO DAILY PRN 12/26/20 01/15/21 History Hydrocortisone [Cortef] 5 mg PO DAILY@1600 12/26/20 01/15/21 History Allergies Allergy/AdvReac Type Severity Reaction Status Date / Time alendronate sodium Allergy Unknown Verified 01/15/21 10:57 [From Fosamax] azithromycin Allergy Rash/Hives Verified 01/15/21 10:57 [From Zithromax Z-Benito] ciprofloxacin [From Cipro] Allergy Unknown Verified 01/15/21 10:57 doxycycline Allergy Unknown Verified 01/15/21 10:57 hydrocodone Allergy Unknown Verified 01/15/21 10:57 naproxen [From Naprosyn] Allergy Unknown Verified 01/15/21 10:57 Penicillins Allergy Rash/Hives Verified 01/15/21 10:57 sulfacetamide sodium Allergy Rash/Hives Verified 01/15/21 10:57 [From Sulfamide] tramadol Allergy Unknown Verified 01/15/21 10:57 morphine AdvReac SEZIURE Verified 01/15/21 10:57 Physical Exam Vitals: Vital Signs Temp Pulse Resp BP Pulse Ox 01/15/21 12:00 85 18 144/88 97 01/15/21 11:30 76 11 L 124/50 01/15/21 11:00 86 11 L 124/50 01/15/21 10:30 80 12 98 01/15/21 10:00 130/57 01/15/21 09:47 84 27 H 100 01/15/21 09:29 97.6 F 86 18 152/74 99 Intake and Output 01/15/21 01/15/21 01/15/21 06:59 14:59 22:59 Other: Weight 63.503 kg - Constitutional General appearance: cooperative, no acute distress - EENT Eyes: EOMI, dentition normal ENT: NA/AT, normal oropharynx - Neck Neck: normal ROM - Respiratory Respiratory: bilateral: wheezing, negative: CTA, prolonged expiration, prolonged inspiration - Cardiovascular Rhythm: regular Heart sounds: normal: S1, S2 Abnormal Heart Sounds: no systolic murmur, no diastolic murmur, no rub, no S3 Gallop, no S4 Gallop, no click, no other - Gastrointestinal General gastrointestinal: normal bowel sounds, soft - Integumentary Integumentary: decreased turgor, normal - Neurologic Neurologic: CNII-XII intact - Musculoskeletal Musculoskeletal: gait normal, strength equal bilaterally - Psychiatric Psychiatric: A&O x's 3, appropriate affect, intact judgment & insight Results CBC & Chem 7: 01/15/21 09:41 01/15/21 09:41 Labs: Abnormal Lab Results - Last 24 Hours (Table) 01/15/21 Range/Units 09:41 Glucose 101 H (74-99) mg/dL Thrombosis Risk Factor Assmnt - DVT/VTE Prophylaxis DVT/VTE Prophylaxis: Pharmacologic Prophylaxis ordered - Choose All That Apply Each Factor Represents 1 point: Abnormal pulmonary function (COPD) Each Risk Factor Represents 2 Points: Age 61-74 years Thrombosis Risk Factor Assessment Total Risk Factor Score: 3 Thrombosis Risk Factor Assessment Level: Moderate Risk Assessment and Plan Plan: 1. 1. Chest pain, with exertion, along with dyspnea on exertion, which is up this suspicious, troponins are negative, patient to be seen by cardiology, and no prior cardiac workup in the past, echocardiogram requested, serial EKG monitoring patient's on O2, aspirin 325 mg daily, most likely will need cardiac cath, or a Lexiscan stress test during this admission, cardiology to decide 2. Bronchospasm with wheezing, with known history of pulmonary fibrosis, unknown whether the patient has asthma or COPD, Dr. Koenig will be consulted patient to be started on Solu-Medrol 60 mg every 6 hours, nebulized albuterol and Pulmicort, O2 supplementation check for IgE, lucia level 3. History of adrenal insufficiency Randy's disease, on Florinef and hydrocortisone, hydrocortisone is on hold, while on oral or IV prednisone. 4. Pulmonary fibrosis in the right lung. Dr. Koenig follows her very closely, patient does not have any devices at home to include O2, nebulizers or hand-held inhalers 5. Hyperlipidemia. Continue atorvastatin 10 mg daily. 6. Hypothyroidism. Continue levothyroxine 88 g daily. 7. Glaucoma. 8. GI prophylaxis. Protonix. 9. DVT prophylaxis. Heparin subcu. Patient admitted to the hospital for a minimum of 2 night stay.
[2021-01-15] MEDS: IPRATROPIUM-ALBUTEROL 3 ML NEB INHALATION PRN ×2 (16:21→20:08)
--- NOTE | 2021-01-15 16:55 | P.CNPUL ---
History of Present Illness Consult date: 01/15/21 Reason for consult: chest pain History of present illness: 75-year-old here patient is known to have some chronic upper lobe scarring along with previous history of [place] disease, remote history of seizure activity, hypothyroidism hiatal hernia and chronic hypothyroidism and hyperlipidemia and glaucoma. The patient came into the hospital because of some epigastric/chest pain. No radiation. No relation to any food intake although the patient has chronic GI intolerance specialist with hours eating vegetables where the patient gets bloated and nauseated with that type of food material. Denies having any dysphagia. No nausea or vomiting. No diaphoresis. No sweating. The pain was not radiating. Not related to activity. Not related to breathing. Currently she is free of any pain. EKG showed a normal sinus rhythm. Chest x-ray shows chronic scarring in the right upper lobe and upper lobes bilaterally with some upward retraction of the hilar structures. Essentially unchanged compared to the previous chest x-ray. Patient had Doppler of the lower extremity that showed limited abnormalities. Troponins were negative. White cell count was normal with hemoglobin of 14.1. Normal coagulation profile. Normal proBNP level. Normal amylase and lipase. The echocardiogram that was done on 12/26/2020 was essentially within normal limits and the patient carries a normal ejection fraction of 65%. CAT scan of the chest on 12/26/[address] angiogram showed no definite evidence of pulmonary embolism and the patient upper to mid lung predominant pulmonary fibrosis probably a sequel of a previous problem with this infection or sarcoidosis. Lower lungs are relatively spared. Previous ultrasound the abdomen that was done on 12/26/2020 was essentially unremarkable. Review of Systems Constitutional: Reports as per HPI, Reports weight loss Ears, nose, mouth and throat: Reports as per HPI, Denies hoarseness, Denies nasal congestion, Denies neck lump, Denies sore throat Cardiovascular: Reports as per HPI, Reports decreased exercise tolerance, Reports dyspnea on exertion, Reports shortness of breath, Denies edema, Denies palpitations Respiratory: Reports dyspnea, Denies cough, Denies cough with sputum Gastrointestinal: Reports as per HPI, Denies BRBPR, Denies change in bowel habits, Denies constipation, Denies melena, chronic GI intolerance and epigastric pain/chest pain Genitourinary: Reports as per HPI Musculoskeletal: Reports gait dysfunction, Reports limitation of motion, Denies arm numbness/tingling, Denies fractures, Denies frequent falls Integumentary: Reports as per HPI Neurological: Reports as per HPI, Reports weakness, Denies aphasia, Denies ataxia, Denies balance difficulties, Denies change in smell/taste, Denies change in speech, Denies convulsions, Denies memory loss, Denies motor disturbance, Denies paresthesias Psychiatric: Reports as per HPI, Denies depression, Denies difficulty co ncentrating, Denies disorientation, Denies memory loss Endocrine: Reports as per HPI, Denies palpitations Hematologic/Lymphatic: Reports as per HPI, Denies easy bleeding, Denies lymphadenopathy Allergic/Immunologic: Reports as per HPI, Denies angioedema, Denies seasonal allergies Past Medical History Past Medical History: Eye Disorder, Hearing Disorder / Deafness, Osteoarthritis (OA), Pneumonia, Respiratory Disorder, Seizure Disorder, Syncope, Thyroid Disorder Additional Past Medical History / Comment(s): Pulmonary fibrosis upper lobe predominance mainly involving the right lung, sneha's disease with past crisis, hypothyroid, pt states she had seizure as a child and once in 2013 after receiving morphine, recent R hip pain-past 3 weeks, chronic low back pain, allergic rhinitis, hiatal hernia, bilateral glaucoma, [place] bilaterally with L ear worse. History of Any Multi-Drug Resistant Organisms: None Reported Past Surgical History: Back Surgery, Section, Joint Replacement, Orthopedic Surgery, Tubal Ligation Additional Past Surgical History / Comment(s): Bilateral total knee arthroplasties, low back radiofrequency ablations, bilateral carpal tunnel releases, bronchoscopy, R eye biopsy-pt does not know reason. Past Anesthesia/Blood Transfusion Reactions: No Reported Reaction Additional Past Anesthesia/Blood Transfusion Reaction / Comment(s): Pt states she received blood in past without reaction. Past Psychological History: No Psychological Hx Reported Smoking Status: Never smoker Past Alcohol Use History: None Reported Past Drug Use History: None Reported - Past Family History Mother Family Medical History: Musculoskeletal Disorder, Neurologic Disorder, Seizure Disorder Additional Family Medical History / Comment(s): Mother had parkinson's. She lived to be 93 yrs old. Pt states mother had epilepsy. Daughter(s) Additional Family Medical History / Comment(s): She has 3 children with no major medical problems. Father Family Medical History: Cancer Additional Family Medical History / Comment(s): Father at age 79 from lung cancer. Medications and Allergies Home Medications Medication Instructions Recorded Confirmed Type Aspirin 81 mg PO DAILY 11/03/13 01/15/21 History Fludrocortisone [Florinef] 0.05 mg PO MOWEFR 11/03/13 01/15/21 History Hydrocortisone [Cortef] 15 mg PO QAM 11/03/13 01/15/21 History Levothyroxine Sodium [Synthroid] 88 mcg PO DAILY 11/03/13 01/15/21 History Atorvastatin [Lipitor] 10 mg PO DAILY 12/26/20 01/15/21 History Cholecalciferol (Vitamin D3) 75 mcg PO DAILY 12/26/20 01/15/21 History [Vitamin D3 (3000 Iu)] Hydrocortisone [Cortef] 5 mg PO DAILY PRN 12/26/20 01/15/21 History Hydrocortisone [Cortef] 5 mg PO DAILY@1600 12/26/20 01/15/21 History Allergies Allergy/AdvReac Type Severity Reaction Status Date / Time alendronate sodium Allergy Unknown Verified 01/15/21 10:57 [From Fosamax] azithromycin Allergy Rash/Hives Verified 01/15/21 10:57 [From Zithromax Z-Benito] ciprofloxacin [From Cipro] Allergy Unknown Verified 01/15/21 10:57 doxycycline Allergy Unknown Verified 01/15/21 10:57 hydrocodone Allergy Unknown Verified 01/15/21 10:57 naproxen [From Naprosyn] Allergy Unknown Verified 01/15/21 10:57 Penicillins Allergy Rash/Hives Verified 01/15/21 10:57 sulfacetamide sodium Allergy Rash/Hives Verified 01/15/21 10:57 [From Sulfamide] tramadol Allergy Unknown Verified 01/15/21 10:57 morphine AdvReac SEZIURE Verified 01/15/21 10:57 Physical Exam Vitals: Vital Signs Temp Pulse Resp BP Pulse Ox 01/15/21 16:38 99 01/15/21 16:37 80 01/15/21 16:27 75 01/15/21 16:11 97.8 F 78 18 138/78 97 01/15/21 12:00 85 18 144/88 97 01/15/21 11:30 76 11 L 124/50 01/15/21 11:00 86 11 L 124/50 01/15/21 10:30 80 12 98 01/15/21 10:00 130/57 01/15/21 09:47 84 27 H 100 01/15/21 09:29 97.6 F 86 18 152/74 99 Intake and Output 01/15/21 01/15/21 01/15/21 06:59 14:59 22:59 Other: Weight 63.503 kg The patient appeared well nourished and normally developed. Vital signs as documented. Head exam is unremarkable. No scleral icterus or corneal arcus noted. Neck is without jugular venous distension, thyromegaly, or carotid bruits. Carotid upstrokes are brisk bilaterally. Lungs are clear to auscultation and percussion. Cardiac exam reveals the PMI to be normally sized and situated. Rhythm is regular. First and second heart sounds normal. No murmurs, rubs or gallops. Abdominal exam reveals normal bowel sounds, no masses, no organomegaly and no aortic enlargement. Extremities are nonedematous and both femoral and pedal pulses are normal.Examination of the skin revealed no evidence of significant rashes, suspicious appearing nevi or other concerning lesions.Neurologically, the patient is awake and alert and the patient does not have any focal neurological deficit. Cranial nerves are essentially intact. Results - Laboratory Findings CBC and BMP: 01/15/21 09:41 01/15/21 09:41 PT/INR, D-dimer PT 10.2 sec (9.0-12.0) 01/15/21 09:41 INR 0.9 (<1.2) 01/15/21 09:41 Abnormal lab findings: Abnormal Labs 01/15/21 09:41 Glucose 101 H - Diagnostic Findings Chest x-ray: image reviewed Assessment and Plan Plan: 1 epigastric/chest pain currently under investigation. Likely of a GI source. No clear indication for for any cardiac event or acute coronary event. The patient's cardiac enzymes are negative, proBNP is nonelevated, previous echocardiogram has been within normal limits, Furthermore, no clear pulmonary source for her pain. She does have some chronic fibrosis with upper lobe predominance a sequel have a previous internal medicine infection. No clear indication for any pneumonia at this point in time. No clear indication for pulmonary embolism. Currently the patient is free of any pain. 2 chronic fibrosis with upper lobe predominance right upper lobe more than left, a competition of the previous [place] infection 3 history of [place] disease 4 hyperlipidemia 5 hypothyroidism 6 glaucoma 7 previous history of syncope likely vasovagal Plan Pulmonary status is stable. We'll be awaiting further recommendations from other specialists including cardiology and possibly GI.
[2021-01-15] MEDS: BUDESONIDE 0.5 MG/2 ML NEBU INHALATION SCH (20:08)
[2021-01-15] MEDS ORDERED: ATORVASTATIN 10 MG TAB PO SCH (21:00)
[2021-01-15] MEDS ORDERED: ACETAMINOPHEN TAB 325 MG TAB PO STA (23:44)
[2021-01-16] MEDS: methylPREDNISolone SOD SUCCI 125 MG/2 ML VIAL IV SCH ×2 (05:44→14:00)
[2021-01-16 06:23] LABS: Glucose,Whole Blood 131 mg/dL (75-99)
[2021-01-16] MEDS ORDERED: HEPARIN SODIUM,PORCINE 2,500 UNIT in SODIUM CHLORIDE 0.9% 250 ML IRRIGATION PRN (07:00)
[2021-01-16] MEDS ORDERED: HEPARIN SODIUM,PORCINE 10,000 UNIT in SODIUM CHLORIDE 0.9% 1,000 ML IRRIGATION PRN (07:00)
[2021-01-16] MEDS: BUDESONIDE 0.5 MG/2 ML NEBU INHALATION SCH (07:58)
[2021-01-16] MEDS: IPRATROPIUM-ALBUTEROL 3 ML NEB INHALATION PRN ×2 (07:58→15:47)
[2021-01-16 08:27] VITALS: TEMP 97.6
[2021-01-16] MEDS ORDERED: ALPRAZolam 0.25 MG TAB PO PRN (08:42)
[2021-01-16] MEDS ORDERED: SODIUM CHLORIDE 0.9% 1,000 ML in EMPTY BAG 1 BAG IV ONE (08:42)
[2021-01-16] MEDS ORDERED: ATORVASTATIN 80 MG TAB PO STA (08:42)
[2021-01-16] MEDS ORDERED: ALPRAZolam 0.5 MG TAB PO PRN (08:42)
[2021-01-16] MEDS ORDERED: ASPIRIN 325 MG TAB PO STA (08:46)
[2021-01-16] MEDS ORDERED: ASPIRIN 325 MG TAB PO SCH (09:00)
[2021-01-16] MEDS ORDERED: FLUDROCORTISONE 0.1 MG TAB PO SCH (09:00)
[2021-01-16] MEDS ORDERED: ASPIRIN 81 MG PO SCH (09:00)
--- NOTE | 2021-01-16 09:47 | ECHOF ---
Referral Reason:chest pain MEASUREMENTS -------- HEIGHT: 170.2 cm WEIGHT: 63.5 kg BP: 152/74 IVSd: 1.0 cm (0.6 - 1.1) LVIDd: 3.9 cm (3.9 - 5.3) LVPWd: 1.1 cm (0.6 - 1.1) IVSs: 1.2 cm LVIDs: 2.6 cm LVPWs: 1.3 cm FINDINGS -------- Sinus rhythm. Limited Study The left ventricular size is normal. Left ventricular wall thickness is normal. Overall left vent ricular systolic function is normal with, an EF between 55 - 60 %. There is no pericardial effusion. CONCLUSIONS -------- 1. The left ventricular size is normal. 2. Left ventricular wall thickness is normal. 3. Overall left ventricular systolic function is normal with, an EF between 55 - 60 %. BOILER/CHILLER TECHNICIAN: Peggy Vick RDCS
--- NOTE | 2021-01-16 10:40 | P.CRDCN ---
History of Present Illness History of present illness: HISTORY OF PRESENTING ILLNESS This is a pleasant 75-year-old female past medical history significant for pulmonary fibrosis, dyslipidemia and hypothyroidism. 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 We have been asked to see in consultation for chest pain. She states yesterday she woke up not feeling well. She had some pain in the upper right stomach and chest soreness. On further conversation she states for the last 2-3 weeks she has been having chest pain while going up and down the stairs. It resolves when she sits down. She also had an episode while gardening with her daughter where she got chest pain. Had 2 syncopal spells in the November in the setting of gastroenteritis. Currently chest pain-free. DIAGNOSTICS EKG reveals sinus mechanism with right bundle branch block. Telemetry tracings indicate sinus mechanism. Chest xray stable upper lung parenchymal scarring with volume loss, minimal patc hy peripheral right basilar atelectasis noted. Echocardiogram obtained November 2019 revealed preserved LV systolic function with ejection fraction 60-65%, repeat limited echo ordered today again reveals preserved LV systolic function with ejection fraction 55-60%. Laboratory reviewed, CBC unremarkable, sodium 138, potassium 3.9, creatinine 0.75, cardiac enzymes negative 3, magnesium 1.9, proBNP 53. Current cardiac medications include aspirin 81 mg daily and atorvastatin 10 mg daily. REVIEW OF SYSTEMS At the time of my exam: CONSTITUTIONAL: Denies fever or chills. CARDIOVASCULAR: Denies chest pain, shortness of breath, orthopnea, PND or palpitations. RESPIRATORY: Denies cough. GASTROINTESTINAL: Denies abdominal pain, diarrhea, constipation, nausea or vomiting. MUSCULOSKELETAL: Denies myalgias. NEUROLOGIC: Denies numbness, tingling, headache or weakness. ENDOCRINE: Denies fatigue, weight change, polydipsia or polyurina. GENITOURINARY: Denies burning, hematuria or urgency with micturation. HEMATOLOGIC: Denies history of anemia or bleeding. PHYSICAL EXAMINATION Blood pressure 130/73 heart rate 95 afebrile and maintaining oxygen saturation on room air. CONSTITUTIONAL: No apparent distress. HEENT: Head is normocephalic. Pupils are equal, round. Sclerae anicteric. Mucous membranes of the mouth are moist. No JVD. No carotid bruit. CHEST EXAMINATION: Faint expiratory wheezes noted throughout No chest wall tenderness is noted on palpation or with deep breathing. HEART EXAMINATION: Regular rate and rhythm. S1, S2 heard. Systolic ejection murmur at the base, no gallops or rub. ABDOMEN: Soft, nontender. EXTREMITIES: 2+ peripheral pulses, no lower extremity edema and no calf t enderness. NEUROLOGIC EXAMINATION: Patient is awake, alert and oriented x3. ASSESSMENT Unstable angina Dyslipidemia Pulmonary fibrosis PLAN An acute coronary event has been ruled out. No evidence of wall motion abnormalities noted on echocardiogram. However symptoms suggestive of unstable angina. Recommend cardiac catheterization for definitive diagnosis of underlying coronary artery disease. I have discussed the risks, benefits and alternative therapies for the above-mentioned procedure and for both sedation/analgesia as well as necessary blood product administration, if indicated, as they pertain to this patient. The patient has indicated understanding and acceptance of the risks and procedures discussed. Questions have been answered appropriately and she is agreeable to move forward with the above stated procedure. Check baseline lipid panel. Hold Florinef. Further recommendations to follow based upon clinical course. Thank you kindly for this consultation. Nurse Practitioner note has been reviewed, I agree with a documented findings and plan of care. Patient was seen and examined. Past Medical History Past Medical History: Eye Disorder, Hearing Disorder / Deafness, Osteoarthritis (OA), Pneumonia, Respiratory Disorder, Seizure Disorder, Syncope, Thyroid Disorder Additional Past Medical History / Comment(s): Pulmonary fibrosis upper lobe predominance mainly involving the right lung, sneha's disease with past crisis, hypothyroid, pt states she had seizure as a child and once in 2013 after receiving morphine, recent R hip pain-past 3 weeks, chronic low back pain, allergic rhinitis, hiatal hernia, bilateral glaucoma, ATKA bilaterally with L ear worse. History of Any Multi-Drug Resistant Organisms: None Reported Past Surgical History: Back Surgery, Section, Joint Replacement, Orthopedic Surgery, Tubal Ligation Additional Past Surgical History / Comment(s): Bilateral total knee arthroplasties, low back radiofrequency ablations, bilateral carpal tunnel releases, bronchoscopy, R eye biopsy-pt does not know reason. Past Anesthesia/Blood Transfusion Reactions: No Reported Reaction Additional Past Anesthesia/Blood Transfusion Reaction / Comment(s): Pt states she received blood in past without reaction. Past Psychological History: No Psychological Hx Reported Smoking Status: Never smoker Past Alcohol Use History: None Reported Past Drug Use History: None Reported - Past Family History Mother Family Medical History: Musculoskeletal Disorder, Neurologic Disorder, Seizure Disorder Additional Family Medical History / Comment(s): Mother had parkinson's. She lived to be 93 yrs old. Pt states mother had epilepsy. Daughter(s) Additional Family Medical History / Comment(s): She has 3 children with no major medical problems. Father Family Medical History: Cancer Additional Family Medical History / Comment(s): Father at age 79 from lung cancer. Medications and Allergies Home Medications Medication Instructions Recorded Confirmed Type Aspirin 81 mg PO DAILY 11/03/13 01/15/21 History Fludrocortisone [Florinef] 0.05 mg PO MOWEFR 11/03/13 01/15/21 History Hydrocortisone [Cortef] 15 mg PO QAM 11/03/13 01/15/21 History Levothyroxine Sodium [Synthroid] 88 mcg PO DAILY 11/03/13 01/15/21 History Atorvastatin [Lipitor] 10 mg PO DAILY 12/26/20 01/15/21 History Cholecalciferol (Vitamin D3) 75 mcg PO DAILY 12/26/20 01/15/21 History [Vitamin D3 (3000 Iu)] Hydrocortisone [Cortef] 5 mg PO DAILY PRN 12/26/20 01/15/21 History Hydrocortisone [Cortef] 5 mg PO DAILY@1600 12/26/20 01/15/21 History Allergies Allergy/AdvReac Type Severity Reaction Status Date / Time alendronate sodium Allergy Unknown Verified 01/15/21 10:57 [From Fosamax] azithromycin Allergy Rash/Hives Verified 01/15/21 10:57 [From Zithromax Z-Benito] ciprofloxacin [From Cipro] Allergy Unknown Verified 01/15/21 10:57 doxycycline Allergy Unknown Verified 01/15/21 10:57 hydrocodone Allergy Unknown Verified 01/15/21 10:57 naproxen [From Naprosyn] Allergy Unknown Verified 01/15/21 10:57 Penicillins Allergy Rash/Hives Verified 01/15/21 10:57 sulfacetamide sodium Allergy Rash/Hives Verified 01/15/21 10:57 [From Sulfamide] tramadol Allergy Unknown Verified 01/15/21 10:57 morphine AdvReac SEZIURE Verified 01/15/21 10:57 Physical Exam Vitals: Vital Signs Temp Pulse Pulse Pulse Resp BP BP 01/16/21 08:12 95 18 01/16/21 08:05 97.6 F 100 16 130/73 01/16/21 07:58 97 16 01/16/21 04:00 98.6 F 95 16 130/60 01/15/21 22:24 98 F 98 16 136/56 01/15/21 21:08 105 H 20 156/62 01/15/21 20:24 96 01/15/21 20:08 90 01/15/21 19:26 98 F 87 20 138/60 01/15/21 18:00 138/61 01/15/21 17:30 138/61 01/15/21 17:00 138/61 01/15/21 16:38 01/15/21 16:37 80 01/15/21 16:30 79 18 138/61 01/15/21 16:27 75 01/15/21 16:11 97.8 F 78 18 138/78 01/15/21 16:00 75 17 01/15/21 15:30 71 15 01/15/21 15:00 78 20 121/51 01/15/21 14:30 78 16 121/58 01/15/21 14:00 80 17 01/15/21 13:30 80 20 01/15/21 13:00 75 19 144/48 01/15/21 12:30 124/52 01/15/21 12:00 85 18 144/88 01/15/21 11:30 76 11 L 124/50 01/15/21 11:00 86 11 L 124/50 01/15/21 10:30 80 12 01/15/21 10:00 130/57 01/15/21 09:47 84 27 H 01/15/21 09:29 97.6 F 86 18 152/74 Pulse Ox 01/16/21 08:12 01/16/21 08:05 100 01/16/21 07:58 97 01/16/21 04:00 98 01/15/21 22:24 97 01/15/21 21:08 97 01/15/21 20:24 01/15/21 20:08 01/15/21 19:26 97 01/15/21 18:00 01/15/21 17:30 01/15/21 17:00 01/15/21 16:38 99 01/15/21 16:37 01/15/21 16:30 01/15/21 16:27 01/15/21 16:11 97 01/15/21 16:00 01/15/21 15:30 01/15/21 15:00 01/15/21 14:30 01/15/21 14:00 01/15/21 13:30 01/15/21 13:00 01/15/21 12:30 01/15/21 12:00 97 01/15/21 11:30 01/15/21 11:00 01/15/21 10:30 98 01/15/21 10:00 01/15/21 09:47 100 01/15/21 09:29 99 Intake and Output 01/15/21 01/16/21 01/16/21 22:59 06:59 14:59 Other: # Voids 2 Weight 69.5 kg Results 01/15/21 09:41 01/15/21 09:41 Cardiac Enzymes 01/15/21 01/15/21 01/15/21 Range/Units 09:41 09:41 12:27 AST 34 (14-36) U/L Troponin I <0.012 <0.012 (0.000-0.034) ng/mL 01/15/21 Range/Units 15:51 AST (14-36) U/L Troponin I <0.012 (0.000-0.034) ng/mL Coagulation 01/15/21 01/15/21 Range/Units 09:41 18:52 PT 10.2 (9.0-12.0) sec APTT 23.4 45.7 H (22.0-30.0) sec CBC 01/15/21 Range/Units 09:41 WBC 8.1 (3.8-10.6) k/uL RBC 4.32 (3.80-5.40) m/uL Hgb 14.1 (11.4-16.0) gm/dL Hct 42.1 (34.0-46.0) % Plt Count 314 (150-450) k/uL Comprehensive Metabolic Panel 01/15/21 Range/Units 09:41 Sodium 138 (137-145) mmol/L Potassium 3.8 (3.5-5.1) mmol/L Chloride 99 (98-107) mmol/L Carbon Dioxide 28 (22-30) mmol/L BUN 14 (7-17) mg/dL Creatinine 0.75 (0.52-1.04) mg/dL Glucose 101 H (74-99) mg/dL Calcium 10.0 (8.4-10.2) mg/dL AST 34 (14-36) U/L ALT 14 (4-34) U/L Alkaline Phosphatase 51 (38-126) U/L Total Protein 7.6 (6.3-8.2) g/dL Albumin 4.6 (3.5-5.0) g/dL Current Medications Generic Name Dose Route Start Last Admin Trade Name Freq PRN Reason Stop Dose Admin Albuterol/Ipratropium 3 ml 01/15/21 13:17 01/16/21 07:58 Ipratropium-Albuterol 3 Ml Neb INHALATION 3 ml RT-QID PRN Administration Shortness Of Breath Or Wheezing Aspirin 81 mg 01/16/21 09:00 Aspirin 81 Mg PO DAILY KEILY Atorvastatin Calcium 10 mg 01/15/21 21:00 01/15/21 21:33 Atorvastatin 10 Mg Tab PO 10 mg HS KEILY Administration Budesonide 0.5 mg 01/15/21 20:00 01/16/21 07:58 Budesonide 0.5 Mg/2 Ml Nebu INHALATION 0.5 mg RT-BID KEILY Administration Fludrocortisone Acetate 0.05 mg 01/16/21 09:00 Fludrocortisone 0.1 Mg Tab PO MoWeFr [facility] Heparin Sodium/Sodium Chloride 250 mls @ 7.62 mls/hr 01/15/21 11:15 01/15/21 12:30 25,000 unit/ Sodium Chloride IV 12 units/kg/hr .Q24H KEILY 7.62 mls/hr Administration Protocol 12 UNITS/KG/HR Methylprednisolone Sodium Succinate 60 mg 01/15/21 13:30 01/16/21 05:44 Methylprednisolone Sod Succi 125 Mg/2 Ml Vial IV 60 mg Q6HR KEILY Administration Nitroglycerin 0.4 mg 01/15/21 11:08 Nitroglycerin Sl Tabs 0.4 Mg Tab SUBLINGUAL Q5M PRN Chest Pain Intake and Output 01/15/21 01/16/21 01/16/21 22:59 06:59 14:59 Other: # Voids 2 Weight 69.5 kg 01/15/21 09:41 01/15/21 09:41
[2021-01-16 11:18] LABS: Chol/HDL Ratio 2.06; Cholesterol 179 mg/dL (0-200); Triglycerides <50.0 mg/dL (0.0-149.0)
[2021-01-16] MEDS ORDERED: IV FLUID CONTINUATION 500 ML IV ONE (12:07)
[2021-01-16] MEDS ORDERED: LIDOCAINE 1% INJ 10MG/ML (20 ML MDV) ONE (12:15)
[2021-01-16] MEDS ORDERED: VERAPAMIL 2.5 MG/ML 2 ML AMP ONE (12:15)
[2021-01-16] MEDS ORDERED: LIDOCAINE 1% INJ 10MG/ML (20 ML MDV) SQ ONE (12:29)
[2021-01-16] MEDS ORDERED: HEPARIN SODIUM 1,000 UN/ML (10ML VL) ONE (12:30)
[2021-01-16] MEDS: VERAPAMIL SYRINGE (5 MG/10 ML) INTRAARTER ONE ×2 (12:32→12:43)
[2021-01-16] MEDS ORDERED: MIDAZOLAM 2 MG/2 ML VIAL IV ONE (12:32)
[2021-01-16] MEDS ORDERED: HEPARIN SODIUM 1,000 UN/ML (10ML VL) IV ONE (12:33)
[2021-01-16] MEDS ORDERED: IOPAMIDOL-370 125ML BTL INJ ONE (12:42)
[2021-01-16] MEDS ORDERED: RX INFO: IV CONTRAST WAS GIVEN 1 EACH MISC MISCELLANE PRN (12:45)
[2021-01-16] MEDS ORDERED: SODIUM CHLORIDE 0.9% 1,000 ML IV SCH (12:45)
--- NOTE | 2021-01-16 13:44 | CC ---
CARDIAC CATHETERIZATION REPORT DATE OF PROCEDURE: 01/16/2021 PERFORMING PHYSICIAN: Jeff Neely M.D. PROCEDURE PERFORMED: 1. Selective right and left coronary angiogram. 2. Left heart catheterization. INDICATION: Chest discomfort concerning for unstable angina. COMPLICATIONS: None. LEVEL OF SEDATION: Moderate, with sedation length of 12 minutes. PROCEDURE DESCRIPTION: After obtaining informed consent, the patient was brought to the cardiac worm farm laborer. The right radial artery was cannulated using micropuncture technique. The micropuncture wire passed easily. Then I placed a 6-Lao sheath at the right radial artery. I gave the patient 2 mg of verapamil and 5000 units of heparin IV. Selective right and left coronary angiogram was performed with JR4 and JL3.5 catheters. Left heart catheterization was performed using a 5-Lao pigtail catheter. The procedure was completed without any complication. SELECTIVE CORONARY ANGIOGRAM: 1. The RCA is a medium-caliber vessel. It is a nondominant vessel and appeared to be angiographically normal. 2. The left main is angiographically normal. It bifurcates into LCX and LAD. 3. The LCX is a large-caliber vessel. It is a dominant vessel. The left circumflex is angiographically normal. In the mid portion gives rise to a large OM branch which appeared to be angiographically normal. 4. The LAD is a large-caliber vessel. The LAD is angiographically normal. Tortuous in the mid portion. It gives rise to a large diagonal branch which seems to be angiographically normal. 5. HEMODYNAMICS: The LVEDP was about 10 to 12 mmHg without significant gradient across the aortic valve. CONCLUSION: 1. Normal coronary angiogram with tortuous coronary arteries. 2. Normal LVEDP. POSTPROCEDURE MANAGEMENT: 1. Continue the current medical regimen. 2. Rule out hypertension, given the tortuosity of the coronary arteries. 3. Follow up with the patient. MMODL / IJN: [id number] /
[2021-01-16] MEDS: HEPARIN SOD,PORK IN 0.45% NACL 25,000 UNIT in 0.45% NACL 1 250ML.BAG IV SCH (14:02)
--- NOTE | 2021-01-16 14:58 | P.DS ---
Providers Date of admission: 01/15/21 12:40 Expected date of discharge: 01/16/21 Attending physician: Elena Luna Consults: 01/15/21 11:08 Consult Physician Urgent Consulting Provider: Jeff Neely Consult Reason/Comments: chest pain Do you want consulting provider notified?: Yes 01/15/21 13:13 Consult Physician Routine Consulting Provider: Sreekanth Flores Consult Reason/Comments: wheeze, pulm fibrosis Do you want consulting provider notified?: Yes Primary care physician: [facility] Course: Is a 75-year-old pleasant female patient of Dr.Jarad Bernal with past medical history of Winfield disease, pulmonary fibrosis in the right lung on the care of Dr. Bernal, osteoarthritis, hyperlipidemia, hypothyroidism, glaucoma. She presents to the emergency room secondary to chest discomfort, recurrent nature, and this is aggravated by going up the stairs, midsternal, without any regurgitation. 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 Patient is a nonsmoker, and has shortness of breath. Patient does not have any rescue inhaler or nebulized treatments at home, no O2 requirements at home. Patient does not have any GERD symptoms, no dysphagia, no nausea no vomiting, no diaphoresis. Patient denies any melena and hematochezia. She does complain of right leg pain posterior cuff, she had previous knee surgery, 2 years ago Patient is maintained on Florinef and Cortef, Lipitor 10, and levothyroxine. In the emergency room, EKG is normal sinus rhythm heart rate 90, right bundle branch block chest x-ray, stable pleural upper lung scarring, with loss of volume, and upward hilar retraction, similar to 12/26/2020, correlate for sequela of prior TB or fungal infection, sarcoid etc. There is right peripheral basilar atelectasis against infiltrate consult was made with cardiology, and Dr. Bernal who sees her routinely for pulmonary fibrosis nebulized treatments requested Pulmicort requested, venous Doppler, and O2 supplementation. Echocardiogram is ordered and troponins serial for monitoring 01/16: Patient had a heart cath today, for which it was normal coronaries, however she had tortuous vessels, patient has less wheezing episodes today, no significant shortness of breath on exertion, no chest pain. Vitals are stable, were decreasing Solu-Medrol today, however they wanted to go home today, we'll going to release her provided this clearance from cardiology and pulmonary medicine, patient would need a full PFT as he gets to see Dr. Bernal, IgE is 3 SAMUEL negative, patient with discharge with Symbicort and Combivent, no oral prednisone at this time, as the patient is on hydrocortisone weekly and Florinef. Review of Systems Constitutional: Reports as per HPI, Reports weight loss Ears, nose, mouth and throat: Reports as per HPI, Denies hoarseness, Denies nasal congestion, Denies neck lump, Denies sore throat Cardiovascular: Reports as per HPI, Reports decreased exercise tolerance, Reports dyspnea on exertion, Reports shortness of breath, Denies edema, Denies palpitations Respiratory: Reports dyspnea, Denies cough, Denies cough with sputum Gastrointestinal: Reports as per HPI, Denies BRBPR, Denies change in bowel habits, Denies constipation, Denies melena Genitourinary: Reports as per HPI Musculoskeletal: Reports gait dysfunction, Reports limitation of motion, Denies arm numbness/tingling, Denies fractures, Denies frequent falls Integumentary: Reports as per HPI Neurological: Reports as per HPI, Reports weakness, Denies aphasia, Denies ataxia, Denies balance difficulties, Denies change in smell/taste, Denies change in speech, Denies convulsions, Denies memory loss, Denies motor disturbance, Denies paresthesias Psychiatric: Reports as per HPI, Denies depression, Denies difficulty concentrating, Denies disorientation, Denies memory loss Endocrine: Reports as per HPI, Denies palpitations Hematologic/Lymphatic: Reports as per HPI, Denies easy bleeding, Denies lymphadenopathy Allergic/Immunologic: Reports as per HPI, Denies angioedema, Denies seasonal allergies FINAL DIAGNOSIS 1. 1. Chest pain, with exertion, along with dyspnea on exertion, which is up this suspicious, troponins are negative, patient to be seen by cardiology, and no prior cardiac workup in the past, echocardiogram requested, serial EKG monitoring patient's on O2, aspirin 325 mg daily, cardiac cath, Performed 01/16/2021, Dr. Neely, normal coronaries, tortuous coronary vessels 2. Bronchospasm with wheezing, with known history of pulmonary fibrosis, unknown whether the patient has asthma or COPD, Dr. Koenig will be consulted patient to be started on Solu-Medrol 60 mg every 6 hours, nebulized albuterol and Pulmicort, O2 supplementation check for IgEis 3, lucia level pending ,SAMUEL negative discharge with Combivent and Symbicort 160, NO oral prednisone this time, continue on hydrocortisone and Florinef as previous 3. History of adrenal insufficiency Winfield's disease, on Florinef and hydrocortisone, hydrocortisone is on hold, while on oral or IV prednisone. 4. Pulmonary fibrosis in the right lung. Dr. Koenig follows her very closely, patient does not have any devices at home to include O2, nebulizers or hand-held inhalers 5. Hyperlipidemia. Continue atorvastatin 10 mg daily. 6. Hypothyroidism. Continue levothyroxine 88 g daily. 7. Glaucoma. 8. GI prophylaxis. Protonix. 9. DVT prophylaxis. Heparin subcu. Patient Condition at Discharge: Fair Plan - Discharge Summary Discharge Rx Participant: No New Discharge Prescriptions: New Budesonide-Formot 160-4.5 Mcg [Symbicort 160-4.5 Mcg Inhaler] 2 puff INHALATION BID #1 each Ipratropium/Albuterol Sulfate [Combivent Respimat Inhaler] 1 puff INHALATION QID #1 inhaler Continue Levothyroxine Sodium [Synthroid] 88 mcg PO DAILY Fludrocortisone [Florinef] 0.05 mg PO MOWEFR Hydrocortisone [Cortef] 15 mg PO QAM Aspirin 81 mg PO DAILY Cholecalciferol (Vitamin D3) [Vitamin D3 (3000 Iu)] 75 mcg PO DAILY Atorvastatin [Lipitor] 10 mg PO DAILY Hydrocortisone [Cortef] 5 mg PO DAILY PRN PRN Reason: sick Hydrocortisone [Cortef] 5 mg PO DAILY@1600 Discharge Medication List Aspirin 81 mg PO DAILY 11/03/13 [History] Fludrocortisone [Florinef] 0.05 mg PO MOWEFR 11/03/13 [History] Hydrocortisone [Cortef] 15 mg PO QAM 11/03/13 [History] Levothyroxine Sodium [Synthroid] 88 mcg PO DAILY 11/03/13 [History] Atorvastatin [Lipitor] 10 mg PO DAILY 12/26/20 [History] Cholecalciferol (Vitamin D3) [Vitamin D3 (3000 Iu)] 75 mcg PO DAILY 12/26/20 [History] Hydrocortisone [Cortef] 5 mg PO DAILY PRN 12/26/20 [History] Hydrocortisone [Cortef] 5 mg PO DAILY@1600 12/26/20 [History] Budesonide-Formot 160-4.5 Mcg [Symbicort 160-4.5 Mcg Inhaler] 2 puff INHALATION BID #1 each 01/16/21 [Rx] Ipratropium/Albuterol Sulfate [Combivent Respimat Inhaler] 1 puff INHALATION QID #1 inhaler 01/16/21 [Rx] Follow up Appointment(s)/Referral(s): Jeff Neely MD [STAFF PHYSICIAN] - 1 Week Scout Bonner MD [Primary Care Provider] - 1-2 days Asaf Bernal MD [STAFF PHYSICIAN] - 1 Week Discharge Disposition: HOME SELF-CARE
[2021-01-16 15:58] VITALS: BP 102/51; PULSE 91; RESP 15
[2021-01-16] MEDS ORDERED: methylPREDNISolone SOD SUCCI 40 MG/ML 1 ML VIAL IV SCH (16:00)
--- NOTE | 2021-01-16 17:46 | P.PN ---
Subjective Progress Note Date: 01/16/21 On today's evaluation of a 22,021 and seeing the patient for a follow-up. The patient is not having any complaints. She is free of any chest pain. She has no new complaints. She was taken off the IV heparin. She underwent a cardiac catheterization through the right radial artery and the findings are essentially normal and the patient a normal coronary within normal LV end-diastolic pressure. No sinus and cough or sputum production or chest tightness or wheezing. She is currently on room air oxygen. Hemodynamically stable with a pulse ox of 97% on room air oxygen. Objective - Vital Signs Vital signs: Vital Signs Temp 97.6 F 01/16/21 08:05 Pulse 90 01/16/21 15:47 Resp 15 01/16/21 15:30 BP 102/51 01/16/21 15:30 Pulse Ox 100 01/16/21 15:30 Intake & Output 01/15/21 01/16/21 01/16/21 18:59 06:59 18:59 Intake Total 100 Balance 100 Weight 63.503 kg 69.5 kg Intake: IV 100 Other: # Voids 2 1 # Bowel Movements 1 - Exam The patient appeared well nourished and normally developed. Vital signs as documented. Head exam is unremarkable. No scleral icterus or corneal arcus noted. Neck is without jugular venous distension, thyromegaly, or carotid bruits. Carotid upstrokes are brisk bilaterally. Lungs are clear to auscultation and percussion. Cardiac exam reveals the PMI to be normally sized and situated. Rhythm is regular. First and second heart sounds normal. No murmurs, rubs or gallops. Abdominal exam reveals normal bowel sounds, no masses, no organomegaly and no aortic enlargement. Extremities are nonedematous and both femoral and pedal pulses are normal. - Labs CBC & Chem 7: 01/15/21 09:41 01/15/21 09:41 Labs: Abnormal Lab Results - Last 24 Hours (Table) 01/15/21 01/16/21 01/16/21 Range/Units 18:52 06:21 07:55 APTT 45.7 H (22.0-30.0) sec POC Glucose (mg/dL) 131 H (75-99) mg/dL HDL Cholesterol 87.0 H (40.0-60.0) mg/dL 01/16/21 Range/Units 07:55 APTT 46.1 H (22.0-30.0) sec POC Glucose (mg/dL) (75-99) mg/dL HDL Cholesterol (40.0-60.0) mg/dL Assessment and Plan Plan: 1 epigastric/chest pain currently under investigation. Likely of a GI source. No clear indication for for any cardiac event or acute coronary event. The patient's cardiac enzymes are negative, proBNP is nonelevated, previous echocardiogram has been within normal limits, Furthermore, no clear pulmonary source for her pain. She does have some chronic fibrosis with upper lobe predominance a sequel have a previous internal medicine infection. No clear indication for any pneumonia at this point in time. No clear indication for pulmonary embolism. Currently the patient is free of any pain. 2 chronic fibrosis with upper lobe predominance right upper lobe more than left, a competition of the previous granulomatous infection 3 history of Randy disease 4 hyperlipidemia 5 hypothyroidism 6 glaucoma 7 previous history of syncope likely vasovagal Plan Cardiac catheterization was performed and the findings were essentially within normal limits. Currently the patient is feeling of any pain. No epigastric pain. No chest pain. Pulse ox 97% on room air oxygen Pulmonary status is stable. We'll be awaiting further recommendations from other specialists including cardiology and possibly GI. The patient to be discharged today to be followed up on outpatient basis
== END 2021-01-16 17:36 | disposition home or self-care (01) ==
LOC: EC 09:27 → 6NMEDSUR 12:40 → 3SCARD 20:32
PROVIDERS: ADMIT Family Medicine; ATTEND Family Medicine
DX: R07.89 Other chest pain (principal); J98.01 Acute bronchospasm; E03.9 Hypothyroidism, unspecified; E27.1 Primary adrenocortical insufficiency; E78.5 Hyperlipidemia, unspecified; G40.909 Epilepsy, unspecified, not intractable, without status epilepticus; H40.9 Unspecified glaucoma; H91.90 Unspecified hearing loss, unspecified ear; I45.10 Unspecified right bundle-branch block; J84.10 Pulmonary fibrosis, unspecified; J98.11 Atelectasis; Z79.51 Long term (current) use of inhaled steroids; Z79.82 Long term (current) use of aspirin; Z79.890 Hormone replacement therapy; Z79.899 Other long term (current) drug therapy; Z80.1 Family history of malignant neoplasm of trachea, bronchus and lung; Z82.0 Family history of epilepsy and other diseases of the nervous system; Z96.653 Presence of artificial knee joint, bilateral
CPT/HCPCS: 93458; 96366 ×2; 96365; 96375; 99285; 36415; 94640 ×4; 94760; 93005; 93308; 83880; 80061; 80053; 82164; 83690; 83735; 84484; 85025; 85610; 85730 ×2; 82785; 86038; 71046; 93970; G0378 ×3; C1894; C1769; J2250; J2930 ×2; J2001; J1644 ×3; Q9967

== ENCOUNTER 2021-03-29 09:40 | Emergency (ER) | payer MEDICARE ==
[2021-03-29 09:47] VITALS: TEMP 98.6
[2021-03-29] MEDS ORDERED: SODIUM CHLORIDE 0.9% 1,000 ML IV STA (10:08)
[2021-03-29] MEDS ORDERED: ONDANSETRON 4 MG/2 ML VIAL IVP STA (10:08)
[2021-03-29] MEDS ORDERED: HYDROmorphone 0.5 MG/0.5 ML SYRINGE IVP STA (10:08)
[2021-03-29 10:38] LABS: Basophils % (A) 0 %; Eosinophils # (A) 0.2 k/uL (0-0.7); Eosinophils % (A) 2 %; HCT 40.1 % (34.0-46.0); HGB 13.8 gm/dL (11.4-16.0); Lymphocytes # (A) 1.6 k/uL (1.0-4.8); Lymphocytes % (A) 15 %; MCHC 34.3 g/dL (31.0-37.0); MCV 93.4 fL (80.0-100.0); Mean Platelet Volume 6.9; Monocytes # (A) 0.5 k/uL (0-1.0); Monocytes % (A) 5 %; Neutrophils # (A) 8.3 k/uL (1.3-7.7); Neutrophils % (A) 77 %; Platelet Count 291 k/uL (150-450); RDW 11.9 % (11.5-15.5); WBC 10.8 k/uL (3.8-10.6)
--- NOTE | 2021-03-29 10:38 | ED ---
General Adult HPI - General Chief complaint: Abdominal Pain Stated complaint: Rt Side Pain Time Seen by Provider: 03/29/21 09:54 Source: patient Mode of arrival: ambulatory Limitations: no limitations - History of Present Illness Initial comments: 75-year-old female presents to the emergency room for a chief complaint of right upper quadrant pain. Patient states she has had a right upper quadrant pain for the past week or so. States it comes and goes. It is a sharp pain. Patient admits that sometimes it hurts more after eating but not always. Patient denies nausea or vomiting. She did have an episode of diarrhea today. Patient is also having low back pain. No fevers. Denies history of cholecystectomy.Patient has no other complaints at this time including shortness of breath, chest pain, nausea or vomiting, headache, or visual changes. - Related Data Home Medications Medication Instructions Recorded Confirmed Aspirin 81 mg PO DAILY 11/03/13 03/29/21 Fludrocortisone [Florinef] 0.05 mg PO MOWEFR 11/03/13 03/29/21 Hydrocortisone [Cortef] 15 mg PO DAILY 11/03/13 03/29/21 Levothyroxine Sodium [Synthroid] 88 mcg PO DAILY 11/03/13 03/29/21 Atorvastatin [Lipitor] 10 mg PO DAILY 12/26/20 03/29/21 Hydrocortisone [Cortef] 5 mg PO DAILY PRN 12/26/20 03/29/21 Hydrocortisone [Cortef] 5 mg PO DAILY@1600 12/26/20 03/29/21 Calcium 400mg 1 tab PO DAILY 03/29/21 03/29/21 Cholecalciferol (Vitamin D3) 5,000 mcg PO MOWEFR 03/29/21 03/29/21 [Vitamin D3 (125 MCG = 5,000 IU)] Multivitamins, Thera [Multivitamin 1 tab PO MOTUWETHFR 03/29/21 03/29/21 (formulary)] Previous Rx's Medication Instructions Recorded Famotidine [Pepcid] 20 mg PO BID #30 tablet 03/29/21 Ondansetron [Zofran ODT] 4 mg PO Q8HR PRN #15 tab 03/29/21 Allergies Allergy/AdvReac Type Severity Reaction Status Date / Time alendronate sodium Allergy Unknown Verified 03/29/21 12:30 [From Fosamax] azithromycin Allergy Rash/Hives Verified 03/29/21 12:30 [From Zithromax Z-Benito] ciprofloxacin [From Cipro] Allergy Unknown Verified 03/29/21 12:30 doxycycline Allergy Unknown Verified 03/29/21 12:30 hydrocodone Allergy Unknown Verified 03/29/21 12:30 naproxen [From Naprosyn] Allergy Unknown Verified 03/29/21 12:30 ondansetron [From Zofran] Allergy Unknown Verified 03/29/21 12:30 Penicillins Allergy Rash/Hives Verified 03/29/21 12:30 Sulfa (Sulfonamide Allergy Rash/Hives Verified 03/29/21 12:30 Antibiotics) sulfacetamide sodium Allergy Rash/Hives Verified 03/29/21 12:30 [From Sulfamide] tramadol Allergy Unknown Verified 03/29/21 12:30 morphine AdvReac SEZIURE Verified 03/29/21 12:30 Review of Systems ROS Statement: Those systems with pertinent positive or pertinent negative responses have been documented in the HPI. ROS Other: All systems not noted in ROS Statement are negative. Past Medical History Past Medical History: Eye Disorder, Hearing Disorder / Deafness, Osteoarthritis (OA), Pneumonia, Respiratory Disorder, Seizure Disorder, Syncope, Thyroid Disorder Additional Past Medical History / Comment(s): Pulmonary fibrosis upper lobe predominance mainly involving the right lung, sneha's disease with past crisis, hypothyroid, pt states she had seizure as a child and once in 2013 after receiving morphine, recent R hip pain-past 3 weeks, chronic low back pain, allergic rhinitis, hiatal hernia, bilateral glaucoma, TEJON bilaterally with L ear worse. History of Any Multi-Drug Resistant Organisms: None Reported Past Surgical History: Back Surgery, Section, Joint Replacement, Ort hopedic Surgery, Tubal Ligation Additional Past Surgical History / Comment(s): Bilateral total knee arthroplasties, low back radiofrequency ablations, bilateral carpal tunnel releases, bronchoscopy, R eye biopsy-pt does not know reason. Past Anesthesia/Blood Transfusion Reactions: No Reported Reaction Additional Past Anesthesia/Blood Transfusion Reaction / Comment(s): Pt states she received blood in past without reaction. Past Psychological History: No Psychological Hx Reported Smoking Status: Never smoker Past Alcohol Use History: None Reported Past Drug Use History: None Reported - Past Family History Mother Family Medical History: Musculoskeletal Disorder, Neurologic Disorder, Seizure Disorder Additional Family Medical History / Comment(s): Mother had parkinson's. She lived to be 93 yrs old. Pt states mother had epilepsy. Daughter(s) Additional Family Medical History / Comment(s): She has 3 children with no major medical problems. Father Family Medical History: Cancer Additional Family Medical History / Comment(s): Father at age 79 from lung cancer. General Exam Limitations: no limitations General appearance: alert, in no apparent distress Head exam: Present: atraumatic Eye exam: Present: normal appearance, PERRL, EOMI. Absent: scleral icterus, conjunctival injection ENT exam: Present: normal exam, mucous membranes moist Neck exam: Present: normal inspection, full ROM. Absent: tenderness Respiratory exam: Present: normal lung sounds bilaterally. Absent: respiratory distress, wheezes Cardiovascular Exam: Present: regular rate, normal rhythm, normal heart sounds GI/Abdominal exam: Present: soft, tenderness (RUQ tenderness, no lower abdominal tenderness or left upper quadrant tenderness), normal bowel sounds. Absent: distended Neurological exam: Present: alert Course Vital Signs 03/29/21 03/29/21 03/29/21 09:45 11:47 12:00 Temperature 98.6 F Pulse Rate 96 88 84 Respiratory 18 16 16 Rate Blood Pressure 112/58 111/51 O2 Sat by Pulse 98 96 95 Oximetry Medical Decision Making - Medical Decision Making Vitals are stable. CBC and CMP are unremarkable. Urinalysis has some minimal blood noted. Ultrasound was obtained initially. This showed no significant abnormality evident. No evidence of gallbladder stones or sonographic Parsons's sign. CT abdomen and pelvis showed gastroesophageal varices with small hiatal hernia suspected. No significant change. Patient was reevaluated after pain medication. She did show significant improvement in symptoms. She does not take Pepcid and pain is upper abdomen in nature she will start her on this. We will refer her to GI and primary care. She will return here for any worsening symptoms. - Lab Data Result diagrams: 03/29/21 10:15 03/29/21 10:15 Lab Results 03/29/21 03/29/21 03/29/21 Range/Units 10:15 10:15 10:15 WBC 10.8 H (3.8-10.6) k/uL RBC 4.30 (3.80-5.40) m/uL Hgb 13.8 (11.4-16.0) gm/dL Hct 40.1 (34.0-46.0) % MCV 93.4 (80.0-100.0) fL MCH 32.0 (25.0-35.0) pg MCHC 34.3 (31.0-37.0) g/dL RDW 11.9 (11.5-15.5) % Plt Count 291 (150-450) k/uL MPV 6.9 Neutrophils % 77 % Lymphocytes % 15 % Monocytes % 5 % Eosinophils % 2 % Basophils % 0 % Neutrophils # 8.3 H (1.3-7.7) k/uL Lymphocytes # 1.6 (1.0-4.8) k/uL Monocytes # 0.5 (0-1.0) k/uL Eosinophils # 0.2 (0-0.7) k/uL Basophils # 0.0 (0-0.2) k/uL Sodium 132 L (137-145) mmol/L Potassium 3.9 (3.5-5.1) mmol/L Chloride 97 L (98-107) mmol/L Carbon Dioxide 25 (22-30) mmol/L Anion Gap 10 mmol/L BUN 15 (7-17) mg/dL Creatinine 0.67 (0.52-1.04) mg/dL Est GFR (CKD-EPI)AfAm >90 (>60 ml/min/1.73 sqM) Est GFR (CKD-EPI)NonAf 87 (>60 ml/min/1.73 sqM) Glucose 97 (74-99) mg/dL Plasma Lactic Acid Steven (0.7-2.0) mmol/L Calcium 9.9 (8.4-10.2) mg/dL Total Bilirubin 1.0 (0.2-1.3) mg/dL AST 33 (14-36) U/L ALT 14 (4-34) U/L Alkaline Phosphatase 54 (38-126) U/L Total Protein 7.6 (6.3-8.2) g/dL Albumin 4.3 (3.5-5.0) g/dL Amylase 77 (30-110) U/L Lipase 107 (23-300) U/L Urine Color Yellow Urine Appearance Clear (Clear) Urine pH 5.5 (5.0-8.0) Ur Specific [place] 1.018 (1.001-1.035) Urine Protein Negative (Negative) Urine Glucose (UA) Negative (Negative) Urine Ketones Negative (Negative) Urine Blood Moderate H (Negative) Urine Nitrite Negative (Negative) Urine Bilirubin Negative (Negative) Urine Urobilinogen <2.0 (<2.0) mg/dL Ur Leukocyte Esterase Negative (Negative) Urine RBC 14 H (0-5) /hpf Urine WBC 1 (0-5) /hpf Urine Mucus Rare H (None) /hpf 03/29/21 Range/Units 10:15 WBC (3.8-10.6) k/uL RBC (3.80-5.40) m/uL Hgb (11.4-16.0) gm/dL Hct (34.0-46.0) % MCV (80.0-100.0) fL MCH (25.0-35.0) pg MCHC (31.0-37.0) g/dL RDW (11.5-15.5) % Plt Count (150-450) k/uL MPV Neutrophils % % Lymphocytes % % Monocytes % % Eosinophils % % Basophils % % Neutrophils # (1.3-7.7) k/uL Lymphocytes # (1.0-4.8) k/uL Monocytes # (0-1.0) k/uL Eosinophils # (0-0.7) k/uL Basophils # (0-0.2) k/uL Sodium (137-145) mmol/L Potassium (3.5-5.1) mmol/L Chloride (98-107) mmol/L Carbon Dioxide (22-30) mmol/L Anion Gap mmol/L BUN (7-17) mg/dL Creatinine (0.52-1.04) mg/dL Est GFR (CKD-EPI)AfAm (>60 ml/min/1.73 sqM) Est GFR (CKD-EPI)NonAf (>60 ml/min/1.73 sqM) Glucose (74-99) mg/dL Plasma Lactic Acid Steven 0.9 (0.7-2.0) mmol/L Calcium (8.4-10.2) mg/dL Total Bilirubin (0.2-1.3) mg/dL AST (14-36) U/L ALT (4-34) U/L Alkaline Phosphatase (38-126) U/L Total Protein (6.3-8.2) g/dL Albumin (3.5-5.0) g/dL Amylase (30-110) U/L Lipase (23-300) U/L Urine Color Urine Appearance (Clear) Urine pH (5.0-8.0) Ur Specific [place] (1.001-1.035) Urine Protein (Negative) Urine Glucose (UA) (Negative) Urine Ketones (Negative) Urine Blood (Negative) Urine Nitrite (Negative) Urine Bilirubin (Negative) Urine Urobilinogen (<2.0) mg/dL Ur Leukocyte Esterase (Negative) Urine RBC (0-5) /hpf Urine WBC (0-5) /hpf Urine Mucus (None) /hpf Disposition Clinical Impression: Abdominal pain, Hiatal hernia Disposition: HOME SELF-CARE Condition: Good Instructions (If sedation given, give patient instructions): Abdominal Pain (ED) Additional Instructions: Please take your Pepcid as directed. Take Zofran as needed for nausea. Follow- up with your doctor. Return to the emergency room for any worsening symptoms Prescriptions: Famotidine [Pepcid] 20 mg PO BID #30 tablet Ondansetron [Zofran ODT] 4 mg PO Q8HR PRN #15 tab PRN Reason: Nausea Is patient prescribed a controlled substance at d/c from ED?: No Referrals: Scout Bonner MD [Primary Care Provider] - 1-2 days Mildred Huntley MD [STAFF PHYSICIAN] - 1-2 days Time of Disposition: 13:35
[2021-03-29 10:48] LABS: Appearance,Urine Clear (Clear); Bilirubin,Urine Negative (Negative); Blood,Urine Moderate (Negative); Color,Urine Yellow; Glucose,Urine (UA) Negative (Negative); Ketones,Urine Negative (Negative); Leukocyte Esterase,Urine Negative (Negative); Mucus,Urine Rare /hpf; Nitrite,Urine Negative (Negative); PH, Urine 5.5 (5.0-8.0); Protein,Urine Negative (Negative); RBC,Urine 14 /hpf (0-5); Specific Gravity,Urine 1.018 (1.001-1.035); Urobilinogen,Urine <2.0 mg/dL (<2.0); WBC,Urine 1 /hpf (0-5)
[2021-03-29 10:59] LABS: ALT 14 U/L (4-34); AST 33 U/L (14-36); African American GFR (CKD) >90 (>60 ml/min/1.73 sqM); Albumin 4.3 g/dL (3.5-5.0); Alkaline Phosphatase 54 U/L (38-126); Amylase 77 U/L (30-110); Anion Gap 10 mmol/L; Blood Urea Nitrogen 15 mg/dL (7-17); Calcium 9.9 mg/dL (8.4-10.2); Carbon Dioxide 25 mmol/L (22-30); Chloride 97 mmol/L (98-107); Glucose 97 mg/dL (74-99); Lipase 107 U/L (23-300); Non-African American GFR(CKD) 87 (>60 ml/min/1.73 sqM); Potassium 3.9 mmol/L (3.5-5.1); Sodium 132 mmol/L (137-145); Total Protein 7.6 g/dL (6.3-8.2)
[2021-03-29] MEDS ORDERED: METOCLOPRAMIDE 5 MG/ML 2 ML VIAL IVP STA (11:49)
--- NOTE | 2021-03-29 12:00 | US ---
EXAMINATION TYPE: US gallbladder DATE OF EXAM: 03/29/2021 COMPARISON: Exams 12/26/2020 CLINICAL HISTORY: pain. RUQ pain, nausea EXAM MEASUREMENTS: Liver Length: 14.8 cm Gallbladder Wall: 0.3 cm Right Kidney: 9.9 x 3.4 x 3.6 cm technical limitations due to large amount of overlying bowel content Pancreas: Tail obscured by overlying bowel gas Liver: visualized portions appear wnl Gallbladder: no evidence of stones Evidence for sonographic Parsons's sign: no CBD: Obscured by overlying bowel gas Right Kidney: no evidence of hydronephrosis IMPRESSION: No significant abnormality evident within the limitations of the exam
[2021-03-29 12:38] VITALS: RESP 16
--- NOTE | 2021-03-29 13:10 | CT ---
EXAMINATION TYPE: CT abdomen pelvis w con DATE OF EXAM: 03/29/2021 COMPARISON: CT 12/26/2020 HISTORY: Rt flank pain. RLQ pain CT DLP: 702.8 mGycm Automated exposure control for dose reduction was used. TECHNIQUE: Helical acquisition of images from the lung bases through the pelvis have been completed. CONTRAST: Performed without Oral Contrast and with IV Contrast, patient injected with 100 mL of Isovue 300. FINDINGS: Possible small hiatal hernia, suspect some varices along the lesser curvature of the stomac h LUNG BASES: No significant abnormality is appreciated. AORTA: No significant abnormality is appreciated. LIVER/GB: No significant abnormality is appreciated. PANCREAS: No significant abnormality is seen. SPLEEN: No significant abnormality is seen. ADRENALS: No significant abnormality is seen. KIDNEYS: No significant interval change is seen. REPRODUCTIVE ORGANS: No significant abnormality is seen BOWEL: No significant abnormality is seen. The appendix is not seen. FREE AIR: No Free Air visible. ASCITES: None visible. PELVIC ADENOPATHY: None visualized. RETROPERITONEAL ADENOPATHY: No Retroperitoneal Adenopathy visible. URINARY BLADDER: No significant abnormality is seen. OSSEOUS STRUCTURES: No significant abnormality is seen. IMPRESSION: GASTROESOPHAGEAL VARICES WITH SMALL HIATAL HERNIA SUSPECTED. NO SIGNIFICANT INTERVAL CHANGE COMPARED TO PRIOR EXAM.
[2021-03-29 13:54] VITALS: PULSE 79
[2021-03-29 13:55] VITALS: BP 102/56
== END 2021-03-29 13:55 | disposition home or self-care (01) ==
LOC: EC 09:40
DX: K44.9 Diaphragmatic hernia without obstruction or gangrene (principal); M19.90 Unspecified osteoarthritis, unspecified site; E07.9 Disorder of thyroid, unspecified; Z79.82 Long term (current) use of aspirin; Z88.0 Allergy status to penicillin; Z88.1 Allergy status to other antibiotic agents; Z88.2 Allergy status to sulfonamides; Z88.6 Allergy status to analgesic agent; Z88.5 Allergy status to narcotic agent; Z98.51 Tubal ligation status; Z96.653 Presence of artificial knee joint, bilateral
CPT/HCPCS: 99284; 96374; 96375 ×2; 96361; 36415; 80053; 82150; 83605; 83690; 85025; 81001; 76705; 74177; J2765; J2405; J1170; Q9967

== ENCOUNTER → 2021-04-29 | Outpatient (CLI) | payer MEDICARE ==
[2021-04-29 19:00] LABS: Hepatitis B Surface Antigen Nonreactive (Nonreactive); Hepatitis C IgG Antibody Nonreactive (Nonreactive)
== END | disposition home or self-care (01) ==
LOC: LABWHC1 13:42
PROVIDERS: ATTEND Internal Medicine Gastroenterology
DX: I85.00 Esophageal varices without bleeding (principal)
CPT/HCPCS: 36415; 80053; 86803; 87340

== ENCOUNTER 2021-05-26 08:30 | Day surgery (SDC) | payer MEDICARE ==
[2021-05-20 15:20] VITALS: BMI 22.2
[~2021-05-26 08:30] MED LIST changes: -ACETAMINOPHEN TAB 500 MG TAB PO ONE; -DEXAMETHASONE SOD PHOSPHATE 10 MG/ML 1 ML VIAL IV ONE; -HYDROmorphone 1 MG/ML 1 ML SYRINGE IVP PRN; +LIDOCAINE 1% (10MG/ML) FOR IV START INTRADERMA PRN; -MELOXICAM 7.5 MG TAB PO ONE; -MIDAZOLAM 2 MG/2 ML VIAL IV PRN; -ONDANSETRON 4 MG/2 ML VIAL IVP ONE; -ROPIVACAINE 246.25 MG, EPINEPHrine 0.5 MG, KETOROLAC 30 MG, cloNIDine HCL/PF 80 MCG, WA... MISCELLANE ONE; -TRANEXAMIC ACID 1,000 MG in SODIUM CHLORIDE 0.9% 100 ML IVPB ONE; -ceFAZolin 2 GM in SODIUM CHLORIDE 0.9% 100 ML IVPB ONE
[2021-05-26 09:10] VITALS: TEMP 97.7
[2021-05-26 09:17] LABS: Glucose,Whole Blood 78 mg/dL (75-99)
[2021-05-26] MEDS: LACTATED RINGERS 1,000 ML IV SCH ×2 (09:18→10:05)
[2021-05-26] MEDS ORDERED: LIDOCAINE 1% INJ 10MG/ML (20 ML MDV) ONE (10:08)
[2021-05-26] MEDS ORDERED: PROPOFOL 10 MG/ML 20 ML VIAL IV ONE (10:08)
--- NOTE | 2021-05-26 10:19 | P.PCN ---
Date of Procedure: 05/26/21 Procedure(s) Performed: BRIEF HISTORY: Patient is a 75-year-old, pleasant, white female scheduled for an upper endoscopy as a part of evaluation of epigastric pain for which she went to the emergency room 3 weeks ago. She did have a CT of the abdomen and pelvis done in the ER that showed evidence of gastroesophageal basis. Patient has no history of chronic liver disease.. PROCEDURE PERFORMED: Esophagogastroduodenoscopy with biopsy. PREOPERATIVE DIAGNOSIS: Epigastric pain and abnormal CAT scan that showed gastroesophageal basis. IV sedation per anesthesia. PROCEDURE: After informed consent was obtained, the patient was brought into the endoscopy unit. IV sedation was administered by Anesthesia under continuous monitoring. Initially the Olympus GIF-140 video endoscope was inserted into the mouth. Esophagus intubated without any difficulty. It was gradually advanced into the stomach and duodenum and carefully examined. The bulb and the second part of the duodenum appeared normal. The scope at this time was withdrawn to the stomach, adequately insufflated with air, and upon careful examination, mucosa of the antrum, had mild patchy diffuse gastritis and biopsies were done from this area. The body, cardia and the fundus appeared normal. No evidence of gastric varices. The scope was then withdrawn into the esophagus. The GE junction was located at 39 cm from the incisors. There was small sliding type hiatal hernia. The esophagus appeared normal. There were no erosions or ulc erations seen, no evidence of esophageal varices and the patient tolerated the procedure well. IMPRESSION: 1. Small hiatal hernia. 2. Mild antral gastritis 3. No evidence of gastric or esophageal varices. RECOMMENDATIONS: The findings of this examination were discussed with the patient as well as her family. She was advised to continue with omeprazole omeprazole 20 mg daily and follow antireflux measures..
[2021-05-26] MEDS ORDERED: IV FLUID CONTINUATION 625 ML IV ONE (10:21)
[2021-05-26 10:38] VITALS: BP 121/68; PULSE 77; RESP 20
== END 2021-05-26 10:59 | disposition home or self-care (01) ==
LOC: ORWHC2ENDO 08:30
PROVIDERS: ATTEND Internal Medicine Gastroenterology
DX: K29.70 Gastritis, unspecified, without bleeding (principal); K44.9 Diaphragmatic hernia without obstruction or gangrene
CPT/HCPCS: 43239; J2001; J2704; 88305

== ENCOUNTER → 2022-12-27 | Outpatient (CLI) | payer MEDICARE ==
--- NOTE | 2022-12-27 16:03 | MR ---
EXAMINATION TYPE: MR brain wo/w con DATE OF EXAM: 12/27/2022 COMPARISON: None HISTORY: Memory loss. CONTRAST: Performed utilizing 6.5 mL intravenous Gadavist gadolinium contrast. TECHNIQUE: Multiplanar, multiecho imaging on a 3.0 Maryellen magnet is performed through the brain. Stud y is performed within 24 hours of arrival to the hospital. The craniovertebral junction is normal. The pituitary is normal. Diffusion-weighted imaging is performed. No abnormal hyperintensity is present to suggest an acute i ntracranial infarct or acute ischemic change. Some mild white matter change may be within the deep white matter. A couple of punctate hyperintensit ies are within subcortical white matter in the right frontal and parietal lobes. Ventricles and sulci are appropriate for the patient age. Following contrast, no abnormal enhancement is evident. Fluid is within the right mastoid air cells. Correlate for right paranasal sinuses appear clear. Mast oiditis. IMPRESSIONS: 1. No acute intracranial process. 2. Mild chronic-appearing white matter changes
== END | disposition home or self-care (01) ==
LOC: RADMRIMAIN 13:25
PROVIDERS: ATTEND Internal Medicine Geriatric Medicine
DX: R41.3 Other amnesia (principal); R90.82 White matter disease, unspecified
CPT/HCPCS: 70553; A9585

== ENCOUNTER → 2023-08-12 | Outpatient (CLI) | payer MEDICARE ==
--- NOTE | 2023-08-15 14:24 | MM ---
Reason for Exam: Screening (asymptomatic). Last screening mammogram was performed 12 month(s) ago. Patient History: Menarche at age 14. First Full-Term at age 20. Postmenopausal. Estrogen for 3 years from age 50 until age 53. 03/12/2011, Cancelled Right Mammotome on the right side. Maternal aunt had breast cancer, age 40. Maternal aunt had breast cancer, age 50. Risk Values: Lyla 5 year model risk: 1.3%. NCI Lifetime model risk: 2.6%. Prior Study Comparison: 06/30/2020 Bilateral Screening Mammogram, [facility]. 07/16/2021 Bilateral Screening Mammogram, [facility]. 08/03/2022 Bilateral MG 3D screening mammo w/cad, [facility]. Tissue Density: The breasts are heterogeneously dense, which may obscure small masses. Findings: Analyzed By CAD. There is no suspicious group of microcalcifications or new suspicious mass. Overall Assessment: Negative, BI-RAD 1 Management: Screening Mammogram of both breasts in [address] [facility] will attempt to contact patient to return for supplemental views and ultrasound if indicated. Patient should continue monthly self-breast exams. A clinical breast exam by your physician is recommended on an annual basis. This exam should not preclude additional follow-up of suspicious palpable abnormalities. Note on Lyla scores and lifetime risk: 1. A Lyla score greater than 3% is considered moderate risk. If this is the case, consider specialist referral to assess eligibility for a risk reducing agent. 2. If overall lifetime risk for the development of breast cancer is 20% or higher, the patient may qualify for future screening with alternating mammogram and breast MRI. Electronically signed and approved by: Shlomo Yoon DO
== END | disposition home or self-care (01) ==
LOC: RADMAMWWP 09:20
PROVIDERS: ATTEND Internal Medicine Geriatric Medicine
DX: Z12.31 Encounter for screening mammogram for malignant neoplasm of breast (principal); Z78.0 Asymptomatic menopausal state; Z80.3 Family history of malignant neoplasm of breast
CPT/HCPCS: 77063; 77067

== ENCOUNTER → 2023-09-02 | Outpatient (CLI) | payer MEDICARE ==
--- NOTE | 2023-09-02 08:01 | US ---
EXAMINATION TYPE: US abdomen complete DATE OF EXAM: 09/02/2023 COMPARISON: NONE CLINICAL INDICATION: Female, 78 years old with history of R10.9 ABDOMINAL PAIN; RUQ pain x 4-5 months ; Patient denies any other signs, symptoms, or relevant history TECHNIQUE: Multiple sonographic images of the abdomen are obtained. FINDINGS: EXAM MEASUREMENTS: Liver Length: 15.8 cm Gallbladder Wall: 0.2 cm CBD: 0.2 cm Spleen: 8.9 cm Right Kidney: 10.3 x 3.9 x 4.1 cm Left Kidney: 9.2 x 5.2 x 4.6 cm BUTTON BUTTONHOLE MARKER NOTES: Difficult exam due to overlying bowel gas; patient not able to hold breath in Pancreas: wnl Liver: Obscured by overlying bowel gas Gallbladder: Obscured by overlying bowel gas Evidence for sonographic Parsons's sign: No CBD: wnl Spleen: wnl Right Kidney: wnl Left Kidney: wnl Upper IVC: wnl Abd Aorta: wnl The liver is homogenous. The intrahepatic portion of the IVC and proximal abdominal aorta are within normal limits. There is no evidence of cholelithiasis. Common bile duct is unremarkable. The visu alized portions of the pancreas are homogenous. The spleen is unremarkable. Kidneys are symmetric a nd free of hydronephrosis. No renal lesions are seen. IMPRESSION: No discrete abnormality appreciated.
== END | disposition home or self-care (01) ==
LOC: RADUSWWP 07:25
PROVIDERS: ATTEND Internal Medicine Geriatric Medicine
DX: R10.11 Right upper quadrant pain (principal)
CPT/HCPCS: 76700

== ENCOUNTER 2023-10-17 12:21 | Emergency (ER) | payer MEDICARE ==
--- NOTE | 2023-10-17 12:35 | ED ---
Nausea/Vomiting/Diarrhea HPI - General Source: patient, family Mode of arrival: ambulatory Limitations: no limitations <Vicki Jarrett - Last Filed: 10/17/23 12:34> <Gissell Puente - Last Filed: 10/17/23 19:29> - General Stated complaint: Constipation, diarrhea Time Seen by Provider: 10/17/23 12:34 - History of Present Illness Initial comments: Quick note: 78-year-old female presented to the ER with a chief complaint of constipation. She states she has been constipated for the past 2 days. She does report she woke up this morning and was going up and having diarrhea. She states she also woke up with a stomachache. Denies any fevers or chills. (Vicki Jarrett) This is a 78-year-old female presents emergency department chief complaint of diarrhea. Patient states that she had an episode of diarrhea yesterday evening for she went to bed. She states that she woke up during the night 2 times with episodes of diarrhea as well. She denies any blood or mucus in her stool. That she took an antidiarrheal medication this morning, does not remember which medication, states that she has not any episodes of diarrhea since. She states that she had about 2 days of constipation before episodes of diarrhea. She denies recent antibiotic use or travel. She denies cough, congestion, rhinorrhea, chest pain or pressure, palpitations, dizziness, lightheadedness, dysuria, hematuria, fevers. She denies previous abdominal surgical history. States that she has been evaluated for right upper quadrant pain in the past with no acute findings., States that her abdominal pain is gone and is now feeling hungry. (Gissell Puente) - Related Data Home Medications Medication Instructions Recorded Confirmed Aspirin 81 mg PO DAILY 11/03/13 05/26/21 Fludrocortisone [Florinef] 0.05 mg PO MOWEFR 11/03/13 05/26/21 Hydrocortisone [Cortef] 15 mg PO DAILY 11/03/13 05/26/21 Levothyroxine Sodium [Synthroid] 88 mcg PO DAILY 11/03/13 05/26/21 Atorvastatin [Lipitor] 10 mg PO DAILY 12/26/20 05/26/21 Hydrocortisone [Cortef] 5 mg PO DAILY PRN 12/26/20 05/26/21 Hydrocortisone [Cortef] 5 mg PO DAILY@1600 12/26/20 05/26/21 Calcium 400mg 1 tab PO DAILY 03/29/21 05/26/21 Cholecalciferol (Vitamin D3) 5,000 unit PO MOWEFR 03/29/21 05/26/21 [Vitamin D3 (125 MCG = 5,000 IU)] Multivitamins, Thera [Multivitamin 1 tab PO MOTUWETHFR 03/29/21 05/26/21 (formulary)] Omeprazole 1 tab PO DAILY 05/26/21 05/26/21 Previous Rx's Medication Instructions Recorded Famotidine [Pepcid] 20 mg PO BID #30 tablet 03/29/21 Ondansetron [Zofran ODT] 4 mg PO Q8HR PRN #15 tab 03/29/21 Allergies Allergy/AdvReac Type Severity Reaction Status Date / Time sulfacetamide sodium Allergy Intermediate Rash/Hives Verified 10/17/23 13:41 [From Sulfamide] alendronate sodium Allergy Unknown Verified 10/17/23 13:41 [From Fosamax] azithromycin Allergy Rash/Hives Verified 10/17/23 13:41 [From Zithromax Z-Benito] ciprofloxacin [From Cipro] Allergy Unknown Verified 10/17/23 13:41 doxycycline Allergy Unknown Verified 10/17/23 13:41 hydrocodone Allergy Unknown Verified 10/17/23 13:41 naproxen [From Naprosyn] Allergy Unknown Verified 10/17/23 13:41 Penicillins Allergy Rash/Hives Verified 10/17/23 13:41 Sulfa (Sulfonamide Allergy Rash/Hives Verified 10/17/23 13:41 Antibiotics) tramadol Allergy Unknown Verified 10/17/23 13:41 morphine AdvReac Severe Unknown Verified 10/17/23 13:41 Review of Systems ROS Other: All systems not noted in ROS Statement are negative. <Vicki Jarrett - Last Filed: 10/17/23 12:34> ROS Other: All systems not noted in ROS Statement are negative. <Gissell Puente - Last Filed: 10/17/23 19:29> ROS Statement: Those systems with pertinent positive or pertinent negative responses have been documented in the HPI. Past Medical History Past Medical History: Eye Disorder, Hearing Disorder / Deafness, Osteoarthritis (OA), Pneumonia, Respiratory Disorder, Seizure Disorder, Syncope, Thyroid Disorder Additional Past Medical History / Comment(s): Pulmonary fibrosis upper lobe predominance mainly involving the right lung, sneha's disease with past crisis, hypothyroid, pt states she had seizure as a child and once in 2013 after receiving morphine, recent R hip pain-past 3 weeks, chronic low back pain, allergic rhinitis, hiatal hernia, bilateral glaucoma, [place] bilaterally with L ear worse. History of Any Multi-Drug Resistant Organisms: None Reported Past Surgical History: Back Surgery, Section, Joint Replacement, Orthopedic Surgery, Tubal Ligation Additional Past Surgical History / Comment(s): Bilateral total knee arthroplasties, low back radiofrequency ablations, bilateral carpal tunnel releases, bronchoscopy, R eye biopsy-pt does not know reason. Past Anesthesia/Blood Transfusion Reactions: No Reported Reaction Additional Past Anesthesia/Blood Transfusion Reaction / Comment(s): Pt states sh e received blood in past without reaction. Smoking Status: Never smoker - Past Family History Mother Family Medical History: Musculoskeletal Disorder, Neurologic Disorder, Seizure Disorder Additional Family Medical History / Comment(s): Mother had parkinson's. She lived to be 93 yrs old. Pt states mother had epilepsy. Daughter(s) Additional Family Medical History / Comment(s): She has 3 children with no major medical problems. Father Family Medical History: Cancer Additional Family Medical History / Comment(s): Father at age 79 from lung cancer. <Vicki Jarrett - Last Filed: 10/17/23 12:34> General Exam <Vicki Jarrett - Last Filed: 10/17/23 12:34> General appearance: alert, in no apparent distress Head exam: Present: atraumatic, normocephalic, normal inspection Eye exam: Present: normal appearance, PERRL, EOMI. Absent: scleral icterus, conjunctival injection, periorbital swelling ENT exam: Present: normal exam, mucous membranes moist Neck exam: Present: normal inspection. Absent: tenderness, meningismus, l ymphadenopathy Respiratory exam: Present: normal lung sounds bilaterally. Absent: respiratory distress, wheezes, rales, rhonchi, stridor Cardiovascular Exam: Present: regular rate, normal rhythm, normal heart sounds. Absent: systolic murmur, diastolic murmur, rubs, gallop, clicks GI/Abdominal exam: Present: soft, normal bowel sounds. Absent: distended, tenderness, guarding, rebound, rigid Extremities exam: Present: normal inspection, full ROM, normal capillary refill. Absent: tenderness, pedal edema, joint swelling, calf tenderness Back exam: Present: normal inspection Neurological exam: Present: alert, oriented X3, CN II-XII intact Psychiatric exam: Present: normal affect, normal mood Skin exam: Present: warm, dry, intact, normal color. Absent: rash <Gissell Puente - Last Filed: 10/17/23 19:29> - General Exam Comments Initial Comments: Visual Physical Exam Vital signs reviewed General: Well-appearing, nontoxic, no acute distress. Head: Normocephalic, atraumatic Eyes: PERRLA, EOMI ENT: Airway patent Chest: Nonlabored breathing Skin: No visual rash, normal skin tone Neuro: Alert and oriented 3 Musculoskeletal: No gross abnormalities (Vicki Jarrett) Course Vital Signs 10/17/23 10/17/23 13:37 16:59 Temperature 98.4 F 97.8 F Pulse Rate 90 75 Respiratory 16 20 Rate Blood Pressure 135/69 117/73 O2 Sat by Pulse 93 L 96 Oximetry Medical Decision Making <Vicki Jarrett - Last Filed: 10/17/23 12:34> - Lab Data Result diagrams: 10/17/23 14:33 10/17/23 14:33 <Gissell Puente - Last Filed: 10/17/23 19:29> - Medical Decision Making I performed the quick note portion of this chart. Electronically signed by Vicki Jarrett PA-C (Vicki Jarrett) Was pt. sent in by a medical professional or institution ([facility], COMMERCIAL CREDIT SPECIALIST, urgent care, hospital, or retirement...) When possible be specific @ -No Did you speak to anyone other than the patient for history (EMS, parent, family, police, friend...)? What history was obtained from this source @ -No Did you review nursing and triage notes (agree or disagree)? Why? @ -I reviewed and agree with nursing and triage notes Were old charts reviewed (outside hosp., previous admission, EMS record, old EKG, old radiological studies, urgent care reports/EKG's, retirement records)? Report findings @ US of the abdomen on 09/01 reveals no abnormality with no evidence of cholelithiasis or dilated bile duct. Differential Diagnosis (chest pain, altered mental status, abdominal pain women, abdominal pain men, vaginal bleeding, weakness, fever, dyspnea, syncope, headache, dizziness, GI bleed, back pain, seizure, CVA, palpatations, mental health, musculoskeletal)? @ -Differential Abdominal Pain Women: Appendicitis, Cholecystitis, diverticulosis, ischemic bowel, pancreatitis, hepatitis, UTI, gastroenteritis, AAA, incarcerated hernia, bowel obstruction, constipation, inflammatory bowel, hepatitis, peptic ulcer disease, splenic infarction, perforated viscus, vulvitis, ovarian torsion, PID, kidney stone, placenta abruption, this is not meant to be an all-inclusive list EKG interpreted by me (3pts min.). @ -None X-rays interpreted by me (1pt min.). @ -None done CT interpreted by me (1pt min.). @ -None done U/S interpreted by me (1pt. min.). @ -None done What testing was considered but not performed or refused? (CT, X-rays, U/S, labs)? Why? @ -P imaging was considered but deferred at this time. Patient's abdomen exam is benign additional laboratories are within normal limits. What meds were considered but not given or refused? Why? @ -None Did you discuss the management of the patient with other professionals (professionals i.e. , PA, COMMERCIAL CREDIT SPECIALIST, lab, RT, psych nurse, social media specialist, database security expert, teacher, student liaison officer, insurance case manager)? Give summary @ -No Was smoking cessation discussed for >3mins.? @ -No Was critical care preformed (if so, how long)? @ -No Were there social determinants of health that impacted care today? How? (Homelessness, low income, unemployed, alcoholism, drug addiction, transportation, low edu. Level, literacy, decrease access to med. care, [facility], rehab)? @ -No Was there de-escalation of care discussed even if they declined (Discuss DNR or withdrawal of care, Hospice)? DNR status @ -No What co-morbidities impacted this encounter? (DM, HTN, Smoking, COPD, CAD, Can cer, CVA, ARF, Chemo, Hep., AIDS, mental health diagnosis, sleep apnea, morbid obesity)? @ -None Was patient admitted / discharged? Hospital course, mention meds given and route, prescriptions, significant lab abnormalities, going to OR and other pertinent info. @ -78-year-old female with complaint of diarrhea over the past 16 hours. Discussion with patient at bedside she states that she has not had an episode of diarrhea since this morning. She states that she took an [id number] medication, antidiarrheal, does not member which medication was. States that she has not had any feelings of having a diarrhea either. States that she is still urinating well. On examination there is no tenderness, abdomen is soft. CBC reveals evaded white blood cells of 11.7 and neutrophils of 9.9. Additionally, CMP within normal limits. Patient's symptoms are likely secondary to constipation addition to gastroenteritis. Patient provided with 500 cc fluid bolus and is stable for discharge. All questions answered at bedside. Strict return parameters discussed with the patient. Recommend follow-up with primary care provider in the next 3 days for further evaluation. Case discussed with Dr. Galloway Undiagnosed new problem with uncertain prognosis? @ -No Drug Therapy requiring intensive monitoring for toxicity (Heparin, Nitro, Insulin, Cardizem)? @ -No Were any procedures done? @ -No Diagnosis/symptom? @ -diarrhea, Gastroenteritis Acute, or Chronic, or Acute on Chronic? @ -acute Uncomplicated (without systemic symptoms) or Complicated (systemic symptoms)? @ -Uncomplicated Side effects of treatment? @ -No Exacerbation, Progression, or Severe Exacerbation? @ -No Poses a threat to life or bodily function? How? (Chest pain, USA, NM, pneumonia, PE, COPD, DKA, ARF, appy, cholecystitis, CVA, Diverticulitis, Homicidal, Suicidal, threat to staff... and all critical care pts) @ -No (Gissell Puente) - Lab Data Lab Results 10/17/23 10/17/23 Range/Units 14:33 14:33 WBC 11.7 H (3.8-10.6) k/uL RBC 4.15 (3.80-5.40) m/uL Hgb 12.9 (11.4-16.0) gm/dL Hct 39.2 (34.0-46.0) % MCV 94.6 (80.0-100.0) fL MCH 31.1 (25.0-35.0) pg MCHC 32.9 (31.0-37.0) g/dL RDW 12.5 (11.5-15.5) % Plt Count 346 (150-450) k/uL MPV 7.0 Neutrophils % 85 % Lymphocytes % 9 % Monocytes % 4 % Eosinophils % 1 % Basophils % 0 % Neutrophils # 9.9 H (1.3-7.7) k/uL Lymphocytes # 1.1 (1.0-4.8) k/uL Monocytes # 0.5 (0-1.0) k/uL Eosinophils # 0.1 (0-0.7) k/uL Basophils # 0.0 (0-0.2) k/uL Sodium 135 L (137-145) mmol/L Potassium 3.6 (3.5-5.1) mmol/L Chloride 98 (98-107) mmol/L Carbon Dioxide 33 H (22-30) mmol/L Anion Gap 4 mmol/L BUN 9 (7-17) mg/dL Creatinine 0.58 (0.52-1.04) mg/dL Est GFR (CKD-EPI)AfAm >90 (>60 ml/min/1.73 sqM) Est GFR (CKD-EPI)NonAf 89 (>60 ml/min/1.73 sqM) Glucose 107 H (74-99) mg/dL Calcium 9.5 (8.4-10.2) mg/dL Total Bilirubin 0.9 (0.2-1.3) mg/dL AST 30 (14-36) U/L ALT 11 (4-34) U/L Alkaline Phosphatase 51 (38-126) U/L Total Protein 7.7 (6.3-8.2) g/dL Albumin 4.0 (3.5-5.0) g/dL Disposition <Vicki Jarrett - Last Filed: 10/17/23 12:34> Is patient prescribed a controlled substance at d/c from ED?: No Time of Disposition: 16:32 <Gissell Puente - Last Filed: 10/17/23 19:29> Clinical Impression: Diarrhea, Gastroenteritis Narrative: Please return to the Emergency Department if symptoms worsen or any other concerns. (Gissell Puente) Disposition: HOME SELF-CARE Condition: Good Instructions (If sedation given, give patient instructions): Acute Diarrhea (ED) Referrals: Scout Bonner MD [Primary Care Provider] - 1-2 days
[2023-10-17 14:47] LABS: Basophils % (A) 0 %; Eosinophils # (A) 0.1 k/uL (0-0.7); Eosinophils % (A) 1 %; HCT 39.2 % (34.0-46.0); HGB 12.9 gm/dL (11.4-16.0); Lymphocytes # (A) 1.1 k/uL (1.0-4.8); Lymphocytes % (A) 9 %; MCH 31.1 pg (25.0-35.0); MCHC 32.9 g/dL (31.0-37.0); MCV 94.6 fL (80.0-100.0); Monocytes # (A) 0.5 k/uL (0-1.0); Monocytes % (A) 4 %; Neutrophils # (A) 9.9 k/uL (1.3-7.7); Neutrophils % (A) 85 %; Platelet Count 346 k/uL (150-450); RBC 4.15 m/uL (3.80-5.40); RDW 12.5 % (11.5-15.5); WBC 11.7 k/uL (3.8-10.6)
[2023-10-17 15:01] LABS: ALT 11 U/L (4-34); AST 30 U/L (14-36); African American GFR (CKD) >90 (>60 ml/min/1.73 sqM); Alkaline Phosphatase 51 U/L (38-126); Anion Gap 4 mmol/L; Blood Urea Nitrogen 9 mg/dL (7-17); Calcium 9.5 mg/dL (8.4-10.2); Carbon Dioxide 33 mmol/L (22-30); Chloride 98 mmol/L (98-107); Glucose 107 mg/dL (74-99); Non-African American GFR(CKD) 89 (>60 ml/min/1.73 sqM); Potassium 3.6 mmol/L (3.5-5.1); Sodium 135 mmol/L (137-145); Total Bilirubin 0.9 mg/dL (0.2-1.3); Total Protein 7.7 g/dL (6.3-8.2)
[2023-10-17] MEDS: SODIUM CHLORIDE 0.9% 500 ML 500 ML IV STA (16:18)
[2023-10-17 17:04] VITALS: BP 117/73; PULSE 75; RESP 20; TEMP 97.8
== END 2023-10-17 17:00 | disposition home or self-care (01) ==
LOC: EC 12:21
DX: K52.9 Noninfective gastroenteritis and colitis, unspecified (principal); Z88.0 Allergy status to penicillin; Z88.2 Allergy status to sulfonamides; Z88.5 Allergy status to narcotic agent; Z88.6 Allergy status to analgesic agent; Z88.1 Allergy status to other antibiotic agents; Z88.8 Allergy status to other drugs, medicaments and biological substances
CPT/HCPCS: 36415; 80053; 85025; 99284

== ENCOUNTER 2024-03-02 08:59 | Emergency (ER) | payer MEDICARE ==
--- NOTE | 2024-03-02 09:07 | ED ---
Abdominal Pain HPI - General Chief Complaint: Abdominal Pain Stated Complaint: R side pain Time Seen by Provider: 03/02/24 09:06 Source: patient, RN notes reviewed Mode of arrival: ambulatory Limitations: no limitations - History of Present Illness Initial Comments: 78-year-old female with history of memory loss, hypothyroidism, interstitial lung disease presents with her for chief complaint of abdominal pain. Patient states that over the past 2 to 4 weeks she has been experiencing abdominal pain in addition to constipation and diarrhea. Patient had an appointment with one of the midlevel providers at her primary care provider's office this week where she was started on Flagyl. Currently she is denying abdominal pain, urinary symptoms, melena, hematochezia. last BM yesterday. Denies previous surgical abdominal history. - Related Data Home Medications Medication Instructions Recorded Confirmed Aspirin 81 mg PO DAILY 11/03/13 05/26/21 Fludrocortisone [Florinef] 0.05 mg PO MOWEFR 11/03/13 05/26/21 Hydrocortisone [Cortef] 15 mg PO DAILY 11/03/13 05/26/21 Levothyroxine Sodium [Synthroid] 88 mcg PO DAILY 11/03/13 05/26/21 Atorvastatin [Lipitor] 10 mg PO DAILY 12/26/20 05/26/21 Hydrocortisone [Cortef] 5 mg PO DAILY PRN 12/26/20 05/26/21 Hydrocortisone [Cortef] 5 mg PO DAILY@1600 12/26/20 05/26/21 Calcium 400mg 1 tab PO DAILY 03/29/21 05/26/21 Cholecalciferol (Vitamin D3) 5,000 unit PO MOWEFR 03/29/21 05/26/21 [Vitamin D3 (125 MCG = 5,000 IU)] Multivitamins, Thera [Multivitamin 1 tab PO MOTUWETHFR 03/29/21 05/26/21 (formulary)] Omeprazole 1 tab PO DAILY 05/26/21 05/26/21 Previous Rx's Medication Instructions Recorded Famotidine [Pepcid] 20 mg PO BID #30 tablet 03/29/21 Ondansetron [Zofran ODT] 4 mg PO Q8HR PRN #15 tab 03/29/21 Allergies Allergy/AdvReac Type Severity Reaction Status Date / Time sulfacetamide sodium Allergy Intermediate Rash/Hives Verified 10/17/23 13:41 [From Sulfamide] alendronate sodium Allergy Unknown Verified 10/17/23 13:41 [From Fosamax] azithromycin Allergy Rash/Hives Verified 10/17/23 13:41 [From Zithromax Z-Benito] ciprofloxacin [From Cipro] Allergy Unknown Verified 10/17/23 13:41 doxycycline Allergy Unknown Verified 10/17/23 13:41 hydrocodone Allergy Unknown Verified 10/17/23 13:41 naproxen [From Naprosyn] Allergy Unknown Verified 10/17/23 13:41 Penicillins Allergy Rash/Hives Verified 10/17/23 13:41 Sulfa (Sulfonamide Allergy Rash/Hives Verified 10/17/23 13:41 Antibiotics) tramadol Allergy Unknown Verified 10/17/23 13:41 morphine AdvReac Severe Unknown Verified 10/17/23 13:41 Review of Systems ROS Statement: Those systems with pertinent positive or pertinent negative responses have been documented in the HPI. ROS Other: All systems not noted in ROS Statement are negative. Past Medical History Past Medical History: Eye Disorder, Hearing Disorder / Deafness, Osteoarthritis (OA), Pneumonia, Respiratory Disorder, Seizure Disorder, Syncope, Thyroid Disorder Additional Past Medical History / Comment(s): Pulmonary fibrosis upper lobe predominance mainly involving the right lung, sneha's disease with past crisis, hypothyroid, pt states she had seizure as a child and once in 2013 after receiving morphine, recent R hip pain-past 3 weeks, chronic low back pain, allergic rhinitis, hiatal hernia, bilateral glaucoma, KAW bilaterally with L ear worse. History of Any Multi-Drug Resistant Organisms: None Reported Past Surgical History: Back Surgery, Section, Joint Replacement, Orthopedic Surgery, Tubal Ligation Additional Past Surgical History / Comment(s): Bilateral total knee arthroplasties, low back radiofrequency ablations, bilateral carpal tunnel releases, bronchoscopy, R eye biopsy-pt does not know reason. Past Anesthesia/Blood Transfusion Reactions: No Reported Reaction Additional Past Anesthesia/Blood Transfusion Reaction / Comment(s): Pt states she received blood in past without reaction. Past Psychological History: No Psychological Hx Reported Smoking Status: Never smoker Past Alcohol Use History: None Reported Past Drug Use History: None Reported - Past Family History Mother Family Medical History: Musculoskeletal Disorder, Neurologic Disorder, Seizure Disorder Additional Family Medical History / Comment(s): Mother had parkinson's. She lived to be 93 yrs old. Pt states mother had epilepsy. Daughter(s) Additional Family Medical History / Comment(s): She has 3 children with no major medical problems. Father Family Medical History: Cancer Additional Family Medical History / Comment(s): Father at age 79 from lung cancer. General Exam Limitations: no limitations General appearance: alert, in no apparent distress Eye exam: Present: normal appearance, PERRL, EOMI. Absent: scleral icterus, conjunctival injection, periorbital swelling ENT exam: Present: normal exam, mucous membranes moist Neck exam: Present: normal inspection. Absent: tenderness, meningismus, lymphadenopathy Respiratory exam: Present: normal lung sounds bilaterally. Absent: respiratory distress, wheezes, rales, rhonchi, stridor Cardiovascular Exam: Present: regular rate, normal rhythm, normal heart sounds. Absent: systolic murmur, diastolic murmur, rubs, gallop, clicks GI/Abdominal exam: Present: soft, tenderness (RLQ), normal bowel sounds. Absent: distended, guarding, rebound, rigid Extremities exam: Present: normal inspection, full ROM, normal capillary refill. Absent: tenderness, pedal edema, joint swelling, calf tenderness Back exam: Present: normal inspection Skin exam: Present: warm, dry, intact, normal color. Absent: rash Course Vital Signs 03/02/24 03/02/24 03/02/24 09:00 09:31 11:28 Temperature 97.5 F L 97.7 F Pulse Rate 85 78 80 Respiratory 16 22 20 Rate Blood Pressure 186/79 148/72 146/70 O2 Sat by Pulse 98 98 97 Oximetry 03/02/24 03/02/24 12:32 13:48 Temperature 97.6 F Pulse Rate 69 84 Respiratory 18 18 Rate Blood Pressure 147/80 163/81 O2 Sat by Pulse 98 97 Oximetry Medical Decision Making - Medical Decision Making Was pt. sent in by a medical professional or institution (, PA, PUBLIC POLICY ASSOCIATE, urgent care, hospital, or prison...) When possible be specific @ -No Did you speak to anyone other than the patient for history (EMS, parent, family, police, friend...)? What history was obtained from this source @ -Spoke to the patient's at bedside states the patient has been experiencing intermittent abdominal pain over the past 2 to 4 weeks and is followed with her primary care provider outpatient for this similar complaint. Did you review nursing and triage notes (agree or disagree)? Why? @ -I reviewed and agree with nursing and triage notes Were old charts reviewed (outside hosp., previous admission, EMS record, old EKG, old radiological studies, urgent care reports/EKG's, prison records)? Report findings @ -No old charts were reviewed Differential Diagnosis (chest pain, altered mental status, abdominal pain women, abdominal pain men, vaginal bleeding, weakness, fever, dyspnea, syncope, headache, dizziness, GI bleed, back pain, seizure, CVA, palpatations, mental health, musculoskeletal)? @ -Differential Abdominal Pain Women: Appendicitis, Cholecystitis, diverticulosis, ischemic bowel, pancreatitis, hepatitis, UTI, gastroenteritis, AAA, incarcerated hernia, bowel obstruction, constipation, inflammatory bowel, hepatitis, peptic ulcer disease, splenic infarction, perforated viscus, vulvitis, ovarian torsion, PID, kidney stone, placenta abruption, this is not meant to be an all-inclusive list EKG interpreted by me (3pts min.). @ -none X-rays interpreted by me (1pt min.). @ -None done CT interpreted by me (1pt min.). @ -CT of the abdomen pelvis with IV contrast reveals no acute changes with the abdomen pelvis with a large amount of stool within the transverse and right colon. U/S interpreted by me (1pt. min.). @ -None done What testing was considered but not performed or refused? (CT, X-rays, U/S, labs)? Why? @ -None What meds were considered but not given or refused? Why? @ -None Did you discuss the management of the patient with other professionals (professionals i.e. , PA, PUBLIC POLICY ASSOCIATE, lab, RT, psych nurse, medical social consultant, web specialist, teacher, business liaison officer, case worker)? Give summary @ -No Was smoking cessation discussed for >3mins.? @ -No Was critical care preformed (if so, how long)? @ -No Were there social determinants of health that impacted care today? How? (Homelessness, low income, unemployed, alcoholism, drug addiction, transportation, low edu. Level, literacy, decrease access to med. care, fci, rehab)? @ -No Was there de-escalation of care discussed even if they declined (Discuss DNR or withdrawal of care, Hospice)? DNR status @ -No What co-morbidities impacted this encounter? (DM, HTN, Smoking, COPD, CAD, Cancer, CVA, ARF, Chemo, Hep., AIDS, mental health diagnosis, sleep apnea, morbid obesity)? @ -None Was patient admitted / discharged? Hospital course, mention meds given and route, prescriptions, significant lab abnormalities, going to OR and other pertinent info. @ -discharged. 78-year-old female with abdominal pain. On my evaluation the patient she is endorsing right lower quadrant abdominal pain to palpation, bowel sounds are equal throughout all quadrants. abnormal laboratory studies including mild hypokalemia 3.4, 24, urinalysis no signs of infection, CBC u nremarkable. CT remarkable for large amount of stool within the colon, no acute process. glycerin suppository was administered to the patient with some successful bowel movement. Patient's abdominal pain has resided. She will be provided with magnesium citrate to take at home as well to continue to alleviate symptoms of constipation. She is stable for discharge at this time and recommend that she continue to follow outpatient with her primary care provider for further evaluation. All questions answered at bedside answered return prior discussed with the patient and the patient's family and they verbalized understanding. Case discussed with Dr. Berry. Undiagnosed new problem with uncertain prognosis? @ -No Drug Therapy requiring intensive monitoring for toxicity (Heparin, Nitro, Insulin, Cardizem)? @ -No Were any procedures done? @ -No Diagnosis/symptom? @ -Constipation, abdominal pain Acute, or Chronic, or Acute on Chronic? @ -Acute Uncomplicated (without systemic symptoms) or Complicated (systemic symptoms)? @ -Uncomplicated Side effects of treatment? @ -No Exacerbation, Progression, or Severe Exacerbation? @ -No Poses a threat to life or bodily function? How? (Chest pain, USA, AR, pneumonia, PE, COPD, DKA, ARF, appy, cholecystitis, CVA, Diverticulitis, Homicidal, Suicidal, threat to staff... and all critical care pts) @ -No - Lab Data Result diagrams: 03/02/24 09:45 03/02/24 09:45 Lab Results 03/02/24 03/02/24 03/02/24 Range/Units 09:45 09:45 09:45 WBC 7.0 (3.8-10.6) k/uL RBC 4.21 (3.80-5.40) m/uL Hgb 13.6 (11.4-16.0) gm/dL Hct 41.4 (34.0-46.0) % MCV 98.3 (80.0-100.0) fL MCH 32.2 (25.0-35.0) pg MCHC 32.7 (31.0-37.0) g/dL RDW 13.4 (11.5-15.5) % Plt Count 331 (150-450) k/uL MPV 6.7 Neutrophils % 67 % Lymphocytes % 21 % Monocytes % 6 % Eosinophils % 5 % Basophils % 0 % Neutrophils # 4.6 (1.3-7.7) k/uL Lymphocytes # 1.4 (1.0-4.8) k/uL Monocytes # 0.4 (0-1.0) k/uL Eosinophils # 0.4 (0-0.7) k/uL Basophils # 0.0 (0-0.2) k/uL Sodium 139 (137-145) mmol/L Potassium 3.4 L (3.5-5.1) mmol/L Chloride 99 (98-107) mmol/L Carbon Dioxide 34 H (22-30) mmol/L Anion Gap 6 mmol/L BUN 15 (7-17) mg/dL Creatinine 0.68 (0.52-1.04) mg/dL Est GFR (CKD-EPI)AfAm >90 (>60 ml/min/1.73 sqM) Est GFR (CKD-EPI)NonAf 85 (>60 ml/min/1.73 sqM) Glucose 80 (74-99) mg/dL Plasma Lactic Acid Steven (0.7-2.0) mmol/L Calcium 9.4 (8.4-10.2) mg/dL Total Bilirubin 1.0 (0.2-1.3) mg/dL AST 30 (14-36) U/L ALT 13 (4-34) U/L Alkaline Phosphatase 35 L (38-126) U/L Total Protein 7.7 (6.3-8.2) g/dL Albumin 4.1 (3.5-5.0) g/dL Amylase 124 H (30-110) U/L Lipase 235 (23-300) U/L Urine Color Colorless Urine Appearance Clear (Clear) Urine pH 7.5 (5.0-8.0) Ur Specific [place] 1.006 (1.001-1.035) Urine Protein Negative (Negative) Urine Glucose (UA) Negative (Negative) Urine Ketones Negative (Negative) Urine Blood Moderate H (Negative) Urine Nitrite Negative (Negative) Urine Bilirubin Negative (Negative) Urine Urobilinogen <2.0 (<2.0) mg/dL Ur Leukocyte Esterase Negative (Negative) Urine RBC 15 H (0-5) /hpf Urine WBC 1 (0-5) /hpf Ur Squamous Epith Cells <1 (0-4) /hpf Urine Mucus Rare H (None) /hpf 03/02/24 Range/Units 09:45 WBC (3.8-10.6) k/uL RBC (3.80-5.40) m/uL Hgb (11.4-16.0) gm/dL Hct (34.0-46.0) % MCV (80.0-100.0) fL MCH (25.0-35.0) pg MCHC (31.0-37.0) g/dL RDW (11.5-15.5) % Plt Count (150-450) k/uL MPV Neutrophils % % Lymphocytes % % Monocytes % % Eosinophils % % Basophils % % Neutrophils # (1.3-7.7) k/uL Lymphocytes # (1.0-4.8) k/uL Monocytes # (0-1.0) k/uL Eosinophils # (0-0.7) k/uL Basophils # (0-0.2) k/uL Sodium (137-145) mmol/L Potassium (3.5-5.1) mmol/L Chloride (98-107) mmol/L Carbon Dioxide (22-30) mmol/L Anion Gap mmol/L BUN (7-17) mg/dL Creatinine (0.52-1.04) mg/dL Est GFR (CKD-EPI)AfAm (>60 ml/min/1.73 sqM) Est GFR (CKD-EPI)NonAf (>60 ml/min/1.73 sqM) Glucose (74-99) mg/dL Plasma Lactic Acid Steven 1.2 (0.7-2.0) mmol/L Calcium (8.4-10.2) mg/dL Total Bilirubin (0.2-1.3) mg/dL AST (14-36) U/L ALT (4-34) U/L Alkaline Phosphatase (38-126) U/L Total Protein (6.3-8.2) g/dL Albumin (3.5-5.0) g/dL Amylase (30-110) U/L Lipase (23-300) U/L Urine Color Urine Appearance (Clear) Urine pH (5.0-8.0) Ur Specific [place] (1.001-1.035) Urine Protein (Negative) Urine Glucose (UA) (Negative) Urine Ketones (Negative) Urine Blood (Negative) Urine Nitrite (Negative) Urine Bilirubin (Negative) Urine Urobilinogen (<2.0) mg/dL Ur Leukocyte Esterase (Negative) Urine RBC (0-5) /hpf Urine WBC (0-5) /hpf Ur Squamous Epith Cells (0-4) /hpf Urine Mucus (None) /hpf Disposition Clinical Impression: Abdominal pain, Constipation Disposition: HOME SELF-CARE Condition: Good Instructions (If sedation given, give patient instructions): Constipation (DC), High Fiber Diet (ED) Additional Instructions: Please return to the Emergency Department if symptoms worsen or any other concerns. Is patient prescribed a controlled substance at d/c from ED?: No Referrals: Scout Bonner MD [Primary Care Provider] - 1-2 days Time of Disposition: 13:15
[2024-03-02 09:54] LABS: Basophils % (A) 0 %; Eosinophils # (A) 0.4 k/uL (0-0.7); Eosinophils % (A) 5 %; HCT 41.4 % (34.0-46.0); HGB 13.6 gm/dL (11.4-16.0); Lymphocytes # (A) 1.4 k/uL (1.0-4.8); Lymphocytes % (A) 21 %; MCH 32.2 pg (25.0-35.0); MCHC 32.7 g/dL (31.0-37.0); MCV 98.3 fL (80.0-100.0); Mean Platelet Volume 6.7; Monocytes # (A) 0.4 k/uL (0-1.0); Monocytes % (A) 6 %; Neutrophils # (A) 4.6 k/uL (1.3-7.7); Neutrophils % (A) 67 %; Platelet Count 331 k/uL (150-450); RBC 4.21 m/uL (3.80-5.40); RDW 13.4 % (11.5-15.5)
[2024-03-02 10:01] LABS: Appearance,Urine Clear (Clear); Bilirubin,Urine Negative (Negative); Blood,Urine Moderate (Negative); Color,Urine Colorless; Glucose,Urine (UA) Negative (Negative); Ketones,Urine Negative (Negative); Leukocyte Esterase,Urine Negative (Negative); Mucus,Urine Rare /hpf; Nitrite,Urine Negative (Negative); PH, Urine 7.5 (5.0-8.0); Protein,Urine Negative (Negative); RBC,Urine 15 /hpf (0-5); Specific Gravity,Urine 1.006 (1.001-1.035); Squamous Epithelial Cell,Urine <1 /hpf (0-4); Urobilinogen,Urine <2.0 mg/dL (<2.0); WBC,Urine 1 /hpf (0-5)
[2024-03-02 10:05] LABS: ALT 13 U/L (4-34); AST 30 U/L (14-36); African American GFR (CKD) >90 (>60 ml/min/1.73 sqM); Albumin 4.1 g/dL (3.5-5.0); Alkaline Phosphatase 35 U/L (38-126); Amylase 124 U/L (30-110); Anion Gap 6 mmol/L; Blood Urea Nitrogen 15 mg/dL (7-17); Calcium 9.4 mg/dL (8.4-10.2); Carbon Dioxide 34 mmol/L (22-30); Chloride 99 mmol/L (98-107); Glucose 80 mg/dL (74-99); Lipase 235 U/L (23-300); Non-African American GFR(CKD) 85 (>60 ml/min/1.73 sqM); Potassium 3.4 mmol/L (3.5-5.1); Sodium 139 mmol/L (137-145); Total Protein 7.7 g/dL (6.3-8.2)
--- NOTE | 2024-03-02 11:05 | CT ---
EXAMINATION TYPE: CT abdomen pelvis w con DATE OF EXAM: 03/02/2024 COMPARISON: 03/29/2021 HISTORY: RLQ PAIN CT DLP: 568.1 mGycm Automated exposure control for dose reduction was used. TECHNIQUE: Helical acquisition of images was performed from the lung bases through the pelvis. CONTRAST: Performed without Oral Contrast and with IV Contrast, patient injected with 100 mL of Isovue 300. FINDINGS: The lung bases are clear. The gallbladder is normal without distention, wall thickening, pericholecystic fluid or gallstones. T here is no biliary ductal dilatation. There is no focal mass or organomegaly involving the liver, pancreas, spleen or adrenal glands. There is no solid renal mass or hydronephrosis and there is homogeneous contrast enhancement of the r enal parenchyma. The caliber the abdominal aorta is normal is no retroperitoneal adenopathy or hemorr char. The bowel loops are normal in caliber and there is no evidence of dilatation or obstruction. No infla mmatory changes are identified in the bowel wall or mesentery. There is a large amount stool within t he transverse and right colon There is no free intraperitoneal air or fluid. No pelvic mass, free fluid, abscess or adenopathy. The osseous structures and soft tissues are intact. IMPRESSION: 1. No acute changes within the abdomen or pelvis. 2. Large amount of stool within the transverse and right colon [facility], , 03/02/2024 11:02 AM
[2024-03-02] MEDS ORDERED: [UNRECOGNIZED DRUG - OTHER] RECTAL STA (11:13)
[2024-03-02 12:35] VITALS: RESP 18; TEMP 97.6
[2024-03-02] MEDS: GLYCERIN ADULT SUPPOSITORY 1 EACH RECTAL STA (12:36)
[2024-03-02] MEDS ORDERED: MAGNESIUM HYDROXIDE 2,400 MG/30 ML CUP PO PRN (13:15)
[2024-03-02 13:54] VITALS: BP 163/81; PULSE 84
== END 2024-03-02 14:02 | disposition home or self-care (01) ==
LOC: EC 08:59
CPT/HCPCS: 36415; 74177; 80053; 81001; 82150; 83605; 83690; 85025; 99284

== ENCOUNTER 2024-04-02 11:38 | Emergency (ER) | payer MEDICARE ==
[2024-04-02 11:45] VITALS: RESP 20
[2024-04-02 11:47] VITALS: TEMP 97.7
--- NOTE | 2024-04-02 13:16 | ED ---
General Adult HPI - General Chief complaint: Fall Stated complaint: Syncope Time Seen by Provider: 04/02/24 12:00 Source: patient, EMS, RN notes reviewed, old records reviewed Mode of arrival: EMS Limitations: no limitations - History of Present Illness Initial comments: This is a 78-year-old female who presents to the emergency department after having had a syncopal episode. Patient states she had a colonoscopy's morning had not eaten or drank anything and she was getting up at home she felt dizzy and then fell down and hit the back of her head. Patient denies a headache. Patient denies any neck pain. Patient has numbness weakness. Patient Nuys back pain chest pain or abdominal pain. Patient Nuys any extremity pain. Patient has no other complaints aside from the fact that she passed out after she felt lightheaded. - Related Data Home Medications Medication Instructions Recorded Confirmed Aspirin 81 mg PO DAILY@1200 11/03/13 04/02/24 Fludrocortisone [Florinef] 0.05 mg PO MOWEFR 11/03/13 04/02/24 Hydrocortisone [Cortef] 20 mg PO HS 11/03/13 04/02/24 Levothyroxine Sodium [Synthroid] 88 mcg PO DAILY 11/03/13 04/02/24 Atorvastatin [Lipitor] 10 mg PO DAILY 12/26/20 04/02/24 Hydrocortisone [Cortef] 10 - 20 mg PO BID PRN 12/26/20 04/02/24 Hydrocortisone [Cortef] 10 mg PO DAILY 12/26/20 04/02/24 Cholecalciferol (Vitamin D3) 125 mcg PO DAILY@1200 03/29/21 04/02/24 [Vitamin D3 (125 MCG = 5,000 IU)] Albuterol Inhaler [Ventolin Hfa 2 puff INHALATION RT-Q4H PRN 04/02/24 04/02/24 Inhaler] Donepezil [Aricept] 10 mg PO HS 04/02/24 04/02/24 Ibandronate Sodium [Boniva] 150 mg PO Q30D 04/02/24 04/02/24 Lactulose 20 gm PO HS PRN 04/02/24 04/02/24 Latanoprost [Latanoprost 0.005%] 1 drop BOTH EYES HS 04/02/24 04/02/24 Pantoprazole [Protonix] 40 mg PO DAILY 04/02/24 04/02/24 Allergies Allergy/AdvReac Type Severity Reaction Status Date / Time sulfacetamide sodium Allergy Intermediate Rash/Hives Verified 04/02/24 12:42 [From Sulfamide] alendronate sodium Allergy Unknown Verified 04/02/24 12:42 [From Fosamax] azithromycin Allergy Rash/Hives Verified 04/02/24 12:42 [From Zithromax Z-Benito] ciprofloxacin [From Cipro] Allergy Unknown Verified 04/02/24 12:42 doxycycline Allergy Unknown Verified 04/02/24 12:42 hydrocodone Allergy Unknown Verified 04/02/24 12:42 naproxen [From Naprosyn] Allergy Unknown Verified 04/02/24 12:42 Penicillins Allergy Rash/Hives Verified 04/02/24 12:42 Sulfa (Sulfonamide Allergy Rash/Hives Verified 04/02/24 12:42 Antibiotics) tramadol Allergy Unknown Verified 04/02/24 12:42 morphine AdvReac Severe Unknown Verified 04/02/24 12:42 Review of Systems ROS Statement: Those systems with pertinent positive or pertinent negative responses have been documented in the HPI. ROS Other: All systems not noted in ROS Statement are negative. Past Medical History Past Medical History: Eye Disorder, Hearing Disorder / Deafness, Osteoarthritis (OA), Pneumonia, Respiratory Disorder, Seizure Disorder, Syncope, Thyroid Disorder Additional Past Medical History / Comment(s): Pulmonary fibrosis upper lobe predominance mainly involving the right lung, sneha's disease with past crisis, hypothyroid, pt states she had seizure as a child and once in 2013 after receiving morphine, recent R hip pain-past 3 weeks, chronic low back pain, allergic rhinitis, hiatal hernia, bilateral glaucoma, QUILEUTE bilaterally with L ear worse. History of Any Multi-Drug Resistant Organisms: None Reported Past Surgical History: Back Surgery, Section, Joint Replacement, Orthopedic Surgery, Tubal Ligation Additional Past Surgical History / Comment(s): Bilateral total knee arthroplasties, low back radiofrequency ablations, bilateral carpal tunnel releases, bronchoscopy, R eye biopsy-pt does not know reason. Past Anesthesia/Blood Transfusion Reactions: No Reported Reaction Additional Past Anesthesia/Blood Transfusion Reaction / Comment(s): Pt states she received blood in past without reaction. Past Psychological History: No Psychological Hx Reported Smoking Status: Never smoker Past Alcohol Use History: None Reported Past Drug Use History: None Reported - Past Family History Mother Family Medical History: Musculoskeletal Disorder, Neurologic Disorder, Seizure Disorder Additional Family Medical History / Comment(s): Mother had parkinson's. She lived to be 93 yrs old. Pt states mother had epilepsy. Daughter(s) Additional Family Medical History / Comment(s): She has 3 children with no major medical problems. Father Family Medical History: Cancer Additional Family Medical History / Comment(s): Father at age 79 from lung cancer. General Exam - General Exam Comments Initial Comments: GENERAL: Patient is well-developed and well-nourished. Patient is nontoxic and well- hydrated and is in no acute distress ENT: Neck is soft and supple. No significant lymphadenopathy is noted. Oropharynx is clear. Moist mucous membranes. Neck has full range of motion without eliciting any pain. EYES: The sclera were anicteric and conjunctiva were pink and moist. Extraocular movements were intact and pupils were equal round and reactive to light. Eyelids were unremarkable. PULMONARY: Unlabored respirations. Good breath sounds bilaterally. No audible rales rhonchi or wheezing was noted. CARDIOVASCULAR: There is a regular rate and rhythm without any murmurs gallops or rubs. ABDOMEN: Soft and nontender with normal bowel sounds. SKIN: Skin is clear with no lesions or rashes and otherwise unremarkable. NEUROLOGIC: Patient is alert and oriented x3. Cranial nerves II through XII are grossly intact. Motor and sensory are also intact. Normal speech, volume and content. Symmetrical smile. MUSCULOSKELETAL: Normal extremities with adequate strength and full range of motion. No lower extremity swelling or edema. No calf tenderness. LYMPHATICS: No significant lymphadenopathy is noted PSYCHIATRIC: Normal psychiatric evaluation. Limitations: no limitations Course Vital Signs 04/02/24 04/02/24 11:40 14:10 Temperature 97.7 F Pulse Rate 79 82 Respiratory 20 20 Rate Blood Pressure 126/61 134/68 O2 Sat by Pulse 96 98 Oximetry Medical Decision Making - Medical Decision Making EKG is interpreted by myself read EKG shows a sinus rhythm at 79 bpm KS was 124 QRS is 138 QT interval is 418 QTc is 452 EKG shows a right bundle branch block there is no ST segment ovation or depression Was pt. sent in by a medical professional or institution (, PA, [facility], urgent care, hospital, or fdc...) When possible be specific @ -No Did you speak to anyone other than the patient for history (EMS, parent, family, police, friend...)? What history was obtained from this source @ -No Did you review nursing and triage notes (agree or disagree)? Why? @ -I reviewed and agree with nursing and triage notes Were old charts reviewed (outside hosp., previous admission, EMS record, old EKG, old radiological studies, urgent care reports/EKG's, fdc records)? Report findings @ -No old charts were reviewed Differential Diagnosis? @ -Skull fracture, cervical spine fracture, intracranial hemorrhage, subdural, this is not an all-inclusive list EKG interpreted by me (3pts min.). @ -As above X-rays interpreted by me (1pt min.). @ -None done CT interpreted by me (1pt min.). @ -CT of the brain shows no acute abnormality. CT of the C-spine shows no acute abnormality. U/S interpreted by me (1pt. min.). @ -None done What testing was considered but not performed or refused? (CT, X-rays, U/S, labs)? Why? @ -None What meds were considered but not given or refused? Why? @ -None Did you discuss the management of the patient with other professionals (professionals i.e. , PA, [employer], lab, RT, psych nurse, certified social workers in health care, kindergarten instructional assistant, teacher, child support case officer, comp field case manager)? Give summary @ -No Was smoking cessation discussed for >3mins.? @ -No Was critical care preformed (if so, how long)? @ -No Were there social determinants of health that impacted care today? How? (Homelessness, low income, unemployed, alcoholism, drug addiction, transportation, low edu. Level, literacy, decrease access to med. care, residential, rehab)? @ -No Was there de-escalation of care discussed even if they declined (Discuss DNR or withdrawal of care, Hospice)? DNR status @ -No What co-morbidities impacted this encounter? (DM, HTN, Smoking, COPD, CAD, Cancer, CVA, ARF, Chemo, Hep., AIDS, mental health diagnosis, sleep apnea, morb id obesity)? @ -None Was patient admitted / discharged? Hospital course, mention meds given and rout e, prescriptions, significant lab abnormalities, going to OR and other pertinent info. @ -Patient's CAT scans were normal. Patient was able to get up and ambulate and she had no complaints at this time. Patient's blood pressure was stable. Undiagnosed new problem with uncertain prognosis? @ -No Drug Therapy requiring intensive monitoring for toxicity (Heparin, Nitro, Insulin, Cardizem)? @ -No Were any procedures done? @ -No Diagnosis/symptom? @ -Syncopal episode Acute, or Chronic, or Acute on Chronic? @ -Acute Uncomplicated (without systemic symptoms) or Complicated (systemic symptoms)? @ -Complicated Side effects of treatment? @ -No Exacerbation, Progression, or Severe Exacerbation? @ -No Poses a threat to life or bodily function? How? (Chest pain, [place], [place], pneumonia, PE, COPD, DKA, ARF, appy, cholecystitis, CVA, Diverticulitis, Homicidal, Suicidal, threat to staff... and all critical care pts) @ -No Diagnosis/symptom? @ -Fall Acute, or Chronic, or Acute on Chronic? @ -Acute Uncomplicated (without systemic symptoms) or Complicated (systemic symptoms)? @ -Uncomplicated Side effects of treatment? @ -None Exacerbation, Progression, or Severe Exacerbation] @ -No Poses a threat to life or bodily function? @ -No - Lab Data Result diagrams: 04/02/24 13:16 04/02/24 13:16 Lab Results 04/02/24 04/02/24 Range/Units 13:16 13:16 WBC 10.0 (3.8-10.6) k/uL RBC 4.13 (3.80-5.40) m/uL Hgb 13.8 (11.4-16.0) gm/dL Hct 40.5 (34.0-46.0) % MCV 98.2 (80.0-100.0) fL MCH 33.5 (25.0-35.0) pg MCHC 34.2 (31.0-37.0) g/dL RDW 13.4 (11.5-15.5) % Plt Count 299 (150-450) k/uL MPV 7.3 Neutrophils % 67 % Lymphocytes % 21 % Monocytes % 8 % Eosinophils % 2 % Basophils % 1 % Neutrophils # 6.7 (1.3-7.7) k/uL Lymphocytes # 2.1 (1.0-4.8) k/uL Monocytes # 0.8 (0-1.0) k/uL Eosinophils # 0.2 (0-0.7) k/uL Basophils # 0.1 (0-0.2) k/uL Sodium 138 (137-145) mmol/L Potassium 3.3 L (3.5-5.1) mmol/L Chloride 94 L (98-107) mmol/L Carbon Dioxide 40 H (22-30) mmol/L Anion Gap 4 mmol/L BUN 13 (7-17) mg/dL Creatinine 0.70 (0.52-1.04) mg/dL Est GFR (CKD-EPI)AfAm >90 (>60 ml/min/1.73 sqM) Est GFR (CKD-EPI)NonAf 84 (>60 ml/min/1.73 sqM) Glucose 86 (74-99) mg/dL Calcium 8.1 L (8.4-10.2) mg/dL Magnesium 1.9 (1.6-2.3) mg/dL Total Bilirubin 1.7 H (0.2-1.3) mg/dL AST 46 H (14-36) U/L ALT 17 (4-34) U/L Alkaline Phosphatase <20 L (38-126) U/L Total Protein 7.2 (6.3-8.2) g/dL Albumin 3.7 (3.5-5.0) g/dL Disposition Clinical Impression: Fall, Syncope, Head injury Disposition: HOME SELF-CARE Condition: Good Instructions (If sedation given, give patient instructions): Fall Prevention for Older Adults (ED), Hypotension (ED), Syncope (ED), Head Injury (ED) Is patient prescribed a controlled substance at d/c from ED?: No Referrals: Scout Bonner MD [Primary Care Provider] - 1-2 days Time of Disposition: 14:47
[2024-04-02 13:30] LABS: Basophils # (A) 0.1 k/uL (0-0.2); Basophils % (A) 1 %; Eosinophils # (A) 0.2 k/uL (0-0.7); Eosinophils % (A) 2 %; HCT 40.5 % (34.0-46.0); HGB 13.8 gm/dL (11.4-16.0); Lymphocytes # (A) 2.1 k/uL (1.0-4.8); Lymphocytes % (A) 21 %; MCH 33.5 pg (25.0-35.0); MCHC 34.2 g/dL (31.0-37.0); MCV 98.2 fL (80.0-100.0); Mean Platelet Volume 7.3; Monocytes # (A) 0.8 k/uL (0-1.0); Monocytes % (A) 8 %; Neutrophils # (A) 6.7 k/uL (1.3-7.7); Neutrophils % (A) 67 %; Platelet Count 299 k/uL (150-450); RBC 4.13 m/uL (3.80-5.40); RDW 13.4 % (11.5-15.5)
--- NOTE | 2024-04-02 13:41 | CT ---
EXAMINATION TYPE: CT brain cspine wo con CT DLP: 1237.5 mGycm, Automated exposure control for dose reduction was used. DATE OF EXAM: 04/02/2024 1:27 PM COMPARISON: MRI brain 12/27/2022, CT Brain and cspine 04/02/2020. CLINICAL INDICATION:Female, 78 years old with history of Trauma; FALL TECHNIQUE: Brain: Multiple axial CT images of the brain were obtained without IV contrast. Cspine: Axial CT images from the skull base to the inferior aspect of T2 we obtained without intraven ous contrast. Coronal and sagittal reformatted images were also reviewed. FINDINGS: Brain: Extra-axial spaces: No abnormal extra-axial fluid collections. Ventricular system: Dilatation in proportion to cerebral atrophy. Cerebral parenchyma: Mild cerebral volume loss. Septum pellucidum vergae. No acute intraparenchymal h emorrhage or mass effect. The velez-white junction is well differentiated. Scattered hypoattenuating areas are seen within the periventricular white matter. Cerebellum: Unremarkable. Mass effect: No evidence of midline shift. Intracranial vasculature: Atherosclerotic calcifications of the intracranial vessels. Soft tissues: Normal. Calvarium/osseous structures: No depressed skull fracture. Paranasal sinuses and mastoid air cells: The left mastoid air cells are clear. Chronic inferior right mastoid effusion with hypertrophic changes. The remaining paranasal sinuses are clear. Visualized orbits: Bilateral aphakia Cervical spine: Fracture: None. Osseous structures: Multilevel degenerative disc disease changes with endplate spurring and disc oste ophyte complex's. Vertebral alignment: Within normal limits. Spinal canal/Neural Foramina: Disc osteophyte complexes at C3-C4, C4-C5, C5-C6, C6-C7, and C7-T1 with at least mild spinal canal stenosis. Facet joint uncovertebral joint arthropathy scattered throughou t the cervical spine with varying degrees of neural foraminal stenosis. Neck soft tissues: Prevertebral soft tissues are within normal limits. Other: The airway is patent. Bilateral carotid bulb calcifications. Redemonstration of bilateral apic al pleural-parenchymal scarring and bronchiectasis changes. Consistent with known pulmonary fibrotic changes. IMPRESSION: 1. No acute intracranial process. 2. Nonspecific white matter changes, likely secondary to chronic small vessel ischemic disease. 3. No evidence of cervical spine fracture. 4. Mild to moderate multilevel degenerative disc disease. 5. Pulmonary fibrotic changes redemonstrated. [facility], , 04/02/2024 1:38 PM
[2024-04-02 13:56] LABS: ALT 17 U/L (4-34); African American GFR (CKD) >90 (>60 ml/min/1.73 sqM); Albumin 3.7 g/dL (3.5-5.0); Anion Gap 4 mmol/L; Blood Urea Nitrogen 13 mg/dL (7-17); Calcium 8.1 mg/dL (8.4-10.2); Carbon Dioxide 40 mmol/L (22-30); Chloride 94 mmol/L (98-107); Glucose 86 mg/dL (74-99); Non-African American GFR(CKD) 84 (>60 ml/min/1.73 sqM); Sodium 138 mmol/L (137-145); Total Bilirubin 1.7 mg/dL (0.2-1.3); Total Protein 7.2 g/dL (6.3-8.2)
[2024-04-02 14:04] LABS: AST 46 U/L (14-36); Alkaline Phosphatase <20 U/L (38-126); Magnesium 1.9 mg/dL (1.6-2.3); Potassium 3.3 mmol/L (3.5-5.1)
[2024-04-02 14:11] VITALS: BP 134/68; PULSE 82
[2024-04-02] MEDS: POTASSIUM CHLORIDE ER 20 MEQ TAB.ER PO STA (14:27)
== END 2024-04-02 14:59 | disposition home or self-care (01) ==
LOC: EC 11:38
DX: S09.90XA Unspecified injury of head, initial encounter (principal); R55 Syncope and collapse; Z88.0 Allergy status to penicillin; Z88.1 Allergy status to other antibiotic agents; Z88.2 Allergy status to sulfonamides; Z88.5 Allergy status to narcotic agent; Z88.6 Allergy status to analgesic agent; Z88.8 Allergy status to other drugs, medicaments and biological substances; W18.30XA Fall on same level, unspecified, initial encounter; Y92.009 Unspecified place in unspecified non-institutional (private) residence as the place of occurrence of the external cause
CPT/HCPCS: 36415; 70450; 72125; 80053; 83735; 85025; 99285

== ENCOUNTER 2024-05-05 18:40 | Inpatient (IN) | payer MEDICARE ==
--- NOTE | 2024-05-05 18:57 | ED ---
SOB HPI - General Chief Complaint: Shortness of Breath Stated Complaint: SOB Time Seen by Provider: 05/05/24 18:56 Source: patient, family, RN notes reviewed, old records reviewed, Caregiver Mode of arrival: wheelchair Limitations: no limitations - History of Present Illness Initial Comments: This is a 78-year-old female who is brought in by family for increased respiratory rate the noticed patient having a difficult time breathing today but he only takes her oxygen at home because she does have history of underlying lung disease. Oxygen has been normal. They are concerned about her respiratory rate think that she may be having anxiety but are unsure MD Complaint: shortness of breath, cough, "asthma attack", anxiety -: hour(s) Severity: severe Severity scale (1-10): 9 Consistency: constant Improves With: nothing Known History Of: COPD, asthma Associated Symptoms: cough, palpitations Treatments Prior to Arrival: none - Related Data Home Medications Medication Instructions Recorded Confirmed Aspirin 81 mg PO DAILY@1200 11/03/13 04/02/24 Fludrocortisone [Florinef] 0.05 mg PO MOWEFR 11/03/13 04/02/24 Hydrocortisone [Cortef] 20 mg PO HS 11/03/13 04/02/24 Levothyroxine Sodium [Synthroid] 88 mcg PO DAILY 11/03/13 04/02/24 Atorvastatin [Lipitor] 10 mg PO DAILY 12/26/20 04/02/24 Hydrocortisone [Cortef] 10 - 20 mg PO BID PRN 12/26/20 04/02/24 Hydrocortisone [Cortef] 10 mg PO DAILY 12/26/20 04/02/24 Cholecalciferol (Vitamin D3) 125 mcg PO DAILY@1200 03/29/21 04/02/24 [Vitamin D3 (125 MCG = 5,000 IU)] Albuterol Inhaler [Ventolin Hfa 2 puff INHALATION RT-Q4H PRN 04/02/24 04/02/24 Inhaler] Donepezil [Aricept] 10 mg PO HS 04/02/24 04/02/24 Ibandronate Sodium [Boniva] 150 mg PO Q30D 04/02/24 04/02/24 Lactulose 20 gm PO HS PRN 04/02/24 04/02/24 Latanoprost [Latanoprost 0.005%] 1 drop BOTH EYES HS 04/02/24 04/02/24 Pantoprazole [Protonix] 40 mg PO DAILY 04/02/24 04/02/24 Allergies Allergy/AdvReac Type Severity Reaction Status Date / Time sulfacetamide sodium Allergy Intermediate Rash/Hives Verified 05/05/24 18:46 [From Sulfamide] alendronate sodium Allergy Unknown Verified 05/05/24 18:46 [From Fosamax] azithromycin Allergy Rash/Hives Verified 05/05/24 18:46 [From Zithromax Z-Benito] ciprofloxacin [From Cipro] Allergy Unknown Verified 05/05/24 18:46 doxycycline Allergy Unknown Verified 05/05/24 18:46 hydrocodone Allergy Unknown Verified 05/05/24 18:46 naproxen [From Naprosyn] Allergy Unknown Verified 05/05/24 18:46 Penicillins Allergy Rash/Hives Verified 05/05/24 18:46 Sulfa (Sulfonamide Allergy Rash/Hives Verified 05/05/24 18:46 Antibiotics) tramadol Allergy Unknown Verified 05/05/24 18:46 morphine AdvReac Severe Unknown Verified 05/05/24 18:46 Review of Systems ROS Statement: Those systems with pertinent positive or pertinent negative responses have been documented in the HPI. ROS Other: All systems not noted in ROS Statement are negative. Past Medical History Past Medical History: Eye Disorder, Hearing Disorder / Deafness, Osteoarthritis (OA), Pneumonia, Respiratory Disorder, Seizure Disorder, Syncope, Thyroid Disorder Additional Past Medical History / Comment(s): Pulmonary fibrosis upper lobe pred ominance mainly involving the right lung, sneha's disease with past crisis, hypothyroid, pt states she had seizure as a child and once in 2013 after receiving morphine, recent R hip pain-past 3 weeks, chronic low back pain, allergic rhinitis, hiatal hernia, bilateral glaucoma, [place] bilaterally with L ear worse. History of Any Multi-Drug Resistant Organisms: None Reported Past Surgical History: Back Surgery, Section, Joint Replacement, Orthopedic Surgery, Tubal Ligation Additional Past Surgical History / Comment(s): Bilateral total knee arthroplasties, low back radiofrequency ablations, bilateral carpal tunnel releases, bronchoscopy, R eye biopsy-pt does not know reason. Past Anesthesia/Blood Transfusion Reactions: No Reported Reaction Additional Past Anesthesia/Blood Transfusion Reaction / Comment(s): Pt states she received blood in past without reaction. Past Psychological History: No Psychological Hx Reported Smoking Status: Never smoker Past Alcohol Use History: None Reported Past Drug Use History: None Reported - Past Family History Mother Family Medical History: Musculoskeletal Disorder, Neurologic Disorder, Seizure Disorder Additional Family Medical History / Comment(s): Mother had parkinson's. She lived to be 93 yrs old. Pt states mother had epilepsy. Daughter(s) Additional Family Medical History / Comment(s): She has 3 children with no major medical problems. Father Family Medical History: Cancer Additional Family Medical History / Comment(s): Father at age 79 from lung cancer. General Exam Limitations: no limitations General appearance: alert, in no apparent distress Head exam: Present: atraumatic, normocephalic, normal inspection Eye exam: Present: normal appearance, PERRL, EOMI. Absent: scleral icterus, conjunctival injection, periorbital swelling ENT exam: Present: normal exam, mucous membranes moist Neck exam: Present: normal inspection. Absent: tenderness, meningismus, lymphadenopathy Respiratory exam: Present: normal lung sounds bilaterally. Absent: respiratory distress, wheezes, rales, rhonchi, stridor Cardiovascular Exam: Present: regular rate, normal rhythm, normal heart sounds. Absent: systolic murmur, diastolic murmur, rubs, gallop, clicks GI/Abdominal exam: Present: soft, normal bowel sounds. Absent: distended, tenderness, guarding, rebound, rigid Extremities exam: Present: normal inspection, full ROM, normal capillary refill. Absent: tenderness, pedal edema, joint swelling, calf tenderness Back exam: Present: normal inspection Neurological exam: Present: alert, oriented X3, CN II-XII intact Psychiatric exam: Present: normal affect, normal mood Skin exam: Present: warm, dry, intact, normal color. Absent: rash Course Vital Signs 05/05/24 05/05/24 05/05/24 18:46 19:39 19:51 Temperature 97.7 F Pulse Rate 95 81 79 Respiratory 42 H 20 Rate Blood Pressure 129/65 134/65 O2 Sat by Pulse 100 97 Oximetry 05/05/24 19:58 Temperature Pulse Rate 84 Respiratory Rate Blood Pressure O2 Sat by Pulse Oximetry - Reevaluation(s) Reevaluation #1: 05/05/24 19:40 Medical record is reviewed Reevaluation #2: 05/05/24 20:31 Patient symptoms are unchanged here in the ER so increased respiratory rate with normal oxygen levels Reevaluation #3: 05/05/24 20:31 Patient informed of results and questions answered Reevaluation #4: Was pt. sent in by a medical professional or institution (MARY Malin, ASSEMBLY LEAD PERSON, urgent care, hospital, or fdc...) When possible be specific @ -no Did you speak to anyone other than the patient for history (EMS, parent, family, police, friend...)? What history was obtained from this source @ -no Did you review nursing and triage notes (agree or disagree)? Why? @ -agree Are old charts reviewed (outside hosp., previous admission, EMS record, old EKG, old radiological studies, urgent care reports/EKG's, fdc records)? Report findings @ -yes Differential Diagnosis (chest pain, altered mental status, abdominal pain women, abdominal pain men, vaginal bleeding, weakness, fever, dyspnea, syncope, headac he, dizziness, GI bleed, back pain, seizure, CVA, palpatations, mental health, musculoskeletal)? @ -prior EKG interpreted by me (3pts min.). @ -yes X-rays interpreted by me (1pt min.). @ -yes negative for acute disease CT interpreted by me (1pt min.). @ -no U/S interpreted by me (1pt. min.). @ -no What testing was considered but not performed or refused? (CT, X-rays, U/S, labs)? Why? @ -none What meds were considered but not given or refused? Why? @ -none Did you discuss the management of the patient with other professionals (professionals i.e. MARY Malin, ASSEMBLY LEAD PERSON, lab, RT, psych nurse, manager social, prop sawyer, teacher, parking regulation enforcement officer, manager of case)? Give summary @ -no Was smoking cessation discussed for >3mins.? @ -no Was critical care preformed (if so, how long)? @ -no Were there social determinants of health that impacted care today? How? (Homelessness, low income, unemployed, alcoholism, drug addiction, transportation, low edu. Level, literacy, decrease access to med. care, prison, rehab)? @ -none Was there de-escalation of care discussed even if they declined (Discuss DNR or withdrawal of care, Hospice)? DNR status @ -no What co-morbidities impacted this encounter? (DM, HTN, Smoking, COPD, CAD, Cancer, CVA, ARF, Chemo, Hep., AIDS, mental health diagnosis, sleep apnea, morbi d obesity)? @ -none Was patient admitted / discharged? Hospital course, mention meds given and rout e, prescriptions, significant lab abnormalities, going to OR and other pertinent info. @ - Undiagnosed new problem with uncertain prognosis? @ -no Drug Therapy requiring intensive monitoring for toxicity (Heparin, Nitro, Insulin, Cardizem)? @ -no Were any procedures done? @ -no Diagnosis/symptom? @ - Acute, or Chronic, or Acute on Chronic? @ -Acute Uncomplicated (without systemic symptoms) or Complicated (systemic symptoms)? @ -Complicated Side effects of treatment? @ -no Exacerbation, Progression, or Severe Exacerbation? @ -exacerbation Poses a threat to life or bodily function? How? (Chest pain, [place], [place], pneumonia, PE, COPD, DKA, ARF, appy, cholecystitis, CVA, Diverticulitis, Homicidal, Suicidal, threat to staff... and all critical care pts) @ -yes Reevaluation #5: Differential Dyspnea: Coronary syndrome, arrhythmia, tamponade, asthma, COPD, pulmonary embolism, pneumonia, pneumothorax, pulmonary effusion, anaphylaxis, diabetic ketoacidosis, flailed chest, pulmonary contusion, diaphragmatic rupture, anemia, neuromuscular, this is not meant to be an all-inclusive list. - Consultations Consultation #1: Spoke with [facility] to admit this patient Medical Decision Making - Medical Decision Making 78 female will be admitted for severe history of lung disease pulmonary fibrosis COPD, CO2 retainer on home O2 coming in for shortness of breath normal pulse o xygenation and severe anxiety - Lab Data Result diagrams: 05/05/24 19:07 05/05/24 19:07 Lab Results 05/05/24 05/05/24 05/05/24 Range/Units 19: 19: 19:07 WBC 9.6 (3.8-10.6) k/uL RBC 4.27 (3.80-5.40) m/uL Hgb 13.9 (11.4-16.0) gm/dL Hct 41.3 (34.0-46.0) % MCV 96.8 (80.0-100.0) fL MCH 32.5 (25.0-35.0) pg MCHC 33.6 (31.0-37.0) g/dL RDW 13.3 (11.5-15.5) % Plt Count 380 (150-450) k/uL MPV 6.9 Neutrophils % 75 % Lymphocytes % 16 % Monocytes % 7 % Eosinophils % 1 % Basophils % 0 % Neutrophils # 7.2 (1.3-7.7) k/uL Lymphocytes # 1.5 (1.0-4.8) k/uL Monocytes # 0.7 (0-1.0) k/uL Eosinophils # 0.1 (0-0.7) k/uL Basophils # 0.0 (0-0.2) k/uL PT 10.3 (10.0-12.5) sec INR 0.9 (<1.2) APTT 22.7 (22.0-30.0) sec D-Dimer 0.37 (<0.60) mg/L FEU VBG pH (7.31-7.41) VBG pCO2 (37-51) mmHg VBG HCO3 (24-28) mmol/L Sodium 138 (137-145) mmol/L Potassium 2.6 L* (3.5-5.1) mmol/L Chloride 97 L (98-107) mmol/L Carbon Dioxide 38 H (22-30) mmol/L Anion Gap 3 mmol/L BUN 17 (7-17) mg/dL Creatinine 0.84 (0.52-1.04) mg/dL Est GFR (CKD-EPI)AfAm 78 (>60 ml/min/1.73 sqM) Est GFR (CKD-EPI)NonAf 67 (>60 ml/min/1.73 sqM) Glucose 115 H (74-99) mg/dL Plasma Lactic Acid Steven (0.7-2.0) mmol/L Calcium 8.3 L (8.4-10.2) mg/dL Magnesium 1.9 (1.6-2.3) mg/dL Total Bilirubin 0.7 (0.2-1.3) mg/dL AST 26 (14-36) U/L ALT 17 (4-34) U/L Alkaline Phosphatase 51 (38-126) U/L Troponin I (0.000-0.034) ng/mL NT-Pro-B Natriuret Pep 337 pg/mL Total Protein 7.0 (6.3-8.2) g/dL Albumin 3.8 (3.5-5.0) g/dL 05/05/24 05/05/24 05/05/24 Range/Units 19:07 19:07 19:31 WBC (3.8-10.6) k/uL RBC (3.80-5.40) m/uL Hgb (11.4-16.0) gm/dL Hct (34.0-46.0) % MCV (80.0-100.0) fL MCH (25.0-35.0) pg MCHC (31.0-37.0) g/dL RDW (11.5-15.5) % Plt Count (150-450) k/uL MPV Neutrophils % % Lymphocytes % % Monocytes % % Eosinophils % % Basophils % % Neutrophils # (1.3-7.7) k/uL Lymphocytes # (1.0-4.8) k/uL Monocytes # (0-1.0) k/uL Eosinophils # (0-0.7) k/uL Basophils # (0-0.2) k/uL PT (10.0-12.5) sec INR (<1.2) APTT (22.0-30.0) sec D-Dimer (<0.60) mg/L FEU VBG pH 7.52 H (7.31-7.41) VBG pCO2 46 (37-51) mmHg VBG HCO3 37 H (24-28) mmol/L Sodium (137-145) mmol/L Potassium (3.5-5.1) mmol/L Chloride (98-107) mmol/L Carbon Dioxide (22-30) mmol/L Anion Gap mmol/L BUN (7-17) mg/dL Creatinine (0.52-1.04) mg/dL Est GFR (CKD-EPI)AfAm (>60 ml/min/1.73 sqM) Est GFR (CKD-EPI)NonAf (>60 ml/min/1.73 sqM) Glucose (74-99) mg/dL Plasma Lactic Acid Steven 2.2 H* (0.7-2.0) mmol/L Calcium (8.4-10.2) mg/dL Magnesium (1.6-2.3) mg/dL Total Bilirubin (0.2-1.3) mg/dL AST (14-36) U/L ALT (4-34) U/L Alkaline Phosphatase (38-126) U/L Troponin I <0.012 (0.000-0.034) ng/mL NT-Pro-B Natriuret Pep pg/mL Total Protein (6.3-8.2) g/dL Albumin (3.5-5.0) g/dL - Radiology Data Radiology results: report reviewed (Chest x-ray with chronic changes), image reviewed Disposition Clinical Impression: Interstitial lung disease, Acute exacerbation of chronic obstructive pulmonary disease, Anxiety attack, Hypokalemia Disposition: ADMITTED IP TO THIS [facility] Condition: Serious Is patient prescribed a controlled substance at d/c from ED?: No Referrals: Scout Bonner MD [Primary Care Provider] - 1-2 days Time of Disposition: 20:30
[2024-05-05 19:24] LABS: Basophils % (A) 0 %; Eosinophils # (A) 0.1 k/uL (0-0.7); Eosinophils % (A) 1 %; HCT 41.3 % (34.0-46.0); HGB 13.9 gm/dL (11.4-16.0); Lymphocytes # (A) 1.5 k/uL (1.0-4.8); Lymphocytes % (A) 16 %; MCH 32.5 pg (25.0-35.0); MCHC 33.6 g/dL (31.0-37.0); MCV 96.8 fL (80.0-100.0); Mean Platelet Volume 6.9; Monocytes # (A) 0.7 k/uL (0-1.0); Monocytes % (A) 7 %; Neutrophils # (A) 7.2 k/uL (1.3-7.7); Neutrophils % (A) 75 %; Platelet Count 380 k/uL (150-450); RBC 4.27 m/uL (3.80-5.40); RDW 13.3 % (11.5-15.5); WBC 9.6 k/uL (3.8-10.6)
--- NOTE | 2024-05-05 19:35 | XR ---
EXAMINATION TYPE: XR chest 1V portable DATE OF EXAM: 05/05/2024 7:17 PM COMPARISON: Previous chest radiograph 01/27/2024. CLINICAL INDICATION: Female, 78 years old with history of sob; [facility] TECHNIQUE: XR chest 1V portable Frontal view of the chest. FINDINGS: Stable cardiac silhouette. Hyperinflated lungs bilaterally. Biapical pleural thickening and patchy pleural and parenchymal opacities in the upper lobes, slightly increasing from prior study 32,024. No sizable pleural effusion. No appreciable pneumothorax. IMPRESSION: Pleural and parenchymal bilateral upper lobe opacities felt to most likely reflect sequelae of promin ent fibrosis/chronic interstitial lung disease, slightly increasing from prior study 01/27/2024. Super imposed infectious etiology would be possible. [facility], , 05/05/2024 7:32 PM
[2024-05-05 19:41] LABS: ALT 17 U/L (4-34); AST 26 U/L (14-36); African American GFR (CKD) 78 (>60 ml/min/1.73 sqM); Albumin 3.8 g/dL (3.5-5.0); Alkaline Phosphatase 51 U/L (38-126); Anion Gap 3 mmol/L; Blood Urea Nitrogen 17 mg/dL (7-17); Calcium 8.3 mg/dL (8.4-10.2); Carbon Dioxide 38 mmol/L (22-30); Chloride 97 mmol/L (98-107); Glucose 115 mg/dL (74-99); Magnesium 1.9 mg/dL (1.6-2.3); Non-African American GFR(CKD) 67 (>60 ml/min/1.73 sqM); Sodium 138 mmol/L (137-145); Total Bilirubin 0.7 mg/dL (0.2-1.3)
[2024-05-05 19:42] LABS: INR 0.9 (<1.2); Partial Thromboplastin Time 22.7 sec (22.0-30.0); Prothrombin Time 10.3 sec (10.0-12.5)
[2024-05-05] MEDS: SODIUM CHLORIDE 0.9% 500 ML 500 ML IV STA (19:42)
[2024-05-05 19:50] LABS: NT-Pro-B-Type Natriuretic Pept 337 pg/mL
[2024-05-05] MEDS: IPRATROPIUM-ALBUTEROL 3 ML NEB INHALATION STA ×2 (19:51→21:54)
[2024-05-05 20:06] LABS: Potassium 2.6 mmol/L (3.5-5.1)
[2024-05-05 20:10] LABS: VBG PH 7.52 (7.31-7.41)
[2024-05-05] MEDS: methylPREDNISolone SOD SUCCI 125 MG/2 ML VIAL IV STA (20:23)
[2024-05-05] MEDS: LORazepam 2 MG/ML INJ IV STA (20:23)
[2024-05-05] MEDS ORDERED: NALOXONE 0.4 MG/ML 1 ML VIAL IV PRN (20:30)
[2024-05-05] MEDS: POTASSIUM BICARBONATE/CIT AC 20 MEQ TABLET.EFF PO ONE ×2 (20:56→21:41)
[2024-05-05] MEDS: POTASSIUM CHLORIDE 10 MEQ in WATER FOR INJECTION 1 100ML.BAG IVPB STA (21:25)
[2024-05-05] MEDS: diphenhydrAMINE 50 MG/ML 1 ML VIAL IVP STA (21:56)
[2024-05-05] MEDS: SODIUM CHLORIDE 0.9% 1,000 ML IV SCH (21:59)
[2024-05-06] MEDS: methylPREDNISolone SOD SUCCI 125 MG/2 ML VIAL IV SCH (00:31)
[2024-05-06 09:13] LABS: Basophils # (A) 0.02 X 10*3/uL (0.00-0.10); Basophils % (A) 0.3 %; Eosinophils # (A) 0 X 10*3/uL (0.04-0.35); Eosinophils % (A) 0 %; HCT 37.8 % (37.2-46.3); HGB 12.9 g/dL (12.0-15.0); Lymphocytes # (A) 0.82 X 10*3/uL (0.90-5.00); Lymphocytes % (A) 11.7 %; MCH 32.7 pg (27.0-32.0); MCHC 34.1 g/dL (32.0-37.0); MCV 95.7 FL (80.0-97.0); Mean Platelet Volume 8.4 FL (9.5-12.2); Monocytes # (A) 0.07 X 10*3/uL (0.20-1.00); NRBC Per 100 WBC 0 X 10*3/uL (0.00-0.01); Neutrophils # (A) 6.02 X 10*3/uL (1.80-7.70); Neutrophils % (A) 85.6 %; Platelet Count 311 X 10*3/uL (140-440); RBC 3.95 X 10*6/uL (4.10-5.20); RDW 12.6 % (11.5-14.5); WBC 7.03 X 10*3/uL (4.50-10.00)
[2024-05-06] MEDS: ONDANSETRON 4 MG/2 ML VIAL IVP PRN (09:18)
[2024-05-06 10:51] LABS: ALT 15 U/L (8-44); AST 23 U/L (13-35); Albumin 3.6 g/dL (3.8-4.9); Albumin/Globulin Ratio 1.38 Ratio (1.60-3.17); Alkaline Phosphatase 42 U/L (41-126); BUN/Creat Ratio 14.38 Ratio (12.00-20.00); Blood Urea Nitrogen 11.5 mg/dL (9.0-27.0); Carbon Dioxide 31.6 mmol/L (21.6-31.8); Chloride 99 mmol/L (96-109); Globulin 2.6 g/dL (1.6-3.3); Glucose 125 mg/dL (70-110); Magnesium 1.7 mg/dL (1.5-2.4); Phosphorus 2.5 mg/dL (2.4-5.1); Potassium 3.7 mmol/L (3.5-5.5); Sodium 144 mmol/L (135-145); Total Bilirubin 0.5 mg/dL (0.3-1.2); Total Protein 6.2 g/dL (6.2-8.2)
--- NOTE | 2024-05-06 16:24 | P.HPIM ---
History of Present Illness H&P Date: 05/06/24 Chief Complaint: Shortness of breath 78-year-old female, history of interstitial lung disease, COPD, hypothyroidism, seizure disorder, osteoarthritis, who is brought in by family for increased respiratory rate the noticed patient having a difficult time breathing today but he only takes her oxygen at home because she does have history of underlying lung disease. Oxygen has been normal. They are concerned about her respiratory rate think that she may be having anxiety but are unsure Blood work completed in ED reveals a WBC of 9.6, hemoglobin of 13.9 and platelet count of 380, sodium 138, potassium 2.6, BUNs/creatinine of 17/0.84; VBG reveals pH of 7.5, pCO2 of 46 and bicarb of 37 Chest x-ray is negative for any acute process Review of Systems REVIEW OF SYSTEMS: CONSTITUTIONAL: No fever, no malaise, no fatigue. HEENT: No recent visual problems or hearing problems. Denied any sore throat. CARDIOVASCULAR: No chest pain, orthopnea, PND, no palpitations, no syncope. PULMONARY: No shortness of breath, no cough, no hemoptysis. GASTROINTESTINAL: No diarrhea, no nausea, no vomiting, no abdominal pain. NEUROLOGICAL: No headaches, no weakness, no numbness. HEMATOLOGICAL: Denies any bleeding or petechiae. GENITOURINARY: Denies any burning micturition, frequency, or urgency. MUSCULOSKELETAL/RHEUMATOLOGICAL: Denies any joint pain, swelling, or any muscle pain. ENDOCRINE: Denies any polyuria or polydipsia. The rest of the 14-point review of systems is negative. Past Medical History Past Medical History: Eye Disorder, Hearing Disorder / Deafness, Osteoarthritis (OA), Pneumonia, Respiratory Disorder, Seizure Disorder, Syncope, Thyroid Disorder Additional Past Medical History / Comment(s): Pulmonary fibrosis upper lobe predominance mainly involving the right lung, sneha's disease with past crisis, hypothyroid, pt states she had seizure as a child and once in 2013 after receiving morphine, recent R hip pain-past 3 weeks, chronic low back pain, al lergic rhinitis, hiatal hernia, bilateral glaucoma, QUINAULT bilaterally with L ear worse. History of Any Multi-Drug Resistant Organisms: None Reported Past Surgical History: Back Surgery, Section, Joint Replacement, Orthopedic Surgery, Tubal Ligation Additional Past Surgical History / Comment(s): Bilateral total knee a rthroplasties, low back radiofrequency ablations, bilateral carpal tunnel releases, bronchoscopy, R eye biopsy-pt does not know reason. Past Anesthesia/Blood Transfusion Reactions: No Reported Reaction Additional Past Anesthesia/Blood Transfusion Reaction / Comment(s): Pt states she received blood in past without reaction. Past Psychological History: No Psychological Hx Reported Additional Psychological History / Comment(s): Patient resides with her spouse, oldest son, and daughter in law. She is independent. Smoking Status: Never smoker Past Alcohol Use History: None Reported Additional Past Alcohol Use History / Comment(s): No street drug or alcohol use. Past Drug Use History: None Reported - Past Family History Mother Family Medical History: Musculoskeletal Disorder, Neurologic Disorder, Seizure Disorder Additional Family Medical History / Comment(s): Mother had parkinson's. She lived to be 93 yrs old. Pt states mother had epilepsy. Daughter(s) Additional Family Medical History / Comment(s): She has 3 children with no major medical problems. Father Family Medical History: Cancer Additional Family Medical History / Comment(s): Father at age 79 from lung cancer. Medications and Allergies Home Medications Medication Instructions Recorded Confirmed Type Aspirin 81 mg PO DAILY@1200 11/03/13 05/06/24 History Fludrocortisone [Florinef] 0.05 mg PO MOWEFR 11/03/13 05/06/24 History Hydrocortisone [Cortef] 20 mg PO HS 11/03/13 05/06/24 History Levothyroxine Sodium [Synthroid] 88 mcg PO DAILY 11/03/13 05/06/24 History Atorvastatin [Lipitor] 10 mg PO DAILY 12/26/20 05/06/24 History Hydrocortisone [Cortef] 10 - 20 mg PO BID PRN 12/26/20 05/06/24 History Hydrocortisone [Cortef] 10 mg PO DAILY 12/26/20 05/06/24 History Cholecalciferol (Vitamin D3) 125 mcg PO DAILY@1200 03/29/21 05/06/24 History [Vitamin D3 (125 MCG = 5,000 IU)] Albuterol Inhaler [Ventolin Hfa 2 puff INHALATION RT-Q4H PRN 04/02/24 05/06/24 History Inhaler] Donepezil [Aricept] 10 mg PO HS 04/02/24 05/06/24 History Ibandronate Sodium [Boniva] 150 mg PO Q30D 04/02/24 05/06/24 History Lactulose 20 gm PO HS PRN 04/02/24 05/06/24 History Latanoprost [Latanoprost 0.005%] 1 drop BOTH EYES HS 04/02/24 05/06/24 History Pantoprazole [Protonix] 40 mg PO DAILY 04/02/24 05/06/24 History Dicyclomine [Bentyl] 10 mg PO Q8H PRN 05/06/24 05/06/24 History Furosemide [Lasix] 20 mg PO DAILY 05/06/24 05/06/24 History Megestrol Acetate 400 mg PO DAILY 05/06/24 05/06/24 History Potassium Chloride ER [K-Dur 20] 20 meq PO DAILY 05/06/24 05/06/24 History Allergies Allergy/AdvReac Type Severity Reaction Status Date / Time sulfacetamide sodium Allergy Intermediate Rash/Hives Verified 05/06/24 11:40 [From Sulfamide] alendronate sodium Allergy Unknown Verified 05/06/24 11:40 [From Fosamax] azithromycin Allergy Rash/Hives Verified 05/06/24 11:40 [From Zithromax Z-Benito] ciprofloxacin [From Cipro] Allergy Unknown Verified 05/06/24 11:40 doxycycline Allergy Unknown Verified 05/06/24 11:40 hydrocodone Allergy Unknown Verified 05/06/24 11:40 naproxen [From Naprosyn] Allergy Unknown Verified 05/06/24 11:40 Penicillins Allergy Rash/Hives Verified 05/06/24 11:40 Sulfa (Sulfonamide Allergy Rash/Hives Verified 05/06/24 11:40 Antibiotics) tramadol Allergy Unknown Verified 05/06/24 11:40 morphine AdvReac Severe Unknown Verified 05/06/24 11:40 Physical Exam Vitals: Vital Signs Temp Pulse Pulse Resp BP BP Pulse Ox 05/06/24 08:05 98.7 F 86 16 159/78 97 05/06/24 06:16 98.4 F 88 18 160/80 96 05/06/24 05:08 84 18 171/96 05/06/24 03:08 80 16 174/90 96 05/05/24 23:38 80 20 124/84 05/05/24 22:11 90 18 117/79 96 05/05/24 21:10 89 20 141/74 96 05/05/24 19:58 84 05/05/24 19:51 79 05/05/24 19:39 81 20 134/65 97 05/05/24 18:46 97.7 F 95 42 H 129/65 100 Intake and Output 05/05/24 05/06/24 05/06/24 22:59 06:59 14:59 Other: Voiding Method Bedside Commode Weight 58.513 kg 58.513 kg General appearance: alert, in no apparent distress Head exam: Present: atraumatic, normocephalic, normal inspection Eye exam: Present: normal appearance, PERRL, EOMI. Absent: scleral icterus, conjunctival injection, periorbital swelling ENT exam: Present: normal exam, mucous membranes moist Neck exam: Present: normal inspection. Absent: tenderness, meningismus, lymphadenopathy Respiratory exam: Present: normal lung sounds bilaterally. Absent: respiratory distress, wheezes, rales, rhonchi, stridor Cardiovascular Exam: Present: regular rate, normal rhythm, normal heart sounds. Absent: systolic murmur, diastolic murmur, rubs, gallop, clicks GI/Abdominal exam: Present: soft, normal bowel sounds. Absent: distended, tenderness, guarding, rebound, rigid Extremities exam: Present: normal inspection, full ROM, normal capillary refill. Absent: tenderness, pedal edema, joint swelling, calf tenderness Back exam: Present: normal inspection Neurological exam: Present: alert, oriented X3, CN II-XII intact Psychiatric exam: Present: normal affect, normal mood Skin exam: Present: warm, dry, intact, normal color. Absent: rash Results CBC & Chem 7: 05/06/24 05:38 05/06/24 05:38 Labs: Abnormal Lab Results - Last 24 Hours (Table) 05/05/24 05/05/24 05/05/24 Range/Units 19:07 19:07 19:31 RBC (4.10-5.20) X 10*6/uL MCH (27.0-32.0) pg MPV (9.5-12.2) FL Immature Gran # (0.00-0.04) X 10*3/uL Lymphocytes # (0.90-5.00) X 10*3/uL Monocytes # (0.20-1.00) X 10*3/uL Eosinophils # (0.04-0.35) X 10*3/uL VBG pH 7.52 H (7.31-7.41) VBG HCO3 37 H (24-28) mmol/L Potassium 2.6 L* (3.5-5.1) mmol/L Chloride 97 L (98-107) mmol/L Carbon Dioxide 38 H (22-30) mmol/L Anion Gap (4.00-12.00) mmol/L Glucose 115 H (74-99) mg/dL Plasma Lactic Acid Steven 2.2 H* (0.7-2.0) mmol/L Calcium 8.3 L (8.4-10.2) mg/dL Albumin (3.8-4.9) g/dL Albumin/Globulin Ratio (1.60-3.17) Ratio 05/05/24 05/06/24 05/06/24 Range/Units 23:30 05:38 05:38 RBC 3.95 L (4.10-5.20) X 10*6/uL MCH 32.7 H (27.0-32.0) pg MPV 8.4 L (9.5-12.2) FL Immature Gran # 0.10 H (0.00-0.04) X 10*3/uL Lymphocytes # 0.82 L (0.90-5.00) X 10*3/uL Monocytes # 0.07 L (0.20-1.00) X 10*3/uL Eosinophils # 0 L (0.04-0.35) X 10*3/uL VBG pH (7.31-7.41) VBG HCO3 (24-28) mmol/L Potassium (3.5-5.1) mmol/L Chloride (98-107) mmol/L Carbon Dioxide (22-30) mmol/L Anion Gap 13.40 H (4.00-12.00) mmol/L Glucose 125 H (74-99) mg/dL Plasma Lactic Acid Steven 3.2 H* (0.7-2.0) mmol/L Calcium 8.0 L (8.4-10.2) mg/dL Albumin 3.6 L (3.8-4.9) g/dL Albumin/Globulin Ratio 1.38 L (1.60-3.17) Ratio 05/06/24 05/06/24 Range/Units 05:38 09:17 RBC (4.10-5.20) X 10*6/uL MCH (27.0-32.0) pg MPV (9.5-12.2) FL Immature Gran # (0.00-0.04) X 10*3/uL Lymphocytes # (0.90-5.00) X 10*3/uL Monocytes # (0.20-1.00) X 10*3/uL Eosinophils # (0.04-0.35) X 10*3/uL VBG pH (7.31-7.41) VBG HCO3 (24-28) mmol/L Potassium (3.5-5.1) mmol/L Chloride (98-107) mmol/L Carbon Dioxide (22-30) mmol/L Anion Gap (4.00-12.00) mmol/L Glucose (74-99) mg/dL Plasma Lactic Acid Steven 2.9 H* 2.7 H* (0.7-2.0) mmol/L Calcium (8.4-10.2) mg/dL Albumin (3.8-4.9) g/dL Albumin/Globulin Ratio (1.60-3.17) Ratio Thrombosis Risk Factor Assmnt - Choose All That Apply Any of the Below Risk Factors Present?: Yes Each Factor Represents 1 point: Abnormal pulmonary function (COPD) Other Risk Factors: Yes Each Risk Factor Represents 3 Points: Age 75 years or older Thrombosis Risk Factor Assessment Total Risk Factor Score: 4 Thrombosis Risk Factor Assessment Level: Moderate Risk Assessment and Plan Assessment: 1. Interstitial lung disease; likely worsening; continue with IV steroids at this time; further recommendations from pulmonary service 2. Acute exacerbation COPD; patient has been placed on IV Solu-Medrol; DuoNeb nebulizer treatments 4 times daily and as needed; pulmonary consulted 3. Hypokalemia; supplemented in ED; repeat potassium levels and supplement as needed 4. Anxiety/panic disorder/dementia; Aricept 10 mg nightly 5. Hyperlipidemia; Lipitor 10 mg p.o. daily 6. Hypothyroidism; levothyroxine 88 mcg daily 7. Anorexia/malnutrition; we will continue with home dose of Megace 400 mg daily 8. Adrenal insufficiency; continue with home dose of Solu-Cortef; Florinef 0.05 mg DVT prophylaxis; SCDs/subcu heparin CODE STATUS; full code
[2024-05-06] MEDS ORDERED: LACTULOSE 20 GM/30 ML CUP PO PRN (16:50)
[2024-05-06] MEDS ORDERED: ACETAMINOPHEN TAB 325 MG TAB PO PRN (19:01)
[2024-05-06] MEDS ORDERED: HYDROCORTISONE 10 MG TAB PO SCH (21:00)
[2024-05-06] MEDS: HEPARIN SODIUM,PORCINE 5,000 UNIT/ML 1 ML VIAL SQ SCH (22:42)
[2024-05-06] MEDS: DONEPEZIL 10 MG TAB PO SCH (22:42)
[2024-05-06] MEDS: SODIUM CHLORIDE 0.9% 1,000 ML IV ONE (22:44)
[2024-05-06] MEDS: LATANOPROST 0.005% OPHTH DROPS 2.5 ML BTL BOTH EYES SCH (22:53)
[2024-05-07 03:13] LABS: Appearance,Urine Clear (Clear); Bilirubin,Urine Negative (Negative); Blood,Urine Small (Negative); Color,Urine Colorless; Glucose,Urine (UA) Negative (Negative); Ketones,Urine Negative (Negative); Leukocyte Esterase,Urine Negative (Negative); Mucus,Urine Rare /hpf; Nitrite,Urine Negative (Negative); Protein,Urine Negative (Negative); RBC,Urine 6 /hpf (0-5); Specific Gravity,Urine 1.007 (1.001-1.035); Urobilinogen,Urine <2.0 mg/dL (<2.0); WBC,Urine <1 /hpf (0-5)
--- NOTE | 2024-05-07 04:31 | P.CNPUL ---
History of Present Illness Consult date: 05/07/24 History of present illness: Patient is a 78-year-old female with past medical history significant for pulmonary fibrosis, hypothyroidism, hyperlipidemia, Randy's disease, seizure disorder, memory impairment. Patient does follow in the pulmonary office with Dr. Bernal for monitoring of her interstitial lung disease, which has been fairly stable. Patient did have a previous lung biopsy in 2015 which was essentially nondiagnostic. She does not reportedly use home O2. Presented to the ED back on 05/05/24 with increased work of breathing. Patient is currently being evaluated on the general medical floor. She is a questionable historian, oriented to self and place. Her primary complaint is fatigue and being tired. She has been up throughout the night, urinating often, approximately every hour. Denies any urinary complaints otherwise. Apparently, over the last month or so she has had increased work of breathing and a associated nonproductive cough which is worse at night. Denies any infectious symptoms. Denies any fever, chills, sputum production, hemoptysis, chest pain. Chest x-ray showed chronic bilateral upper lobe fibrotic changes along with apical pleural thickening., May be slightly worse than prior imaging. No obvious acute infiltrates or evidence of superimposed pneumonia. CBC is unremarkable, without leukocytosis. D-dimer was 0.37. BMP: Sodium 144, potassium 3.5, chloride 99, serum bicarb 31, BUN 11, creatinine 0.8, glucose 125. Lactic was elevated as high as 3.2 and is down to 1.5. Troponin is less than 0.012. NT proBNP 337. Procalcitonin level low at 0.04. Current vitals: Temperature 97.8 F, heart rate 96 bpm, blood pressure 124/73 mmHg, SpO2 93% on room air. She is slightly tachypneic breathing in the mid 20s to the low 30s. Review of Systems Constitutional: Reports fatigue, Denies chills, Denies fever, Denies night sweats, Denies poor appetite, Denies weight gain, Denies weight loss Ears, nose, mouth and throat: Denies headache, Denies nasal congestion, Denies nasal discharge, Denies post-nasal drip, Denies sinus pain, Denies sinus pressure, Denies sore throat Cardiovascular: Denies chest pain, Denies irregular heart beat, Denies leg edema, Denies orthopnea, Denies palpitations, Denies paroxysmal nocturnal dyspnea, Denies syncope Respiratory: Reports cough, Denies congestion, Denies cough with sputum, Denies wheezing Gastrointestinal: Denies abdominal pain, Denies constipation, Denies diarrhea, Denies nausea, Denies vomiting Genitourinary: Reports urinary frequency, Denies dysuria, Denies flank pain, Denies hematuria Musculoskeletal: Denies limitation of motion Integumentary: Denies rash Neurological: Reports confusion, Denies head injury, Denies headaches, Denies numbness, Denies paralysis, Denies paresthesias, Denies seizures, Denies syncope, Denies visual changes Psychiatric: Denies anxiety, Denies depression Past Medical History Past Medical History: Eye Disorder, Hearing Disorder / Deafness, Osteoarthritis (OA), Pneumonia, Respiratory Disorder, Seizure Disorder, Syncope, Thyroid Disorder Additional Past Medical History / Comment(s): Pulmonary fibrosis upper lobe predominance mainly involving the right lung, randy's disease with past crisis, hypothyroid, pt states she had seizure as a child and once in 2013 after receiving morphine, recent R hip pain-past 3 weeks, chronic low back pain, allergic rhinitis, hiatal hernia, bilateral glaucoma, YAVAP[place]-APACHE bilaterally with L ear worse. History of Any Multi-Drug Resistant Organisms: None Reported Past Surgical History: Back Surgery, Section, Joint Replacement, Orthopedic Surgery, Tubal Ligation Additional Past Surgical History / Comment(s): Bilateral total knee arthroplasties, low back radiofrequency ablations, bilateral carpal tunnel releases, bronchoscopy, R eye biopsy-pt does not know reason. Past Anesthesia/Blood Transfusion Reactions: No Reported Reaction Additional Past Anesthesia/Blood Transfusion Reaction / Comment(s): Pt states s he received blood in past without reaction. Past Psychological History: No Psychological Hx Reported Additional Psychological History / Comment(s): Patient resides with her spouse, oldest son, and daughter in law. She is independent. Smoking Status: Never smoker Past Alcohol Use History: None Reported Additional Past Alcohol Use History / Comment(s): No street drug or alcohol use. Past Drug Use History: None Reported - Past Family History Mother Family Medical History: Musculoskeletal Disorder, Neurologic Disorder, Seizure Disorder Additional Family Medical History / Comment(s): Mother had parkinson's. She lived to be 93 yrs old. Pt states mother had epilepsy. Daughter(s) Additional Family Medical History / Comment(s): She has 3 children with no major medical problems. Father Family Medical History: Cancer Additional Family Medical History / Comment(s): Father at age 79 from lung cancer. Medications and Allergies Home Medications Medication Instructions Recorded Confirmed Type Aspirin 81 mg PO DAILY@1200 11/03/13 05/06/24 History Fludrocortisone [Florinef] 0.05 mg PO MOWEFR 11/03/13 05/06/24 History Hydrocortisone [Cortef] 20 mg PO HS 11/03/13 05/06/24 History Levothyroxine Sodium [Synthroid] 88 mcg PO DAILY 11/03/13 05/06/24 History Atorvastatin [Lipitor] 10 mg PO DAILY 12/26/20 05/06/24 History Hydrocortisone [Cortef] 10 - 20 mg PO BID PRN 12/26/20 05/06/24 History Hydrocortisone [Cortef] 10 mg PO DAILY 12/26/20 05/06/24 History Cholecalciferol (Vitamin D3) 125 mcg PO DAILY@1200 03/29/21 05/06/24 History [Vitamin D3 (125 MCG = 5,000 IU)] Albuterol Inhaler [Ventolin Hfa 2 puff INHALATION RT-Q4H PRN 04/02/24 05/06/24 History Inhaler] Donepezil [Aricept] 10 mg PO HS 04/02/24 05/06/24 History Ibandronate Sodium [Boniva] 150 mg PO Q30D 04/02/24 05/06/24 History Lactulose 20 gm PO HS PRN 04/02/24 05/06/24 History Latanoprost [Latanoprost 0.005%] 1 drop BOTH EYES HS 04/02/24 05/06/24 History Pantoprazole [Protonix] 40 mg PO DAILY 04/02/24 05/06/24 History Dicyclomine [Bentyl] 10 mg PO Q8H PRN 05/06/24 05/06/24 History Furosemide [Lasix] 20 mg PO DAILY 05/06/24 05/06/24 History Megestrol Acetate 400 mg PO DAILY 05/06/24 05/06/24 History Potassium Chloride ER [K-Dur 20] 20 meq PO DAILY 05/06/24 05/06/24 History Allergies Allergy/AdvReac Type Severity Reaction Status Date / Time sulfacetamide sodium Allergy Intermediate Rash/Hives Verified 05/06/24 11:40 [From Sulfamide] alendronate sodium Allergy Unknown Verified 05/06/24 11:40 [From Fosamax] azithromycin Allergy Rash/Hives Verified 05/06/24 11:40 [From Zithromax Z-Benito] ciprofloxacin [From Cipro] Allergy Unknown Verified 05/06/24 11:40 doxycycline Allergy Unknown Verified 05/06/24 11:40 hydrocodone Allergy Unknown Verified 05/06/24 11:40 naproxen [From Naprosyn] Allergy Unknown Verified 05/06/24 11:40 Penicillins Allergy Rash/Hives Verified 05/06/24 11:40 Sulfa (Sulfonamide Allergy Rash/Hives Verified 05/06/24 11:40 Antibiotics) tramadol Allergy Unknown Verified 05/06/24 11:40 morphine AdvReac Severe Unknown Verified 05/06/24 11:40 Physical Exam Vitals: Vital Signs Temp Pulse Pulse Resp BP BP Pulse Ox 05/06/24 20:05 97.8 F 96 15 124/73 93 L 05/06/24 13:20 98.1 F 98 16 133/73 97 05/06/24 08:05 98.7 F 86 16 159/78 97 05/06/24 06:16 98.4 F 88 18 160/80 96 05/06/24 05:08 84 18 171/96 05/06/24 03:08 80 16 174/90 96 Intake and Output 05/06/24 05/06/24 05/07/24 14:59 22:59 06:59 Other: Voiding Method Bedside Commode Toilet # Voids 2 Weight 58.513 kg GENERAL EXAM: Alert, 78-year-old female, tachypneic, fairly comfortable in no apparent distress. HEAD: Normocephalic and atraumatic EYES: Normal reaction of pupils, equal size. NOSE: Clear with pink turbinates. THROAT: No erythema or exudates. NECK: No masses, no JVD. CHEST: No chest wall deformity. LUNGS: Equal air entry with no crackles, wheeze, rhonchi or dullness. On room air. No conversational dyspnea or accessory muscle use.. CVS: S1 and S2 normal with no audible murmur, regular rhythm. No extra heart sounds ABDOMEN: No hepatosplenomegaly, active bowel sounds, no guarding or rigidity. SPINE: No scoliosis or deformity SKIN: No rashes CENTRAL NERVOUS SYSTEM: No focal deficits, tone is normal in all 4 extremities. EXTREMITIES: There is no peripheral edema, clubbing, or cyanosis. Peripheral pulses are intact. Results - Laboratory Findings CBC and BMP: 05/06/24 05:38 05/06/24 18:00 PT/INR, D-dimer PT 10.3 sec (10.0-12.5) 05/05/24 19:07 INR 0.9 (<1.2) 05/05/24 19:07 D-Dimer 0.37 mg/L FEU (<0.60) 05/05/24 19:07 Abnormal lab findings: Abnormal Labs 05/05/24 05/05/24 05/05/24 19:07 19:07 19:31 RBC MCH MPV Immature Gran # Lymphocytes # Monocytes # Eosinophils # VBG pH 7.52 H VBG HCO3 37 H Potassium 2.6 L* Chloride 97 L Carbon Dioxide 38 H Anion Gap Glucose 115 H Plasma Lactic Acid Steven 2.2 H* Calcium 8.3 L Albumin Albumin/Globulin Ratio 05/05/24 05/06/24 05/06/24 23:30 05:38 05:38 RBC 3.95 L MCH 32.7 H MPV 8.4 L Immature Gran # 0.10 H Lymphocytes # 0.82 L Monocytes # 0.07 L Eosinophils # 0 L VBG pH VBG HCO3 Potassium Chloride Carbon Dioxide Anion Gap 13.40 H Glucose 125 H Plasma Lactic Acid Steven 3.2 H* Calcium 8.0 L Albumin 3.6 L Albumin/Globulin Ratio 1.38 L 05/06/24 05/06/24 05/06/24 05:38 09:17 12:22 RBC MCH MPV Immature Gran # Lymphocytes # Monocytes # Eosinophils # VBG pH VBG HCO3 Potassium Chloride Carbon Dioxide Anion Gap Glucose Plasma Lactic Acid Steven 2.9 H* 2.7 H* 2.3 H* Calcium Albumin Albumin/Globulin Ratio 05/06/24 05/06/24 05/06/24 15:03 18:00 21:23 RBC MCH MPV Immature Gran # Lymphocytes # Monocytes # Eosinophils # VBG pH VBG HCO3 Potassium Chloride Carbon Dioxide Anion Gap Glucose Plasma Lactic Acid Steven 2.6 H* 2.9 H* 2.3 H* Calcium Albumin Albumin/Globulin Ratio - Diagnostic Findings Chest x-ray: image reviewed Assessment and Plan Assessment: Acute on chronic dyspnea, Chest x-ray showed chronic bilateral upper lobe fibrotic changes along with apical pleural thickening., May be slightly worse than prior imaging. No obvious acute infiltrates or evidence of superimposed pneumonia. History of interstitial lung disease, with bilateral upper lobe predominance Severe hypokalemia, replace per protocol History of [place]'s disease, maintained on Solu-Cortef and Florinef on outpatient basis History of hypothyroidism History of hyperlipidemia History of seizure disorder History of dementia, maintained on Aricept outpatient History of generalized anxiety disorder Plan: Patient's medications, labs, imaging reviewed Patient currently on room air oxygen. Appears dyspneic on evaluation No obvious acute infiltrates on chest x-ray Procalcitonin level low at 0.04 Check Cepheid 4 Plex Continue high-dose IV Solu-Medrol and bronchodilators as needed GI prophylaxis: Protonix We will continue to follow I have personally seen and examined the patient, performed the documentation and the assessment and plan as written. Number of minutes spent on the visit:20 Time with Patient: Greater than 30
[2024-05-07 08:48] LABS: Blood Urea Nitrogen 16.1 mg/dL (9.0-27.0); Calcium 7.6 mg/dL (8.7-10.3); Carbon Dioxide 27.8 mmol/L (21.6-31.8); Chloride 102 mmol/L (96-109); Glucose 127 mg/dL (70-110); Potassium 3.7 mmol/L (3.5-5.5); Sodium 141 mmol/L (135-145)
[2024-05-07] MEDS: MEGESTROL 400 MG/10 ML CUP PO SCH (08:50)
[2024-05-07] MEDS: LEVOTHYROXINE 88 MCG TAB PO SCH (08:51)
[2024-05-07] MEDS: FLUDROCORTISONE 0.1 MG TAB PO SCH (08:51)
[2024-05-07] MEDS: PANTOPRAZOLE 40 MG TABLET PO SCH (08:51)
[2024-05-07] MEDS: POTASSIUM CHLORIDE ER 20 MEQ TAB.ER PO SCH (08:51)
[2024-05-07] MEDS: FUROSEMIDE 20 MG TAB PO SCH (08:51)
[2024-05-07] MEDS: ATORVASTATIN 10 MG TAB PO SCH (08:51)
[2024-05-07] MEDS ORDERED: HYDROCORTISONE 10 MG TAB PO SCH (09:00)
[2024-05-07 09:03] LABS: Basophils # (A) 0.02 X 10*3/uL (0.00-0.10); Basophils % (A) 0.2 %; Eosinophils # (A) 0 X 10*3/uL (0.04-0.35); Eosinophils % (A) 0 %; HCT 37.3 % (37.2-46.3); HGB 12.4 g/dL (12.0-15.0); Lymphocytes # (A) 0.87 X 10*3/uL (0.90-5.00); MCH 32.7 pg (27.0-32.0); MCHC 33.2 g/dL (32.0-37.0); MCV 98.4 FL (80.0-97.0); Mean Platelet Volume 8.5 FL (9.5-12.2); Monocytes # (A) 0.42 X 10*3/uL (0.20-1.00); Monocytes % (A) 3.4 %; NRBC Per 100 WBC 0 X 10*3/uL (0.00-0.01); Neutrophils # (A) 10.88 X 10*3/uL (1.80-7.70); Platelet Count 319 X 10*3/uL (140-440); RBC 3.79 X 10*6/uL (4.10-5.20); WBC 12.36 X 10*3/uL (4.50-10.00)
[2024-05-07] MEDS: ASPIRIN 81 MG PO SCH (11:39)
[2024-05-07] MEDS: CHOLECALCIFEROL 125 MCG (5000 IU) TABLET PO SCH (11:39)
[2024-05-07] MEDS: LORazepam 2 MG/ML INJ IV PRN (11:39)
--- NOTE | 2024-05-07 11:54 | P.PN ---
Subjective 78-year-old female, history of interstitial lung disease, COPD, hypothyroidism, seizure disorder, osteoarthritis, who is brought in by family for increased respiratory rate the noticed patient having a difficult time breathing today but he only takes her oxygen at home because she does have history of underlying lung disease. Oxygen has been normal. They are concerned about her respiratory rate think that she may be having anxiety but are unsure Blood work completed in ED reveals a WBC of 9.6, hemoglobin of 13.9 and platelet count of 380, sodium 138, potassium 2.6, BUNs/creatinine of 17/0.84; VBG reveals pH of 7.5, pCO2 of 46 and bicarb of 37 Chest x-ray is negative for any acute process 05/07 Patient is calm at rest but becomes easily short of breath, but looks close to her baseline or slightly worse. Patient with no fever. Has mild leukocytosis while she is on steroids which is expected. Other labs look good. UA is negative and patient with no urinary symptom Procalcitonin is negative. Influenza A and type B, RSV, SARS (coronavirus) are undetected Patient evaluated by pulmonary team and recommended to continue IV Solu-Medrol for now Cortef and fludrocortisone are on hold while she is on the IV steroids Patient tolerates diet well. PT/OT requested Possible discharge in 24 to 48 hours Objective - Vital Signs Vital signs: Vital Signs Temp 98.9 F 05/07/24 07:30 Pulse 89 05/07/24 07:30 Resp 16 05/07/24 07:30 BP 146/80 05/07/24 07:30 Pulse Ox 93 L 05/07/24 07:30 FiO2 Intake & Output 05/06/24 05/07/24 05/07/24 18:59 06:59 18:59 Intake Total 540 Output Total 550 Balance -10 Weight 58.513 kg Intake: Oral 540 Output: Urine 550 Other: Voiding Method Bedside Commode Toilet # Voids 6 8 # Bowel Movements 1 - Exam GENERAL: The patient is alert and oriented x3, not in any acute distress. Well developed, well nourished. HEENT: Pupils are round and equally reacting to light. EOMI. No scleral icterus. No conjunctival pallor. Normocephalic, atraumatic. No pharyngeal erythema. No thyromegaly. CARDIOVASCULAR: S1 and S2 present. No murmurs, rubs, or gallops. -PULMONARY: Chest is clear to auscultation, no wheezing , bilateral crackles. ABDOMEN: Soft, nontender, nondistended, normoactive bowel sounds. No palpable organomegaly. MUSCULOSKELETAL: No joint swelling or deformity. EXTREMITIES: No cyanosis, clubbing, or pedal edema. NEUROLOGICAL: Gross neurological examination did not reveal any focal deficits. SKIN: No rashes. no petechiae. - Labs CBC & Chem 7: 05/07/24 06:00 05/07/24 06:00 Labs: Abnormal Lab Results - Last 24 Hours (Table) 05/06/24 05/06/24 05/06/24 Range/Units 12:22 15:03 18:00 WBC (4.50-10.00) X 10*3/uL RBC (4.10-5.20) X 10*6/uL MCV (80.0-97.0) FL MCH (27.0-32.0) pg MPV (9.5-12.2) FL Immature Gran # (0.00-0.04) X 10*3/uL Neutrophils # (1.80-7.70) X 10*3/uL Lymphocytes # (0.90-5.00) X 10*3/uL Eosinophils # (0.04-0.35) X 10*3/uL BUN/Creatinine Ratio (12.00-20.00) Ratio Glucose (70-110) mg/dL Plasma Lactic Acid Steven 2.3 H* 2.6 H* 2.9 H* (0.7-2.0) mmol/L Calcium (8.7-10.3) mg/dL Urine Blood (Negative) Urine RBC (0-5) /hpf Urine Mucus (None) /hpf 05/06/24 05/07/24 05/07/24 Range/Units 21:23 02:45 06:00 WBC 12.36 H (4.50-10.00) X 10*3/uL RBC 3.79 L (4.10-5.20) X 10*6/uL MCV 98.4 H (80.0-97.0) FL MCH 32.7 H (27.0-32.0) pg MPV 8.5 L (9.5-12.2) FL Immature Gran # 0.17 H (0.00-0.04) X 10*3/uL Neutrophils # 10.88 H (1.80-7.70) X 10*3/uL Lymphocytes # 0.87 L (0.90-5.00) X 10*3/uL Eosinophils # 0 L (0.04-0.35) X 10*3/uL BUN/Creatinine Ratio (12.00-20.00) Ratio Glucose (70-110) mg/dL Plasma Lactic Acid Steven 2.3 H* (0.7-2.0) mmol/L Calcium (8.7-10.3) mg/dL Urine Blood Small H (Negative) Urine RBC 6 H (0-5) /hpf Urine Mucus Rare H (None) /hpf 05/07/24 Range/Units 06:00 WBC (4.50-10.00) X 10*3/uL RBC (4.10-5.20) X 10*6/uL MCV (80.0-97.0) FL MCH (27.0-32.0) pg MPV (9.5-12.2) FL Immature Gran # (0.00-0.04) X 10*3/uL Neutrophils # (1.80-7.70) X 10*3/uL Lymphocytes # (0.90-5.00) X 10*3/uL Eosinophils # (0.04-0.35) X 10*3/uL BUN/Creatinine Ratio 23.00 H (12.00-20.00) Ratio Glucose 127 H (70-110) mg/dL Plasma Lactic Acid Steven (0.7-2.0) mmol/L Calcium 7.6 L (8.7-10.3) mg/dL Urine Blood (Negative) Urine RBC (0-5) /hpf Urine Mucus (None) /hpf Microbiology - Last 24 Hours (Table) 05/05/24 19:07 Blood Culture - Preliminary Blood Assessment and Plan Assessment: 1. Interstitial lung disease; with pulmonary fibrosis likely worsening; continue with IV steroids at this time; further recommendations from pulmonary service 2. Hypokalemia; supplemented in ED; repeat potassium levels and supplement as needed. Improved 3. Adrenal insufficiency; continue with home dose of Solu-Cortef; Florinef 0.05 mg 4. Anxiety/panic disorder/dementia; Aricept 10 mg nightly 5. Hyperlipidemia; Lipitor 10 mg p.o. daily 6. Hypothyroidism; levothyroxine 88 mcg daily 7. Anorexia/malnutrition; we will continue with home dose of Megace 400 mg daily DVT prophylaxis; SCDs/subcu heparin CODE STATUS; full code
[2024-05-07] MEDS: DICYCLOMINE 10 MG CAP PO PRN (16:21)
[2024-05-08 09:17] VITALS: RESP 17
--- NOTE | 2024-05-08 14:27 | P.PN ---
Subjective Progress Note Date: 05/08/24 Patient is a 78-year-old female with past medical history significant for pulmonary fibrosis, hypothyroidism, hyperlipidemia, Osborne's disease, seizure disorder, memory impairment. Patient does follow in the pulmonary office with Dr. Bernal for monitoring of her interstitial lung disease, which has been fairly stable. Patient did have a previous lung biopsy in 2015 which was essentially nondiagnostic. She does not reportedly use home O2. Presented to the ED back on 05/05/24 with increased work of breathing. Patient is currently being evaluated on the general medical floor. She is a questionable historian, oriented to self and place. Her primary complaint is fatigue and being tired. She has been up throughout the night, urinating often, approximately every hour. Denies any urinary complaints otherwise. Apparently, over the last month or so she has had increased work of breathing and a associated nonproductive cough which is worse at night. Denies any infectious symptoms. Denies any fever, chills, sputum production, hemoptysis, chest pain. Chest x-ray showed chronic bilateral upper lobe fibrotic changes along with apical pleural thickening., May be slightly worse than prior imaging. No obvious acute infiltrates or evidence of superimposed pneumonia. CBC is unremarkable, without leukocytosis. D-dimer was 0.37. BMP: Sodium 144, potassium 3.5, chloride 99, serum bicarb 31, BUN 11, creatinine 0.8, glucose 125. Lactic was elevated as high as 3.2 and is down to 1.5. Troponin is less than 0.012. NT proBNP 337. Procalcitonin level low at 0.04. Current vitals: Temperature 97.8 F, heart rate 96 bpm, blood pressure 124/73 mmHg, SpO2 93% on room air. She is slightly tachypneic breathing in the mid 20s to the low 30s. The patient is seen today May 08 2024 in follow-up on the regular medical floor. She is currently resting comfortably in bed durations in the 90s on room air. No IV fluids. No worsening shortness of breath, cough or congestion. Blood culture pending. Viral screen was negative. DVT prophylaxis. Continued on oral Lasix. Remains on Solu-Medrol. Objective - Vital Signs Vital signs: Vital Signs Temp 98.3 F 05/08/24 07:37 Pulse 96 05/08/24 07:37 Resp 17 05/08/24 09:35 BP 126/68 05/08/24 07:37 Pulse Ox 94 L 05/08/24 07:37 FiO2 Intake & Output 05/07/24 05/08/24 05/08/24 18:59 06:59 18:59 Intake Total 1080 Output Total 250 Balance 830 Intake: Oral 1080 Output: Urine 250 Other: Voiding Method Toilet Toilet Toilet # Voids 14 14 - Exam GENERAL EXAM: Alert, 78-year-old female, resting in bed, on room air, comfortable in no apparent distress. HEAD: Normocephalic and atraumatic EYES: Normal reaction of pupils, equal size. NOSE: Clear with pink turbinates. THROAT: No erythema or exudates. NECK: No masses, no JVD. CHEST: No chest wall deformity. LUNGS: Equal air entry with no crackles, wheeze, rhonchi or dullness. No conve rsational dyspnea. CVS: S1 and S2 normal with no audible murmur, regular rhythm. No extra heart jerica nds ABDOMEN: No hepatosplenomegaly, active bowel sounds, no guarding or rigidity. SPINE: No scoliosis or deformity SKIN: No rashes CENTRAL NERVOUS SYSTEM: No focal deficits, tone is normal in all 4 extremities. EXTREMITIES: There is no peripheral edema, clubbing, or cyanosis. Peripheral pulses are intact. - Labs CBC & Chem 7: 05/07/24 06:00 05/07/24 06:00 Labs: Microbiology - Last 24 Hours (Table) 05/05/24 19:07 Blood Culture - Preliminary Blood Assessment and Plan Assessment: Acute on chronic dyspnea, Chest x-ray showed chronic bilateral upper lobe fibrotic changes along with apical pleural thickening., May be slightly worse than prior imaging. No obvious acute infiltrates or evidence of superimposed pneumonia. History of interstitial lung disease, with bilateral upper lobe predominance Severe hypokalemia, replace per protocol History of Osborne's disease, maintained on Solu-Cortef and Florinef on outpatient basis History of hypothyroidism History of hyperlipidemia History of seizure disorder History of dementia, maintained on Aricept outpatient History of generalized anxiety disorder Plan: The patient was seen and evaluated Medications reviewed Stable and on room air Viral screen negative Transition to oral prednisone Cleared for discharge from the pulmonary standpoint Follow-up with Dr. Bernal in our office in 1 week I have personally seen and examined the patient, performed the documentation and the assessment and plan as written. Number of minutes spent on the visit: 10 Dictation was produced using addwish dictation software. Please excuse any grammatical, word or spelling errors.
[2024-05-08 15:05] VITALS: BP 138/77; PULSE 101; TEMP 98.5
--- NOTE | 2024-05-08 23:54 | P.DS ---
Providers Date of admission: 05/07/24 12:20 Attending physician: Delbert Ash Consults: 05/06/24 21:15 Consult Physician Routine Consulting Provider: Shlomo Schreiber Consult Reason/Comments: sob, pul fibrosis Do you want consulting provider notified?: Yes, Notify in am Primary care physician: [facility] Hospital Course: 1. Interstitial lung disease; with pulmonary fibrosis likely worsening; continue with IV steroids at this time; further recommendations from pulmonary service 2. Hypokalemia; supplemented in ED; repeat potassium levels and supplement as needed. Improved 3. Adrenal insufficiency; continue with home dose of Solu-Cortef; Florinef 0.05 mg 4. Anxiety/panic disorder/dementia; Aricept 10 mg nightly 5. Hyperlipidemia; Lipitor 10 mg p.o. daily 6. Hypothyroidism; levothyroxine 88 mcg daily Diagnoses: Hospital course: 78-year-old female, history of interstitial lung disease, COPD, hypothyroidism, seizure disorder, osteoarthritis, who is brought in by family for increased respiratory rate the noticed patient having a difficult time breathing today but he only takes her oxygen at home because she does have history of underlying lung disease. Patient was treated with IV Solu-Medrol, patient evaluated by pulmonary service. Patient showed interval improvement. Patient feels she can go home today Patient cleared for discharge by pulmonary service Patient will be discharged on tapering prednisone per pulmonary team recommendation. Prescription for bronchodilator and nebulizer is provided for the patient and family informed and they agree Problems and management plan were discussed with the patient and he verbalized understanding and acceptance Patient was found stable and can be discharged home in guarded prognosis however he needs follow-up as an outpatient. Patient was instructed to follow up with PCP Dr. 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 Koenig in 1 week and she agrees Physical exam Gen: patient is a AAOx3, no distress CVS: S1-S2, RRR, no murmur Lungs: B/L CTA, no wheezing Abdomen: soft, no distention, no tenderness, positive bowel sounds Extremity: no leg edema or induration Time spent more than 35 minutes Patient Condition at Discharge: Serious Plan - Discharge Summary Discharge Rx Participant: No New Discharge Prescriptions: New predniSONE 10 mg PO DIRECTED #40 tab Ipratropium-Albuterol Nebulize [Duoneb 0.5 mg-3 mg/3 ml Soln] 3 ml INHALATION QID PRN 30 Days #90 ml PRN Reason: Shortness Of Breath Continue Levothyroxine Sodium [Synthroid] 88 mcg PO DAILY Fludrocortisone [Florinef] 0.05 mg PO MOWEFR Hydrocortisone [Cortef] 20 mg PO HS Aspirin 81 mg PO DAILY@1200 Lactulose 20 gm PO HS PRN PRN Reason: Constipation Donepezil [Aricept] 10 mg PO HS Ibandronate Sodium [Boniva] 150 mg PO Q30D Furosemide [Lasix] 20 mg PO DAILY Dicyclomine [Bentyl] 10 mg PO Q8H PRN PRN Reason: Gi Upset Megestrol Acetate 400 mg PO DAILY Atorvastatin [Lipitor] 10 mg PO DAILY Hydrocortisone [Cortef] 10 - 20 mg PO BID PRN PRN Reason: illness Hydrocortisone [Cortef] 10 mg PO DAILY Cholecalciferol (Vitamin D3) [Vitamin D3 (125 MCG = 5,000 IU)] 125 mcg PO DAILY@1200 Pantoprazole [Protonix] 40 mg PO DAILY Latanoprost [Latanoprost 0.005%] 1 drop BOTH EYES HS Potassium Chloride ER [K-Dur 20] 20 meq PO DAILY Albuterol Inhaler [Ventolin Hfa Inhaler] 2 puff INHALATION RT-Q4H PRN #2 each PRN Reason: Shortness Of Breath Discharge Medication List Aspirin 81 mg PO DAILY@1200 11/03/13 [History] Fludrocortisone [Florinef] 0.05 mg PO MOWEFR 11/03/13 [History] Hydrocortisone [Cortef] 20 mg PO HS 11/03/13 [History] Levothyroxine Sodium [Synthroid] 88 mcg PO DAILY 11/03/13 [History] Atorvastatin [Lipitor] 10 mg PO DAILY 12/26/20 [History] Hydrocortisone [Cortef] 10 - 20 mg PO BID PRN 12/26/20 [History] Hydrocortisone [Cortef] 10 mg PO DAILY 12/26/20 [History] Cholecalciferol (Vitamin D3) [Vitamin D3 (125 MCG = 5,000 IU)] 125 mcg PO DAILY@1200 03/29/21 [History] Donepezil [Aricept] 10 mg PO HS 04/02/24 [History] Ibandronate Sodium [Boniva] 150 mg PO Q30D 04/02/24 [History] Lactulose 20 gm PO HS PRN 04/02/24 [History] Latanoprost [Latanoprost 0.005%] 1 drop BOTH EYES HS 04/02/24 [History] Pantoprazole [Protonix] 40 mg PO DAILY 04/02/24 [History] Dicyclomine [Bentyl] 10 mg PO Q8H PRN 05/06/24 [History] Furosemide [Lasix] 20 mg PO DAILY 05/06/24 [History] Megestrol Acetate 400 mg PO DAILY 05/06/24 [History] Potassium Chloride ER [K-Dur 20] 20 meq PO DAILY 05/06/24 [History] Albuterol Inhaler [Ventolin Hfa Inhaler] 2 puff INHALATION RT-Q4H PRN #2 each 05/08/24 [Rx] Ipratropium-Albuterol Nebulize [Duoneb 0.5 mg-3 mg/3 ml Soln] 3 ml INHALATION QID PRN 30 Days #90 ml 05/08/24 [Rx] predniSONE 10 mg PO DIRECTED #40 tab 05/08/24 [Rx] Follow up Appointment(s)/Referral(s): Scout Bonner MD [Primary Care Provider] - 1-2 days Asaf Bernal MD [STAFF PHYSICIAN] - 1 Week Patient Instructions/Handouts: COPD (Chronic Obstructive Pulmonary Disease) (DC), Anxiety (GEN) Activity/Diet/Wound Care/Special Instructions: heart healthy diet activity is restricted till you see your doctor Discharge Disposition: HOME SELF-CARE
== END 2024-05-08 16:33 | disposition home or self-care (01) | DRG 191 ==
LOC: EC 18:40 → 6NMEDSUR 20:30 → 4SSUR 05-06 04:41 → OBSVTOIN 05-07 12:20
PROVIDERS: ADMIT Hospitalist; ATTEND Hospitalist
DX: J44.1 Chronic obstructive pulmonary disease with (acute) exacerbation (principal); E27.1 Primary adrenocortical insufficiency; E46 Unspecified protein-calorie malnutrition; E87.6 Hypokalemia; E03.9 Hypothyroidism, unspecified; E78.5 Hyperlipidemia, unspecified; Z68.20 Body mass index [BMI] 20.0-20.9, adult; F03.90 Unspecified dementia, unspecified severity, without behavioral disturbance, psychotic disturbance, mood disturbance, and anxiety; F41.9 Anxiety disorder, unspecified; F41.0 Panic disorder [episodic paroxysmal anxiety]; G40.909 Epilepsy, unspecified, not intractable, without status epilepticus; H91.90 Unspecified hearing loss, unspecified ear; J84.10 Pulmonary fibrosis, unspecified; Z96.653 Presence of artificial knee joint, bilateral; Z79.890 Hormone replacement therapy; Z79.82 Long term (current) use of aspirin; Z79.899 Other long term (current) drug therapy
CPT/HCPCS: 36415; 71045; 80048; 80053; 81001; 82803; 83605; 83735; 83880; 84100; 84132; 84145; 84484; 85025; 85379; 85610; 85730; 87040; 87636; 93005; 94640; 96361; 96374; 96375; 99285

== ENCOUNTER 2024-05-29 08:33 | Inpatient (IN) | payer MEDICARE ==
--- NOTE | 2024-05-29 09:12 | ED ---
General Adult HPI - General Chief complaint: Abdominal Pain Stated complaint: Abd pain Time Seen by Provider: 05/29/24 08:35 Source: patient, EMS Mode of arrival: EMS - History of Present Illness Initial comments: Dictation was produced using [employer] dictation software. please excuse any grammatical, word or spelling errors. Chief Complaint: 78-year-old female abdominal pain History of Present Illness: Patient is a 78-year-old female she has a beginnings of dementia. She also has history of adrenal insufficiency. States that she here for abdominal pain. States that it is in the left abdomen. Family is concerned because she has been in bed all day. Denies any fever. No nausea vomiting or diarrhea. No obvious sick contacts. She has a mild chronic cough The ROS documented in this emergency department record has been reviewed and confirmed by me. Those systems with pertinent positive or negative responses have been documented in the HPI. All other systems are other negative and/or noncontributory. - Related Data Home Medications Medication Instructions Recorded Confirmed Aspirin 81 mg PO DAILY@1200 11/03/13 05/06/24 Fludrocortisone [Florinef] 0.05 mg PO MOWEFR 11/03/13 05/06/24 Hydrocortisone [Cortef] 20 mg PO HS 11/03/13 05/06/24 Levothyroxine Sodium [Synthroid] 88 mcg PO DAILY 11/03/13 05/06/24 Atorvastatin [Lipitor] 10 mg PO DAILY 12/26/20 05/06/24 Hydrocortisone [Cortef] 10 - 20 mg PO BID PRN 12/26/20 05/06/24 Hydrocortisone [Cortef] 10 mg PO DAILY 12/26/20 05/06/24 Cholecalciferol (Vitamin D3) 125 mcg PO DAILY@1200 03/29/21 05/06/24 [Vitamin D3 (125 MCG = 5,000 IU)] Donepezil [Aricept] 10 mg PO HS 04/02/24 05/06/24 Ibandronate Sodium [Boniva] 150 mg PO Q30D 04/02/24 05/06/24 Lactulose 20 gm PO HS PRN 04/02/24 05/06/24 Latanoprost [Latanoprost 0.005%] 1 drop BOTH EYES HS 04/02/24 05/06/24 Pantoprazole [Protonix] 40 mg PO DAILY 04/02/24 05/06/24 Dicyclomine [Bentyl] 10 mg PO Q8H PRN 05/06/24 05/06/24 Furosemide [Lasix] 20 mg PO DAILY 05/06/24 05/06/24 Megestrol Acetate 400 mg PO DAILY 05/06/24 05/06/24 Potassium Chloride ER [K-Dur 20] 20 meq PO DAILY 05/06/24 05/06/24 Previous Rx's Medication Instructions Recorded Albuterol Inhaler [Ventolin Hfa 2 puff INHALATION RT-Q4H PRN #2 05/08/24 Inhaler] each predniSONE 10 mg PO DIRECTED #40 tab 05/08/24 Ipratropium-Albuterol Nebulize 3 ml INHALATION QID PRN #360 ml 05/09/24 [Duoneb 0.5 mg-3 mg/3 ml Soln] Allergies Allergy/AdvReac Type Severity Reaction Status Date / Time sulfacetamide sodium Allergy Intermediate Rash/Hives Verified 05/29/24 08:46 [From Sulfamide] alendronate sodium Allergy Unknown Verified 05/29/24 08:46 [From Fosamax] azithromycin Allergy Rash/Hives Verified 05/29/24 08:46 [From Zithromax Z-Benito] ciprofloxacin [From Cipro] Allergy Unknown Verified 05/29/24 08:46 doxycycline Allergy Unknown Verified 05/29/24 08:46 hydrocodone Allergy Unknown Verified 05/29/24 08:46 naproxen [From Naprosyn] Allergy Unknown Verified 05/29/24 08:46 Penicillins Allergy Rash/Hives Verified 05/29/24 08:46 Sulfa (Sulfonamide Allergy Rash/Hives Verified 05/29/24 08:46 Antibiotics) tramadol Allergy Unknown Verified 05/29/24 08:46 morphine AdvReac Severe Unknown Verified 05/29/24 08:46 Review of Systems ROS Statement: Those systems with pertinent positive or pertinent negative responses have been documented in the HPI. ROS Other: All systems not noted in ROS Statement are negative. Past Medical History Past Medical History: Eye Disorder, Hearing Disorder / Deafness, Osteoarthritis (OA), Pneumonia, Respiratory Disorder, Seizure Disorder, Syncope, Thyroid Disorder Additional Past Medical History / Comment(s): Pulmonary fibrosis upper lobe predominance mainly involving the right lung, sneha's disease with past crisis, hypothyroid, pt states she had seizure as a child and once in 2013 after receiving morphine, recent R hip pain-past 3 weeks, chronic low back pain, allergic rhinitis, hiatal hernia, bilateral glaucoma, [place] bilaterally with L ear worse. History of Any Multi-Drug Resistant Organisms: None Reported Past Surgical History: Back Surgery, Section, Joint Replacement, Orthopedic Surgery, Tubal Ligation Additional Past Surgical History / Comment(s): Bilateral total knee arthroplasties, low back radiofrequency ablations, bilateral carpal tunnel releases, bronchoscopy, R eye biopsy-pt does not know reason. Past Anesthesia/Blood Transfusion Reactions: No Reported Reaction Additional Past Anesthesia/Blood Transfusion Reaction / Comment(s): Pt states she received blood in past without reaction. Past Psychological History: No Psychological Hx Reported Smoking Status: Never smoker Past Alcohol Use History: None Reported Past Drug Use History: None Reported - Past Family History Mother Family Medical History: Musculoskeletal Disorder, Neurologic Disorder, Seizure Disorder Additional Family Medical History / Comment(s): Mother had parkinson's. She lived to be 93 yrs old. Pt states mother had epilepsy. Daughter(s) Additional Family Medical History / Comment(s): She has 3 children with no major medical problems. Father Family Medical History: Cancer Additional Family Medical History / Comment(s): Father at age 79 from lung cancer. General Exam - General Exam Comments Initial Comments: PHYSICAL EXAM: General Impression: Alert and oriented x3, not in acute distress HEENT: Normocephalic atraumatic, extra-ocular movements intact, pupils equal and reactive to light bilaterally, mucous membranes moist. Cardiovascular: Heart regular rate and rhythm Chest: Able to complete full sentences, no retractions, no tachypnea Abdomen: abdomen soft, palpatory tenderness to the abdomen, non-distended, no organomegaly Musculoskeletal: Pulses present and equal in all extremities, no peripheral edema Motor: no focal deficits noted Neurological: CN II-XII grossly intact, no focal motor or sensory deficits noted Skin: Intact with no visualized rashes Psych: Normal affect and mood Course Vital Signs 05/29/24 05/29/24 05/29/24 08:36 09:55 11:30 Temperature 97.6 F 97.6 F Pulse Rate 92 89 95 Respiratory 22 18 20 Rate Blood Pressure 142/80 142/75 149/77 O2 Sat by Pulse 97 97 98 Oximetry EKG Findings - EKG Comments: EKG Findings:: My EKG interpretation: Ventricular rate 87, sinus rhythm,. 140, QRS 121, QT 426. No VT prolongation, no QTC prolongation, no ST or T-wave changes noted. EKG compared to May 05, 2024 showing no changes. Overall, this EKG is unremarkable Medical Decision Making - Medical Decision Making Was pt. sent in by a medical professional or institution (, PA, REAL PROPERTY EVALUATOR, urgent care, hospital, or assisted...) When possible be specific @ -No Did you speak to anyone other than the patient for history (EMS, parent, family, police, friend...)? What history was obtained from this source @ -More history obtained from daughter states that patient has poor social living situation. She lives at home with her who has Parkinson's. She has not been getting any care at home. Daughter also states that patient has been having decline in her functional condition. Did you review nursing and triage notes (agree or disagree)? Why? @ -I reviewed and agree with nursing and triage notes Were old charts reviewed (outside hosp., previous admission, EMS record, old EKG, old radiological studies, urgent care reports/EKG's, assisted records)? Report findings @ -No old charts were reviewed Differential Diagnosis (chest pain, altered mental status, abdominal pain women, abdominal pain men, vaginal bleeding, musculoskeletal, weakness, fever, dyspnea, syncope, headache, dizziness, GI bleed, back pain, seizure, CVA, palpatations, mental health)? @ -Differential Abdominal Pain Women: Appendicitis, Cholecystitis, diverticulosis, ischemic bowel, pancreatitis, hepatitis, UTI, gastroenteritis, AAA, incarcerated hernia, bowel obstruction, constipation, inflammatory bowel, hepatitis, peptic ulcer disease, splenic infarction, perforated viscus, vulvitis, ovarian torsion, PID, kidney stone, placenta abruption, this is not meant to be an all-inclusive list EKG interpreted by me (3pts min.). @ -None done X-rays interpreted by me (1pt min.). @ -None done CT interpreted by me (1pt min.). @ -CT of the abdomen pelvis shows no acute processes U/S interpreted by me (1pt. min.). @ -None done What testing was considered but not performed or refused? (CT, X-rays, U/S, labs)? Why? @ -None What meds were considered but not given or refused? Why? @ -None Was smoking cessation discussed for >3mins.? @ -No Were there social determinants of health that impacted care today? How? (Homelessness, low income, unemployed, alcoholism, drug addiction, transportation, low edu. Level, literacy, decrease access to med. care, intermediate, rehab)? @ -Poor living situation Was there de-escalation of care discussed even if they declined (Discuss DNR or withdrawal of care, Hospice)? DNR status @ -No What co-morbidities impacted this encounter? (DM, HTN, Smoking, COPD, CAD, Cancer, CVA, ARF, Chemo, Hep., AIDS, mental health diagnosis, sleep apnea, morbid obesity)? @ -Dementia Was patient admitted / discharged? Hospital course, mention meds given and route, prescriptions, significant lab abnormalities, going to OR and other pertinent info. @ -78-year-old female presents emergency department abdominal pain. Vital signs are stable. Family goes on to express that patient has poor social situat ion. Laboratory evaluation shows hypoglycemia. Patient is a nondiabetic. Rest of labs are within acceptable limits. Hypoglycemia treated. CT abdomen pelvis shows no acute processes. Patient will be admitted with consultation to social work for failure to thrive Did you discuss the management of the patient with other professionals (professionals i.e. , PA, REAL PROPERTY EVALUATOR, lab, RT, psych nurse, geriatric social worker, property adjuster, teacher, jail officer, case hardener)? Give summary @ -Case discussed with hospitalist for admission Was critical care preformed (if so, how long)? @ -No Undiagnosed new problem with uncertain prognosis? @ -No Drug Therapy requiring intensive monitoring for toxicity (Heparin, Nitro, Insulin, Cardizem)? @ -No Were any procedures done? @ -No Diagnosis/symptom? Acute, or Chronic, or Acute on Chronic? Uncomplicated (without systemic symptoms) or Complicated (systemic symptoms)? @ -Graves gravely disabled Side effects of treatment? @ -No Exacerbation, Progression, or Severe Exacerbation? @ -No Poses a threat to life or bodily function? How? (Chest pain, [place], [place], pneumonia, PE, COPD, DKA, ARF, appy, cholecystitis, CVA, Diverticulitis, Homicidal, Suicidal, threat to staff... and all critical care pts) @ -yes - Lab Data Result diagrams: 05/29/24 09:32 05/29/24 09:32 Lab Results 05/29/24 05/29/24 05/29/24 Range/Units 09:32 09:32 10:23 WBC 9.6 (3.8-10.6) k/uL RBC 3.92 (3.80-5.40) m/uL Hgb 12.7 (11.4-16.0) gm/dL Hct 38.1 (34.0-46.0) % MCV 97.3 (80.0-100.0) fL MCH 32.5 (25.0-35.0) pg MCHC 33.4 (31.0-37.0) g/dL RDW 12.8 (11.5-15.5) % Plt Count 611 H (150-450) k/uL MPV 6.7 Neutrophils % 78 % Lymphocytes % 14 % Monocytes % 5 % Eosinophils % 1 % Basophils % 1 % Neutrophils # 7.5 (1.3-7.7) k/uL Lymphocytes # 1.4 (1.0-4.8) k/uL Monocytes # 0.4 (0-1.0) k/uL Eosinophils # 0.1 (0-0.7) k/uL Basophils # 0.1 (0-0.2) k/uL Sodium 136 L (137-145) mmol/L Potassium 4.3 (3.5-5.1) mmol/L Chloride 96 L (98-107) mmol/L Carbon Dioxide 36 H (22-30) mmol/L Anion Gap 4 mmol/L BUN 12 (7-17) mg/dL Creatinine 0.80 (0.52-1.04) mg/dL Est GFR (CKD-EPI)AfAm 82 (>60 ml/min/1.73 sqM) Est GFR (CKD-EPI)NonAf 72 (>60 ml/min/1.73 sqM) Glucose 66 L (74-99) mg/dL POC Glucose (mg/dL) (70-110) mg/dL POC Glu Graphic Design Assistant ID Calcium 8.2 L (8.4-10.2) mg/dL Total Bilirubin 0.9 (0.2-1.3) mg/dL AST 32 (14-36) U/L ALT 17 (4-34) U/L Alkaline Phosphatase 47 (38-126) U/L Total Protein 6.3 (6.3-8.2) g/dL Albumin 3.2 L (3.5-5.0) g/dL Lipase 358 H (23-300) U/L Urine Color Colorless Urine Appearance Clear (Clear) Urine pH 8.0 (5.0-8.0) Ur Specific [place] 1.008 (1.001-1.035) Urine Protein Negative (Negative) Urine Glucose (UA) Negative (Negative) Urine Ketones Negative (Negative) Urine Blood Small H (Negative) Urine Nitrite Negative (Negative) Urine Bilirubin Negative (Negative) Urine Urobilinogen <2.0 (<2.0) mg/dL Ur Leukocyte Esterase Negative (Negative) Urine RBC 10 H (0-5) /hpf Urine WBC <1 (0-5) /hpf Urine Mucus Rare H (None) /hpf 05/29/24 05/29/24 Range/Units 11:37 12:01 WBC (3.8-10.6) k/uL RBC (3.80-5.40) m/uL Hgb (11.4-16.0) gm/dL Hct (34.0-46.0) % MCV (80.0-100.0) fL MCH (25.0-35.0) pg MCHC (31.0-37.0) g/dL RDW (11.5-15.5) % Plt Count (150-450) k/uL MPV Neutrophils % % Lymphocytes % % Monocytes % % Eosinophils % % Basophils % % Neutrophils # (1.3-7.7) k/uL Lymphocytes # (1.0-4.8) k/uL Monocytes # (0-1.0) k/uL Eosinophils # (0-0.7) k/uL Basophils # (0-0.2) k/uL Sodium (137-145) mmol/L Potassium (3.5-5.1) mmol/L Chloride (98-107) mmol/L Carbon Dioxide (22-30) mmol/L Anion Gap mmol/L BUN (7-17) mg/dL Creatinine (0.52-1.04) mg/dL Est GFR (CKD-EPI)AfAm (>60 ml/min/1.73 sqM) Est GFR (CKD-EPI)NonAf (>60 ml/min/1.73 sqM) Glucose (74-99) mg/dL POC Glucose (mg/dL) 61 L 271 H (70-110) mg/dL POC Glu Graphic Design Assistant ID Elmer Zhou Calcium (8.4-10.2) mg/dL Total Bilirubin (0.2-1.3) mg/dL AST (14-36) U/L ALT (4-34) U/L Alkaline Phosphatase (38-126) U/L Total Protein (6.3-8.2) g/dL Albumin (3.5-5.0) g/dL Lipase (23-300) U/L Urine Color Urine Appearance (Clear) Urine pH (5.0-8.0) Ur Specific [place] (1.001-1.035) Urine Protein (Negative) Urine Glucose (UA) (Negative) Urine Ketones (Negative) Urine Blood (Negative) Urine Nitrite (Negative) Urine Bilirubin (Negative) Urine Urobilinogen (<2.0) mg/dL Ur Leukocyte Esterase (Negative) Urine RBC (0-5) /hpf Urine WBC (0-5) /hpf Urine Mucus (None) /hpf Disposition Clinical Impression: Gravely disabled Disposition: ADMITTED IP TO THIS HOSP Condition: Fair Referrals: Scout Bonner MD [Primary Care Provider] - 1-2 days Decision Time: 12:36
[2024-05-29 09:51] LABS: Basophils # (A) 0.1 k/uL (0-0.2); Basophils % (A) 1 %; Eosinophils # (A) 0.1 k/uL (0-0.7); Eosinophils % (A) 1 %; HCT 38.1 % (34.0-46.0); HGB 12.7 gm/dL (11.4-16.0); Lymphocytes # (A) 1.4 k/uL (1.0-4.8); Lymphocytes % (A) 14 %; MCH 32.5 pg (25.0-35.0); MCHC 33.4 g/dL (31.0-37.0); MCV 97.3 fL (80.0-100.0); Mean Platelet Volume 6.7; Monocytes # (A) 0.4 k/uL (0-1.0); Monocytes % (A) 5 %; Neutrophils # (A) 7.5 k/uL (1.3-7.7); Neutrophils % (A) 78 %; Platelet Count 611 k/uL (150-450); RBC 3.92 m/uL (3.80-5.40); RDW 12.8 % (11.5-15.5); WBC 9.6 k/uL (3.8-10.6)
[2024-05-29 10:05] LABS: ALT 17 U/L (4-34); African American GFR (CKD) 82 (>60 ml/min/1.73 sqM); Albumin 3.2 g/dL (3.5-5.0); Anion Gap 4 mmol/L; Blood Urea Nitrogen 12 mg/dL (7-17); Calcium 8.2 mg/dL (8.4-10.2); Carbon Dioxide 36 mmol/L (22-30); Chloride 96 mmol/L (98-107); Glucose 66 mg/dL (74-99); Lipase 358 U/L (23-300); Non-African American GFR(CKD) 72 (>60 ml/min/1.73 sqM); Sodium 136 mmol/L (137-145); Total Bilirubin 0.9 mg/dL (0.2-1.3); Total Protein 6.3 g/dL (6.3-8.2)
[2024-05-29 10:34] LABS: Appearance,Urine Clear (Clear); Bilirubin,Urine Negative (Negative); Blood,Urine Small (Negative); Color,Urine Colorless; Glucose,Urine (UA) Negative (Negative); Ketones,Urine Negative (Negative); Leukocyte Esterase,Urine Negative (Negative); Mucus,Urine Rare /hpf; Nitrite,Urine Negative (Negative); Protein,Urine Negative (Negative); RBC,Urine 10 /hpf (0-5); Specific Gravity,Urine 1.008 (1.001-1.035); Urobilinogen,Urine <2.0 mg/dL (<2.0); WBC,Urine <1 /hpf (0-5)
[2024-05-29 10:45] LABS: AST 32 U/L (14-36); Alkaline Phosphatase 47 U/L (38-126); Potassium 4.3 mmol/L (3.5-5.1)
[2024-05-29 11:38] LABS: Glucose,Whole Blood 61 mg/dL (70-110)
--- NOTE | 2024-05-29 11:38 | CT ---
EXAMINATION TYPE: CT abdomen pelvis w con CT DLP: 554.9 mGycm, Automated exposure control for dose reduction was used. DATE OF EXAM: 05/29/2024 11:29 AM COMPARISON: CT abdomen pelvis 03/02/2024 CLINICAL INDICATION:Female, 78 years old with history of abd pain; RLQ and groin pain TECHNIQUE: Standard CT of the abdomen and pelvis following the administration of 100 cc of Isovue 3 00 IV contrast material. Coronal and sagittal reformats were performed. FINDINGS: LOWER CHEST: Minimal posterior right dependent subsegmental atelectasis is noted. Calcified bilateral pleural plaques. ABDOMEN LIVER: Stable right hepatic lobe with subcentimeter hypodense focus likely representing a cyst. GALLBLADDER AND BILE DUCTS: Unremarkable. PANCREAS: Unremarkable. SPLEEN: Unremarkable. ADRENAL GLANDS: Unremarkable. KIDNEYS AND URETERS: No evidence of hydronephrosis or renal calculus. The kidneys enhance symmetrical ly. Contrast is demonstrated within both collecting systems on the delayed phase. PELVIS BLADDER: Unremarkable REPRODUCTIVE: Unremarkable. ABDOMEN & PELVIS STOMACH AND BOWEL: Stomach and duodenum are unremarkable. No focal wall thickening or surrounding inf lammatory changes. The appendix is not definitively visualized however there is no significant inflam matory changes within the right lower quadrant. No evidence of bowel obstruction. PERITONEUM: No evidence of pneumoperitoneum or free fluid. VASCULATURE: Mild atherosclerotic calcifications are present throughout the abdominal aorta and its b ranches. No evidence of aortic aneurysm. Pelvic phleboliths. MUSCULOSKELETAL: No acute osseous abnormalities. Mild disc degeneration changes are present throughou t the thoracolumbar spine. No acute osseous abnormality. LYMPH NODES: No gross evidence for lymphadenopathy. SOFT TISSUE/ABDOMINAL WALL: Unremarkable. No inguinal hernia. IMPRESSION: No acute abdominal or pelvic process. [facility], , 05/29/2024 11:35 AM
[2024-05-29] MEDS: DEXTROSE 50% SYRINGE 50 ML IVP STA (11:40)
[2024-05-29 12:02] LABS: Glucose,Whole Blood 271 mg/dL (70-110)
[2024-05-29] MEDS ORDERED: NALOXONE 0.4 MG/ML 1 ML VIAL IV PRN (12:31)
[2024-05-29] MEDS: SODIUM CHLORIDE 0.9% 1,000 ML IV STA (13:28)
[2024-05-29] MEDS: SODIUM CHLORIDE 0.9% 1,000 ML IV SCH (13:30)
[2024-05-29] MEDS ORDERED: LACTULOSE 20 GM/30 ML CUP PO PRN (14:59)
[2024-05-29] MEDS ORDERED: NON FORMULARY DRUG (Albuterol Inhaler 90 MCG Puff) INHALATION PRN (14:59)
[2024-05-29] MEDS ORDERED: IPRATROPIUM-ALBUTEROL 3 ML NEB INHALATION PRN (14:59)
[2024-05-29] MEDS: ACETAMINOPHEN TAB 325 MG TAB PO PRN (16:57)
[2024-05-29] MEDS: POTASSIUM CHLORIDE ER 20 MEQ TAB.ER PO SCH (16:58)
[2024-05-29] MEDS: LEVOTHYROXINE 88 MCG TAB PO SCH (16:58)
[2024-05-29] MEDS: OLANZapine 5 MG TAB PO STA (16:58)
[2024-05-29] MEDS: HYDROCORTISONE 10 MG TAB PO SCH ×2 (16:58→23:02)
--- NOTE | 2024-05-29 17:03 | P.HPIM ---
History of Present Illness H&P Date: 05/29/24 History of present illness: 78-year-old female with past medical history significant for interstitial lung disease, COPD, hypothyroidism, adrenal insufficiency, seizure disorder, osteoarthritis, history of progressive dementia who was recently admitted in the hospital for shortness of breath about 3 weeks ago now brought in due to progressive generalized weakness, poor p.o. intake and failure to thrive. Daughter at the bedside. Daughter reported that patient has ongoing dementia which has progressively gotten worse for the last 2 to 3 months. In the ED patient complained of abdominal pain on the left side. Patient denied any fever, chills, productive cough, sore throat, chest pain, palpitations, shortness of breath, productive cough, nausea vomiting diarrhea constipation dysuria urgency frequency. Patient has mild chronic cough. In the ED patient was afebrile, heart rate 93, blood pressure 106/65, saturating 97% on room air. CBC was unremarkable. BMP was unremarkable. Blood glucose was 61 initially which later improved to 71. UA was negative. Lipase was 358. CT abdomen pelvis was negative for acute process. Assessment and plan: Failure to thrive: Progressive dementia: Generalized weakness: Interstitial lung disease COPD Elevated lipase Adrenal insufficiency Hypothyroidism Plan: Presented with progressive generalized weakness, failure to thrive Elevated lipase, abdominal exam benign, CT abdomen pelvis negative for acute process Fall precautions-PT/OT consult Case management consult Continue home meds including hydrocortisone and Florinef Continue home meds Synthroid Psychiatry consult dementia with behavioral disturbances. As needed Zyprexa DVT prophylaxis Subcu Lovenox Monitor vital signs and labs Labs and medication were reviewed. Continue same treatment. Further recommendations as per clinical course of the patient REVIEW OF SYSTEMS: Review of system due to dementia. PHYSICAL EXAMINATION: GENERAL: The patient is A&O x1-2, NAD HEENT: EOMI, Sclerae anicteric, Moist Mucous membranes Neck: Supple, Non tender, No JVD PULMONARY: Equal breath souds B/L, No wheezing, No crackles. CARDIOVASCULAR: S1, S2 present. No murmurs, rubs, or gallops. ABDOMEN: Soft, nontender, nondistended, normoactive bowel sounds. No guarding or rebound tenderness. MUSCULOSKELETAL: No edema, No cyanosis. No clubbing. Normal ROM. Intact joseline pheral pulses. NEUROLOGICAL: CN 2-12 grossly intact. No FND Dictation was produced using dragon dictation software. please excuse any grammatical, word or spelling errors. Past Medical History Past Medical History: Eye Disorder, Hearing Disorder / Deafness, Osteoarthritis (OA), Pneumonia, Respiratory Disorder, Seizure Disorder, Syncope, Thyroid Disorder Additional Past Medical History / Comment(s): Pulmonary fibrosis upper lobe predominance mainly involving the right lung, sneha's disease with past crisis, hypothyroid, pt states she had seizure as a child and once in 2013 after receiving morphine, recent R hip pain-past 3 weeks, chronic low back pain, allergic rhinitis, hiatal hernia, bilateral glaucoma, [place] bilaterally with L ear worse. History of Any Multi-Drug Resistant Organisms: None Reported Past Surgical History: Back Surgery, Section, Joint Replacement, Orthopedic Surgery, Tubal Ligation Additional Past Surgical History / Comment(s): Bilateral total knee arthroplasties, low back radiofrequency ablations, bilateral carpal tunnel releases, bronchoscopy, R eye biopsy-pt does not know reason. Past Anesthesia/Blood Transfusion Reactions: No Reported Reaction Additional Past Anesthesia/Blood Transfusion Reaction / Comment(s): Pt states she received blood in past without reaction. Past Psychological History: No Psychological Hx Reported Smoking Status: Never smoker Past Alcohol Use History: None Reported Past Drug Use History: None Reported - Past Family History Mother Family Medical History: Musculoskeletal Disorder, Neurologic Disorder, Seizure Disorder Additional Family Medical History / Comment(s): Mother had parkinson's. She lived to be 93 yrs old. Pt states mother had epilepsy. Daughter(s) Additional Family Medical History / Comment(s): She has 3 children with no major medical problems. Father Family Medical History: Cancer Additional Family Medical History / Comment(s): Father at age 79 from lung cancer. Medications and Allergies Home Medications Medication Instructions Recorded Confirmed Type Aspirin 81 mg PO DAILY@1200 11/03/13 05/29/24 History Fludrocortisone [Florinef] 0.05 mg PO MOWEFR 11/03/13 05/29/24 History Hydrocortisone [Cortef] 20 mg PO HS 11/03/13 05/29/24 History Levothyroxine Sodium [Synthroid] 88 mcg PO DAILY 11/03/13 05/29/24 History Atorvastatin [Lipitor] 10 mg PO DAILY 12/26/20 05/29/24 History Hydrocortisone [Cortef] 10 - 20 mg PO BID PRN 12/26/20 05/29/24 History Hydrocortisone [Cortef] 10 mg PO DAILY 12/26/20 05/29/24 History Donepezil [Aricept] 10 mg PO HS 04/02/24 05/29/24 History Ibandronate Sodium [Boniva] 150 mg PO Q30D 04/02/24 05/29/24 History Lactulose 20 gm PO HS PRN 04/02/24 05/29/24 History Latanoprost [Latanoprost 0.005%] 1 drop BOTH EYES HS 04/02/24 05/29/24 History Pantoprazole [Protonix] 40 mg PO DAILY 04/02/24 05/29/24 History Dicyclomine [Bentyl] 10 mg PO Q8H PRN 05/06/24 05/29/24 History Furosemide [Lasix] 20 mg PO DAILY 05/06/24 05/29/24 History Megestrol Acetate 400 mg PO DAILY 05/06/24 05/29/24 History Potassium Chloride ER [K-Dur 20] 20 meq PO DAILY 05/06/24 05/29/24 History Albuterol Inhaler [Ventolin Hfa 2 puff INHALATION RT-Q4H PRN #2 05/08/24 05/29/24 Rx Inhaler] each Ipratropium-Albuterol Nebulize 3 ml INHALATION QID PRN #360 ml 05/09/24 05/29/24 Rx [Duoneb 0.5 mg-3 mg/3 ml Soln] Allergies Allergy/AdvReac Type Severity Reaction Status Date / Time sulfacetamide sodium Allergy Intermediate Rash/Hives Verified 05/29/24 14:16 [From Sulfamide] alendronate sodium Allergy Unknown Verified 05/29/24 14:16 [From Fosamax] azithromycin Allergy Rash/Hives Verified 05/29/24 14:16 [From Zithromax Z-Benito] ciprofloxacin [From Cipro] Allergy Unknown Verified 05/29/24 14:16 doxycycline Allergy Unknown Verified 05/29/24 14:16 hydrocodone Allergy Unknown Verified 05/29/24 14:16 naproxen [From Naprosyn] Allergy Unknown Verified 05/29/24 14:16 Penicillins Allergy Rash/Hives Verified 05/29/24 14:16 Sulfa (Sulfonamide Allergy Rash/Hives Verified 05/29/24 14:16 Antibiotics) tramadol Allergy Unknown Verified 05/29/24 14:16 morphine AdvReac Severe Unknown Verified 05/29/24 14:16 Physical Exam Vitals: Vital Signs Temp Pulse Resp BP Pulse Ox 05/29/24 13:30 93 22 106/65 97 05/29/24 13:11 99 34 H 107/90 97 05/29/24 12:45 120 H 70/56 05/29/24 11:30 97.6 F 95 20 149/77 98 05/29/24 09:55 89 18 142/75 97 05/29/24 08:36 97.6 F 92 22 142/80 97 Intake and Output 05/29/24 05/29/24 05/29/24 06:59 14:59 22:59 Other: Weight 63.503 kg Results CBC & Chem 7: 05/29/24 09:32 05/29/24 09:32 Labs: Abnormal Lab Results - Last 24 Hours (Table) 05/29/24 05/29/24 05/29/24 Range/Units 09:32 09:32 10:23 Plt Count 611 H (150-450) k/uL Sodium 136 L (137-145) mmol/L Chloride 96 L (98-107) mmol/L Carbon Dioxide 36 H (22-30) mmol/L Glucose 66 L (74-99) mg/dL POC Glucose (mg/dL) (70-110) mg/dL Calcium 8.2 L (8.4-10.2) mg/dL Albumin 3.2 L (3.5-5.0) g/dL Lipase 358 H (23-300) U/L Urine Blood Small H (Negative) Urine RBC 10 H (0-5) /hpf Urine Mucus Rare H (None) /hpf 05/29/24 05/29/24 Range/Units 11:37 12:01 Plt Count (150-450) k/uL Sodium (137-145) mmol/L Chloride (98-107) mmol/L Carbon Dioxide (22-30) mmol/L Glucose (74-99) mg/dL POC Glucose (mg/dL) 61 L 271 H (70-110) mg/dL Calcium (8.4-10.2) mg/dL Albumin (3.5-5.0) g/dL Lipase (23-300) U/L Urine Blood (Negative) Urine RBC (0-5) /hpf Urine Mucus (None) /hpf
[2024-05-29] MEDS: ONDANSETRON 4 MG/2 ML VIAL IVP PRN (20:21)
[2024-05-29] MEDS ORDERED: OLANZapine ODT 5 MG TAB PO PRN (21:00)
[2024-05-29] MEDS: DONEPEZIL 10 MG TAB PO SCH (22:34)
[2024-05-29] MEDS: LATANOPROST 0.005% OPHTH DROPS 2.5 ML BTL BOTH EYES SCH (23:03)
[2024-05-30] MEDS: ENOXAPARIN 40 MG/0.4 ML SYRINGE SQ SCH (08:42)
[2024-05-30] MEDS: FLUDROCORTISONE 0.1 MG TAB PO SCH (08:43)
[2024-05-30] MEDS: MEGESTROL 400 MG/10 ML CUP PO SCH (08:43)
[2024-05-30] MEDS: PANTOPRAZOLE 40 MG TABLET PO SCH (08:43)
[2024-05-30] MEDS: ATORVASTATIN 10 MG TAB PO SCH (08:43)
[2024-05-30] MEDS: FUROSEMIDE 20 MG TAB PO SCH (08:43)
[2024-05-30] MEDS ORDERED: OLANZapine ODT 5 MG TAB PO PRN (12:34)
--- NOTE | 2024-05-30 12:44 | P.CN ---
Psychiatric Consult - . Consult date: 05/30/24 Consult:: 05/30/24 11:11 IDENTIFYING DATA: This patient is a 78-year-old female, has a history of dementia, current lives with her in a house, she has 3 kids REASON FOR REFERRAL: Psychiatry was consulted for "dementia with behavioral disturbance" HISTORY OF PRESENT ILLNESS: The patient presented to the hospital initially on 05/29 for abdominal pain. Patient apparently has a history of dementia also history of adrenal insufficiency. Patient was seen in her room today, senior grant writer spoke with family outside of the room with patient's permission. Patient's son and both claims that patient has been progressively getting worse for the past year or so in terms of her memory, cognition. States that she has been getting harder to take care of for the as he has Parkinson's. They are currently looking for a skilled nursing placement for her. Claims that she does have some anxiety episodes, possibly panic attacks, for the most part has been drifting in and out of sleep, poor attention span at times, denying any behavioral changes or aggression. Patient was seen laying in bed, appeared to be fairly sleepy, had poor attention span. He was able to answer only some questions. Knew her full name, does not know her age. She does not know today's date. Does not know why she is in the hospital. She knows that she is in "[place]" however does not answer further questions about where she is. She appears to have very limited insight into her condition. Did follow some directions. Denies any current depression mild anxiety. Sleep has been on and off throughout the day and night. At this time patient denies any suicidal or homical ideations, intent or plan. Patient denies any auditory, visual hallucinations and denies any paranoia or delusions. Patients admits to using no recreational drugs or cigarettes. Due to patient being a poor historian, family was asked further questions about patient past psychiatric history and social history as noted below. PAST PSYCHIATRIC HISTORY: Patient has a a history of dementia. Patient denies being on any psychiatric medications. Patient denies any previous psychiatric hospitalizations. Patient denies any psychiatric outpatient follow-up. Patient denies any history of suicide attempts in the past. Past Medical History: Eye Disorder, Hearing Disorder / Deafness, Osteoarthritis (OA), Pneumonia, Respiratory Disorder, Seizure Disorder, Syncope, Thyroid Disorder Additional Past Medical History / Comment(s): Pulmonary fibrosis upper lobe predominance mainly involving the right lung, sneha's disease with past crisis, hypothyroid, pt states she had seizure as a child and once in 2013 after receiving morphine, recent R hip pain-past 3 weeks, chronic low back pain, allergic rhinitis, hiatal hernia, bilateral glaucoma, IONE bilaterally with L ear worse. History of Any Multi-Drug Resistant Organisms: None Reported Past Surgical History: Back Surgery, Section, Joint Replacement, Orthopedic Surgery, Tubal Ligation Additional Past Surgical History / Comment(s): Bilateral total knee arthroplasties, low back radiofrequency ablations, bilateral carpal tunnel releases, bronchoscopy, R eye biopsy-pt does not know reason. Past Anesthesia/Blood Transfusion Reactions: No Reported Reaction Additional Past Anesthesia/Blood Transfusion Reaction / Comment(s): Pt states she received blood in past without reaction. Past Psychological History: No Psychological Hx Reported Smoking Status: Never smoker Past Alcohol Use History: None Reported Past Drug Use History: None Reported ALLERGIES: as per EMR. CHEMICAL DEPENDENCY HISTORY: as per HPI. FAMILY PSYCHIATRIC/SUBSTANCE USE HISTORY: Denies SOCIAL HISTORY: Patient currently lives with her in a house, she has 3 kids. Retired MENTAL STATUS EXAM: General Appearance: Patient appears to be have short hair, stated age is sleepy at times, pleasant, attempts to cooperate. Patient appears to have fair hygiene and grooming wearing hospital gown with poor eye contact. Behavior: Patient is calmly lying in bed without any agitated behavior. Poor attention span. Speech: Patient's speech is fluent and nonpressured. Mood/Affect: Patient reports their mood is "a bit anxious", affect is congruent and constricted Suicidality/Homicidality: Patient denies having any suicidal or homicidal ideation intent or plan. Perceptions: Patient denies any visual hallucinations and denies any auditory hallucinations Though content/process: Poverty of content, vague Memory and concentration: AOX1-2, grossly impaired concentration. Cannot spell "WORLD" backwards Judgment and insight: Chronically limited IMPRESSIONS: Delirium, unknown etiology Major neurocognitive disorder PLAN: -At this time patient DOES NOT meet criteria for inpatient psychiatric admission. -Patient DOES NOT have decision making capacity at this time and is unable to reason through and communicate/appreciate the risks, benefits and alternatives to treatment. -Delirium precautions recommended with patient including - avoiding use of narcotics and MACHINE BASTER sedatives, limit anticholinergic medications when possible, frequent re-orientation, minimize use of restraints, open window shades during the day and close them at night -Would recommend the following medication changes/additions: Melatonin 2 mg nightly for sleep, Lexapro 5 mg nightly for anxiety/mood. Zyprexa p.o. 2.5 mg twice daily as needed for aggression/psychosis/delirium. -collection systems worker to provide patient with outpatient mental health/psychiatry resources for appropriate follow up upon discharge -Communicated plan to patient's nurse -LIZETTE/CM looking for NH placement -Psychiatry will sign off at this time -Please contact with any questions or if patients condition worses. 05/30/24 12:35 05/30/24 12:43
[2024-05-30] MEDS: ASPIRIN 81 MG PO SCH (12:49)
--- NOTE | 2024-05-30 13:51 | P.PN ---
Subjective Progress Note Date: 05/30/24 Interval History: 78-year-old female with past medical history significant for interstitial lung disease, COPD, hypothyroidism, adrenal insufficiency, seizure disorder, osteoarthritis, history of progressive dementia who was recently admitted in the hospital for shortness of breath about 3 weeks ago now brought in due to progressive generalized weakness, poor p.o. intake and failure to thrive. Daughter at the bedside. Daughter reported that patient has ongoing dementia which has progressively gotten worse for the last 2 to 3 months. In the ED patient complained of abdominal pain on the left side. Patient denied any fever, chills, productive cough, sore throat, chest pain, palpitations, shortnes s of breath, productive cough, nausea vomiting diarrhea constipation dysuria urgency frequency. Patient has mild chronic cough. In the ED patient was afebrile, heart rate 93, blood pressure 106/65, saturating 97% on room air. CBC was unremarkable. BMP was unremarkable. Blood glucose was 61 initially which later improved to 71. UA was negative. Lipase was 358. CT abdomen pelvis was negative for acute process. 05/30/24--patient was seen and examined today. No issues overnight. Patient is calm and cooperative. Appetite remains poor. Vital stable, mildly tachycardic, on room air. No new labs today. Psychiatry recommended melatonin, Lexapro, Zyprexa. Assessment and plan: Failure to thrive: Progressive dementia: Generalized weakness: Interstitial lung disease COPD Elevated lipase Adrenal insufficiency Hypothyroidism Plan: Presented with progressive generalized weakness, failure to thrive Elevated lipase, abdominal exam benign, CT abdomen pelvis negative for acute process Fall precautions-PT/OT consult Case management consult Continue home meds including hydrocortisone and Florinef Continue home meds Synthroid Psychiatry consult dementia with behavioral disturbances--Per psychiatry patient does not have capacity, recommended avoiding using narcotic Encinas sedatives, recommended melatonin, Lexapro, Zyprexa. As needed Zyprexa DVT prophylaxis Subcu Lovenox Monitor vital signs and labs Labs and medication were reviewed. Continue same treatment. Further recommendations as per clinical course of the patient PHYSICAL EXAMINATION: GENERAL: The patient is A&O x2, NAD HEENT: EOMI, Sclerae anicteric, Moist Mucous membranes Neck: Supple, Non tender, No JVD PULMONARY: Equal breath souds B/L, No wheezing, No crackles. CARDIOVASCULAR: S1, S2 present. No murmurs, rubs, or gallops. ABDOMEN: Soft, nontender, nondistended, normoactive bowel sounds. No guarding or rebound tenderness. MUSCULOSKELETAL: No edema, No cyanosis. No clubbing. Normal ROM. Intact peripheral pulses. NEUROLOGICAL: CN 2-12 grossly intact. No FND Skin: No Rash REVIEW OF SYSTEMS: CONSTITUTIONAL: No fever or chills. CARDIOVASCULAR: No chest pain, palpitations or syncope. PULMONARY: No shortness of breath, no cough, sore throat. GASTROINTESTINAL: No nausea, vomiting, diarrhea, abdominal pain. : No Dysuria, urgency, frequency. Extremities: No edema. NEUROLOGICAL: No headaches, no weakness, or numbness Dictation was produced using [employer] dictation software. please excuse any grammatical, word or spelling errors. Objective - Vital Signs Vital signs: Vital Signs Temp 98.3 F 05/30/24 07:53 Pulse 103 H 05/30/24 07:53 Resp 20 05/30/24 07:53 BP 137/79 05/30/24 07:53 Pulse Ox 95 05/30/24 07:53 FiO2 Intake & Output 05/29/24 05/30/24 05/30/24 18:59 06:59 18:59 Intake Total 10 Balance 10 Weight 63.503 kg Intake: IV 10 Sodium Chloride 0.9% 1, 10 000 ml @ 20 mls/hr IV . Q24H [facility] [place] Rx#:[id number] Other: Voiding Method Diaper Diaper Incontinent Incontinent - Labs CBC & Chem 7: 05/29/24 09:32 05/29/24 09:32
[2024-05-30] MEDS: DEXTROSE 5%-0.45% NACL 1,000 ML IV SCH (15:01)
[2024-05-30] MEDS: ESCITALOPRAM 5 MG TAB PO SCH (20:43)
[2024-05-30] MEDS: MELATONIN 1 MG TAB PO SCH (20:43)
[2024-05-30] MEDS: HYDROCORTISONE 20 MG TAB PO SCH (20:44)
[2024-05-31] MEDS: DICYCLOMINE 10 MG CAP PO PRN (04:31)
--- NOTE | 2024-05-31 14:24 | P.PN ---
Subjective Interval History: 78-year-old female with past medical history significant for interstitial lung disease, COPD, hypothyroidism, adrenal insufficiency, seizure disorder, osteoarthritis, history of progressive dementia who was recently admitted in the hospital for shortness of breath about 3 weeks ago now brought in due to progressive generalized weakness, poor p.o. intake and failure to thrive. Daughter at the bedside. Daughter reported that patient has ongoing dementia which has progressively gotten worse for the last 2 to 3 months. In the ED patient complained of abdominal pain on the left side. Patient denied any fever, chills, productive cough, sore throat, chest pain, palpitations, shortness of breath, productive cough, nausea vomiting diarrhea constipation dysuria urgency frequency. Patient has mild chronic cough. In the ED patient was afebrile, heart rate 93, blood pressure 106/65, saturating 97% on room air. CBC was unremarkable. BMP was unremarkable. Blood glucose was 61 initially which later improved to 71. UA was negative. Lipase was 358. CT abdomen pelvis was negative for acute process. 05/30/24--patient was seen and examined today. No issues overnight. Patient is calm and cooperative. Appetite remains poor. Vital stable, mildly tachycardic, on room air. No new labs today. Psychiatry recommended melatonin, Lexapro, Zyprexa. 05/31/24--patient was seen and examined today. and son at bedside. No issues overnight. Family anticipate patient going to subacute rehab due to not having enough supervision. Vital stable. Assessment and plan: Failure to thrive: Progressive dementia: Generalized weakness: Interstitial lung disease COPD Elevated lipase Adrenal insufficiency Hypothyroidism Plan: Presented with progressive generalized weakness, failure to thrive Elevated lipase, abdominal exam benign, CT abdomen pelvis negative for acute process Fall precautions-PT/OT consult Case management consult Continue home meds including hydrocortisone and Florinef Continue home meds Synthroid Psychiatry consult dementia with behavioral disturbances--Per psychiatry patient does not have capacity, recommended avoiding using narcotic Encinas sedatives, recommended melatonin, Lexapro, Zyprexa. As needed Zyprexa DVT prophylaxis Subcu Lovenox Disposition: PT/OT consulted, per family patient lives with , who is not able to take care of the patient. Monitor vital signs and labs Labs and medication were reviewed. Continue same treatment. Further recommendations as per clinical course of the patient PHYSICAL EXAMINATION: GENERAL: The patient is A&O x2, NAD HEENT: EOMI, Sclerae anicteric, Moist Mucous membranes Neck: Supple, Non tender, No JVD PULMONARY: Equal breath souds B/L, No wheezing, No crackles. CARDIOVASCULAR: S1, S2 present. No murmurs, rubs, or gallops. ABDOMEN: Soft, nontender, nondistended, normoactive bowel sounds. No guarding or rebound tenderness. MUSCULOSKELETAL: No edema, No cyanosis. No clubbing. Normal ROM. Intact peripheral pulses. NEUROLOGICAL: CN 2-12 grossly intact. No FND Skin: No Rash REVIEW OF SYSTEMS: CONSTITUTIONAL: No fever or chills. CARDIOVASCULAR: No chest pain, palpitations or syncope. PULMONARY: No shortness of breath, no cough, sore throat. GASTROINTESTINAL: No nausea, vomiting, diarrhea, abdominal pain. : No Dysuria, urgency, frequency. Extremities: No edema. NEUROLOGICAL: No headaches, no weakness, or numbness Dictation was produced using [employer] dictation software. please excuse any gramm atical, word or spelling errors. Objective - Vital Signs Vital signs: Vital Signs Temp 98.6 F 05/31/24 07:15 Pulse 86 05/31/24 07:15 Resp 16 05/31/24 07:15 BP 125/73 05/31/24 07:15 Pulse Ox 96 05/31/24 07:15 FiO2 Intake & Output 05/30/24 05/31/24 05/31/24 18:59 06:59 18:59 Intake Total 480 590 Output Total 250 1850 Balance 230 -1260 Intake: Oral 480 590 Output: Urine 250 1200 Straight 650 Post Void Residual 650 Other: Voiding Method Diaper Indwelling Catheter Incontinent # Voids 1 2 - Labs CBC & Chem 7: 05/29/24 09:32 05/29/24 09:32
--- NOTE | 2024-06-01 14:57 | P.PN ---
Subjective Interval History: 78-year-old female with past medical history significant for interstitial lung disease, COPD, hypothyroidism, adrenal insufficiency, seizure disorder, osteoarthritis, history of progressive dementia who was recently admitted in the hospital for shortness of breath about 3 weeks ago now brought in due to progressive generalized weakness, poor p.o. intake and failure to thrive. Daughter at the bedside. Daughter reported that patient has ongoing dementia which has progressively gotten worse for the last 2 to 3 months. In the ED patient complained of abdominal pain on the left side. Patient denied any fever, chills, productive cough, sore throat, chest pain, palpitations, shortness of breath, productive cough, nausea vomiting diarrhea constipation dysuria urgency frequency. Patient has mild chronic cough. In the ED patient was afebrile, heart rate 93, blood pressure 106/65, saturating 97% on room air. CBC was unremarkable. BMP was unremarkable. Blood glucose was 61 initially which later improved to 71. UA was negative. Lipase was 358. CT abdomen pelvis was negative for acute process. 05/30/24--patient was seen and examined today. No issues overnight. Patient is calm and cooperative. Appetite remains poor. Vital stable, mildly tachycardic, on room air. No new labs today. Psychiatry recommended melatonin, Lexapro, Zyprexa. 05/31/24--patient was seen and examined today. and son at bedside. No issues overnight. Family anticipate patient going to subacute rehab due to not having enough supervision. Vital stable. 06/01/24--Patient was seen and examined today. No issues overnight. Vital sta ble. Patient calm and cooperative. Family at bedside. PT/OT recommended subacute rehab, patient awaiting placement to subacute rehab, anticipate discharge to rehab on Tuesday per case management. Assessment and plan: Failure to thrive: Progressive dementia: Generalized weakness: Interstitial lung disease COPD Elevated lipase Adrenal insufficiency Hypothyroidism Plan: Presented with progressive generalized weakness, failure to thrive Elevated lipase, abdominal exam benign, CT abdomen pelvis negative for acute process Fall precautions-PT/OT consult Case management consult Continue home meds including hydrocortisone and Florinef Continue home meds Synthroid Psychiatry consult dementia with behavioral disturbances--Per psychiatry patient does not have capacity, recommended avoiding using narcotic Encinas sedatives, recommended melatonin, Lexapro, Zyprexa. As needed Zyprexa DVT prophylaxis Subcu Lovenox Disposition: Awaiting placement to subacute rehab on Tuesday Monitor vital signs and labs Labs and medication were reviewed. Continue same treatment. Further recommendations as per clinical course of the patient PHYSICAL EXAMINATION: GENERAL: The patient is A&O x2, NAD HEENT: EOMI, Sclerae anicteric, Moist Mucous membranes Neck: Supple, Non tender, No JVD PULMONARY: Equal breath souds B/L, No wheezing, No crackles. CARDIOVASCULAR: S1, S2 present. No murmurs, rubs, or gallops. ABDOMEN: Soft, nontender, nondistended, normoactive bowel sounds. No guarding or rebound tenderness. MUSCULOSKELETAL: No edema, No cyanosis. No clubbing. Normal ROM. Intact peripheral pulses. NEUROLOGICAL: CN 2-12 grossly intact. No FND Skin: No Rash REVIEW OF SYSTEMS: CONSTITUTIONAL: No fever or chills. CARDIOVASCULAR: No chest pain, palpitations or syncope. PULMONARY: No shortness of breath, no cough, sore throat. GASTROINTESTINAL: No nausea, vomiting, diarrhea, abdominal pain. : No Dysuria, urgency, frequency. Extremities: No edema. NEUROLOGICAL: No headaches, no weakness, or numbness Dictation was produced using [employer] dictation software. please excuse any grammatical, word or spelling errors. Objective - Vital Signs Vital signs: Vital Signs Temp 97.8 F 06/01/24 12:55 Pulse 91 06/01/24 12:55 Resp 16 06/01/24 02:00 BP 124/64 06/01/24 12:55 Pulse Ox 96 06/01/24 12:55 FiO2 Intake & Output 05/31/24 06/01/24 06/01/24 18:59 06:59 18:59 Intake Total 555 Output Total 1500 1050 1600 Balance -945 -1050 -1600 Intake: Intake, IV Titration 75 Amount Dextrose 5%-0.45% NaCl 1, 75 000 ml @ 75 mls/hr IV . [id number] [facility] Rx#:[id number] Oral 480 Output: Urine 1500 1050 1600 Other: Voiding Method Indwelling Catheter Indwelling Catheter - Labs CBC & Chem 7: 05/29/24 09:32 05/29/24 09:32
--- NOTE | 2024-06-02 21:15 | P.PN ---
Subjective Progress Note Date: 06/02/24 This is a pleasant 78-year-old female she is evaluated today sitting up in the bed with no acute complaints. family and was at the bedside and updated on plan of care, no new concerns. Patient is currently pending acceptance for ECF and will remain in the hospital. Social work to follow-up. Review of Systems Constitutional: Denied any fatigue denied any fever. Cardio vascular: denied any chest pain, palpitations Gastrointestinal: denied any nausea, vomiting, diarrhea Pulmonary: Denied any shortness of breath cough Neurologic denied any new focal deficits All inpatient medications were reviewed and appropriate changes in these medications as dictated in the interval history and assessment and plan. PHYSICAL EXAMINATION: GENERAL: The patient is alert and oriented x3, not in any acute distress. Well developed, well nourished. HEENT: Pupils are round and equally reacting to light. EOMI. No scleral icterus. No conjunctival pallor. Normocephalic, atraumatic. No pharyngeal erythema. No thyromegaly. CARDIOVASCULAR: S1 and S2 present. No murmurs, rubs, or gallops. PULMONARY: Chest is clear to auscultation, no wheezing or crackles. ABDOMEN: Soft, nontender, nondistended, normoactive bowel sounds. No palpable organomegaly. MUSCULOSKELETAL: No joint swelling or deformity. EXTREMITIES: No cyanosis, clubbing, or pedal edema. NEUROLOGICAL: Gross neurological examination did not reveal any focal deficits. SKIN: No rashes. Assessment and plan: Progressive dementia Generalized weakness: Interstitial lung disease COPD Elevated lipase Adrenal insufficiency Hypothyroidism GI prophylaxis DVT prophylaxis Lovenox Full code Plan: Presented with progressive generalized weakness, failure to thrive Elevated lipase, abdominal exam benign, CT abdomen pelvis negative for acute process Fall precautions-PT/OT consult Case management consult Continue home meds including hydrocortisone and Florinef Continue home meds Synthroid Psychiatry consult dementia with behavioral disturbances--Per psychiatry patient does not have capacity, recommended avoiding using narcotic sedatives, recommended melatonin, Lexapro, Zyprexa. As needed Zyprexa Pending discharge to subacute rehab on Tuesday awaiting placement currently family was updated The impression and plan of care has been dictated by Shelbi Gutierrez Nurse Practitioner as directed. Dr. Andrews MD I have performed a history and physical examination and medical decision making of this patient, discussed the same with the dictator, and agree with the dictators assessment and plan as written, documented as a scribe. Based on total visit time, I have performed more than 50% of this visit. Objective - Vital Signs Vital signs: Vital Signs Temp 97.4 F L 06/02/24 13:28 Pulse 87 06/02/24 13:28 Resp 16 06/02/24 13:28 BP 117/65 06/02/24 13:28 Pulse Ox 95 06/02/24 13:28 FiO2 Intake & Output 06/01/24 06/02/24 06/02/24 18:59 06:59 18:59 Intake Total 900 240 Output Total 2075 600 850 Balance -1175 -600 -610 Intake: Intake, IV Titration 900 Amount Dextrose 5%-0.45% NaCl 1, 900 000 ml @ 75 mls/hr IV . [id number] [facility] Rx#:[id number] Oral 240 Output: Urine 2075 600 850 Other: Voiding Method Indwelling Catheter Indwelling Catheter Indwelling Catheter - Labs CBC & Chem 7: 05/29/24 09:32 05/29/24 09:32 Assessment and Plan Time with Patient: Less than 30
--- NOTE | 2024-06-03 15:59 | P.PN ---
Subjective Progress Note Date: 06/03/24 This is a pleasant 78-year-old female she is evaluated today sitting up in the bed with no acute complaints. family and was at the bedside and updated on plan of care, no new concerns. Patient is currently pending acceptance for ECF and will remain in the hospital. Social work to follow-up. 06/03/2024 Patient evaluated today resting in bed. No acute complaints. She is pending placement at ECF. Review of Systems Constitutional: Denied any fatigue denied any fever. Cardio vascular: denied any chest pain, palpitations Gastrointestinal: denied any nausea, vomiting, diarrhea Pulmonary: Denied any shortness of breath cough Neurologic denied any new focal deficits All inpatient medications were reviewed and appropriate changes in these medications as dictated in the interval history and assessment and plan. PHYSICAL EXAMINATION: GENERAL: The patient is alert and oriented x3, not in any acute distress. Well developed, well nourished. HEENT: Pupils are round and equally reacting to light. EOMI. No scleral icterus. No conjunctival pallor. Normocephalic, atraumatic. No pharyngeal erythema. No thyromegaly. CARDIOVASCULAR: S1 and S2 present. No murmurs, rubs, or gallops. PULMONARY: Chest is clear to auscultation, no wheezing or crackles. ABDOMEN: Soft, nontender, nondistended, normoactive bowel sounds. No palpable organomegaly. MUSCULOSKELETAL: No joint swelling or deformity. EXTREMITIES: No cyanosis, clubbing, or pedal edema. NEUROLOGICAL: Gross neurological examination did not reveal any focal deficits. SKIN: No rashes. Assessment and plan: Progressive dementia Generalized weakness: Interstitial lung disease COPD Elevated lipase Adrenal insufficiency Hypothyroidism GI prophylaxis DVT prophylaxis Lovenox Full code Plan: Presented with progressive generalized weakness, failure to thrive Elevated lipase, abdominal exam benign, CT abdomen pelvis negative for acute process Fall precautions-PT/OT consult Case management consult Continue home meds including hydrocortisone and Florinef Continue home meds Synthroid Psychiatry consult dementia with behavioral disturbances--Per psychiatry patient does not have capacity, recommended avoiding using narcotic sedatives, recommended melatonin, Lexapro, Zyprexa. As needed Zyprexa Pending discharge to subacute rehab on Tuesday awaiting placement currently family was updated The impression and plan of care has been dictated by Shelbi Gutierrez, Nurse Practitioner as directed. Dr. Andrews MD I have performed a history and physical examination and medical decision making of this patient, discussed the same with the dictator, and agree with the dictators assessment and plan as written, documented as a scribe. Based on total visit time, I have performed more than 50% of this visit. Objective - Vital Signs Vital signs: Vital Signs Temp 97.7 F 06/03/24 13:39 Pulse 83 06/03/24 13:39 Resp 16 06/03/24 13:39 BP 110/65 06/03/24 13:39 Pulse Ox 96 06/03/24 13:39 FiO2 Intake & Output 06/02/24 06/03/24 06/03/24 18:59 06:59 18:59 Intake Total 1380 590 Output Total 1225 300 Balance 155 290 Intake: Intake, IV Titration 900 Amount Dextrose 5%-0.45% NaCl 1, 900 000 ml @ 75 mls/hr IV . [id number] [facility] Rx#:[id number] Oral 480 590 Output: Urine 1225 300 Other: Voiding Method Indwelling Catheter Indwelling Catheter - Labs CBC & Chem 7: 05/29/24 09:32 05/29/24 09:32 Assessment and Plan Time with Patient: Less than 30
[2024-06-04 07:57] VITALS: BP 116/74; PULSE 79; RESP 22; TEMP 97.4
--- NOTE | 2024-06-04 12:43 | P.DS ---
Providers Date of admission: 06/01/24 09:51 Expected date of discharge: 06/04/24 Attending physician: Delbert Ash Consults: 05/29/24 15:01 Consult Physician Routine Consulting Provider: Psychiatry - [facility] Psychiatry Consult Reason/Comments: dementia with behavioral disturbances Do you want consulting provider notified?: Already Contacted Primary care physician: Scout Bonner [facility] Course: Final diagnosis Progressive dementia Generalized weakness Interstitial lung disease COPD Elevated lipase Adrenal insufficiency Hypothyroidism GI prophylaxis Chronic constipation, is on daily lactulose DVT prophylaxis Lovenox Full code Discharge disposition Patient is being discharged in a stable condition with guarded prognosis to [facility]. Patient will follow-up with Dr. Bonner in the outpatient setting upon discharge. Patient is to continue with current medications as mentioned below. Total time taken is greater than 35 minutes. Hospital course This is a 78-year-old female who was recently admitted with progressive weakness with multiple comorbidities has been becoming progressively more weak. Patient evaluated by physical therapy recommending rehab and case management following and has received insurance authorization for patient to go to [facility]. Patient to follow-up with primary care provider in the outpatient setting and continue on current medication regimen. Recommend repeat labs in the next 1 week to monitor CBC, CMP, magnesium. Patient per family takes lactulose daily although was documented as as needed. Will make scheduled and if having loose bowel movements recommend as needed. Last documented bowel movement was on June 01, 2024. Please refer to other dictations for further HPI. Patient will be going to [facility]. Currently no reports of chest pain, shortness of breath, or palpitations. Patient is afebrile. No reports of nausea or vomiting and patient is tolerating diet. Patient will be discharged today. Guarded p rognosis given significant comorbidities. Physical exam: Gen: This is a 78-year-old female who is awake, alert and oriented x 1-2, baseline, well-developed, elderly appearing, thin built HEENT: Head is atraumatic, normocephalic. Pupils equal, round. Sclerae is anicteric. NECK: Supple. No JVD. No lymphadenopathy. No thyromegaly. LUNGS: Diminished breath sounds bilaterally otherwise clear to auscultation. No wheezes or rhonchi. No intercostal retractions. HEART: Regular rate and rhythm. No murmur. ABDOMEN: Soft. Bowel sounds are present. No masses. No tenderness. Positive bowel sounds noted in all 4 quadrants EXTREMITIES: No pedal edema. No calf tenderness. NEUROLOGICAL: Patient is awake, alert and oriented x 12, baseline. Cranial nerves 2 through 12 are grossly intact. Diffusely weak Please refer to medication reconciliation sheet for a list of medications. The impression and plan of care has been dictated by Cyndi Stubbs, Nurse Practitioner as directed. Dr. Andrews MD I have performed a history and examination and MDM of this patient, discussed the same with the dictator, and agree with the dictator's assessment and plan as written ,documented as a scribe. Based on total visit time, I have performed more than 50% of the visit. Patient Condition at Discharge: Fair Plan - Discharge Summary Discharge Rx Participant: Yes New Discharge Prescriptions: No Action Levothyroxine Sodium [Synthroid] 88 mcg PO DAILY Fludrocortisone [Florinef] 0.05 mg PO MOWEFR Hydrocortisone [Cortef] 20 mg PO HS Aspirin 81 mg PO DAILY@1200 Lactulose 20 gm PO HS PRN PRN Reason: Constipation Donepezil [Aricept] 10 mg PO HS Ibandronate Sodium [Boniva] 150 mg PO Q30D Furosemide [Lasix] 20 mg PO DAILY Dicyclomine [Bentyl] 10 mg PO Q8H PRN PRN Reason: Gi Upset Megestrol Acetate 400 mg PO DAILY Ipratropium-Albuterol Nebulize [Duoneb 0.5 mg-3 mg/3 ml Soln] 3 ml INHALATION QID PRN #360 ml PRN Reason: Shortness Of Breath Atorvastatin [Lipitor] 10 mg PO DAILY Hydrocortisone [Cortef] 10 - 20 mg PO BID PRN PRN Reason: illness Hydrocortisone [Cortef] 10 mg PO DAILY Pantoprazole [Protonix] 40 mg PO DAILY Latanoprost [Latanoprost 0.005%] 1 drop BOTH EYES HS Potassium Chloride ER [K-Dur 20] 20 meq PO DAILY Albuterol Inhaler [Ventolin Hfa Inhaler] 2 puff INHALATION RT-Q4H PRN #2 each PRN Reason: Shortness Of Breath Discharge Medication List Aspirin 81 mg PO DAILY@1200 11/03/13 [History] Fludrocortisone [Florinef] 0.05 mg PO MOWEFR 11/03/13 [History] Hydrocortisone [Cortef] 20 mg PO HS 11/03/13 [History] Levothyroxine Sodium [Synthroid] 88 mcg PO DAILY 11/03/13 [History] Atorvastatin [Lipitor] 10 mg PO DAILY 12/26/20 [History] Hydrocortisone [Cortef] 10 - 20 mg PO BID PRN 12/26/20 [History] Hydrocortisone [Cortef] 10 mg PO DAILY 12/26/20 [History] Donepezil [Aricept] 10 mg PO HS 04/02/24 [History] Ibandronate Sodium [Boniva] 150 mg PO Q30D 04/02/24 [History] Lactulose 20 gm PO HS PRN 04/02/24 [History] Latanoprost [Latanoprost 0.005%] 1 drop BOTH EYES HS 04/02/24 [History] Pantoprazole [Protonix] 40 mg PO DAILY 04/02/24 [History] Dicyclomine [Bentyl] 10 mg PO Q8H PRN 05/06/24 [History] Furosemide [Lasix] 20 mg PO DAILY 05/06/24 [History] Megestrol Acetate 400 mg PO DAILY 05/06/24 [History] Potassium Chloride ER [K-Dur 20] 20 meq PO DAILY 05/06/24 [History] Albuterol Inhaler [Ventolin Hfa Inhaler] 2 puff INHALATION RT-Q4H PRN #2 each 05/08/24 [Rx] Ipratropium-Albuterol Nebulize [Duoneb 0.5 mg-3 mg/3 ml Soln] 3 ml INHALATION QID PRN #360 ml 05/09/24 [Rx] Follow up Appointment(s)/Referral(s): Scout Bonner MD [Primary Care Provider] - 1-2 days
[2024-06-04] MEDS: LACTULOSE 20 GM/30 ML CUP PO ONE (14:29)
== END 2024-06-04 15:48 | DRG 884 ==
LOC: EC 08:33 → 6NMEDSUR 12:31 → 5NMEDONC 23:24 → OBSVTOIN 06-01 09:51
PROVIDERS: ADMIT Hospitalist; ATTEND Hospitalist
DX: F03.918 Unspecified dementia, unspecified severity, with other behavioral disturbance (principal); E27.1 Primary adrenocortical insufficiency; E03.9 Hypothyroidism, unspecified; G40.909 Epilepsy, unspecified, not intractable, without status epilepticus; H91.90 Unspecified hearing loss, unspecified ear; J44.9 Chronic obstructive pulmonary disease, unspecified; J84.10 Pulmonary fibrosis, unspecified; M54.50 Low back pain, unspecified; G89.29 Other chronic pain; J30.9 Allergic rhinitis, unspecified; H40.9 Unspecified glaucoma; K59.09 Other constipation; Z96.653 Presence of artificial knee joint, bilateral; R62.7 Adult failure to thrive; Z79.82 Long term (current) use of aspirin; Z79.890 Hormone replacement therapy; Z79.899 Other long term (current) drug therapy
CPT/HCPCS: 36415; 74177; 80053; 81001; 83690; 85025; 93005; 96361; 96374; 96375; 99285